=== PATIENT | male | born 1940 | race Caucasian/White ===

== ENCOUNTER 2023-12-27 16:50 | Inpatient (IN) | payer OTHER, SELFPAY ==
[2023-12-27] VITALS (9 sets, daily range): BP systolic 107–173; BP diastolic 65–92; BMI 38.9
[2023-12-27 14:36] LABS: % Basophils 0.4 % (0-2); % Eosinophils 4.5 % (0-6); % Immature Granulocytes 0.7 % (0-0.5); % Lymphocytes 18.2 % (20.5-51.1); % Monocytes 10.3 % (1.7-9.3); % Neutrophils 65.9 % (42.2-75.2); Absolute Eosinophils 0.2 10^3/uL (0-0.7); Absolute Lymphocytes 0.8 10^3/uL (1.2-3.4); Absolute Monocytes 0.5 10^3/uL (0.1-0.6); Absolute Neutrophils 2.9 10^3/uL (1.4-6.5); Hemoglobin 9.9 g/dL (13.0-18.0); Mean Corpuscular Hgb 33.7 pg (27.0-31.0); Nucleated Red Blood Cells % 0 % (-); Red Blood Cell Count 2.94 10^6/uL (4.70-6.10); Red Cell Dist. Width 15.1 % (11.5-14.5); White Blood Cell Count 4.5 10^3/uL (4.8-10.8)
[2023-12-27 14:48] LABS: ALT (SGPT) 11 U/L (0-50); AST (SGOT) 22 U/L (17-59); Albumin 3.7 g/dl (3.5-5.0); Alkaline Phosphatase 86 U/L (38-126); Blood Urea Nitrogen 33 mg/dl (9-20); Carbon Dioxide 30 mmol/L (22-30); Chloride 99 mmol/L (98-107); Glucose 166 mg/dl (70-99); Potassium 4.4 mmol/L (3.5-5.1); Sodium 134 mmol/L (135-145); Total Bilirubin 0.7 mg/dl (0.2-1.3); Total Protein 8.1 g/dl (6.3-8.2)
[2023-12-27 15:03] LABS: Troponin I 0.062 ng/ml
[2023-12-27 15:15] LABS: Mean Platelet Volume 9.6 fL (7.4-10.4); Platelet Count 91 10^3/uL (130-400)
[2023-12-27 15:25] LABS: NT-proBNP 7170 pg/ml
--- NOTE | 2023-12-27 15:35 | ED.GENMED ---
History of Present Illness
General
Chief Complaint: Breathing Problem
Source: patient and spouse
Exam Limitations: none
Time Seen by Provider: 12/27/23 14:51
Nursing documentation reviewed up to this point in time: agreed with
Travel History
Have you had any contact with someone who has COVID-19?: No
Do you have any symptoms of coronavirus? Fever > 100 degrees, chills, cough, shortness of breath, sore throat, loss of taste or smell, muscle aches, or headache?: No
History of Present Illness
History of Present Illness:
83-year-old male with [place] history of CHF hypertension hyperlipidemia, previous stroke, multiple myeloma presenting to the emergency department today with concerns of shortness of breath starting this morning otherwise felt okay last night.
Denies specific chest pain palpitations. Does not use oxygen at home but requiring oxygen upon arrival here.
Past History
Past History
ED Past Medical History: CAD, CHF, CVA, HTN, Hypercholesterolemia, IDDM, ID and Other (Cellulitis)
ED Past Surgical History: Cardiac (Stent, Defibrillator), Cholecystectomy and Other (eye)
Social History
Tobacco: Smoker (cigars)
Alcohol: Occasional
Drug: None
Personal: (Lives with a woman)
Living: with family
Employment: Retired
Family History
Family History: Other (No significant)
Review of Systems
Review of Systems
Allergies reviewed?: Yes
All Other Systems: ROS reviewed and negative except as documented in HPI and ROS
Phy Exam
Physical Exam
Physical Exam:
GENERAL: Alert , in no apparent distress
EYE: pupils equal and reactive
NECK: Supple, no significant adenopathy.
ENT: o/p clr, mmm.
CARDIAC: Regular rate and rhythm .
LUNGS: Somewhat diffuse rhonchi no specific wheezing
ABDOMEN: Soft, without focal tenderness, no r/g, no cvat
NEUROLOGICAL: Alert and oriented, no focal neuro deficits
SKIN: Warm and dry, skin intact.
MUSCULOSKELETAL: No edema, well perfused.
PSYCH: Normal and appropriate interaction.
Scores
Heart Failure Risk
Heart Failure Risk Score: Not Applicable
Course
Orders/Labs/Results
Orders:
Orders
12/27/23 14:22
Electrocardiogram (*1) Urgent
Reason for Study: Shortness of Breath
12/27/23 14:23
EKG- Treatment ONCE
12/27/23 14:24
Complete Blood Count/With Diff Urgent
Comprehensive Metabolic Panel Urgent
NT-proBNP Urgent
Comment: ADD ON
Troponin I Urgent
12/27/23 14:52
Add On- LAB Urgent
Tests Added?: BNP
BNP [NT-proBNP] Urgent
Chest [CR Chest - 2 Views ] Urgent
Comment:
Reason For Exam: sob
12/27/23 15:04
Furosemide [Lasix] 80 mg IV NOW STA
Nitroglycerin Sublingual [Nitrostat (Sublingual)] 0.4 mg SL [id number] PRN
Abnormal Lab Results
12/27/23
14:24
WBC 4.5 L 10^3/uL
(4.8-10.8)
RBC 2.94 L 10^6/uL
(4.70-6.10)
Hgb 9.9 L g/dL
(13.0-18.0)
Hct 30.0 L %
(39.0-52.0)
MCV 102.0 H fL
(80.0-94.0)
MCH 33.7 H pg
(27.0-31.0)
RDW 15.1 H %
(11.5-14.5)
Plt Count 91 L 10^3/uL
(130-400)
Absolute Lymphs (auto) 0.8 L 10^3/uL
(1.2-3.4)
Immature Gran % 0.7 H %
(0-0.5)
Lymphocytes % 18.2 L %
(20.5-51.1)
Monocytes % 10.3 H %
(1.7-9.3)
Sodium 134 L mmol/L
(135-145)
BUN 33 H mg/dl
(9-20)
Creatinine 2.0 H mg/dL
(0.7-1.3)
Glucose 166 H mg/dl
(70-99)
Troponin I 0.062 H* ng/ml
12/27/23 14:24
12/27/23 14:24
Vital Signs
Initial and Last Documented VS:
Initial Vital Signs
Pulse BP
95 145/75
12/27/23 14:23 12/27/23 14:23
Last Documented Vital Signs
Temp Pulse Resp BP Pulse Ox
98.5 F 100 20 138/75 98
12/27/23 14:24 12/27/23 15:32 12/27/23 15:32 12/27/23 15:00 12/27/23 15:32
MDM/Problems Addressed
MDM/Problems Addressed:
83-year-old male presenting to the emergency department today with concerns of shortness of breath throughout the day today. Decreased exercise tolerance as well. Does have a history of CHF has not been taking his Lasix. On arrival pulse ox in
the 80s this improved with oxygen. Patient have rales and rhonchi on lung examination here concerning for pulmonary edema. Patient was given dose of IV Lasix as well as nitro. Chest x-ray showing some edema BNP elevated to 7000. Plan to admit
for further treatment. Otherwise EKG unchanged troponin mildly elevated however lower than patient's previous baseline. Chest x-ray showing edema patient was started on Lasix as well as nitro will be admitted for further treatment.
*Critical Care Note
Total Time (30-74mins, 75-104mins- exclusive of procedures): Not Applicable
ED Attending Note
-
Portions of this chart may have been created with voice recognition software.� Occasional wrong word or��sound alike� substitutions may have occurred due to the inherent limitations of voice recognition software.
Discharge Plan
Departure
Patient Disposition: Admit
Date of Disposition: 12/27/23
Time of Disposition: 15:47
Admit to: Telemetry
Admit to doctor: jorge
Presentation/result/management discussed w/ accepting MD/DO: Hospitalist
Patient with high blood pressure during this ER visit?: No
Condition: Good
Covid-19: Not Applicable
Discharge Problem:
CHF exacerbation
Prescriptions:
No Action
calcium carbonate 600 MG tablet
1,200 mg PO DAILY
docosahexaenoic acid-epa 1 CAP capsule
3 cap PO QPM
aspirin 81 MG tablet,delayed release (DR/EC)
81 mg PO BID
venlafaxine [Effexor] 75 MG tablet
75 mg PO BID
allopurinol 100 MG tablet
50 mg PO DAILY
ezetimibe 10 MG tablet
10 mg PO QPM
cholecalciferol (vitamin D3) 2,000 UNITS tablet
50 mcg PO DAILY
rosuvastatin [Crestor] 40 MG tablet
40 mg PO QPM
tamsulosin 0.4 MG capsule
0.4 mg PO QPM
sennosides [Senokot] 8.6 mg Tablet
8.6 mg PO HS
docusate sodium [Colace] 100 mg Capsule
100 mg PO DAILY
carvedilol [Coreg] 6.25 mg tablet
6.25 mg PO BID Qty: 60 11RF
Rx Instructions:
Increase Coreg (carvedilol) to 6.25 mg (two 3.125 mg tablets) twice a day
furosemide 80 MG tablet
40 mg PO HS Qty: 30 11RF
Rx Instructions:
Take Lasix 80 mg (one 80 mg tablet) at 8 AM and 40 mg (1/2 of an 80 mg tablet) at 4 PM daily
furosemide 80 MG tablet
80 mg PO DAILY Qty: 30 11RF
Rx Instructions:
Take Lasix 80 mg (one 80 mg tablet) at 8 AM and 40 mg (1/2 of an 80 mg tablet) at 4 PM daily
Referrals:
Michelle Rogers PA-C [Family Provider] -
Interventions
Interventions:
*Risk Screen - Suicide Last Done: 12/27/23 14:24
*General Assessment Last Done: 12/27/23 14:24
*Neglect/Abuse Screening Last Done: 12/27/23 14:24
*ED COVID-19 Vaccine History Last Done: 12/27/23 14:24
ED- Cardiac Assessment Last Done: 12/27/23 14:30
ED- Pulmonary Assessment Last Done: 12/27/23 14:30
[2023-12-27] MEDS: NITROSTAT (SUBLINGUAL) 0.400000000000000022 MG SL (15:51)
[2023-12-27] MEDS: LASIX 80 MG IV (15:51)
--- NOTE | 2023-12-27 16:41 | HPS.HSE ---
Family Physician
-
Family Physician: Michelle Rogers
Chief Complaint
-
Shortness of breath on exertion
History of Present Illness
83-year-old male with a history of heart failure here complaining of shortness of breath on exertion. Accompanied by his . Patient noted onset of shortness of breath this morning. Denies any chest pain or pressure.
admits that patient does not like taking his furosemide daily. He also continues to smoke cigars.
Medical History
Past Medical History
Past Medical History: Reports Other
Additional Past Medical History:
Chronic heart failure reduced EF
CKD stage IV
Essential hypertension
History of multiple strokes
Multiple myeloma
Basal cell cancer
CAD
DM2
GERD
Essential tremor
BPH
Gout
Glaucoma
Morbid obesity
Past Surgical History: Reports Other
Additional Past Surgical History:
BiV�ICD placement
Cholecystectomy
Left renal tumor resection
Social History
Tobacco: Smoker
Alcohol: Occasional
Drug: None
Personal:
Living: With Family
Family History
Family History: Not pertinent
Allergies / Home Medications
Allergies reflects when Allergies were last updated in [facility].
Home Medications with original date entered in [facility]
Allergy/Medication List:
Allergies
Allergy/AdvReac Type Severity Reaction Status Date / Time
No Known Allergies Allergy Unverified 09/15/23 16:01
Home Medications
calcium carbonate 600 mg calcium (1,500 mg) tablet 600 mg PO DAILY Supplement 05/12/16
aspirin 81 mg tablet,delayed release 81 mg PO BID Blood clot prevention/tx 05/15/18
allopurinol 100 mg tablet 50 mg PO DAILY Gout 10/11/21
ezetimibe 10 mg tablet 10 mg PO HS High cholesterol 10/11/21
rosuvastatin 40 mg tablet (Crestor) 40 mg PO HS High cholesterol 10/11/21
tamsulosin 0.4 mg capsule 0.4 mg PO HS Urinary issue 11/30/21
docusate sodium 100 mg capsule (Colace) 100 mg PO HS Constipation 07/31/22
sennosides 8.6 mg tablet (Senokot) 8.6 mg PO HS Constipation 07/31/22
carvedilol 6.25 mg tablet (Coreg) 6.25 mg PO BID heart disease/condition #60 tabs 08/02/22
Fish Oil 3 cap PO HS 12/27/23
cholecalciferol (vitamin D3) 50 mcg (2,000 unit) tablet 50 mcg PO DAILY 12/27/23
furosemide 80 mg tablet 40 mg PO DAILY Fluid retention/Swelling 12/27/23
venlafaxine 75 mg tablet 75 mg PO BID 12/27/23
Review of Systems
-
History Source: Patient and Family
A 12 point ROS was completed and negative except as noted: Yes
Respiratory: Reports Trouble Breathing
Physical Exam
Vital Signs
Vital Signs
Temp Pulse Resp BP Pulse Ox
98.5 F 83 17 155/71 99
12/27/23 14:24 12/27/23 15:51 12/27/23 15:45 12/27/23 15:51 12/27/23 15:50
Physical Exam
General: Well Developed, Well Nourished, No Apparent Distress and Comfortable
HEENT: NormoCephalic, Anicteric and Moist mucous membranes
Respiratory: Rhonchi
Cardiac: S1/S2 and Regular Rhythm
GI: Soft, Non Tender and Non Distended
Genito-urinary: Deferred by me
Musculoskeletal: No Clubbing, No Cyanosis, Edema, Left Lower Extremity and Edema, Right Lower Extremity
Skin: Warm and Dry
Neuro: Awake, Alert and Oriented
Hematologic/Lymphatic: No Lymphadenopathy
Psych: Calm
Laboratory Results
-
12/27/23 14:24
12/27/23 14:24
Laboratory Results
Total Bilirubin 0.7 mg/dl (0.2-1.3) 12/27/23 14:24
AST 22 U/L (17-59) 12/27/23 14:24
ALT 11 U/L (0-50) 12/27/23 14:24
Alkaline Phosphatase 86 U/L (38-126) 12/27/23 14:24
Troponin I 0.062 ng/ml H* 12/27/23 14:24
Impression/Plan
-
Acute hypoxic respiratory insufficiency -due to acute pulmonary edema due to acute on chronic heart failure exacerbation. Presentation with pulse ox of 87% on room air, improved on 2 L.
Acute on chronic heart failure with reduced EF exacerbation -admit to telemetry. BNP noted to be 7170. Chest x-ray with mild pulmonary edema, small bilateral pleural effusions. Consult cardiology. Continue IV Lasix. Patient's admits that
he has not been compliant with Lasix at home.
Last echo was from 11/08/2023, LVEF 30%.
Hyponatremia -sodium 134. Monitor on diuresis.
Troponin elevation -likely non-ND troponin elevation related to acute heart failure exacerbation. Will trend.
CKD stage IV -creatinine at baseline. Follow closely on diuresis.
Chronic pancytopenia -unclear etiology. Counts appear to be at baseline. Follow-up with hematology after discharge.
Essential hypertension -stable.
History of strokes
CAD -with history of ND, stents.
DM2 without hyperglycemia -appears to be diet controlled. Check hemoglobin A1c.
Multiple myeloma
History of left renal tumor resection -required dialysis for 3 months according to .
Tobacco dependence -regular cigar smoker. Counseled on need for abstinence.
Morbid obesity due to excess calories
Ambulatory dysfunction -consult PT/OT. Suspect he is noncompliant with his walker at home.
Full code
Updated at the bedside.
--- NOTE | 2023-12-27 17:05 | CON.CAR ---
Consultation
Consultation Request
Date/Time Consultation Requested: 12/27/2023
Date/Time Consultation Performed: 12/27/2023
Requesting Provider: Estuardo Marin
Performing Provider: Adore Banuelos
Reason for Consultation: SOB
Medical History
-
Chief Complaint: SOB
History of Present Illness:
Mr Gill is a medically complex 83-year-old gentleman with dilated ischemic cardiomyopathy/restrictive physiology with recent ejection fraction by SPECT imaging in September 2022 of 22% and 30% by echocardiogram from October 2023, improved from
prior echocardiogram of 10 to 15%, Medtronic BiV ICD placed in 2021, prior VF status post shock in the setting of COVID in July 2022, left bundle branch block, prior stroke in 2000 with left hemiparesis and neglect and now just a left field
cut, diabetes mellitus type 2, hypertension, dyslipidemia, mild aortic stenosis with mildly enlarged aortic root, chronic kidney disease previously on dialysis, baseline creatinine of 2.3-2.7, secondary hyperparathyroidism, renal mass presumed to be
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
associated with orthopnea and mild lower extremity edema found to be in acute decompensated heart failure. Reports non compliance with lasix. No CP/palpitations/syncope.
Recent Lexiscan stress test September 2022 noting scar from prior infarct but no significant evidence to suggest ischemia. He was last seen in the outpatient setting in April 2023 and since 2021, he had no interval hosptializations and weight had been
stable. Weight during this office visit was 251 pounds (113.8 kg)
Past Medical History
Past Medical History: CAD, CHF, CVA, HTN, Hypercholesterolemia, IDDM, DE, Renal Failure and Valvular Disease
Past Surgical History: Other (Prior coronary stents, cholecystectomy in 2015, BiV ICD implantation in 2001)
Social History
Tobacco: Non-Smoker
Alcohol: None
Drug: None
Personal:
Living: With Family
Employment: Retired
Family History
Family History: Reviewed & Not Pertinent
Allergies / Home Medications
Allergy/AdvReac Type Severity Reaction Status Date / Time
No Known Allergies Allergy Unverified 09/15/23 16:01
Medication Instructions Recorded Confirmed Type
calcium carbonate 600 mg calcium 600 mg PO DAILY Supplement 05/12/16 12/27/23 History
(1,500 mg) tablet
aspirin 81 mg tablet,delayed 81 mg PO BID Blood clot 05/15/18 12/27/23 History
release prevention/tx
allopurinol 100 mg tablet 50 mg PO DAILY Gout 10/11/21 12/27/23 History
ezetimibe 10 mg tablet 10 mg PO HS High cholesterol 10/11/21 12/27/23 History
rosuvastatin 40 mg tablet (Crestor) 40 mg PO HS High cholesterol 10/11/21 12/27/23 History
tamsulosin 0.4 mg capsule 0.4 mg PO HS Urinary issue 11/30/21 12/27/23 History
docusate sodium 100 mg capsule 100 mg PO HS Constipation 07/31/22 12/27/23 History
(Colace)
sennosides 8.6 mg tablet (Senokot) 8.6 mg PO HS Constipation 07/31/22 12/27/23 History
carvedilol 6.25 mg tablet (Coreg) 6.25 mg PO BID heart 08/02/22 12/27/23 Rx
disease/condition #60 tabs
Fish Oil 3 cap PO HS 12/27/23 12/27/23 History
cholecalciferol (vitamin D3) 50 50 mcg PO DAILY 12/27/23 12/27/23 History
mcg (2,000 unit) tablet
furosemide 80 mg tablet 40 mg PO DAILY Fluid 12/27/23 12/27/23 History
retention/Swelling
venlafaxine 75 mg tablet 75 mg PO BID 12/27/23 12/27/23 History
Review of Systems
-
All other systems: Negative unless noted
Physical Exam
Vital Signs
Temp Pulse Resp BP Pulse Ox
98.5 F 81 17 115/65 98
12/27/23 14:24 12/27/23 16:15 12/27/23 15:45 12/27/23 16:00 12/27/23 16:30
Lab Results
12/27/23 14:24
12/27/23 14:24
Troponin I 0.062 ng/ml H* 12/27/23 14:24
Hyt-V-[id number] Pept Cancelled 12/27/23 14:52
Physical Exam
General: No Apparent Distress and Other (Morbidly obese)
HEENT: Moist Mucous Membranes
Respiratory: Crackles
Cardiac: S1/S2, Irregular Rhythm, Peripheral Edema, JVD and HJR
Breast: Deferred by me
GI: Soft, Non Tender, Non Distended, Normal Bowel Sounds and Other (active bowel sounds)
Musculoskeletal: No Clubbing, No Cyanosis and Edema
Skin: Warm and Dry
Neuro: AO x 3 and Nonfocal/Grossly Intact
Psych: Calm
Impression / Plan
-
Primary Dry Mixer: Dr. Clark
PCP: Michelle Rogers
Impression:
Presented 12/27/2023 with decompensated HF
Troponin elevation, mild. No CP
Acute on Chronic HFrEF
Ischemic cardiomyopathy, lowest EF 10 to 15% by echo 01/2021--> improved to 30% on echo 2022
s/p Medtronic BiVICD 12/07/21
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
Known left bundle branch block
Prior stroke and TIA with residual left field cut
Diabetes
Hypertension
Dyslipidemia
Mild aortic stenosis
Mildly enlarged aortic root
CKD 4, previously on HD
Secondary hyperparathyroidism
Morbid obesity
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
MM
History of gout
PHILIPPE, untreated
Non-adherance to medications
Echo 11/08/2023: Dilated cardiomyopathy, LVEF of 30%, right-sided ICD, dilated left atrium, mild to moderate aortic stenosis, peak and mean transaortic gradients of 15/8 mmHg, DVI of 0.4. No pericardial effusion.
Echo 10/12/2021: EF 10%, global hypokinesis LV severely dilated, mild LVH, stage III DD, mild MR, trace TR/AI, PAP 15 to 20 mmHg.� Possible left ventricular apical thrombus.� Echo repeated with Definity 10/13/2021 which demonstrated no LV thrombus
with Definity
Echo 01/2021: EF 10 to 15%, global hypokinesis with akinesis of inferior wall, septum, and apex.� Stage III diastolic dysfunction, mitral annular calcification, mild MR, aortic sclerosis, mildly dilated aortic root
Lexiscan Stress Test: 09/14/22: Fixed inferior and inferior-septal defect consistent with infarction, severely decreased systolic function with estimated LVEF of 22% with severe global hypokinesis and dilated left ventricle, intermediate risk stress
test, 4 beat NSVT during study
Cardiac cath 10/24/2015:�LAD:stent in the proximal LAD is widely patent.� The second diagonal comes off the middle of the stent and is jailed by the stent and has a 90% ostial stenosis.� There is a 40% mid LAD stenosis. Circumflex: Luminal
irregularities RCA: 100% chronic total occlusion of the proximal RCA.
Plan:
-Continue with aggressive IV diuresis (Lasix 80mg IV BID) with close monitoring of renal function, strict ins and outs, daily upright weights and repletion of electrolytes as needed. Monitor on telemetry.
-Device interrogation tomorrow.
-Trend troponins and ECGs.
-Goal-directed medical therapy for underlying ischemic cardiomyopathy. So medications as noted are precluded given his underlying renal dysfunction.
-Known CAD with LAD stent in 2012 and chronic total occlusion noted on cardiac catheterization in 2014.� Continue medical management with beta-penny, aspirin, Crestor, Zetia.
HPI: Mr Gill is a medically complex 83-year-old gentleman with dilated ischemic cardiomyopathy/restrictive physiology with recent ejection fraction by SPECT imaging in September 2022 of 22% and 30% by echocardiogram from October 2023, improved
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
field cut, diabetes mellitus type 2, hypertension, dyslipidemia, mild aortic stenosis with mildly enlarged aortic root, chronic kidney disease previously on dialysis, baseline creatinine of 2.3-2.7, secondary hyperparathyroidism, renal mass presumed
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
associated with orthopnea and mild lower extremity edema found to be in acute decompensated heart failure. Reports non compliance with lasix. No CP/palpitations/syncope. Recent Lexiscan stress test September 2022 noting scar from prior infarct but
no significant evidence to suggest ischemia. He was last seen in the outpatient setting in April 2023 and since 2021, he had no interval hosptializations and weight had been stable. Weight during this office visit was 251 pounds (113.8 kg)
Data Reviewed
-
EKG: Tracing Personally Visualized and interpreted
Radiology: Image Personally Visualized and interpreted
Medical Tests (Nuc Med, Echo etc): Image Personally Visualized and interpreted
Labs: Labs Reviewed by me
Old Records: Reviewed
Total Time Spent with Patient (in minutes): 75
[2023-12-27 18:16] LABS: Glucose - Point of Care 154 mg/dl (70-99)
--- NOTE | 2023-12-27 18:47 | PTCARENOTE ---
Received pt from ER via stretcher, accompanied by ER staff. Pt AAO x3, very [place]; forgetful. Transferred to bed with assist x2;pt weak/unsteady; fall prec initiated. VSS. PLaced on telemetry:[id number] rhythm. On nc 2 lpm- pulse ox 100%, pt denies
SOB; has (+) NAQVI/tachypnea. Abd obese, soft, to start 1800 filemon diet. Pt DTV; urinal/BSC at bedside. Afebrile; very dry skn; MASD/dusky skin in groin/jonas area. Oriented to 4East, currently resting quietly. Will continue to monitor.
[2023-12-27] MEDS: COREG 6.25 MG PO (20:29)
[2023-12-27] MEDS: DESENEX/MITRAZOL/ZEASORB 1 APPLIC TOPICAL (20:29)
[2023-12-27] MEDS: ASPIR LOW (ENTERIC COATED) 81 MG PO (20:29)
[2023-12-27] MEDS: EFFEXOR 75 MG PO (20:29)
[2023-12-27] MEDS: HEPARIN 5000 UNITS SC (20:30)
[2023-12-27] MEDS: FLOMAX 0.400000000000000022 MG PO (20:32)
[2023-12-27] MEDS: CRESTOR 40 MG PO (20:32)
[2023-12-27] MEDS: ZETIA 10 MG PO (20:32)
[2023-12-27] MEDS: SENOKOT PO (20:46)
[2023-12-27] MEDS: COLACE PO (20:48)
[2023-12-27 20:56] LABS: Troponin I 0.079 ng/ml
[2023-12-27 21:46] LABS: Glucose - Point of Care 154 mg/dl (70-99)
--- NOTE | 2023-12-27 23:51 | W.PN.UPDATE ---
Update Note
Progress Note Update
Patient with frequency, voiding small amount, bladder scan 674 cc, will straight cath, UA ordered. no blood in urine.
[2023-12-28] VITALS (8 sets, daily range): BP systolic 100–138; BP diastolic 50–73; PULSE 59–75; O2SAT 99–100; BMI 37.2
[2023-12-28 00:55] LABS: Urine Albumin Negative (Neg - Trace); Urine Bilirubin Negative (Negative); Urine Character Clear (Clear); Urine Color Straw; Urine Glucose Negative (Negative); Urine Ketone Negative (Negative); Urine Leukocyte Negative (Negative); Urine Nitrite Negative (Negative); Urine Occult Blood Negative (Negative); Urine Urobilinogen Negative (Neg - 1+)
[2023-12-28 01:53] LABS: % Basophils 0.4 % (0-2); % Eosinophils 3.9 % (0-6); % Immature Granulocytes 0.6 % (0-0.5); % Lymphocytes 25.6 % (20.5-51.1); % Monocytes 12.9 % (1.7-9.3); % Neutrophils 56.6 % (42.2-75.2); Absolute Eosinophils 0.2 10^3/uL (0-0.7); Absolute Lymphocytes 1.2 10^3/uL (1.2-3.4); Absolute Monocytes 0.6 10^3/uL (0.1-0.6); Absolute Neutrophils 2.6 10^3/uL (1.4-6.5); Hematocrit 26.8 % (39.0-52.0); Mean Corp Hgb Conc. 33.6 g/dL (33.0-37.0); Mean Corpuscular Hgb 32.7 pg (27.0-31.0); Mean Corpuscular Volume 97.5 fL (80.0-94.0); Nucleated Red Blood Cells % 0 % (-); Platelet Count 102 10^3/uL (130-400); Red Blood Cell Count 2.75 10^6/uL (4.70-6.10); Red Cell Dist. Width 15.1 % (11.5-14.5); White Blood Cell Count 4.6 10^3/uL (4.8-10.8)
[2023-12-28 02:13] LABS: Blood Urea Nitrogen 39 mg/dl (9-20); Calcium 9.6 mg/dl (8.4-10.2); Carbon Dioxide 31 mmol/L (22-30); Chloride 98 mmol/L (98-107); Estimated Creatinine Clearance 29 ml/min; Glucose 131 mg/dl (70-99); Potassium 4.4 mmol/L (3.5-5.1); Sodium 135 mmol/L (135-145); eGFR 28.63
[2023-12-28 02:20] LABS: Troponin I 0.096 ng/ml
--- NOTE | 2023-12-28 07:12 | PTCARENOTE ---
Pt aaox2-3,forgetful at times. Denies pain. Pt very anxious & agiated at times when reminded about safety measures. Pt on fall precautions. Pt unsteady with ambulation oob with two person assist to BSC. Pt noted with voiding in small amounts &
frequency with urination. Pt was bladder scanned noted for 674ml & R DEVELOPER newsperson was made aware. Straight catheterized for 660ml & Urine specimen was send. R DEVELOPER newsperson made aware of all pt troponin level.Pt asymptomatic denies of any chest pain. EKG
done as ordered.Plan of care continued.
[2023-12-28 07:17] LABS: Troponin I 0.099 ng/ml
[2023-12-28 07:32] LABS: Glucose - Point of Care 139 mg/dl (70-99)
--- NOTE | 2023-12-28 08:18 | W.PN.HOSP.TC ---
Today's Communication/Plan
-
Continue diuresis
PT/OT
Hemoglobin A1c
Assessment / Plan
Assessment / Plan
Gen-AAOx3, NAD, obese
HEENT-NC, AT, anicteric, clear oral mm
Neck-supple
CV-reg, no M, +S1/S2
Lungs-clear B/L
Abd-soft, NT, ND
Ext-no edema
Musculoskeletal-no cyanosis, clubbing
Skin-warm and dry
Neuro-grossly non-focal
Psych-calm, cooperative
Acute hypoxic respiratory insufficiency -due to acute pulmonary edema due to acute on chronic heart failure exacerbation.� Presentation with pulse ox of 87% on room air, improved on 2 L.
Acute on chronic heart failure with reduced EF exacerbation - BNP noted to be 7170.� Chest x-ray with mild pulmonary edema, small bilateral pleural effusions.� Cardiology consulted. Continue IV Lasix.� Patient's admits that he has not been
compliant with Lasix at home.
Last echo was from 11/08/2023, LVEF 30%. Weight coming down, 5 kg so far.
Hyponatremia -sodium stable, 135.
Troponin elevation -likely non-MD troponin elevation related to acute heart failure exacerbation.�
CKD stage IV -creatinine at baseline.� Follow closely on diuresis. Creatinine 2.2 today.
Chronic pancytopenia -unclear etiology.� Counts appear to be at baseline.� Follow-up with hematology after discharge.
Essential hypertension -stable.
History of strokes
CAD -with history of MD, stents.
DM2 without hyperglycemia -appears to be diet controlled.� Check hemoglobin A1c. Glucose 131 this morning.
Multiple myeloma
History of left renal tumor resection -required dialysis for 3 months according to .
Tobacco dependence -regular cigar smoker.� Counseled on need for abstinence.
Morbid obesity due to excess calories
Ambulatory dysfunction -consult PT/OT.� Suspect he is noncompliant with his walker at home.
Full code
Anticipated Discharge: > 48 hours
Subjective/Interval History
-
Date of Service: December 28, 2023
Patient seen and examined. Eating breakfast. Denies shortness of breath.
Objective Data
-
Labs:
Laboratory Results
12/28/23
01:43
WBC 4.6 L
Hgb 9.0 L
Hct 26.8 L
Plt Count 102 L
Sodium 135
Potassium 4.4
Chloride 98
Carbon Dioxide 31 H
BUN 39 H
Creatinine 2.2 H
Glucose 131 H
Calcium 9.6
Vital Signs:
Vital Signs
Temp Pulse Resp BP Pulse Ox
98.4 F 74 22 120/59 94
12/28/23 03:17 12/28/23 03:17 12/28/23 03:17 12/28/23 03:17 12/28/23 03:17
I&O
12/27/23 12/28/23 12/29/23
06:59 06:59 06:59
Intake Total 240 / 240
Output Total 1280 / 1280
Balance -1040 / -1040
Review of Systems
-
History Source: Patient
All other systems: Reviewed and negative
--- NOTE | 2023-12-28 08:50 | W.PN.CARDCBS ---
Addendum entered and electronically signed by Halie Clark DO 12/28/23 11:09:
I saw and examined the patient.
The School Administrator's note was reviewed and I agree with the note.
Comment: Seen and examined. Patient reports improved shortness of breath laying supine. Denies chest pain or pressure. Anxious to return home. Nursing reports the patient is unsteady on his feet and requires assistance. PT to evaluate today.
GEN: NAD, lying supine
HEENT: mmm
LUNGS: Bronchovesicular breath sounds decreased at the bases with fine crackles. No wheezes
CV: Irreg, S1/S2, no murmur + device
ABD: soft, BS+, NT/ND
EXT: +1 edema b/l LE
Plan:
Presented with SOB and found to be in acute heart failure with reduced EF due to noncompliance
-Continue diuresis with IV lasix 80mg BID.
-Weight down 11lbs overnight, down to 237lbs on 12/28.
-Creat stable at 2.2. Follow daily weights, I&Os.
-Echo 10/2023 with EF improved to 30%. No need to repeat at this time.
-Troponin elevation noted. Suspect nonMI troponin elevation in the setting of acute heart failure exacerbation.
-Continue medical therapy with coreg. Renal insufficiency limits addition of UMAIR/ARB/ARNi/Spironolactone.
-Could consider hydralazine/nitrates, however BP has been borderline hypotensive.
-Known CAD with LAD stent in 2012 and chronic total occlusion noted on cardiac catheterization in 2014.� Continue medical management with beta-penny, aspirin, Crestor, Zetia.
-Given renal insufficiency will change Crestor to atorvastatin
-Will interrogate ICD today.
-On 2L NC, wean as able.
-PT evaluation today
-Discharge planning
-Patient is DNR/DNI
Original Note:
Today's Communication / Plan
-
Continue IV lasix
Continue coreg
Follow daily weights, I&Os, creat
Wean O2 as able
Impression / Plan
-
Primary Engagement Specialist: Dr. Clark
PCP: Michelle Rogers
Impression:
Presented with SOB
Acute on Chronic HFrEF
Ischemic cardiomyopathy, lowest EF 10 to 15% by echo 01/2021--> improved to 30% on echo 2022
NonMI troponin elevation
s/p Medtronic BiVICD 12/07/21
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
LBBB
h/o CVA/TIA with residual left field cut
Diabetes
Hypertension
Dyslipidemia
Mild aortic stenosis
Mildly enlarged aortic root
CKD 4, previously on HD
Secondary hyperparathyroidism
Morbid obesity
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
Multiple myeloma
History of gout
PHILIPPE, untreated
Non-adherence to medications
Lexiscan Stress Test: 09/14/22: Fixed inferior and inferior-septal defect consistent with infarction, severely decreased systolic function with estimated LVEF of 22% with severe global hypokinesis and dilated left ventricle, intermediate risk stress
test, 4 beat NSVT during study
Cardiac cath 10/24/2015:�LAD:stent in the proximal LAD is widely patent.� The second diagonal comes off the middle of the stent and is jailed by the stent and has a 90% ostial stenosis.� There is a 40% mid LAD stenosis. Circumflex: Luminal
irregularities RCA: 100% chronic total occlusion of the proximal RCA.
Echo 01/2021: EF 10 to 15%, global hypokinesis with akinesis of inferior wall, septum, and apex.� Stage III diastolic dysfunction, mitral annular calcification, mild MR, aortic sclerosis, mildly dilated aortic root
Echo 10/12/2021: EF 10%, global hypokinesis LV severely dilated, mild LVH, stage III DD, mild MR, trace TR/AI, PAP 15 to 20 mmHg.� Possible left ventricular apical thrombus.� Echo repeated with Definity 10/13/2021 which demonstrated no LV thrombus
with Definity
Echo 11/08/2023: Dilated cardiomyopathy, LVEF of 30%, right-sided ICD, dilated left atrium, mild to moderate aortic stenosis, peak and mean transaortic gradients of 15/8 mmHg, DVI of 0.4. No pericardial effusion.
Plan:
-Presented with SOB and found to be in acute heart failure.
-Continue diuresis with IV lasix 80mg BID. Weight down 11lbs overnight, down to 237lbs on 12/28.
-Creat stable at 2.2. Follow daily weights, I&Os.
-Echo 10/2023 with EF improved to 30%. No need to repeat at this time.
-Troponin elevation noted. Suspect nonMI troponin elevation in the setting of acute heart failure exacerbation.
-Continue medical therapy with coreg. Renal insufficiency limits addition of UMAIR/ARB/ARNi/Spironolactone.
-Could consider hydralazine/nitrates, however BP has been borderline hypotensive.
-Known CAD with LAD stent in 2012 and chronic total occlusion noted on cardiac catheterization in 2014.� Continue medical management with beta-penny, aspirin, Crestor, Zetia.
-Will interrogate ICD today.
-On 2L NC, wean as able.
HPI: Mr Gill is a medically complex 83-year-old gentleman with dilated ischemic cardiomyopathy/restrictive physiology with recent ejection fraction by SPECT imaging in September 2022 of 22% and 30% by echocardiogram from October 2023, improved
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
field cut, diabetes mellitus type 2, hypertension, dyslipidemia, mild aortic stenosis with mildly enlarged aortic root, chronic kidney disease previously on dialysis, baseline creatinine of 2.3-2.7, secondary hyperparathyroidism, renal mass presumed
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
associated with orthopnea and mild lower extremity edema found to be in acute decompensated heart failure. Reports non compliance with lasix. No CP/palpitations/syncope. Recent Lexiscan stress test September 2022 noting scar from prior infarct but
no significant evidence to suggest ischemia. He was last seen in the outpatient setting in April 2023 and since 2021, he had no interval hosptializations and weight had been stable. Weight during this office visit was 251 pounds (113.8 kg)
Progress Note - Engagement Specialist
Subjective
Date of Service: December 28, 2023
Breathing improving, still with edema.
Objective
Labs:
12/28/23 01:43
12/28/23 01:43
Labs
Hgb 9.0 g/dL (13.0-18.0) L 12/28/23 01:43
Hct 26.8 % (39.0-52.0) L 12/28/23 01:43
Plt Count 102 10^3/uL (130-400) L 12/28/23 01:43
Sodium 135 mmol/L (135-145) 12/28/23 01:43
Potassium 4.4 mmol/L (3.5-5.1) 12/28/23 01:43
BUN 39 mg/dl (9-20) H 12/28/23 01:43
Creatinine 2.2 mg/dL (0.7-1.3) H 12/28/23 01:43
Glucose 131 mg/dl (70-99) H 12/28/23 01:43
Troponins
12/27/23 12/27/23 12/28/23
14:24 20:22 01:43
Troponin I 0.062 H* 0.079 H* D 0.096 H*
12/28/23
06:43
Troponin I 0.099 H*
Vital Signs and I&O:
Vital Signs
Temp Pulse Resp BP Pulse Ox
98.4 F 74 22 120/59 94
12/28/23 03:17 12/28/23 03:17 12/28/23 03:17 12/28/23 03:17 12/28/23 03:17
Vital Signs
Temp Pulse Resp BP Pulse Ox
98.4 F 74 22 120/59 94
12/28/23 03:17 12/28/23 03:17 12/28/23 03:17 12/28/23 03:17 12/28/23 03:17
Intake & Output
12/26/23 12/27/23 12/28/23 12/29/23
06:59 06:59 06:59 06:59
Intake Total 240 / 240
Output Total 1280 / 1280
Balance -1040 / -1040
Physical Exam
Physical Exam
GEN: No distress, awake, alert, oriented x3
HEENT: supple, anicteric, mmm
LUNGS: bibasilar crackles, no wheezes
CV: Irreg, S1/S2, no murmur
ABD: soft, BS+, NT/ND
EXT: No clubbing or cyanosis, +1 edema b/l LE
NEURO: Gross non-focal
SKIN: Warm, dry, no rash
[2023-12-28] MEDS: DESENEX/MITRAZOL/ZEASORB 1 APPLIC TOPICAL ×2 (09:21→20:26)
[2023-12-28] MEDS: ASPIR LOW (ENTERIC COATED) 81 MG PO ×2 (09:21→20:25)
[2023-12-28] MEDS: COREG 6.25 MG PO ×2 (09:22→20:25)
[2023-12-28] MEDS: EFFEXOR 75 MG PO ×2 (09:22→20:25)
[2023-12-28] MEDS: VITAMIN D3 (cholecalciferol) 50 MCG PO (09:22)
[2023-12-28] MEDS: OSCAL CAL 500 500 MG PO (09:22)
[2023-12-28] MEDS: ZYLOPRIM 50 MG PO (09:23)
[2023-12-28] MEDS: LASIX 40 MG IV ×2 (09:24→16:21)
[2023-12-28] MEDS: HEPARIN 5000 UNITS SC ×2 (09:24→20:26)
[2023-12-28 10:52] LABS: Glucose - Point of Care 174 mg/dl (70-99)
--- NOTE | 2023-12-28 11:05 | W.CARD.DEVCH ---
Cardiac Device Check
-
Device: Implanted Cardioverter-Defibrillator
Medical Liaison: [employer]
The patient's device was interrogated with assistance of the device pharmaceutical representative followed by a complete physician review. The device had normal function. Optivol shows volume overload, otherwise device check without abnormality.
[2023-12-28 12:42] LABS: Glucose - Point of Care 122 mg/dl (70-99)
[2023-12-28] MEDS: NOVOLOG FLEXPEN-LOW RESISTANCE SC ×2 (13:02→16:42)
--- NOTE | 2023-12-28 14:57 | CM ---
Patient seen bedside with , initial assessment completed. Patient resides with his and two cats in a single story home, three steps to enter. Patient has a walker and a commode at home. Per , patient does not use walker at home and only
uses walker when leaving the home. Patient reports working with [facility] in past, SNF in past over 10 years ago. Patient primary doctor Michelle Rogers, [facility] in [place]. CM discussed PT recommendation of home health, patient reports it is a
waste of his time and he does not want home health services. Patients reports she works three days a week and would feel better if patient accepted [facility] just to ensure he is doing okay. CM stepped out to give patient and time to discuss,
will follow for possible home health needs.
Plan; home with and possible [facility].
--- NOTE | 2023-12-28 15:50 | PTCARENOTE ---
Pt AAO x3, SKINNER; OOB to chair/BR with assist x1/walker; legs weak; pt ambulates slowly. VSS. Telemetry:SR with V-pacing; occ AVacing; PVC's. Currently on room air- pulseox 97%, pt with (+) NAQVI/tacypnea; denies SOB. Abd obese, soft, rosmery PO. Voids
on BSC/in BR; occ incont small amts. Pt bladder scanned for decreased UO; _'I feel like I have to go'; bladder scan showed 176 ml. Resting in bed at present. Will continue to monitor.
[2023-12-28] MEDS: FLUSH (NSS) 1 FLUSH IV (16:22)
[2023-12-28 16:37] LABS: Glucose - Point of Care 136 mg/dl (70-99)
[2023-12-28] MEDS: LIPITOR 80 MG PO (17:16)
[2023-12-28] MEDS: FLOMAX 0.400000000000000022 MG PO (20:25)
[2023-12-28] MEDS: COLACE PO (20:25)
[2023-12-28] MEDS: ZETIA 10 MG PO (20:25)
[2023-12-28] MEDS: SENOKOT PO (20:26)
[2023-12-28 21:09] LABS: Glucose - Point of Care 127 mg/dl (70-99)
[2023-12-29] VITALS (7 sets, daily range): BP systolic 115–141; BP diastolic 60–94; PULSE 63; O2SAT 93; BMI 36.9
[2023-12-29 08:02] LABS: Glucose - Point of Care 131 mg/dl (70-99)
[2023-12-29] MEDS: NOVOLOG FLEXPEN-LOW RESISTANCE SC ×2 (09:26→17:52)
[2023-12-29] MEDS: ASPIR LOW (ENTERIC COATED) 81 MG PO ×2 (09:27→20:07)
[2023-12-29] MEDS: EFFEXOR 75 MG PO ×2 (09:27→20:07)
[2023-12-29] MEDS: OSCAL CAL 500 500 MG PO (09:28)
[2023-12-29] MEDS: ZYLOPRIM 50 MG PO (09:28)
[2023-12-29] MEDS: VITAMIN D3 (cholecalciferol) 50 MCG PO (09:28)
[2023-12-29] MEDS: COREG 6.25 MG PO ×2 (09:29→20:06)
[2023-12-29] MEDS: HEPARIN 5000 UNITS SC ×2 (09:30→20:06)
[2023-12-29] MEDS: LASIX 40 MG IV (09:31)
[2023-12-29] MEDS: DESENEX/MITRAZOL/ZEASORB 1 APPLIC TOPICAL ×2 (09:34→19:59)
--- NOTE | 2023-12-29 09:42 | W.PN.CARDCBS ---
Addendum entered and electronically signed by Carlin Stewart MD 12/29/23 16:21:
I saw and examined the patient.
The Naturalization Examiner's note was reviewed and I agree with the note.
Comment:
GEN: No distress, awake, Ox3
HEENT: supple, anicteric, mmm
LUNGS: CTA, no wheezes/rales
CV: Reg, S1/S2, 1/6 syst LSB, no gallop
ABD: soft, BS+, NT/ND
EXT: No edema
NEURO: Gross non-focal
SKIN: No rash
plan: Creatinine up to 2.8. Hold Lasix. Repeat in AM.
Continue Coreg 6.25 mg p.o. twice daily.
No UMAIR/ARB/Entresto/Aldactone with elevated creatinine.
Blood pressure continues to be labile. Long-term could consider nitrates and hydralazine.
Continue medical therapy for CAD. Continue aspirin, Zetia, atorvastatin.
Original Note:
Today's Communication / Plan
-
Hold lasix with creat 2.8.
Follow creat
Follow up arranged
Impression / Plan
-
Primary Sales Representative [employer]: Dr. Clark
PCP: Michelle Rogers
Impression:
Presented with SOB
Acute on Chronic HFrEF
Ischemic cardiomyopathy, lowest EF 10 to 15% by echo 01/2021--> improved to 30% on echo 2022
NonMI troponin elevation
s/p Medtronic BiVICD 12/07/21
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
LBBB
h/o CVA/TIA with residual left field cut
Diabetes
Hypertension
Dyslipidemia
Mild aortic stenosis
Mildly enlarged aortic root
CKD 4, previously on HD
Secondary hyperparathyroidism
Morbid obesity
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
Multiple myeloma
History of gout
PHILIPPE, untreated
Non-adherence to medications
Lexiscan Stress Test: 09/14/22: Fixed inferior and inferior-septal defect consistent with infarction, severely decreased systolic function with estimated LVEF of 22% with severe global hypokinesis and dilated left ventricle, intermediate risk stress
test, 4 beat NSVT during study
Cardiac cath 10/24/2015:�LAD:stent in the proximal LAD is widely patent.� The second diagonal comes off the middle of the stent and is jailed by the stent and has a 90% ostial stenosis.� There is a 40% mid LAD stenosis. Circumflex: Luminal
irregularities RCA: 100% chronic total occlusion of the proximal RCA.
Echo 01/2021: EF 10 to 15%, global hypokinesis with akinesis of inferior wall, septum, and apex.� Stage III diastolic dysfunction, mitral annular calcification, mild MR, aortic sclerosis, mildly dilated aortic root
Echo 10/12/2021: EF 10%, global hypokinesis LV severely dilated, mild LVH, stage III DD, mild MR, trace TR/AI, PAP 15 to 20 mmHg.� Possible left ventricular apical thrombus.� Echo repeated with Definity 10/13/2021 which demonstrated no LV thrombus
with Definity
Echo 11/08/2023: Dilated cardiomyopathy, LVEF of 30%, right-sided ICD, dilated left atrium, mild to moderate aortic stenosis, peak and mean transaortic gradients of 15/8 mmHg, DVI of 0.4. No pericardial effusion.
Plan:
-Presented with SOB and found to be in acute heart failure.
-Diuresed with IV lasix. Weight down 13lbs this admission, down to 235lbs on 12/29. Respiratory status improved and back on room air.
-Creat bumped to 2.8. Hold lasix for now and follow renal function.
-Echo 10/2023 with EF improved to 30%. No need to repeat at this time.
-Troponin elevation noted. Suspect nonMI troponin elevation in the setting of acute heart failure exacerbation.
-Continue medical therapy with coreg. Renal insufficiency limits addition of UMAIR/ARB/ARNi/Spironolactone.
-Could consider hydralazine/nitrates, however BP has been labile this admission. Consider as OP.
-Known CAD with LAD stent in 2012 and chronic total occlusion noted on cardiac catheterization in 2014.� Continue medical management with beta-penny, aspirin, Zetia.
-Crestor switched to lipitor.
-ICD interrogated and showed evidence of volume overload without other abnormalities.
-Follow up has been arranged.
HPI: Mr Gill is a medically complex 83-year-old gentleman with dilated ischemic cardiomyopathy/restrictive physiology with recent ejection fraction by SPECT imaging in September 2022 of 22% and 30% by echocardiogram from October 2023, improved
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
field cut, diabetes mellitus type 2, hypertension, dyslipidemia, mild aortic stenosis with mildly enlarged aortic root, chronic kidney disease previously on dialysis, baseline creatinine of 2.3-2.7, secondary hyperparathyroidism, renal mass presumed
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
associated with orthopnea and mild lower extremity edema found to be in acute decompensated heart failure. Reports non compliance with lasix. No CP/palpitations/syncope. Recent Lexiscan stress test September 2022 noting scar from prior infarct but
no significant evidence to suggest ischemia. He was last seen in the outpatient setting in April 2023 and since 2021, he had no interval hosptializations and weight had been stable. Weight during this office visit was 251 pounds (113.8 kg)
Progress Note - Sales Representative [employer]
Subjective
Date of Service: December 29, 2023
Breathing significantly improved.
Objective
Labs:
Labs
Hgb 9.0 g/dL (13.0-18.0) L 12/28/23 01:43
Hct 26.8 % (39.0-52.0) L 12/28/23 01:43
Plt Count 102 10^3/uL (130-400) L 12/28/23 01:43
Sodium 135 mmol/L (135-145) 12/28/23 01:43
Potassium 4.4 mmol/L (3.5-5.1) 12/28/23 01:43
BUN 39 mg/dl (9-20) H 12/28/23 01:43
Creatinine 2.2 mg/dL (0.7-1.3) H 12/28/23 01:43
Glucose 131 mg/dl (70-99) H 12/28/23 01:43
Troponins
12/27/23 12/27/23 12/28/23
14: 20:22 01:43
Troponin I 0.062 H* 0.079 H* D 0.096 H*
12/28/23
06:43
Troponin I 0.099 H*
Vital Signs and I&O:
Vital Signs
Temp Pulse Resp BP Pulse Ox
97.7 F 84 16 141/82 92
12/29/23 07:30 12/29/23 07:30 12/29/23 07:30 12/29/23 07:30 12/29/23 07:30
Vital Signs
Temp Pulse Resp BP Pulse Ox
97.7 F 84 16 141/82 92
12/29/23 07:30 12/29/23 07:30 12/29/23 07:30 12/29/23 07:30 12/29/23 07:30
Intake & Output
12/27/23 12/28/23 12/29/23 12/30/23
06:59 06:59 06:59 06:59
Intake Total 240 / 240 1919
Output Total 1280 / 1280
Balance -1040 / -1040 1919
Physical Exam
Physical Exam
GEN: No distress, awake, alert, oriented x3
HEENT: supple, anicteric, mmm
LUNGS: CTA b/l, no wheezes/rales
CV: Irreg, S1/S2, no murmur
ABD: soft, BS+, NT/ND
EXT: No clubbing or cyanosis, trace edema b/l LE
NEURO: Gross non-focal
SKIN: Warm, dry, no rash
[2023-12-29 10:32] LABS: % Immature Granulocytes 0.8 % (0-0.5); % Lymphocytes 30.1 % (20.5-51.1); % Monocytes 8.9 % (1.7-9.3); % Neutrophils 54.2 % (42.2-75.2); Absolute Eosinophils 0.2 10^3/uL (0-0.7); Absolute Lymphocytes 1.2 10^3/uL (1.2-3.4); Absolute Monocytes 0.3 10^3/uL (0.1-0.6); Absolute Neutrophils 2.1 10^3/uL (1.4-6.5); Hematocrit 26.8 % (39.0-52.0); Mean Corp Hgb Conc. 33.6 g/dL (33.0-37.0); Mean Corpuscular Hgb 32.8 pg (27.0-31.0); Mean Corpuscular Volume 97.8 fL (80.0-94.0); Mean Platelet Volume 10.5 fL (7.4-10.4); Nucleated Red Blood Cells % 0 % (-); Platelet Count 115 10^3/uL (130-400); Red Blood Cell Count 2.74 10^6/uL (4.70-6.10); Red Cell Dist. Width 15.1 % (11.5-14.5); White Blood Cell Count 3.8 10^3/uL (4.8-10.8)
[2023-12-29 10:42] LABS: Blood Urea Nitrogen 47 mg/dl (9-20); Calcium 9.2 mg/dl (8.4-10.2); Carbon Dioxide 31 mmol/L (22-30); Chloride 97 mmol/L (98-107); Estimated Creatinine Clearance 22 ml/min; Glucose 207 mg/dl (70-99); Potassium 4.5 mmol/L (3.5-5.1); Sodium 129 mmol/L (135-145); eGFR 21.44
[2023-12-29 12:07] LABS: Glucose - Point of Care 176 mg/dl (70-99)
[2023-12-29 12:40] LABS: Glycohemoglobin (HgbA1c) 6.7 % (4.0-5.6)
[2023-12-29] MEDS: NOVOLOG FLEXPEN-LOW RESISTANCE 1 UNITS SC (13:44)
--- NOTE | 2023-12-29 14:22 | CM ---
Patient seen with , per , patient is still not agreeable to VN services. CM will continue to follow for discharge planning needs, will continue to offer VN.
Plan; home with , patient is not agreeable to VN at this time.
--- NOTE | 2023-12-29 15:37 | W.PN.HOSP.TC ---
Today's Communication/Plan
-
Hold diuretics.
Repeat creatinine in a.m.
Assessment / Plan
Assessment / Plan
Acute hypoxic respiratory insufficiency -due to acute pulmonary edema due to acute on chronic heart failure exacerbation.� Presentation with pulse ox of 87% on room air, improved on 2 L. Resolved. Now on room air
Acute on chronic heart failure with reduced EF exacerbation - BNP noted to be 7170.� Chest x-ray with mild pulmonary edema, small bilateral pleural effusions.� Patient's admits that he has not been compliant with Lasix at home.
Last echo was from 11/08/2023, LVEF 30%.
Significant weight loss noted. Improved breathing. Elevated creatinine noted suspect secondary to overdiuresis. Diuretics going to be on hold and follow creatinine in a.m.
Hyponatremia -sodium drop to 129 noted. Probably secondary to overdiuresis/volume depletion. Repeat in AM.
Troponin elevation -likely non-SC troponin elevation related to acute heart failure exacerbation.�
CKD stage IV -creatinine at baseline.� Follow closely on diuresis. Creatinine 2.2 today.
Chronic pancytopenia -unclear etiology.� Counts appear to be at baseline.� Follow-up with hematology after discharge.
Essential hypertension -stable.
History of strokes
CAD -with history of SC, stents.
DM2 without hyperglycemia -appears to be diet controlled.� Check hemoglobin A1c. Glucose 131 this morning.
Multiple myeloma
History of left renal tumor resection -required dialysis for 3 months according to .
Tobacco dependence -regular cigar smoker.� Counseled on need for abstinence.
Morbid obesity due to excess calories
Ambulatory dysfunction -consult PT/OT.� Suspect he is noncompliant with his walker at home.
Full code
Anticipated Discharge: 24 - 48 hours
Subjective/Interval History
-
Date of Service: December 29, 2023
Feels improved. No significant weight. Not short of breath today.
Denies dizziness.
Objective Data
-
Labs:
Laboratory Results
12/29/23
10:09
WBC 3.8 L
Hgb 9.0 L
Hct 26.8 L
Plt Count 115 L
Sodium 129 L
Potassium 4.5
Chloride 97 L
Carbon Dioxide 31 H
BUN 47 H
Creatinine 2.8 H
Glucose 207 H
Calcium 9.2
Vital Signs:
Vital Signs
Temp Pulse Resp BP Pulse Ox
97.4 F 69 16 139/94 97
12/29/23 15:32 12/29/23 15:32 12/29/23 15:32 12/29/23 15:32 12/29/23 15:32
I&O
12/28/23 12/29/23 12/30/23
06:59 06:59 06:59
Intake Total 240 / 240 1920 / 1920 740 / 740
Output Total 1280 / 1280
Balance -1040 / -1040 1919 / 1919 740 / 740
Review of Systems
-
Constitutional: Denies Fever
Cardiac: Denies Chest Pain
Abdomen/GI: Denies Nausea or Vomiting
Neuro: Denies Dizzy
Physical Exam
-
General: No Apparent Distress
HEENT: Moist Mucous Membranes
Respiratory: Clear to Auscultation
Cardiac: Regular Rhythm and S1/S2
GI: Soft, Nontender, Nondistended and Normal Bowel Sounds
Neuro: AO x 3
Data Reviewed
-
Labs: Labs Reviewed by me
[2023-12-29 16:51] LABS: Glucose - Point of Care 114 mg/dl (70-99)
[2023-12-29] MEDS: LIPITOR 80 MG PO (18:04)
[2023-12-29] MEDS: COLACE PO (19:59)
[2023-12-29] MEDS: SENOKOT PO (19:59)
[2023-12-29] MEDS: FLOMAX 0.400000000000000022 MG PO (20:07)
[2023-12-29] MEDS: ZETIA 10 MG PO (20:07)
[2023-12-29 21:15] LABS: Glucose - Point of Care 170 mg/dl (70-99)
[2023-12-30 03:35] VITALS: BP 113/67
[2023-12-30 06:00] VITALS: BMI 36.3
[2023-12-30 07:18] VITALS: BP 109/70
[2023-12-30 08:28] LABS: Glucose - Point of Care 126 mg/dl (70-99)
[2023-12-30] MEDS: COREG 6.25 MG PO ×2 (08:44→20:55)
[2023-12-30] MEDS: EFFEXOR 75 MG PO ×2 (08:44→20:55)
[2023-12-30] MEDS: OSCAL CAL 500 500 MG PO (08:44)
[2023-12-30] MEDS: ZYLOPRIM 50 MG PO (08:44)
[2023-12-30] MEDS: NOVOLOG FLEXPEN-LOW RESISTANCE SC ×3 (08:44→18:13)
[2023-12-30] MEDS: ASPIR LOW (ENTERIC COATED) 81 MG PO ×2 (08:44→20:54)
[2023-12-30 08:45] LABS: Blood Urea Nitrogen 61 mg/dl (9-20); Calcium 9.4 mg/dl (8.4-10.2); Carbon Dioxide 30 mmol/L (22-30); Chloride 93 mmol/L (98-107); Estimated Creatinine Clearance 22 ml/min; Glucose 127 mg/dl (70-99); Potassium 4.2 mmol/L (3.5-5.1); Sodium 131 mmol/L (135-145); eGFR 20.55
[2023-12-30] MEDS: HEPARIN 5000 UNITS SC ×2 (08:45→20:55)
[2023-12-30] MEDS: VITAMIN D3 (cholecalciferol) 50 MCG PO (08:45)
[2023-12-30] MEDS: DESENEX/MITRAZOL/ZEASORB 1 APPLIC TOPICAL ×2 (08:49→20:55)
--- NOTE | 2023-12-30 09:17 | W.PN.CARDCBS ---
Addendum entered and electronically signed by Vince Garner MD 12/30/23 11:23:
Patient seen, interviewed and examined by me.
No acute distress
Irregular rate and rhythm with normal S1 and S2, no S3 no S4. There is a grade 1/6 apical holosystolic murmur and no rubs. PMI is normally placed.
Lungs are clear to auscultation bilaterally without wheezes rales or rhonchi.
Abdomen soft nontender nondistended with normoactive bowel sounds
Extremities show trace pretibial edema bilaterally no clubbing or cyanosis.
Agree with advanced practice professionals assessment and plan as noted below.
Diuretics are on hold due to mild elevation in creatinine.
At time of discharge suggest outpatient dose of 40 mg daily.
From a cardiac standpoint, no objection to discharge but he would need follow-up labs re renal function.
Original Note:
Today's Communication / Plan
-
Continue to hold lasix
Follow creat
Impression / Plan
-
Primary Wildlife Biostation Research Ecologist: Dr. Clark
PCP: Michelle Rogers
Impression:
Presented with SOB
Acute on Chronic HFrEF
Ischemic cardiomyopathy, lowest EF 10 to 15% by echo 01/2021--> improved to 30% on echo 2022
NonMI troponin elevation
YOANDY on CKD 4, previously on HD
s/p Medtronic BiVICD 12/07/21
CAD s/p LAD PCI 2012 and HOUSING COORDINATOR of RCA
LBBB
h/o CVA/TIA with residual left field cut
Diabetes
Hypertension
Dyslipidemia
Mild aortic stenosis
Mildly enlarged aortic root
Secondary hyperparathyroidism
Morbid obesity
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
Multiple myeloma
History of gout
PHILIPPE, untreated
Non-adherence to medications
Lexiscan Stress Test: 09/14/22: Fixed inferior and inferior-septal defect consistent with infarction, severely decreased systolic function with estimated LVEF of 22% with severe global hypokinesis and dilated left ventricle, intermediate risk stress
test, 4 beat NSVT during study
Cardiac cath 10/24/2015:�LAD:stent in the proximal LAD is widely patent.� The second diagonal comes off the middle of the stent and is jailed by the stent and has a 90% ostial stenosis.� There is a 40% mid LAD stenosis. Circumflex: Luminal
irregularities RCA: 100% chronic total occlusion of the proximal RCA.
Echo 01/2021: EF 10 to 15%, global hypokinesis with akinesis of inferior wall, septum, and apex.� Stage III diastolic dysfunction, mitral annular calcification, mild MR, aortic sclerosis, mildly dilated aortic root
Echo 10/12/2021: EF 10%, global hypokinesis LV severely dilated, mild LVH, stage III DD, mild MR, trace TR/AI, PAP 15 to 20 mmHg.� Possible left ventricular apical thrombus.� Echo repeated with Definity 10/13/2021 which demonstrated no LV thrombus
with Definity
Echo 11/08/2023: Dilated cardiomyopathy, LVEF of 30%, right-sided ICD, dilated left atrium, mild to moderate aortic stenosis, peak and mean transaortic gradients of 15/8 mmHg, DVI of 0.4. No pericardial effusion.
Plan:
-Presented with SOB and found to be in acute heart failure.
-Diuresed with IV lasix. Weight down 17lbs this admission, down to 231lbs on 12/30. Respiratory status improved and back on room air.
-Creat bumped to 2.9 on 12/30. Lasix remains on hold. Continue to follow renal function. Once improving, should be discharged on PO lasix 40 mg daily.
-Echo 10/2023 with EF improved to 30%. No need to repeat at this time.
-Troponin elevation noted. Suspect nonMI troponin elevation in the setting of acute heart failure exacerbation.
-Continue medical therapy with coreg. Renal insufficiency limits addition of UMAIR/ARB/ARNi/Spironolactone.
-Could consider hydralazine/nitrates, however BP has been labile this admission. May consider as OP.
-Known CAD with LAD stent in 2012 and chronic total occlusion noted on cardiac catheterization in 2014.� Continue medical management with beta-penny, aspirin, Zetia.
-Crestor switched to lipitor.
-ICD interrogated and showed evidence of volume overload without other abnormalities.
-Follow up has been arranged.
HPI: Mr Gill is a medically complex 83-year-old gentleman with dilated ischemic cardiomyopathy/restrictive physiology with recent ejection fraction by SPECT imaging in September 2022 of 22% and 30% by echocardiogram from October 2023, improved
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
field cut, diabetes mellitus type 2, hypertension, dyslipidemia, mild aortic stenosis with mildly enlarged aortic root, chronic kidney disease previously on dialysis, baseline creatinine of 2.3-2.7, secondary hyperparathyroidism, renal mass presumed
to be angiomyolipoma, obesity with BMI ~43 and intermediate sedentary lifestyle, medication nonadherence, PHILIPPE, noncompliant with CPAP, CAD with [place] in 1985, and multiple myeloma with chronic HFrEF who presents this admission with NAQVI starting this AM
associated with orthopnea and mild lower extremity edema found to be in acute decompensated heart failure. Reports non compliance with lasix. No CP/palpitations/syncope. Recent Lexiscan stress test September 2022 noting scar from prior infarct but
no significant evidence to suggest ischemia. He was last seen in the outpatient setting in April 2023 and since 2021, he had no interval hosptializations and weight had been stable. Weight during this office visit was 251 pounds (113.8 kg)
Progress Note - Wildlife Biostation Research Ecologist
Subjective
Date of Service: December 30, 2023
No complaints other than that he wants to go home.
Objective
Labs:
12/29/23 10:09
12/30/23 07:22
Labs
Hgb 9.0 g/dL (13.0-18.0) L 12/29/23 10:09
Hct 26.8 % (39.0-52.0) L 12/29/23 10:09
Plt Count 115 10^3/uL (130-400) L 12/29/23 10:09
Sodium 131 mmol/L (135-145) L 12/30/23 07:22
Potassium 4.2 mmol/L (3.5-5.1) 12/30/23 07:22
BUN 61 mg/dl (9-20) H 12/30/23 07:22
Creatinine 2.9 mg/dL (0.7-1.3) H 12/30/23 07:22
Glucose 127 mg/dl (70-99) H 12/30/23 07:22
Troponins
12/27/23 12/27/23 12/28/23
1424 20:22 01:43
Troponin I 0.062 H* 0.079 H* D 0.096 H*
12/28/23
06:43
Troponin I 0.099 H*
Vital Signs and I&O:
Vital Signs
Temp Pulse Resp BP Pulse Ox
97.6 F 84 20 109/70 92
12/30/23 07:18 12/30/23 07:18 12/30/23 07:18 12/30/23 07:18 12/30/23 07:18
Vital Signs
Temp Pulse Resp BP Pulse Ox
97.6 F 84 20 109/70 92
12/30/23 07:18 12/30/23 07:18 12/30/23 07:18 12/30/23 07:18 12/30/23 07:18
Intake & Output
12/28/23 12/29/23 12/30/23 12/31/23
06:59 06:59 06:59 06:59
Intake Total 240 / 240 1919
Output Total 1280 / 1280
Balance -1040 / -1040 1919
Physical Exam
Physical Exam
GEN: No distress, awake, alert, oriented x3
HEENT: supple, anicteric, mmm
LUNGS: CTA b/l, no wheezes/rales
CV: Irreg, S1/S2, no murmur
ABD: soft, BS+, NT/ND
EXT: No clubbing or cyanosis, trace edema b/l LE
NEURO: Gross non-focal
SKIN: Warm, dry, no rash
--- NOTE | 2023-12-30 11:41 | W.PN.HOSP.TC ---
Today's Communication/Plan
-
Repeat BMP in am
Lasix hold
Assessment / Plan
Assessment / Plan
Acute hypoxic respiratory insufficiency -due to acute pulmonary edema due to acute on chronic heart failure exacerbation.� Presentation with pulse ox of 87% on room air, improved on 2 L. Resolved. Now on room air
Acute on chronic heart failure with reduced EF exacerbation - BNP noted to be 7170.� Chest x-ray with mild pulmonary edema, small bilateral pleural effusions.� Patient's admits that he has not been compliant with Lasix at home.
Last echo was from 11/08/2023, LVEF 30%.
Significant weight loss noted. Improved breathing. Elevated creatinine noted suspect secondary to overdiuresis. Diuretics going to be on hold . Cr remains high 2.9 today. Repeat in AM.
Hyponatremia -sodium drop to 129 noted. Probably secondary to overdiuresis/volume depletion. Repeat today 131 .Follow
Troponin elevation -likely non-[place] troponin elevation related to acute heart failure exacerbation.�
CKD stage IV -creatinine at baseline.� Follow closely on diuresis. Creatinine 2.2 today.
Chronic pancytopenia -unclear etiology.� Counts appear to be at baseline.� Follow-up with hematology after discharge.
Essential hypertension -stable.
History of strokes
CAD -with history of [place], stents.
DM2 without hyperglycemia -appears to be diet controlled.� Check hemoglobin A1c. Glucose 131 this morning.
Multiple myeloma
History of left renal tumor resection -required dialysis for 3 months according to .
Tobacco dependence -regular cigar smoker.� Counseled on need for abstinence.
Morbid obesity due to excess calories
Ambulatory dysfunction -consult PT/OT.� Suspect he is noncompliant with his walker at home.
Full code
Anticipated Discharge: 24 - 48 hours
Subjective/Interval History
-
Date of Service: December 30, 2023
Denies shortness of breath. No dizziness.
Objective Data
-
Labs:
Laboratory Results
02/17/24
07:22
Sodium 131 L
Potassium 4.2
Chloride 93 L
Carbon Dioxide 30
BUN 61 H
Creatinine 2.9 H
Glucose 127 H
Calcium 9.4
Vital Signs:
Vital Signs
Temp Pulse Resp BP Pulse Ox
97.6 F 84 20 109/70 92
12/30/23 07:18 12/30/23 07:18 12/30/23 07:18 12/30/23 07:18 12/30/23 07:18
I&O
12/29/23 12/30/23 12/31/23
06:59 06:59 06:59
Intake Total 1919
Balance 1919
Review of Systems
-
Constitutional: Denies Fever
EENT: Denies Sore Throat
Respiratory: Denies Cough or Trouble Breathing
Cardiac: Denies Chest Pain or Palpitations
Abdomen/GI: Denies Nausea or Vomiting
Physical Exam
-
General: No Apparent Distress
HEENT: Moist Mucous Membranes
Respiratory: Clear to Auscultation
Cardiac: Regular Rhythm and S1/S2
Neuro: AO x 3
Psych: Calm; Negative Confused
Data Reviewed
-
Labs: Labs Reviewed by me
[2023-12-30 12:15] LABS: Glucose - Point of Care 118 mg/dl (70-99)
[2023-12-30 12:18] VITALS: BP 123/67
[2023-12-30 15:15] VITALS: BP 109/58
[2023-12-30 17:15] LABS: Glucose - Point of Care 117 mg/dl (70-99)
[2023-12-30] MEDS: LIPITOR 80 MG PO (18:14)
[2023-12-30 19:26] VITALS: BP 129/66
[2023-12-30] MEDS: COLACE 100 MG PO (20:55)
[2023-12-30] MEDS: FLOMAX 0.400000000000000022 MG PO (20:55)
[2023-12-30] MEDS: ZETIA 10 MG PO (20:55)
[2023-12-30] MEDS: SENOKOT 8.59999999999999964 MG PO (20:55)
[2023-12-30 21:33] LABS: Glucose - Point of Care 124 mg/dl (70-99)
[2023-12-30 23:36] VITALS: BP 132/65
[2023-12-31 03:48] VITALS: BP 135/69
[2023-12-31 06:00] VITALS: BMI 36.9
[2023-12-31 07:20] LABS: Glucose - Point of Care 139 mg/dl (70-99)
[2023-12-31 08:03] LABS: Blood Urea Nitrogen 70 mg/dl (9-20); Calcium 9.6 mg/dl (8.4-10.2); Carbon Dioxide 26 mmol/L (22-30); Chloride 98 mmol/L (98-107); Estimated Creatinine Clearance 22 ml/min; Glucose 125 mg/dl (70-99); Potassium 4.6 mmol/L (3.5-5.1); Sodium 131 mmol/L (135-145); eGFR 21.44
[2023-12-31] MEDS: ZYLOPRIM 50 MG PO (08:05)
[2023-12-31] MEDS: OSCAL CAL 500 500 MG PO (08:09)
[2023-12-31] MEDS: EFFEXOR 75 MG PO (08:09)
[2023-12-31] MEDS: VITAMIN D3 (cholecalciferol) 50 MCG PO (08:13)
[2023-12-31] MEDS: ASPIR LOW (ENTERIC COATED) 81 MG PO (08:13)
[2023-12-31] MEDS: COREG 6.25 MG PO (08:13)
[2023-12-31] MEDS: HEPARIN 5000 UNITS SC (08:14)
[2023-12-31] MEDS: DESENEX/MITRAZOL/ZEASORB 1 APPLIC TOPICAL (08:15)
[2023-12-31] MEDS: NOVOLOG FLEXPEN-LOW RESISTANCE SC ×2 (08:22→11:50)
--- NOTE | 2023-12-31 10:08 | W.PN.HOSP.TC ---
Today's Communication/Plan
-
DC home
Assessment / Plan
Assessment / Plan
Acute hypoxic respiratory insufficiency -due to acute pulmonary edema due to acute on chronic heart failure exacerbation.� Presentation with pulse ox of 87% on room air. Resolved. Now on room air
Acute on chronic heart failure with reduced EF exacerbation - BNP noted to be 7170.� Chest x-ray with mild pulmonary edema, small bilateral pleural effusions.� Patient's admits that he has not been compliant with Lasix at home.
Last echo was from 11/08/2023, LVEF 30%.
Significant weight loss noted. Improved breathing. Elevated creatinine noted suspect secondary to overdiuresis. Cr remains high 2.8 today which is better than yesterday.
Resume diuretics at 40 mg of Lasix every day. Patient advised to get a repeat follow-up BMP in a week.
He was also advised strongly to keep an eye on his weight and follow-up with his primary welder apprentice combination to prevent any admissions to the hospital.
Hyponatremia -sodium drop to 129 noted. Probably secondary to overdiuresis/volume depletion. Repeat 131 .Follow on Lasix. Recommend fluid restriction on discharge
Troponin elevation -likely non-[place] troponin elevation related to acute heart failure exacerbation.�
CKD stage IV -creatinine at baseline.� Follow closely on diuresis. Creatinine 2.8 today.
Acute kidney injury-suspected secondary to overdiuresis.
Chronic pancytopenia -unclear etiology.� Counts appear to be at baseline.� Follow-up with hematology after discharge.
Essential hypertension -stable.
History of strokes
CAD -with history of [place], stents.
DM2 without hyperglycemia -appears to be diet controlled.� Hemoglobin A1c 6.7
Multiple myeloma
History of left renal tumor resection -required dialysis for 3 months according to .
Tobacco dependence -regular cigar smoker.� Counseled on need for abstinence.
Morbid obesity due to excess calories
Ambulatory dysfunction -consult PT/OT.� Suspect he is noncompliant with his walker at home.
Full code
More than 30 minutes spent in discharge including
Final examination of the patient
Summarizing hospital stay
Instructions for continuing care to all relevant caregivers
Preparation of discharge records, prescriptions, and referral forms
Total time spent (in minutes): 32
Anticipated Discharge: Today
Subjective/Interval History
-
Date of Service: December 31, 2023
Patient without shortness of breath or chest pain.
No dizziness.
Keen to go home.
Tolerating diet.
Objective Data
-
Labs:
Laboratory Results
12/31/23
07:22
Sodium 131 L
Potassium 4.6
Chloride 98
Carbon Dioxide 26
BUN 70 H
Creatinine 2.8 H
Glucose 125 H
Calcium 9.6
Vital Signs:
Vital Signs
Temp Pulse Resp BP Pulse Ox
98.1 F 83 20 135/69 94
12/31/23 03:48 12/31/23 03:48 12/31/23 03:48 12/31/23 03:48 12/31/23 05:15
I&O
12/30/23 12/31/23 01/01/24
06:59 06:59 06:59
Intake Total 1999 1200 / 1200
Balance 1999 1200 / 1200
Review of Systems
-
Constitutional: Denies Fever or Weakness
EENT: Denies Sore Throat
Respiratory: Denies Cough
Physical Exam
-
General: No Apparent Distress
HEENT: Moist Mucous Membranes
Respiratory: Clear to Auscultation
Cardiac: Regular Rhythm and S1/S2; Negative Tachycardic
GI: Soft
Neuro: AO x 3
Psych: Calm; Negative Confused
Data Reviewed
-
Labs: Labs Reviewed by me
--- NOTE | 2023-12-31 10:17 | W.DS.TRANS ---
DC Summary - Autotransfusionist
-
Discharge Instructions:
Sleep Apnea Risk High
Discharge Diagnosis/Procedures CHF decompensation
Diet 2 Gram Sodium,Restrict fluids to 48 oz
Activity As tolerated
Driving Restrictions As prior to admission
Blood Work BMP blood work in one week-arrange through your
PCP
Specialty Instructions Weigh Daily
Instructions: *[facility] Heart Failure Instructions
Stand-Alone Forms:
Changes to Home Medications: No
Discharge Medications:
DC Medications w/original date entered in [employer]
calcium carbonate 600 mg calcium (1,500 mg) tablet 600 mg PO DAILY Supplement 05/12/16
aspirin 81 mg tablet,delayed release 81 mg PO BID Blood clot prevention/tx 05/15/18
allopurinol 100 mg tablet 50 mg PO DAILY Gout 10/11/21
ezetimibe 10 mg tablet 10 mg PO HS High cholesterol 10/11/21
rosuvastatin 40 mg tablet (Crestor) 40 mg PO HS High cholesterol 10/11/21
tamsulosin 0.4 mg capsule 0.4 mg PO HS Urinary issue 11/30/21
docusate sodium 100 mg capsule (Colace) 100 mg PO HS Constipation 07/31/22
sennosides 8.6 mg tablet (Senokot) 8.6 mg PO HS Constipation 07/31/22
carvedilol 6.25 mg tablet (Coreg) 6.25 mg PO BID heart disease/condition #60 tabs 08/02/22
Fish Oil 3 cap PO HS Supplement 12/27/23
cholecalciferol (vitamin D3) 50 mcg (2,000 unit) tablet 50 mcg PO DAILY Supplement 12/27/23
furosemide 80 mg tablet 40 mg PO DAILY Fluid retention/Swelling 12/27/23
venlafaxine 75 mg tablet 75 mg PO BID 12/27/23
Home Medication Changes
Pending Results: No
--- NOTE | 2023-12-31 10:17 | W.DCSUMMARY ---
Discharge Summary
Discharge Data
Date of Admission: 12/27/23
Date of Discharge: 12/31/23
-
Pending Results: No
Hospital Course
Primary diagnosis:
Acute hypoxic respiratory insufficiency secondary to pulmonary edema which resolved
Acute on chronic heart failure with reduced EF
BiV ICD in 2021
Hyponatremia
Non-[place] troponin elevation
Acute kidney injury on chronic kidney disease stage IV
Chronic pancytopenia
Secondary diagnosis:
Essential hypertension
History of strokes
Coronary artery disease s/p prior AR and coronary stents
Diabetes mellitus type 2 with hemoglobin A1c 6.7
Current tobacco use
History of left renal tumor resection Nexis multiple myeloma
Hospital course:
Patient with known heart failure presented with increasing shortness of breath and discovered to be in acute heart failure with pulmonary edema. He was also hypoxic which resolved with diuretic treatment. No evidence of acute AR. Non-AR troponin
elevation noted. His weight came down from 251 pounds on admission to 235 pounds on discharge. With the rapid weight loss he also had changes in his renal function which was felt secondary to overdiuresis. Is a chronic kidney disease stage IV his
creatinine was 2 on admission which peaked to 2.9. With holding diuretics his creatinine was coming down and it was 2.8 at the time of discharge. His dose of diuretics was decreased back down to 40 mg daily which is his home dose. He was stressed
about the importance of daily weight checks and adjust the Lasix as needed and also follow-up with cardiology.
He was seen by cardiology here. His last echocardiogram was in October 2023 which showed EF of 30% �5% with previous EF in 2020 was 10 to 15%.
He had mild hyponatremia which was felt secondary to heart failure. Along with the diuretics he was advised fluid restriction and follow-up with a BMP.
He was also advised on dietary discretions and also counseled about his tobacco smoking.
Chronic pancytopenia without neutropenia. It was noted in the past. I advised him to follow with hematology .
Consultants on board:
Cardiology Adore Weller
Discharge Plan
-
Patient Disposition: Home with Home Care
Discharge Diagnosis/Procedures: CHF decompensation
Diet: 2 Gram Sodium and Restrict fluids to 48 oz
Activity: As tolerated
Driving Restrictions: As prior to admission
Blood Work: BMP blood work in one week-arrange through your PCP
Specialty Instructions: Weigh Daily- Call MD for wt gain/loss 3 lbs overnight/5 lbs in 1 week
Instructions: *[facility] Heart Failure Instructions
Referrals:
Michelle Rogers PA-C [Family Provider] - in less than 1 week
Sarahi Montes PA-C [Specified Professional Personl] - 01/05/24 10:40 am (You have a follow up visit with Dr. Clark's Sarahi GARCIA, at the [place] office. Please call with questions. )
Prescriptions:
Continued
calcium carbonate 600 MG tablet
600 mg PO DAILY
aspirin 81 MG tablet,delayed release (DR/EC)
81 mg PO BID
allopurinol 100 MG tablet
50 mg PO DAILY
ezetimibe 10 MG tablet
10 mg PO HS
rosuvastatin [Crestor] 40 MG tablet
40 mg PO HS
tamsulosin 0.4 MG capsule
0.4 mg PO HS
sennosides [Senokot] 8.6 mg Tablet
8.6 mg PO HS
docusate sodium [Colace] 100 mg Capsule
100 mg PO HS
carvedilol [Coreg] 6.25 mg tablet
6.25 mg PO BID Qty: 60 11RF
venlafaxine 75 mg Tablet
75 mg PO BID
cholecalciferol (vitamin D3) 50 mcg (2,000 unit) Tablet
50 mcg PO DAILY
Fish Oil
3 cap PO HS
furosemide 80 MG tablet
40 mg PO DAILY
Discharge Orders:
Discharge Patient (As Directed); Ordered 12/31/23
Ordered By: Sravan Ivey
[2023-12-31 11:10] VITALS: BP 130/78
[2023-12-31 11:49] LABS: Glucose - Point of Care 112 mg/dl (70-99)
[2023-12-31] MEDS: FLUZONE HIGH-DOSE QUAD 2023-24 0.699999999999999956 ML IM (15:04)
--- NOTE | 2023-12-31 16:36 | CM ---
CM following re: d/c planning
Chart reviewed
Pt is medically stable for d/c and declined the need for VN
Pt spouse to transport home at time of d/c
PLAN: d/c home no needs
--- NOTE | 2024-01-01 10:05 | W.HF.CON ---
Heart Failure
- LV Function
Left ventricular function study result: LV Ejection fraction </= 35% (ECHO 11/08/23)
Ejection Fraction Percentage: 30
- ARNI
Patient already on ARNI: No
Heart Failure ARNI Contraindication: Acute Renal Failure
- ACEI/ARB
Patient already on ACEI/ARB: No
Heart Failure ACEI/ARB Contraindication: Acute Renal Failure
- Beta Danelle
Patient already on Evidence Based Beta Danelle: Yes
- Mineralocorticord Receptor Antagonist
Patient already on MRA: No
Heart Failure MRA Contraindication: Acute Renal Insufficiency
- SGLT-2 Inhibitor
Patient already on SGLT-2 Inhibitor: No
Heart Failure SGLT-2 Inhibitor Contraindication: eGFR < 25
- NYHA CHF Classification
NYHA CHF Classification Level: Class III - Symptoms w/ min exertion, interferes w/ nml daily activity
- ACC/AHA Stage
ACC/AHA Stage: Stage C: Symptomatic Heart Failure
== END 2023-12-31 15:31 | disposition home or self-care (01) | DRG 291 ==
LOC: 4 EAST ACU 16:50
PROVIDERS: Internal Medicine Cardiovascular Disease; Nurse Practitioner Gerontology; ADMITTING PHYSICIAN Hospitalist; ATTENDING PHYSICIAN Internal Medicine; EMERGENCY PHYSICIAN Emergency Medicine; FAMILY PHYSICIAN Physician Assistant; OTHER PHYSICIAN Internal Medicine Interventional Cardiology
PROC: 4B02XTZ Measurement of Cardiac Defibrillator, External Approach (ICD-10-PCS; 2023-12-28)
DX: I13.0 Hypertensive heart and chronic kidney disease with heart failure and stage 1 through stage 4 chronic kidney disease, or unspecified chronic kidney disease (principal); I50.23 Acute on chronic systolic (congestive) heart failure; C90.00 Multiple myeloma not having achieved remission; D61.818 Other pancytopenia; E87.1 Hypo-osmolality and hyponatremia; N18.4 Chronic kidney disease, stage 4 (severe); N25.81 Secondary hyperparathyroidism of renal origin; I42.0 Dilated cardiomyopathy; I5A Non-ischemic myocardial injury (non-traumatic); F17.290 Nicotine dependence, other tobacco product, uncomplicated; R09.02 Hypoxemia; R06.89 Other abnormalities of breathing; E11.22 Type 2 diabetes mellitus with diabetic chronic kidney disease; E66.01 Morbid (severe) obesity due to excess calories; Z68.36 Body mass index [BMI] 36.0-36.9, adult; Z79.82 Long term (current) use of aspirin; I25.5 Ischemic cardiomyopathy; Z66 Do not resuscitate
CPT/HCPCS: 71046; 80048; 80053; 81003; 82962; 83036; 83880; 84484; 85025; 90662; 93005; 96374; 97162; 97166; 97530; 99285; 99406; G0008

== ENCOUNTER 2024-01-16 12:53 | Inpatient (IN) | payer OTHER, SELFPAY ==
[2024-01-16] VITALS (22 sets, daily range): BP systolic 85–261; BP diastolic 43–226; PULSE 2; BMI 35.8; BMI 36.1
--- NOTE | 2024-01-16 07:01 | ED.GENMED ---
History of Present Illness
General
Chief Complaint: Breathing Problem
Time Seen by Provider: 01/16/24 07:01
Travel History
Have you had any contact with someone who has COVID-19?: No
Do you have any symptoms of coronavirus? Fever > 100 degrees, chills, cough, shortness of breath, sore throat, loss of taste or smell, muscle aches, or headache?: Yes
Symptoms:: sob
History of Present Illness
History of Present Illness:
HPI: Patient presents due to shortness of breath. I spoke to EMS for history. The patient has a history of heart failure and was recently here with heart failure. He denies chest pain. He is not aware of any weight changes, he does not think
that he had any significant swelling to his legs.
EXAM:
GENERAL: The patient is ill-appearing and has evidence of some mild cognitive deficits, he is currently being switched from CPAP to BiPAP
HEENT: Slightly dry oral mucosa
CARDIOVASCULAR: No murmurs, initially normal heart rate with frequent ectopy, No chest wall tenderness
PULMONARY: Moderate respiratory distress, conversational dyspnea breath sounds are rhonchorous
ABDOMEN: Soft with no peritoneal signs, no tenderness, elevated BMI
NEUROLOGIC: Fair strength all extremities, but appears generally weak, he is awake and talking but appears to be somewhat of an unreliable historian
PSYCHIATRIC: Somewhat limited insight and judgement
EXTREMITIES: Nontender, trace bilateral edema, moves all extremities equally
SKIN: Some eczematous changes to the skin of the lower extremities
ED COURSE:
7 AM: I initially evaluated patient
NUMBER AND COMPLEXITY OF PROBLEMS ADDRESSED AT THE ENCOUNTER
� Chronic conditions affecting care: Heart failure, multiple myeloma, anxiety/depression, has had CVA, high blood pressure, hyperlipidemia, CAD, cognitive impairment
� Acute Exacerbation and/or Progression of Chronic Illness: This is an acute problem
� Differential Diagnosis includes: CHF exacerbation, possible COPD, viral syndrome, pneumonia, ACS
AMOUNT AND/OR COMPLEXITY OF DATA TO BE REVIEWED AND ANALYZED
� I performed an independent evaluation of and my interpretation is:
EKG: Undetermined rhythm with ventricular rate of 84, frequent ventricular paced beats
CT:
X-rays: Increased density right base
Laboratory Studies: White count 4.6, hemoglobin 9.7, platelets 139, creatinine is 2.6 which is near baseline
Other:
� Review of other/old records: The patient was admitted here with pulmonary edema, records acute the patient has a biventricular ICD placed 2021, he is chronically pancytopenic, he has history of HFrEF, echo in October to from
23 showed EF of 30% up from 10 to 15% in 2020
� Clinical information was obtained by an independent historian: I spoke to EMS for history
� Prescriptions/Medications Considered but not given:
� Further testing considered but not performed:
RISK OF COMPLICATIONS AND/OR MORBIDITY OR MORTALITY OF PATIENT MANAGEMENT
� Social determinants of health affecting care: Lives at home
� Discussion with other providers: Hospitalist for admission, Dr. Infante at 9 AM
� Escalation of care including admission/observation vs risk of discharge considered: The patient arrives due to shortness of breath. He denies any chest pain. EMS noted that his sats were 75% on room air and he was placed on
CPAP. Upon arrival here his sats were about 88% and moderate respiratory distress. He is switched to BiPAP. He was given nitroglycerin for the possibility of CHF exacerbation as he arrived hypertensive. On reassessment at 7:55 AM, the patient
did become more tachycardic after DuoNeb was given. The patient remains hypertensive at 8 AM�will place on nitroglycerin drip. Patient did become hypotensive at around 8:30 AM and nitroglycerin was stopped.
Past History
Past History
ED Past Medical History: CAD, CHF, CVA, HTN, Hypercholesterolemia, IDDM, MA and Other (Cellulitis)
ED Past Surgical History: Cardiac (Stent, Defibrillator), Cholecystectomy and Other (eye)
Social History
Tobacco: Smoker (cigars)
Alcohol: Occasional
Drug: None
Personal: (Lives with a woman)
Living: with family
Employment: Retired
Family History
Family History: Other (No significant)
Phy Exam
Physical Exam
Physical Exam:
See HPI
Scores
Heart Failure Risk
Heart Failure Risk Score: Not Applicable
Course
Orders/Labs/Results
Orders:
Orders
01/16/24
Electrocardiogram (*1) Stat
Reason for Study: Chest Pain
Comment: ORDER NOT ENTERED IN ER
01/16/24 07:01
Ipratropium/Albuterol Sulfate [Duoneb] 3 ml INH R NOW ONE
Nitroglycerin Sublingual [Nitrostat (Sublingual)] 0.4 mg SL NOW STA
Bipap [RESP] Stat
Patient to use own unit?: No
Inspiratory Pressure (cm H2O): 12
Expiratory Pressure (cm H2O): 5
Pulse Ox/cont/shift [RESP] Stat
Quantity: 1
01/16/24 07:02
CR Chest Portable - 1 View Urgent
Comment:
Reason For Exam: sob
Reason Study Needs to be Portable: Patient Unstable
01/16/24 07:10
Furosemide [Lasix] 40 mg IV NOW STA
01/16/24 07:16
Basic Metabolic Panel Urgent
COVID-19 Antigen Urgent
Source: Nasal Swab
Complete Blood Count/With Diff Urgent
Magnesium Urgent
NT-proBNP Urgent
Troponin I Urgent
Influenza A+B Rapid Molecular Urgent
GUIDO Source: Nasal Swab
Specimen Description:
01/16/24 07:54
Nitroglycerin 100 mg/250 ml [Nitroglycerin Premix] 100 mg in 250 ml .ROUTE .STK-MED
01/16/24 08:00
Nitroglycerin 100 mg/250 ml [Nitroglycerin Premix] 100 mg in 250 ml IV PER PROTOCOL
Initial dose in mcg/min, then titrate:: 10
Titrate to keep:: SBP < 160 mmHg
Titrate by mcg/min:: 5 mcg/min, may increase by 10 mcg/min if dose > 20 mcg/min
Frequency of titrations (minutes):: every 3-5 minutes
Maximum dose in mcg/min:: 200
Begin to taper infusion when:: Remained at goal for 2hrs
Taper by mcg/min:: 5 mcg/min
Frequency of taper (minutes) if patient maintains goal:: 30
Taper to off?: Yes
If infusion off & no longer maintaining goal:: Contact Provider
01/16/24 08:40
CARDIOLOGY CONSULT Routine
Consulting Provider: Lam Guerrero
Was physician already notified: Yes
Reason for consult: acute on chronic HFrEF
Abnormal Lab Results
01/16/24
07:16
WBC 4.6 L 10^3/uL
(4.8-10.8)
RBC 2.93 L 10^6/uL
(4.70-6.10)
Hgb 9.7 L g/dL
(13.0-18.0)
Hct 29.8 L %
(39.0-52.0)
MCV 101.7 H fL
(80.0-94.0)
MCH 33.1 H pg
(27.0-31.0)
MCHC 32.6 L g/dL
(33.0-37.0)
RDW 15.6 H %
(11.5-14.5)
Absolute Lymphs (auto) 0.8 L 10^3/uL
(1.2-3.4)
Immature Gran % 0.7 H %
(0-0.5)
Lymphocytes % 17.4 L %
(20.5-51.1)
Sodium 134 L mmol/L
(135-145)
BUN 58 H mg/dl
(9-20)
Creatinine 2.6 H mg/dL
(0.7-1.3)
Glucose 169 H mg/dl
(70-99)
Troponin I 0.093 H* ng/ml
01/16/24 07:16
01/16/24 07:16
Vital Signs
Initial and Last Documented VS:
Initial Vital Signs
Pulse Resp BP Pulse Ox
83 22 151/108 89
01/16/24 06:52 01/16/24 06:52 01/16/24 06:52 01/16/24 06:52
Last Documented Vital Signs
Pulse Resp BP Pulse Ox
120 23 112/43 92
01/16/24 10:00 01/16/24 10:00 01/16/24 09:36 01/16/24 09:00
*Pulse Oximetry
Patient hypoxic: yes
Comment: Patient is hypoxic on room air and required BiPAP
*Critical Care Note
Total Time (30-74mins, 75-104mins- exclusive of procedures): 60 minutes
comment:
I suspect patient has exacerbation of HFrEF. He was emergently switched to BiPAP. DuoNebs led to tachycardia. He has been markedly hypertensive despite sublingual nitroglycerin�placing on nitroglycerin drip. Vital signs very closely monitored
and he was frequently reassessed.
ED Attending Note
-
Portions of this chart may have been created with voice recognition software.� Occasional wrong word or��sound alike� substitutions may have occurred due to the inherent limitations of voice recognition software.
Discharge Plan
Departure
Patient Disposition: Admit
Date of Disposition: 01/16/24
Time of Disposition: 08:15
Presentation/result/management discussed w/ accepting MD/DO: Hospitalist
Patient with high blood pressure during this ER visit?: Yes
Discharge Problem:
Acute and chronic respiratory failure with hypoxia
Prescriptions:
No Action
calcium carbonate 600 MG tablet
600 mg PO DAILY
aspirin 81 MG tablet,delayed release (DR/EC)
81 mg PO BID
allopurinol 100 MG tablet
50 mg PO DAILY
ezetimibe 10 MG tablet
10 mg PO HS
rosuvastatin [Crestor] 40 MG tablet
40 mg PO HS
tamsulosin 0.4 MG capsule
0.4 mg PO HS
sennosides [Senokot] 8.6 mg Tablet
8.6 mg PO HS
docusate sodium [Colace] 100 mg Capsule
100 mg PO HS
carvedilol [Coreg] 6.25 mg tablet
6.25 mg PO BID Qty: 60 11RF
venlafaxine 75 mg Tablet
75 mg PO BID
cholecalciferol (vitamin D3) 50 mcg (2,000 unit) Tablet
50 mcg PO DAILY
furosemide 80 MG tablet
40 mg PO DAILY
omega 9-rhx-xvc-fish oil [Fish Oil] 1,200 (144-216) mg Capsule
3 cap PO HS
Referrals:
UNKNOWN - PT NOT,INTERVIEWE [Family Provider] -
Interventions
Interventions:
*Risk Screen - Suicide Last Done: 01/16/24 06:52
*General Assessment Last Done: 01/16/24 06:52
*Neglect/Abuse Screening Last Done: 01/16/24 06:52
*ED COVID-19 Vaccine History Last Done: 01/16/24 06:52
ED- Cardiac Assessment Last Done: 01/16/24 07:44
ED- Pulmonary Assessment Last Done: 01/16/24 07:44
[2024-01-16] MEDS: DUONEB 3 ML INH ×2 (07:07→21:56)
[2024-01-16] MEDS: NITROSTAT (SUBLINGUAL) 0.400000000000000022 MG SL (07:08)
[2024-01-16 07:29] LABS: % Basophils 0.2 % (0-2); % Eosinophils 3.7 % (0-6); % Immature Granulocytes 0.7 % (0-0.5); % Lymphocytes 17.4 % (20.5-51.1); % Monocytes 5.5 % (1.7-9.3); % Neutrophils 72.5 % (42.2-75.2); Absolute Eosinophils 0.2 10^3/uL (0-0.7); Absolute Lymphocytes 0.8 10^3/uL (1.2-3.4); Absolute Monocytes 0.3 10^3/uL (0.1-0.6); Absolute Neutrophils 3.3 10^3/uL (1.4-6.5); Hematocrit 29.8 % (39.0-52.0); Hemoglobin 9.7 g/dL (13.0-18.0); Mean Corp Hgb Conc. 32.6 g/dL (33.0-37.0); Mean Corpuscular Hgb 33.1 pg (27.0-31.0); Mean Corpuscular Volume 101.7 fL (80.0-94.0); Mean Platelet Volume 9.7 fL (7.4-10.4); Nucleated Red Blood Cells % 0 % (-); Platelet Count 139 10^3/uL (130-400); Red Blood Cell Count 2.93 10^6/uL (4.70-6.10); Red Cell Dist. Width 15.6 % (11.5-14.5); White Blood Cell Count 4.6 10^3/uL (4.8-10.8)
[2024-01-16] MEDS: LASIX 40 MG IV (07:35)
[2024-01-16 07:44] LABS: Blood Urea Nitrogen 58 mg/dl (9-20); Calcium 9.1 mg/dl (8.4-10.2); Carbon Dioxide 26 mmol/L (22-30); Chloride 102 mmol/L (98-107); Estimated Creatinine Clearance 25 ml/min; Glucose 169 mg/dl (70-99); Magnesium 1.8 mg/dl (1.6-2.3); Potassium 4.8 mmol/L (3.5-5.1); Sodium 134 mmol/L (135-145); eGFR 23.43
[2024-01-16] MEDS: NITROGLYCERIN PREMIX 250 IV (07:56)
[2024-01-16 07:58] LABS: COVID-19 Antigen Negative (Negative)
[2024-01-16 08:05] LABS: NT-proBNP 5580 pg/ml; Troponin I 0.093 ng/ml
--- NOTE | 2024-01-16 10:11 | CON.CAR ---
Addendum entered and electronically signed by Lam Guerrero DO 01/16/24 15:13:
I saw and examined the patient.
The Inspector Machine Cut Glass's note was reviewed and I agree with the note.
Comment:
Plan:
HPI: Patient [facility] today with SOB and is now being admitted with acute HF so cardiology has been consulted. Patient was just admitted to 12/27/23 until 12/31/23 with acute HF. Dry weight on day of discharge was 235 lbs. Patient has not been
weighing himself since discharge. He says he is following salt and fluid restriction, but can't articulate what those restrictions are. He also reports that he is taking Lasix 40 mg daily as ordered and missed a dose last night, but does not
routinely miss doses. Patient has a h/o CKD and follows with Dr. Reece at [facility] for outpatient nephrology care. Cre peaked at 2.9 last admission and baseline Cre is closer to 2.5. Patient was previously on transient dialysis. Patient also with h/o
pAfib and was in SR during device check in the office 01/04/24, but now appears to be in Afib. Patient denies palpitations. Patient is not on OAC due to h/o MM. Patient says that his symptoms started suddenly 2 hours prior to admission, but his
partner thinks that symptoms started earlier. Patient complains of orthopnea, but denies bloating or edema. Patient was 76% on RA when EMS arrived this morning and improved in BiPAP, but now stable on 6 L NC.
Plan:
Multifactorial dyspnea
IV lasix diuresis. pBNP lower than prior. Monitor wt closely. CRI with baseline cr 2.5. Monitor cr and Is and Os.
Discussed compliance. It was noted that his significant other feels he may be developing dementia.
Recent echo Oct 2023 EF 30%, no need to repeat at this time.
Cont Coreg for CM
Trend trop likely med tx of nonMI troponin.
Interrogate ICD. Pt back in AFib. He has not been on anticoagulation due to Multiple myeloma.
He is scheduled for outpt follow up with oncology.
CKD 4 followed by outside nephrology.
Discussed with primary service.
Original Note:
Consultation
Consultation Request
Date/Time Consultation Requested: 01/16/24
Date/Time Consultation Performed: 01/16/24
Requesting Provider: Dr. Park in the ER
Performing Provider: Dr. Guerrero
Reason for Consultation: Acute HF
Medical History
-
History of Present Illness:
Patient came to [facility] today with SOB and is now being admitted with acute HF so cardiology has been consulted. Patient was just admitted to 12/27/23 until 12/31/23 with acute HF. Dry weight on day of discharge was 235 lbs. Patient has not been
weighing himself since discharge. He says he is following salt and fluid restriction, but can't articulate what those restrictions are. He also reports that he is taking Lasix 40 mg daily as ordered and missed a dose last night, but does not
routinely miss doses. Patient has a h/o CKD and follows with Dr. Reece at [facility] for outpatient nephrology care. Cre peaked at 2.9 last admission and baseline Cre is closer to 2.5. Patient was previously on transient dialysis. Patient also with h/o
pAfib and was in SR during device check in the office 01/04/24, but now appears to be in Afib. Patient denies palpitations. Patient is not on OAC due to h/o MM. Patient says that his symptoms started suddenly 2 hours prior to admission, but his
partner thinks that symptoms started earlier. Patient complains of orthopnea, but denies bloating or edema. Patient was 76% on RA when EMS arrived this morning and improved in BiPAP, but now stable on 6 L NC.
PMH:
Chronic HFrEF
Ischemic cardiomyopathy, lowest EF 10 to 15% by echo 01/2021, improved to 30% on echo 11/08/23
CKD 4, previously on HD
s/p Medtronic Bi-V/ICD 12/07/21
CAD
s/p LAD PCI and WELL CLEANER of RCA 2012
LBBB
h/o CVA/TIA with residual left field cut
Diabetes
Hypertension
Dyslipidemia
Mild aortic stenosis
Mildly enlarged aortic root
Secondary hyperparathyroidism
Morbid obesity
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
Multiple myeloma
History of gout
PHILIPPE, untreated
Non-adherence to medications
Past Medical History
Past Medical History: Other (in HPI)
Past Surgical History: Cardiac (LAD stent) and Cholecystectomy
Social History
Tobacco: Smoker (cigars)
Alcohol: Occasional
Personal: Partner
Family History
Family History: CAD, Diabetes and Hypertension
Allergies / Home Medications
Allergy/AdvReac Type Severity Reaction Status Date / Time
No Known Allergies Allergy Verified 01/16/24 06:58
Medication Instructions Recorded Confirmed Type
calcium carbonate 600 mg calcium 600 mg PO DAILY Supplement 05/12/16 12/27/23 History
(1,500 mg) tablet
aspirin 81 mg tablet,delayed 81 mg PO BID Blood clot 05/15/18 12/27/23 History
release prevention/tx
allopurinol 100 mg tablet 50 mg PO DAILY Gout 10/11/21 12/27/23 History
ezetimibe 10 mg tablet 10 mg PO HS High cholesterol 10/11/21 12/27/23 History
rosuvastatin 40 mg tablet (Crestor) 40 mg PO HS High cholesterol 10/11/21 12/27/23 History
tamsulosin 0.4 mg capsule 0.4 mg PO HS Urinary issue 11/30/21 12/27/23 History
docusate sodium 100 mg capsule 100 mg PO HS Constipation 07/31/22 12/27/23 History
(Colace)
sennosides 8.6 mg tablet (Senokot) 8.6 mg PO HS Constipation 07/31/22 12/27/23 History
carvedilol 6.25 mg tablet (Coreg) 6.25 mg PO BID heart 08/02/22 12/27/23 Rx
disease/condition #60 tabs
cholecalciferol (vitamin D3) 50 50 mcg PO DAILY Supplement 12/27/23 12/27/23 History
mcg (2,000 unit) tablet
furosemide 80 mg tablet 40 mg PO DAILY Fluid 12/27/23 12/27/23 History
retention/Swelling
venlafaxine 75 mg tablet 75 mg PO BID 12/27/23 12/27/23 History
omega 4-mrv-usy-fish oil 1,200 mg 3 cap PO HS 01/16/24 01/16/24 History
(144 mg-216 mg) capsule (Fish Oil)
Review of Systems
-
History Source: Patient and Family (partner sitting in room helping with HPI)
All other systems: Negative unless noted
Physical Exam
Vital Signs
Pulse Resp BP Pulse Ox
120 23 112/43 92
01/16/24 10:00 01/16/24 10:00 01/16/24 09:36 01/16/24 09:00
GEN: NAD. AAO x3
HEENT: EOMI, MMM
LUNGS: Audible wheeze with movement. Wheeze and rales throughout with productive cough.
CV: Irreg, S1/S2, no murmur
ABD: soft, BS+, NT, ND
EXT: +1 B/L LE edema. Excoriations B/L ankles. No clubbing or cyanosis B/L
NEURO: Gross non-focal
SKIN: Warm, dry, no rash
Lab Results
01/16/24 07:16
01/16/24 07:16
Troponin I 0.093 ng/ml H* 01/16/24 07:16
Vtu-Q-Rqxbutmmofa Pept 5580 pg/ml 01/16/24 07:16
Impression / Plan
-
Primary Bi Tester: Dr. Clark
PCP: Michelle Rogers
Impression:
Acute on Chronic HFrEF
Ischemic cardiomyopathy, lowest EF 10 to 15% by echo 01/2021, improved to 30% on echo 11/08/23
Elevated Troponin
YOANDY on CKD 4, previously on HD
s/p Medtronic Bi-V/ICD 12/07/21
CAD
s/p LAD PCI and WELL CLEANER of RCA 2012
LBBB
h/o CVA/TIA with residual left field cut
Diabetes
Hypertension
Dyslipidemia
Mild aortic stenosis
Mildly enlarged aortic root
Secondary hyperparathyroidism
Morbid obesity
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
Multiple myeloma
History of gout
PHILIPPE, untreated
Non-adherence to medications
Lexiscan Stress Test: 09/14/22:�Fixed inferior and inferior-septal defect consistent with infarction, severely decreased systolic function with estimated LVEF of 22% with severe global hypokinesis and dilated left ventricle, intermediate risk stress
test, 4 beat NSVT during study
Cardiac cath 10/24/2015:�LAD:stent in the proximal LAD is widely patent.� The second diagonal comes off the middle of the stent and is jailed by the stent and has a 90% ostial stenosis.� There is a 40% mid LAD stenosis. Circumflex: Luminal
irregularities RCA: 100% chronic total occlusion of the proximal RCA.
Echo 01/2021: EF 10 to 15%, global hypokinesis with akinesis of inferior wall, septum, and apex.� Stage III diastolic dysfunction, mitral annular calcification, mild MR, aortic sclerosis, mildly dilated aortic root
Echo 10/12/21: EF 10%, global hypokinesis LV severely dilated, mild LVH, stage III DD, mild MR, trace TR/AI, PAP 15 to 20 mmHg.� Possible left ventricular apical thrombus.� Echo repeated with Definity 10/13/2021 which demonstrated no LV thrombus with
Definity
Echo 11/08/23:�Dilated cardiomyopathy, LVEF of 30%, right-sided ICD, dilated left atrium, mild to moderate aortic stenosis, peak and mean transaortic gradients of 15/8 mmHg, DVI of 0.4.� No pericardial effusion.
Plan:
-Patient came to [facility] today with SOB and is now being admitted with acute HF so cardiology has been consulted. Patient was just admitted to 12/27/23 until 12/31/23 with acute HF. Dry weight on day of discharge was 235 lbs. Patient has not been
weighing himself since discharge. He says he is following salt and fluid restriction, but can't articulate what those restrictions are. He also reports that he is taking Lasix 40 mg daily as ordered and missed a dose last night, but does not
routinely miss doses. Patient has a h/o CKD and follows with Dr. Reece at [facility] for outpatient nephrology care. Cre peaked at 2.9 last admission and baseline Cre is closer to 2.5. Patient was previously on transient dialysis. Patient also with h/o
pAfib and was in SR during device check in the office 01/04/24, but now appears to be in Afib. Patient denies palpitations. Patient is not on OAC due to h/o MM. Patient says that his symptoms started suddenly 2 hours prior to admission, but his
partner thinks that symptoms started earlier. Patient complains of orthopnea, but denies bloating or edema. Patient was 76% on RA when EMS arrived this morning and improved in BiPAP, but now stable on 6 L NC.
-pro-BNP is lower than previous and recorded scale in ER is stable plus CXR is being read as PNA.
-Doubt the ER bed scale weight and would be in favor of attempt at diuresis in addition to treatment for possible PNA.
-Recommend Lasix 40 mg IV daily. Patient was taking Lasix 40 mg PO daily prior to admission. Review of last admission shows that patient developed YOANDY with Lasix 40 mg IV BID diuresis and patient's partner is concerned about YOANDY. If patient is
stable later in the day can consider another dose today.
-Patient with what appears to be tenuous renal function, CKD 4, and follows with nephrology at [facility], Dr. Reece, and has previously required transient dialysis. Patient was not seen by nephrology last admission.
-Echo 10/2023 with EF improved to 30%. No need to repeat at this time.
-CM regimen includes Coreg 6.25 mg BID
-Patient is not chronically on UMAIR/ARB/aldosterone antagonist due to CKD.
-Initial Troponin 0.093 and Troponin appears to be chronically elevated due to part to CKD and also acute HF. Will manage as a nonischemic myocardial injury Troponin elevation and trend Troponin.
-Cont usual dose of Crestor 40 mg daily
-He appears to have recurred with Afib on ECG reviewed by me. Will arrange for device check. Patient is not on OAC due to MM.
-Patient's partner reports that he was scheduled to see Dr. Odom his Architecture Professor at [facility] this , 01/18/24 to discuss starting MM treatment. His last course of treatment was 2 years ago.
[2024-01-16] MEDS: ATIVAN 0.5 MG IV (10:59)
--- NOTE | 2024-01-16 12:15 | HPS.HSE ---
Family Physician
-
Family Physician: INTERVIEWE UNKNOWN - PT NOT
Chief Complaint
-
SOB
History of Present Illness
83 y/o M with PMHx:
Chronic HFrEF
BiV ICD in 2021
Hyponatremia
Non-NH troponin elevation
CKD4
Chronic pancytopenia
Essential hypertension
History of strokes
Coronary artery disease s/p prior NH and coronary stents
Diabetes mellitus type 2
Tobacco abuse disorder
History of left renal tumor resection
Multiple myeloma
who p/w CC SOB. Patient is a poor historian and is refusing to answer questions as he states he has told other providers a story already. History is obtained from the patient's who feels that he is developing dementia. Yesterday evening the
patient had onset of shortness of breath that persisted. At 2 in the morning today she recommended coming to the ER. The patient refused. Shortness of breath was worse this morning and he agreed to come to the ER. As per the patient's , no
reports of chest pain, nausea, vomiting, diarrhea, abdominal pain, headache, fever. In the ER the patient was found to be in respiratory failure. He was placed on BiPAP but since has refused BiPAP and has even refused nasal cannula oxygen. At the
time of my examination the patient does not appear in respiratory distress and is taken his pulse oximetry nasal cannula oxygen off.
Medical History
Past Medical History
Past Medical History: Reports Other (as per HPI)
Past Surgical History: Reports Other (N/A)
Social History
Tobacco: Other (cigars)
Alcohol: None
Drug: None
Family History
Family History: Not pertinent
Allergies / Home Medications
Allergies reflects when Allergies were last updated in [employer].
Home Medications with original date entered in [employer]
Allergy/Medication List:
Allergies
Allergy/AdvReac Type Severity Reaction Status Date / Time
No Known Allergies Allergy Verified 01/16/24 06:58
Home Medications
calcium carbonate 600 mg calcium (1,500 mg) tablet 600 mg PO DAILY Supplement 05/12/16
aspirin 81 mg tablet,delayed release 81 mg PO BID Blood clot prevention/tx 05/15/18
allopurinol 100 mg tablet 50 mg PO DAILY Gout 10/11/21
ezetimibe 10 mg tablet 10 mg PO HS High cholesterol 10/11/21
rosuvastatin 40 mg tablet (Crestor) 40 mg PO HS High cholesterol 10/11/21
tamsulosin 0.4 mg capsule 0.4 mg PO HS Urinary issue 11/30/21
docusate sodium 100 mg capsule (Colace) 100 mg PO HS Constipation 07/31/22
sennosides 8.6 mg tablet (Senokot) 8.6 mg PO HS Constipation 07/31/22
carvedilol 6.25 mg tablet (Coreg) 6.25 mg PO BID heart disease/condition #60 tabs 08/02/22
cholecalciferol (vitamin D3) 50 mcg (2,000 unit) tablet 50 mcg PO DAILY Supplement 12/27/23
furosemide 80 mg tablet 40 mg PO DAILY Fluid retention/Swelling 12/27/23
venlafaxine 75 mg tablet 75 mg PO BID Mental Health 12/27/23
omega 1-njx-zci-fish oil 1,200 mg (144 mg-216 mg) capsule (Fish Oil) 3 cap PO HS Supplement 01/16/24
Review of Systems
-
Unable to obtain full review of systems at this time due to: Dementia
History Source: Family
A 12 point ROS was completed and negative except as noted: Yes
Physical Exam
Vital Signs
Vital Signs
Pulse Resp BP Pulse Ox
103 26 88/48 92
01/16/24 11:10 01/16/24 11:10 01/16/24 11:10 01/16/24 11:10
Physical Exam
General: Other (.)
Laboratory Results
-
01/16/24 07:16
01/16/24 07:16
Laboratory Results
Troponin I 0.093 ng/ml H* 01/16/24 07:16
Impression/Plan
-
Gen: NAD, Awake and alert
Eyes: EOMI, PERRLA, no scleral icterus.
Neck: supple.
CV: RRR, +S1/S2, no m/r/g.
Resp: rales B/L
Abd: +BS, soft, NT, ND
Skin: No rashes. 2+ LLE edema (chronic as per pt's )
Neuro: CN 2-12 intact, non-focal.
Psych: Normal mood and affect.
CXR: Mild interstitial pneumonia at the right lung base.
Acute hypoxemic respiratory failure due to acute on chronic heart failure with reduced ejection fraction:
-Pt with elevated blood pressure on admission. Likely a component of hypertensive emergency that contributed to acute on chronic heart failure with reduced ejection fraction exacerbation.
-Echo 11/08/23: EF 30%
-h/o ICD
-missed meds (including lasix) 01/15/24AM
-Patient started on nitroglycerin drip in the ER which was stopped with hypotension (SBP 80s)
-Lasix 40mg IV given in ER
-cont with Lasix 40mg IV Q12H
-doubt benefit of repeating echo
-pt was initially on BiPAP in the ER which he then subsequently refused. cont with NC O2 as tolerated
-cont BB with holding parameters
-check ABG
Other problems:
BiV ICD in 2021
Hyponatremia
Non-NH troponin elevation
CKD4: Cr at baseline
Chronic pancytopenia (currently plts normal)
Essential hypertension: cont BB with holding parameters
History of strokes: Cont ASA/statin
Coronary artery disease s/p prior NH and coronary stents: Cont ASA/statin/BB
DM2: SSI/accuchecks for now. Recent a1c 6.7%
Tobacco abuse disorder
History of left renal tumor resection
Multiple myeloma
DNR as per discussion with in ER
Heparin
[2024-01-16 13:17] LABS: B.E. 2.7 mmol/L; HCO3 27.9 mmol/L (21-28); O2 Saturation % 44.5 % (94-98); PCO2 45 mmHg (35-48)
[2024-01-16 13:20] LABS: PO2 27 mmHg (83-108)
--- NOTE | 2024-01-16 15:04 | PTCARENOTE ---
Received patient by stretcher from ED. Patient AAOx2, angry. Allowed me to place on oxygen. On 4L NC with sats of 94%. V paced, HR 100, BP stable. Fever of 101.3 on arrival to IMU, notified. See orders. at bedside. Bed alarm on for
impulsivity and uncooperativeness. Continuing to closely monitor patient.
[2024-01-16] MEDS: HEPARIN 5000 UNITS SC ×2 (15:19→23:14)
[2024-01-16] MEDS: TYLENOL 650 MG PO (15:19)
[2024-01-16 16:21] LABS: Troponin I 0.615 ng/ml
--- NOTE | 2024-01-16 16:47 | PHA.VAN.IN ---
Assessment
- Assessment
Renal Function: Appears elevated from baseline (2.0 - 2.2)
Maximum Temperature: 101.3 F oral 01/15 1419
Concomitant Antimicrobials: piperacillin/tazobactam
Plan
- Plan
Initial / Loading Dose: vanc 2000mg pending administration
Maintenance Regimen: dosing by level
Monitoring: random level 01/16 0600
MRSA Screen: Ordered per protocol
Pharmacokinetics Vancomycin I
- -
Patient Age: 83
Patient Sex: Male
Vancomycin Day #: 1
Indication: Pulmonary/Respiratory
Requesting Provider: Dr. Infante
Pertinent Antimicrobial Allergies:
no pertinent antimicrobial allergies
Height / Weight:
Height 5 ft 8 in
Actual Weight 107.6 kg
Pertinent Past Medical History: BMI ~36
- Vital Signs / Lab Results
Temp Pulse Resp BP Pulse Ox
101.3 F H 101 20 119/45 92
01/16/24 14:19 01/16/24 15:45 01/16/24 15:45 01/16/24 15:00 01/16/24 15:15
Lab Results - Hematology
01/16/24
07:16
WBC 4.6 L
Lab Results - Chemistry
01/16/24
07:16
BUN 58 H
Creatinine 2.6 H
Estimated Creat Clear 25
Microbiology Results
01/16/24 07:16 Influenza Types A & B (AMBREEN) - Final
Nasal Swab Negative for Influenza A & B, NAAT
Negative results must be combined with clinical observations
and patient history.
Nucleic Acid Amplification test (NAAT)performed on the
[employer] platform.
[2024-01-16 17:20] LABS: Glucose - Point of Care 151 mg/dl (70-99)
[2024-01-16] MEDS: ZOSYN 50 IV ×2 (17:29→22:17)
[2024-01-16] MEDS: NOVOLOG FLEXPEN-LOW RESISTANCE SC (17:30)
--- NOTE | 2024-01-16 18:32 | PTCARENOTE ---
Patient being very uncooperative. Refusing to turn off of left side. Educated about bed sores and importance of pressure redistribution. Constantly taking off oxygen, sats drop to 85% on room air. 94% on 4L NC. Demanding bed rail be down. Bed rail
left up and educated about safety reasons for not putting it down and reasons that he is a huge fall risk. Patient shouting out and continuously ringing call quintero even when nurse in room. Constantly demanding bedside commode even after many many
unsuccessful attempts at a bowel movement. Limits set with patient. Continuing to monitor.
[2024-01-16] MEDS: VANCOCIN 540 MG IV (19:01)
[2024-01-16] MEDS: EFFEXOR 75 MG PO (19:41)
[2024-01-16] MEDS: COREG 6.25 MG PO (19:41)
[2024-01-16] MEDS: ASPIR LOW (ENTERIC COATED) 81 MG PO (19:41)
[2024-01-16] MEDS: SENOKOT 8.59999999999999964 MG PO (21:16)
[2024-01-16] MEDS: COLACE 100 MG PO (21:16)
[2024-01-16] MEDS: ZETIA 10 MG PO (21:16)
[2024-01-16] MEDS: CRESTOR 40 MG PO (21:16)
[2024-01-16] MEDS: FLOMAX 0.400000000000000022 MG PO (21:16)
[2024-01-16] MEDS: DESENEX/MITRAZOL/ZEASORB 1 APPLIC TOPICAL (22:17)
[2024-01-16 22:21] LABS: Glucose - Point of Care 144 mg/dl (70-99)
[2024-01-17] VITALS (13 sets, daily range): BP systolic 82–130; BP diastolic 41–112; PULSE 82; O2SAT 92–96; BMI 35.9
[2024-01-17] MEDS: ZOSYN 50 IV ×4 (03:10→21:22)
[2024-01-17 04:05] LABS: Vancomycin Random 20.6 ug/ml
[2024-01-17 04:07] LABS: Troponin I 0.491 ng/ml
[2024-01-17 04:22] LABS: Blood Urea Nitrogen 62 mg/dl (9-20); Calcium 8.8 mg/dl (8.4-10.2); Carbon Dioxide 24 mmol/L (22-30); Chloride 103 mmol/L (98-107); Estimated Creatinine Clearance 22 ml/min; Glucose 136 mg/dl (70-99); Potassium 4.5 mmol/L (3.5-5.1); Sodium 131 mmol/L (135-145); eGFR 20.55
--- NOTE | 2024-01-17 04:47 | PTCARENOTE ---
assumed care of patient, pt is AAOx3 but forgetful, at start of shift patient extremely agitated, angry, and uncooperative. taking oxygen off, trying to take heart monitor off. bed alarm on. pt is v-paced on the monitor, underlying a-fib. trace LE
edema L>R. pt on 4L NC- 93%. lungs with rhonchi throughout, wheezes, very SOB on exertion. pt was up to BSC x2 people. pt very unsteady and almost falling. pt placed back to bed- had large BM. Desenex applied to left abdominal fold, cream applied to
sacrum. stage 2 noted. pt is a q2t but refuses to turn to right side. pt always laying on left side and refuses to laying any other way. pt incontinent of urine- attends applied. bed alarm on. care ongoing.
--- NOTE | 2024-01-17 04:55 | PTCARENOTE ---
notified covering EQUAL OPPORTUNITY OFFICER of pt wheezing- nebs ordered and treatment given per JAN.
[2024-01-17 07:19] LABS: Glucose - Point of Care 142 mg/dl (70-99)
[2024-01-17] MEDS: NOVOLOG FLEXPEN-LOW RESISTANCE SC ×2 (07:25→14:23)
[2024-01-17] MEDS: ZYLOPRIM 50 MG PO (07:43)
[2024-01-17] MEDS: LASIX 40 MG IV ×2 (07:43→16:40)
[2024-01-17] MEDS: COREG 6.25 MG PO ×2 (07:43→19:58)
[2024-01-17] MEDS: HEPARIN 5000 UNITS SC ×2 (07:43→16:46)
[2024-01-17] MEDS: EFFEXOR 75 MG PO ×2 (07:43→19:58)
[2024-01-17] MEDS: ASPIR LOW (ENTERIC COATED) 81 MG PO (07:43)
[2024-01-17] MEDS: DESENEX/MITRAZOL/ZEASORB 1 APPLIC TOPICAL ×2 (07:44→19:59)
--- NOTE | 2024-01-17 08:15 | W.PN.HOSP.TC ---
Today's Communication/Plan
-
see bold
Assessment / Plan
Assessment / Plan
Gen: NAD, Awake and alert
Eyes: EOMI, PERRLA, no scleral icterus.
Neck: supple.
CV: remains RRR, +S1/S2, no m/r/g.
Resp: rales B/L, greatest in the bases
Abd: +BS, soft, NT, ND
Skin: No rashes. trace LLE edema (chronic as per pt's )
Neuro: CN 2-12 intact, non-focal.
Psych: Normal mood and affect.
CXR: Mild interstitial pneumonia at the right lung base.
Acute hypoxemic respiratory failure due to acute on chronic heart failure with reduced ejection fraction:
-Pt with elevated blood pressure on admission.� Likely a component of hypertensive emergency that contributed to acute on chronic heart failure with reduced ejection fraction exacerbation.
-Echo 11/08/23: EF 30%
-AB.40/45/27/44.5%
-h/o ICD
-missed meds (including lasix) 24AM
-Patient started on nitroglycerin drip in the ER which was stopped with hypotension (SBP 80s)
-Lasix 40mg IV given in ER
-cont with Lasix 40mg IV daily
-doubt benefit of repeating echo
-pt was initially on BiPAP in the ER which he then subsequently refused. cont with NC O2 as tolerated (currently 4L NC O2)
-cont BB with holding parameters
Other problems:
BiV ICD in 2021
Hyponatremia
Non-[place] troponin elevation
CKD4: Cr at baseline
Chronic pancytopenia (currently plts normal)
Essential hypertension: cont BB with holding parameters
History of strokes: Cont ASA/statin
Coronary artery disease s/p prior [place] and coronary stents: Cont ASA/statin/BB
DM2: SSI/accuchecks for now. Recent a1c 6.7%
Tobacco abuse disorder
History of left renal tumor resection
Multiple myeloma
DNR as per discussion with in ER
Heparin
Considering the patient's multiple, severe, active medical problems in the setting of deconditioning and advanced age hospice would be appropriate for this patient.
Anticipated Discharge: > 48 hours
Subjective/Interval History
-
Date of Service: January 17, 2024
No new complaints.
Objective Data
-
Labs:
Laboratory Results
01/17/24
03:16
Sodium 131 L
Potassium 4.5
Chloride 103
Carbon Dioxide 24
BUN 62 H
Creatinine 2.9 H
Glucose 136 H
Calcium 8.8
Vital Signs:
Vital Signs
Temp Pulse Resp BP Pulse Ox
98.4 F 87 20 123/99 95
01/17/24 07:30 01/17/24 07:43 01/17/24 06:00 01/17/24 07:43 01/17/24 06:00
I&O
01/16/24 01/17/24 01/18/24
06:59 06:59 06:59
Intake Total 480 / 480
Balance 480 / 480
--- NOTE | 2024-01-17 09:05 | PTCARENOTE ---
Received patient from night shift manager. Patient resting comfortably in bed. AAO, VSS. No events noted overnight. No complaints of pain. Will attempted to get patient out to chair and wean O2 if able. ABX to be given. Call quintero in reach.
--- NOTE | 2024-01-17 09:43 | W.PN.CARDCBS ---
Addendum entered and electronically signed by Gisela Garner MD 01/17/24 10:53:
I saw and examined the patient.
The Leaf Binner's note was reviewed and I agree with the note.
Oxygen status is fairly stable.
Continue diuresis but given worsening creatinine would consider nephrology consult.
Now with temperature to 101.3. Defer to primary service. On antibiotics. Workup underway
Increase activity as tolerates. Guideline directed medical therapy limited given renal insufficiency.
Given multiple medical problems overall poor prognosis
Original Note:
Today's Communication / Plan
-
Cre up. He follows with nephrology at [facility], Dr. Reece, consider inpatient nephrology consultation
Will try another dose of Lasix 40 mg IV this afternoon
Impression / Plan
-
Primary Dairy Tester: Dr. Clark
PCP: Michelle Rogers
Impression:
Acute on Chronic HFrEF
Ischemic cardiomyopathy, lowest EF 10 to 15% by echo 01/2021, improved to 30% on echo 11/08/23
Elevated Troponin
YOANDY on CKD 4, previously on HD
s/p [employer] Bi-V/ICD 12/07/21
CAD
s/p LAD PCI and TILE APPLICATOR of RCA 2012
LBBB
h/o CVA/TIA with residual left field cut
Diabetes
Hypertension
Dyslipidemia
Mild aortic stenosis
Mildly enlarged aortic root
Secondary hyperparathyroidism
Morbid obesity
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
Multiple myeloma
History of gout
PHILIPPE, untreated
Non-adherence to medications
Lexiscan Stress Test: 09/14/22:�Fixed inferior and inferior-septal defect consistent with infarction, severely decreased systolic function with estimated LVEF of 22% with severe global hypokinesis and dilated left ventricle, intermediate risk stress
test, 4 beat NSVT during study
Cardiac cath 10/24/2015:�LAD:stent in the proximal LAD is widely patent.� The second diagonal comes off the middle of the stent and is jailed by the stent and has a 90% ostial stenosis.� There is a 40% mid LAD stenosis. Circumflex: Luminal
irregularities RCA: 100% chronic total occlusion of the proximal RCA.
Echo 01/2021: EF 10 to 15%, global hypokinesis with akinesis of inferior wall, septum, and apex.� Stage III diastolic dysfunction, mitral annular calcification, mild MR, aortic sclerosis, mildly dilated aortic root
Echo 10/12/21: EF 10%, global hypokinesis LV severely dilated, mild LVH, stage III DD, mild MR, trace TR/AI, PAP 15 to 20 mmHg.� Possible left ventricular apical thrombus.� Echo repeated with Definity 10/13/2021 which demonstrated no LV thrombus with
Definity
Echo 11/08/23:�Dilated cardiomyopathy, LVEF of 30%, right-sided ICD, dilated left atrium, mild to moderate aortic stenosis, peak and mean transaortic gradients of 15/8 mmHg, DVI of 0.4.� No pericardial effusion.
Plan:
-Weight only down 1 lb overnight and Cre up from 2.6 to 2.9 on 01/17/24 with Lasix 40 mg IV daily. Patient was taking Lasix 40 mg daily prior to admission and was missing doses from time to time.
-Dry weight at last discharge 12/31/23 was 235 lbs. Patient weighed 237 lbs on admission 01/16/24.
-Consider Nephrology consult. Patient with known CKD 4 and previously required transient dialysis. Follows with nephrology at [facility], Dr. Reece
-Echo 10/2023 with EF improved to 30%. No need to repeat at this time.
-CM regimen includes Coreg 6.25 mg BID
-Patient is not chronically on UMAIR/ARB/aldosterone antagonist due to CKD.
-Fever up to 101.3 degrees Fahrenheit 01/16/24 PM. Patient is ordered vancomycin and Zosyn
-Peak Troponin 0.615 and Troponin appears to be chronically elevated due to part to CKD and also acute HF. Will manage as a nonischemic myocardial injury Troponin elevation and trend Troponin.
-Cont usual dose of Crestor 40 mg daily
-He appears to have recurred with Afib on ECG reviewed by me. Device checked in ER 01/16/24, getting report. Patient is not on OAC due to MM.
-Patient with h/o MM and his partner reports that he was scheduled to see Dr. Odom his Zipper Setter Lockstitch at [facility] this , 01/18/24 to discuss starting MM treatment. His last course of treatment was 2 years ago.
HPI: Patient came to [facility] today with SOB and is now being admitted with acute HF so cardiology has been consulted. Patient was just admitted to 12/27/23 until 12/31/23 with acute HF. Dry weight on day of discharge was 235 lbs. Patient has not been
weighing himself since discharge. He says he is following salt and fluid restriction, but can't articulate what those restrictions are. He also reports that he is taking Lasix 40 mg daily as ordered and missed a dose last night, but does not
routinely miss doses. Patient has a h/o CKD and follows with Dr. Reece at [facility] for outpatient nephrology care. Cre peaked at 2.9 last admission and baseline Cre is closer to 2.5. Patient was previously on transient dialysis. Patient also with h/o
pAfib and was in SR during device check in the office 01/04/24, but now appears to be in Afib. Patient denies palpitations. Patient is not on OAC due to h/o MM. Patient says that his symptoms started suddenly 2 hours prior to admission, but his
partner thinks that symptoms started earlier. Patient complains of orthopnea, but denies bloating or edema. Patient was 76% on RA when EMS arrived this morning and improved in BiPAP, but now stable on 6 L NC.
Progress Note - Dairy Tester
Subjective
Date of Service: January 17, 2024
He says he feels like he needs to move his bowels again
Objective
Labs:
01/16/24 07:16
01/17/24 03:16
Labs
Hgb 9.7 g/dL (13.0-18.0) L 03/05/24 07:16
Hct 29.8 % (39.0-52.0) L 01/16/24 07:16
Plt Count 139 10^3/uL (130-400) 01/16/24 07:16
Sodium 131 mmol/L (135-145) L 01/17/24 03:16
Potassium 4.5 mmol/L (3.5-5.1) 01/17/24 03:16
BUN 62 mg/dl (9-20) H 01/17/24 03:16
Creatinine 2.9 mg/dL (0.7-1.3) H 01/17/24 03:16
Glucose 136 mg/dl (70-99) H 01/17/24 03:16
Troponins
01/16/24 01/16/24 01/16/24
07:16 15:41 20:01
Troponin I 0.093 H* 0.615 H* 0.560 H*
01/17/24
03:16
Troponin I 0.491 H*
Vital Signs and I&O:
Vital Signs
Temp Pulse Resp BP Pulse Ox
98.4 F 87 20 123/99 95
01/17/24 07:30 01/17/24 07:43 01/17/24 06:00 01/17/24 07:43 01/17/24 06:00
Vital Signs
Temp Pulse Resp BP Pulse Ox
98.4 F 87 20 123/99 95
01/17/24 07:30 01/17/24 07:43 01/17/24 06:00 01/17/24 07:43 01/17/24 06:00
Intake & Output
01/15/24 01/16/24 01/17/24 01/18/24
06:59 06:59 06:59 06:59
Intake Total 480 / 480
Balance 480 / 480
Physical Exam
Physical Exam
GEN: NAD. AAO x3
HEENT: EOMI, MMM
LUNGS: Wheeze and rales throughout with productive cough.
CV: Irreg, S1/S2, no murmur
ABD: soft, BS+, NT, ND
EXT:� +1 B/L LE edema. Excoriations B/L ankles. No clubbing or cyanosis B/L
NEURO: Gross non-focal
SKIN: Warm, dry, no rash
--- NOTE | 2024-01-17 10:43 | WOUNDNOTE ---
SACRUM AND BUTTOCKS
--- NOTE | 2024-01-17 11:35 | WOUNDNOTE ---
KRANTHI RN NOTE: Patient admitted with acute respiratory failure, hypoxia. See chart for PMH: Asked to see patient for skin tear on buttock and stage 1 PI on Coccyx, MASD in skin folds. With assist from PT Katerina and associate, patient stood up with
walker. No pressure injuries found on buttocks or Coccyx just mild MASD in gluteal cleft. On distal R buttock has chronic flat irregular shaped small area of skin discoloration, not pressure related. Patient assisted to Commode chair by PT.
Frequently uses commode for prolonged periods of time. Protective silicone foam applied to sacrum. Nurse Vern reports fungal powder in use for skin folds with good results. Will sign off unless needed.
[2024-01-17 13:04] LABS: Glucose - Point of Care 141 mg/dl (70-99)
--- NOTE | 2024-01-17 13:22 | CM ---
Addendum entered by Belinda Angel 01/17/24 15:55:
Met with patient and at bedside; explained to patient that PT recommends going to rehab when discharged.
will review list provided and provide 3-4 preferences tomorrow.
Seafood Process Worker will follow up tomorrow
Original Note:
Spoke with patient's via phone; initial assessment completed
Pharmacy verified: [facility] [address] [place] [address]
Family Physician verified: Michelle Rogers PA-C, RADHA Moreno (Admissions notified to update chart)
reports that patient is cognitively impaired. They live in a [place]; 3 steps to enter home; bathroom has a walk-in shower.
PLOF: reports that she is the primary caregiver; states her is 'very lazy' ; will not use walker when ambulating; he holds on to the obrien; sleeps in a recliner; uses commode; patient needs assistance with ADLs; can feed himself; does
not shower or change his clothes
SNF/Rehab/Home Care utilization history: SNF for rehab in 2016; no prior home care
Transport: to be determined
Plan: if patient agreeable, PT recommends SNF when stable for discharge. CM will meet with patient's when she visits this afternoon to provide list of facilities.
--- NOTE | 2024-01-17 15:03 | PHA.VAN.FU ---
Vancomycin Assessment / Plan
- Assessment
Renal Function: SCR Increasing
Concomitant Antimicrobials: piperacillin/tazobactam
- Assessment - Therapeutic Drug Monitoring
Random Level: 20.6 - drawn ~8H after 2g loading dose
- Dosing Plan
Dosing by Level: Hold off on dosing today (will hold off on further dosing today given increased SCR and elevated level)
- Monitoring Plan
Random Level: 01/17 06
- Follow Up
Pharmacy will continue to follow.
Vancomycin Follow UP
- -
Patient Age: 83
Patient Sex: Male
Vancomycin Day #: 2
Indication: Pulmonary/Respiratory
Requesting Provider: Dr. Infante
Pertinent Antimicrobial Allergies:
no pertinent antimicrobial allergies
Height / Weight:
Height 5 ft 8 in
Actual Weight 107.1 kg
Pertinent Past Medical History: BMI ~36
- Vital Signs / Lab Results
Temp Pulse Resp BP Pulse Ox
98.1 F 87 20 123/99 95
01/17/24 11:17 01/17/24 07:43 01/17/24 06:00 01/17/24 07:43 01/17/24 10:23
Lab Results - Hematology
01/16/24
07:16
WBC 4.6 L
Lab Results - Chemistry
01/16/24 01/17/24
07:16 03:16
BUN 58 H 62 H
Creatinine 2.6 H 2.9 H
Estimated Creat Clear 25 22
Microbiology Results
01/16/24 17:25 Nasal Screen MRSA (PCR) - Final
Nose MRSA not detected - performed by PCR methodology.
01/16/24 07:16 Influenza Types A & B (AMBREEN) - Final
Nasal Swab Negative for Influenza A & B, NAAT
Negative results must be combined with clinical observations
and patient history.
Nucleic Acid Amplification test (NAAT)performed on the
[employer] platform.
Therapeutic Drug Monitoring
Random Vancomycin 20.6 ug/ml 01/17/24 03:16
[2024-01-17 17:33] LABS: Glucose - Point of Care 164 mg/dl (70-99)
[2024-01-17] MEDS: NOVOLOG FLEXPEN-LOW RESISTANCE 1 UNITS SC (18:23)
[2024-01-17] MEDS: SENOKOT 8.59999999999999964 MG PO (19:58)
[2024-01-17] MEDS: FLOMAX 0.400000000000000022 MG PO (19:58)
[2024-01-17] MEDS: ZETIA 10 MG PO (19:58)
[2024-01-17] MEDS: CRESTOR 40 MG PO (19:58)
[2024-01-17] MEDS: COLACE 100 MG PO (19:59)
[2024-01-17] MEDS: DUONEB 3 ML INH (20:40)
[2024-01-17 21:36] LABS: Glucose - Point of Care 135 mg/dl (70-99)
[2024-01-17] MEDS: HEPARIN SC (23:01)
[2024-01-18] VITALS (18 sets, daily range): BP systolic 97–140; BP diastolic 41–128; BMI 36.4
[2024-01-18] MEDS: ZOSYN 50 IV ×4 (04:04→21:47)
[2024-01-18 04:57] LABS: Vancomycin Random 13.7 ug/ml
[2024-01-18 05:08] LABS: Blood Urea Nitrogen 78 mg/dl (9-20); Calcium 8.9 mg/dl (8.4-10.2); Carbon Dioxide 24 mmol/L (22-30); Chloride 98 mmol/L (98-107); Estimated Creatinine Clearance 22 ml/min; Glucose 107 mg/dl (70-99); Sodium 132 mmol/L (135-145); eGFR 19.74
--- NOTE | 2024-01-18 07:44 | W.PN.CARDCBS ---
Addendum entered and electronically signed by Gisela Garner MD 01/18/24 15:09:
I saw and examined the patient.
The Architectural Coating Finisher's note was reviewed and I agree with the note.
Comment:
Overall he is looking clinically better this afternoon. On room air pulse ox is 90%. He is feeling better. Less edema despite not a great change in weight. It appears that his has asked for the patient to receive less diuretic despite
recommendation by cardiology/nephrology.
Continue to assess. Continue volume removal. proBNP has been decreasing.
Appreciate nephrology input.
Continue cardiomyopathy regimen as tolerates. Guideline directed medical therapy limited given renal dysfunction.
Patient is not chronically on UMAIR/ARB/aldosterone antagonist due to CKD.
He did have temperature 101.3 degrees Fahrenheit 01/16/24 PM. Patient is ordered Zosyn being treated for possible pneumonia.
Device check 01/16/2024 is stable with no recent atrial fibrillation. He is not on oral anticoagulation given multiple myeloma.
Addendum entered and electronically signed by Sarah Garcia PA-C 01/18/24 14:21:
Updated patient's in the room about device check and that he has not had Afib recently. Also reviewed Nephrology consultation and the plan to increase to Lasix 40 mg IV BID. Patient's feels that is too aggressive. Reviewed that weight is
going up since admission, he is up to 239 lbs today. Patient's would like to try Lasix 20 mg IV this afternoon instead of 40 mg. Reviewed the possibility of a RHC, explained procedure and patient's does not think that he could lay flat.
Original Note:
Today's Communication / Plan
-
Consulted Nephrology and will try Lasix 40 mg IV BID, pending response consider RHC
Device check scheduled for today to try and determine timing of Afib, but regardless he is not a rhythm control candidate due to inability to take OAC
Impression / Plan
-
Primary Associate Professor Physician: Dr. Scheiring
PCP: Michelle Rogers
Impression:
Acute on Chronic HFrEF
Ischemic cardiomyopathy, lowest EF 10 to 15% by echo 01/2021, improved to 30% on echo 11/08/23
Elevated Troponin
YOANDY on CKD 4, previously on HD
s/p Medtronic Bi-V/ICD 12/07/21
CAD
s/p LAD PCI and DATA ANALYTICS SPECIALIST of RCA 2012
LBBB
h/o CVA/TIA with residual left field cut
Diabetes
Hypertension
Dyslipidemia
Mild aortic stenosis
Mildly enlarged aortic root
Secondary hyperparathyroidism
Morbid obesity
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
Multiple myeloma
History of gout
PHILIPPE, untreated
Non-adherence to medications
Lexiscan Stress Test: 09/14/22:�Fixed inferior and inferior-septal defect consistent with infarction, severely decreased systolic function with estimated LVEF of 22% with severe global hypokinesis and dilated left ventricle, intermediate risk stress
test, 4 beat NSVT during study
Cardiac cath 10/24/2015:�LAD:stent in the proximal LAD is widely patent.� The second diagonal comes off the middle of the stent and is jailed by the stent and has a 90% ostial stenosis.� There is a 40% mid LAD stenosis. Circumflex: Luminal
irregularities RCA: 100% chronic total occlusion of the proximal RCA.
Echo 01/2021: EF 10 to 15%, global hypokinesis with akinesis of inferior wall, septum, and apex.� Stage III diastolic dysfunction, mitral annular calcification, mild MR, aortic sclerosis, mildly dilated aortic root
Echo 10/12/21: EF 10%, global hypokinesis LV severely dilated, mild LVH, stage III DD, mild MR, trace TR/AI, PAP 15 to 20 mmHg.� Possible left ventricular apical thrombus.� Echo repeated with Definity 10/13/2021 which demonstrated no LV thrombus with
Definity
Echo 11/08/23:�Dilated cardiomyopathy, LVEF of 30%, right-sided ICD, dilated left atrium, mild to moderate aortic stenosis, peak and mean transaortic gradients of 15/8 mmHg, DVI of 0.4.� No pericardial effusion.
Plan:
-Weight up 3 lbs overnight. Patient with ongoing hypoxia and remains on 4 L NC. Cre bumped to 3.0
-Consulted Nephrology and appreciate their input. Will try higher dose Lasix 40 mg IV BID and pending response would consider RHC
-Patient with known CKD 4 and previously required transient dialysis. Follows with nephrology at [facility], Dr. Reece
-Dry weight at last discharge 12/31/23 was 235 lbs. Patient weighed 237 lbs on admission 01/16/24.
-CM regimen includes Coreg 6.25 mg BID
-Patient is not chronically on UMAIR/ARB/aldosterone antagonist due to CKD.
-Fever up to 101.3 degrees Fahrenheit 01/16/24 PM. Patient is ordered Zosyn
-Peak Troponin 0.615 and Troponin appears to be chronically elevated due to part to CKD and also acute HF. Will manage as a nonischemic myocardial injury Troponin elevation.
-Cont usual dose of Crestor 40 mg daily
-He appears to have recurred with Afib on ECG reviewed by me. Device was not actually checked in ER 01/16/24, so ordered a device check by rep to be performed 01/18/24. This will help with determining timing of Afib recurrence. Regardless, the patient
is not a candidate for TABBY/CV because he is not on OAC due to MM.
-Patient with h/o MM and his partner reports that he was scheduled to see Dr. Odom his Franchise Broker at [facility] this , 01/18/24 to discuss starting MM treatment. His last course of treatment was 2 years ago.
HPI: Patient [facility] today with SOB and is now being admitted with acute HF so cardiology has been consulted. Patient was just admitted to 12/27/23 until 12/31/23 with acute HF. Dry weight on day of discharge was 235 lbs. Patient has not been
weighing himself since discharge. He says he is following salt and fluid restriction, but can't articulate what those restrictions are. He also reports that he is taking Lasix 40 mg daily as ordered and missed a dose last night, but does not
routinely miss doses. Patient has a h/o CKD and follows with Dr. Reece at [facility] for outpatient nephrology care. Cre peaked at 2.9 last admission and baseline Cre is closer to 2.5. Patient was previously on transient dialysis. Patient also with h/o
pAfib and was in SR during device check in the office 01/04/24, but now appears to be in Afib. Patient denies palpitations. Patient is not on OAC due to h/o MM. Patient says that his symptoms started suddenly 2 hours prior to admission, but his
partner thinks that symptoms started earlier. Patient complains of orthopnea, but denies bloating or edema. Patient was 76% on RA when EMS arrived this morning and improved in BiPAP, but now stable on 6 L NC.
Progress Note - Associate Professor Physician
Subjective
Date of Service: January 18, 2024
He thinks he feels a bit better, less defecation urgency
Objective
Labs:
01/16/24 07:16
01/18/24 04:11
Labs
Hgb 9.7 g/dL (13.0-18.0) L 01/16/24 07:16
Hct 29.8 % (39.0-52.0) L 01/16/24 07:16
Plt Count 139 10^3/uL (130-400) 01/16/24 07:16
Sodium 132 mmol/L (135-145) L 01/18/24 04:11
Potassium 4.0 mmol/L (3.5-5.1) 01/18/24 04:11
BUN 78 mg/dl (9-20) H 01/18/24 04:11
Creatinine 3.0 mg/dL (0.7-1.3) H 01/18/24 04:11
Glucose 107 mg/dl (70-99) H 01/18/24 04:11
Troponins
01/16/24 01/16/24 01/16/24
07:16 15:41 20:01
Troponin I 0.093 H* 0.615 H* 0.560 H*
01/17/24
03:16
Troponin I 0.491 H*
Vital Signs and I&O:
Vital Signs
Temp Pulse Resp BP Pulse Ox
98.2 F 83 28 113/58 96
01/18/24 07:22 01/18/24 04:00 01/17/24 20:42 01/18/24 04:00 01/18/24 04:00
Vital Signs
Temp Pulse Resp BP Pulse Ox
98.2 F 83 28 113/58 96
01/18/24 07:22 01/18/24 04:00 01/17/24 20:42 01/18/24 04:00 01/18/24 04:00
Intake & Output
01/16/24 01/17/24 01/18/24 01/19/24
06:59 06:59 06:59 06:59
Intake Total 480 / 480 700 / 700
Output Total 100 / 100
Balance 480 / 480 600 / 600
Physical Exam
Physical Exam
GEN: NAD. AAO x3
HEENT: EOMI, MMM
LUNGS: Rhonchi and rales B/L
CV: Irreg, S1/S2, no murmur
ABD: soft, BS+, NT, ND
EXT:� +1 B/L LE edema. Excoriations B/L ankles. No clubbing or cyanosis B/L
NEURO: Gross non-focal
SKIN: Warm, dry, no rash
[2024-01-18] MEDS: NOVOLOG FLEXPEN-LOW RESISTANCE SC ×2 (07:53→17:17)
[2024-01-18 08:02] LABS: Glucose - Point of Care 120 mg/dl (70-99)
--- NOTE | 2024-01-18 08:10 | W.PN.HOSP.TC ---
Today's Communication/Plan
-
see bold
Assessment / Plan
Assessment / Plan
Gen: NAD, Awake and alert
Eyes: EOMI, PERRLA, no scleral icterus.
Neck: supple.
CV: Continues to remain RRR, +S1/S2, no m/r/g.
Resp: Decreased air exchange and bilateral expiratory wheezes. Diaphragmatic breathing.
Abd: +BS, soft, NT, ND
Skin: No rashes.
Neuro: CN 2-12 intact, non-focal.
Psych: Normal mood and affect.
CXR: Mild interstitial pneumonia at the right lung base.
Acute hypoxemic respiratory failure due to acute on chronic heart failure with reduced ejection fraction:
-Pt with elevated blood pressure on admission.� Likely a component of hypertensive emergency that contributed to acute on chronic heart failure with reduced ejection fraction exacerbation.
-Echo 11/08/23: EF 30%
-AB.40///44.5%
-h/o ICD
-missed meds (including lasix) 01/15/24AM
-Patient started on nitroglycerin drip in the ER which was stopped with hypotension (SBP 80s)
-Lasix 40mg IV given in ER
-cont with Lasix 40mg IV daily
-doubt benefit of repeating echo
-pt was initially on BiPAP in the ER which he then subsequently refused. Cont to wean NC O2 as tolerated (currently on 2L NC O2)
-cont BB with holding parameters
-with wheezing will c/s pulmonary
Fever on admission:
-possibly due to mild interstitial PNA in the R base
-fever has resolved/not recurred
-has been on Vanco/Zosyn, stop Vanco with NEG MRSA screen
Other problems:
BiV ICD in 2021
Hyponatremia
Non-AK troponin elevation
CKD4: Cr 3.0 (was 2.9 on 01/09/24). Cardiology requesting renal c/s.
Chronic pancytopenia (currently plts normal)
Essential hypertension: cont BB with holding parameters
History of strokes: Cont ASA/statin
Coronary artery disease s/p prior AK and coronary stents: Cont ASA/statin/BB
DM2: SSI/accuchecks for now. Recent a1c 6.7%
Tobacco abuse disorder
History of left renal tumor resection
Multiple myeloma
Obesity due to excess calories: Affects all aspects of care, encourage weight loss
DNR as per discussion with in ER
Heparin
Considering the patient's multiple, severe, active medical problems in the setting of deconditioning and advanced age hospice would be appropriate for this patient.
Anticipated Discharge: 24 - 48 hours
Subjective/Interval History
-
Date of Service: January 18, 2024
Patient denies chest pain or shortness of breath. He states he is leaving the hospital today.
Objective Data
-
Labs:
Laboratory Results
01/18/24
04:11
Sodium 132 L
Potassium 4.0
Chloride 98
Carbon Dioxide 24
BUN 78 H
Creatinine 3.0 H
Glucose 107 H
Calcium 8.9
Vital Signs:
Vital Signs
Temp Pulse Resp BP Pulse Ox
98.2 F 83 28 113/58 96
01/18/24 07:22 01/18/24 04:00 01/17/24 20:42 01/18/24 04:00 01/18/24 04:00
I&O
01/17/24 01/18/24 01/19/24
06:59 06:59 06:59
Intake Total 480 / 480 700 / 700
Output Total 100 / 100
Balance 480 / 480 600 / 600
--- NOTE | 2024-01-18 09:00 | PTCARENOTE ---
Received patient from night supervisor. Patient resting comfortably in bed. AAO, VSS. No events noted overnight. No complaints of pain. Will continue to wean O2 if able. ABX to be given. Continuing Lasix per Cardiology and Nephrology. Call quintero
in reach.
--- NOTE | 2024-01-18 09:06 | CM ---
Addendum entered by Radha Levine 01/18/24 14:00:
[facility] unable to accept - do not accept insurance
Original Note:
CM spoke with pts to discuss SNF choices
Choices obtained- [facility], [facility] and [facility]
CM will make referrals in [facility]
CM will follow for d/c needs
Plan - d/c to snf - tbd when medically stable
[2024-01-18] MEDS: COREG 6.25 MG PO ×2 (09:26→19:39)
[2024-01-18] MEDS: EFFEXOR 75 MG PO ×2 (09:27→19:39)
[2024-01-18] MEDS: DESENEX/MITRAZOL/ZEASORB 1 APPLIC TOPICAL ×2 (09:27→19:39)
[2024-01-18] MEDS: HEPARIN 5000 UNITS SC ×2 (09:28→16:16)
[2024-01-18] MEDS: LOW STRENGTH ASPIRIN 81 MG PO (09:32)
[2024-01-18] MEDS: ZYLOPRIM 50 MG PO (09:32)
--- NOTE | 2024-01-18 09:46 | W.CON.NEPH ---
Consultation
-
Date/Time Consultation Requested: January 18, 2024 9:00 AM
Date/Time Consultation Performed: January 17 9:15 AM
Requesting Provider: Gisela Garner
Performing Provider: Citlali
Reason for Consultation: CKD 4
Medical History
-
Chief Complaint: Chronic kidney disease stage IV
History of Present Illness:
83-year-old male presented to [facility] with SOB and admitted with acute HF . Patient was just admitted to 12/27/23 until 12/31/23 with acute HF. Dry weight on day of discharge was 235 lbs. Patient has not been weighing himself since discharge. He
says he is following salt and fluid restriction, but can't articulate what those restrictions are. He also reports that he is taking Lasix 40 mg daily as ordered and missed a dose last night, but does not routinely miss doses. Patient has a h/o CKD
stage IV with baseline creatinine of approximately 2.[address] Reece at [facility] for outpatient nephrology care. Cre peaked at 2.9 last admission and baseline Cre is closer to 2.5. Patient was previously on transient dialysis. Patient also
with h/o pAfib and was in SR during device check in the office 01/04/24, but now appears to be in Afib. Patient denies palpitations. Patient is not on OAC due to h/o MM. Patient says that his symptoms started suddenly 2 hours prior to admission, but
his partner thinks that symptoms started earlier. Patient complains of orthopnea, but denies bloating or edema. Patient was 76% on RA when EMS arrived this morning and improved in BiPAP, but now stable on 6 L NC. Patient has a history of BPH
maintained on tamsulosin. He also has a history of multiple myeloma which apparently has been in remission. We were consulted as his creatinine is now at 3 and his urine output has been decreased.
Past Medical History
Chronic HFrEF
Ischemic cardiomyopathy, lowest EF 10 to 15% by echo 01/2021, improved to 30% on echo 11/08/23
CKD 4 ~2.6
YOANDY on CKD 4, previously on HD
s/p Medtronic Bi-V/ICD 12/07/21
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
h/o CVA/TIA with residual left field cut
Diabetes
Hypertension
Dyslipidemia
Mild aortic stenosis
Mildly enlarged aortic root
Secondary hyperparathyroidism
Morbid obesity
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
Multiple myeloma
History of gout
PHILIPPE, untreated
Non-adherence to medications
Social History
No alcohol use
Positive for cigars
Family History
No chronic kidney disease
Allergies / Home Medications
Allergy/AdvReac Type Severity Reaction Status Date / Time
No Known Allergies Allergy Verified 01/16/24 06:58
Medication Instructions Recorded Confirmed Type
calcium carbonate 600 mg calcium 600 mg PO DAILY Supplement 05/12/16 01/16/24 History
(1,500 mg) tablet
aspirin 81 mg tablet,delayed 81 mg PO BID Blood clot 05/15/18 01/16/24 History
release prevention/tx
allopurinol 100 mg tablet 50 mg PO DAILY Gout 10/11/21 01/16/24 History
ezetimibe 10 mg tablet 10 mg PO HS High cholesterol 10/11/21 01/16/24 History
rosuvastatin 40 mg tablet (Crestor) 40 mg PO HS High cholesterol 10/11/21 01/16/24 History
tamsulosin 0.4 mg capsule 0.4 mg PO HS Urinary issue 11/30/21 01/16/24 History
docusate sodium 100 mg capsule 100 mg PO HS Constipation 07/31/22 01/16/24 History
(Colace)
sennosides 8.6 mg tablet (Senokot) 8.6 mg PO HS Constipation 07/31/22 01/16/24 History
carvedilol 6.25 mg tablet (Coreg) 6.25 mg PO BID heart 08/02/22 01/16/24 Rx
disease/condition #60 tabs
cholecalciferol (vitamin D3) 50 50 mcg PO DAILY Supplement 12/27/23 01/16/24 History
mcg (2,000 unit) tablet
furosemide 80 mg tablet 40 mg PO DAILY Fluid 12/27/23 01/16/24 History
retention/Swelling
venlafaxine 75 mg tablet 75 mg PO BID Mental Health 12/27/23 01/16/24 History
omega 8-hvl-vvh-fish oil 1,200 mg 3 cap PO HS Supplement 01/16/24 01/16/24 History
(144 mg-216 mg) capsule (Fish Oil)
Review of Systems
-
History Source: Patient
All other systems: Negative unless noted
Constitutional: Fever
EENT: No Symptoms
Respiratory: Other (Short of breath on oxygen)
Cardiac: No Symptoms
Abdomen/GI: No Symptoms
: No Symptoms
Musculoskeletal: No Symptoms
Skin: No Symptoms
Neurological: No Symptoms
Endocrine: No Symptoms
Hematologic/Lymphatic: No Symptoms
Physical Exam
Vital Signs
Vital Signs
Temp Pulse Resp BP Pulse Ox
98.2 F 84 28 102/77 96
01/18/24 07:00 01/18/24 09:26 01/17/24 20:42 01/18/24 09:26 01/18/24 04:00
Lab Results
01/16/24 07:16
01/18/24 04:11
WBC 4.6 10^3/uL (4.8-10.8) L 01/16/24 07:16
RBC 2.93 10^6/uL (4.70-6.10) L 01/16/24 07:16
Hgb 9.7 g/dL (13.0-18.0) L 01/16/24 07:16
Hct 29.8 % (39.0-52.0) L 01/16/24 07:16
Plt Count 139 10^3/uL (130-400) 01/16/24 07:16
Sodium 132 mmol/L (135-145) L 01/18/24 04:11
Potassium 4.0 mmol/L (3.5-5.1) 01/18/24 04:11
Chloride 98 mmol/L (98-107) 01/18/24 04:11
Carbon Dioxide 24 mmol/L (22-30) 01/18/24 04:11
BUN 78 mg/dl (9-20) H 01/18/24 04:11
Creatinine 3.0 mg/dL (0.7-1.3) H 01/18/24 04:11
eGFR 19.74 01/18/24 04:11
Glucose 107 mg/dl (70-99) H 01/18/24 04:11
Calcium 8.9 mg/dl (8.4-10.2) 01/18/24 04:11
Foj-H-Yzyiiirwmhc Pept 5580 pg/ml 01/16/24 07:16
Physical Exam
General: AOx3, No Distress and Nontoxic
HEENT: PERRL, EOMI, Anicteric, Conjunctivae Clear, Ear/Nose Intact, Neck Supple, Trachea Midline, No JVD and No Thyromegaly
Respiratory: Normal Excursion and Other (Coarse breath sounds bilaterally)
Cardiac: S1/S2 (Irregular irregular)
Breast: Deferred by me
Abdomen: Soft, Nontender and Nondistended
Rectal: Deferred by Provider
Genito-urinary: Costovertebral Angle Tend
Musculoskeletal: No Clubbing, No Cyanosis and No Edema
Skin: No Rash
Neuro: Nonfocal/Grossly Intact
Hematologic/Lymphatic: No Cervical Lymphadenopathy, No Submandibular Lymphadenopathy and No Supraclavicular Lymphadenopathy
Psych: Other (Irritated)
Assessment/Plan
-
Impression:
CKD 4 baseline around 2.8
Chronic HFrEF
BiV ICD in 2022
Hyponatremia
Non-CA troponin elevation
Chronic pancytopenia
Essential hypertension
History of strokes
Coronary artery disease s/p prior CA and coronary stents
Diabetes mellitus type 2
Tobacco abuse disorder
History of left renal tumor resection
Multiple myeloma
Plan:
-Creatinine is actually very close to baseline
-I will obtain postvoid bladder scan to make sure patient is appropriately emptying bladder given his history of BPH
-Volume status is quite difficult to ascertain given patient's body habitus but no defined congestive heart failure on chest x-ray appears to be more right lower lobe pneumonia, no gross edema on exam
-Okay to give 40 mg IV Lasix to start today BID discussed with cardiology
-Zosyn appropriately renally dose
-Will implement fluid restriction if hyponatremia exacerbates
Data Reviewed
-
Radiology: Image Personally Visualized and interpreted (Chest x-ray notes right middle lower lobe pneumonia process)
Medical Tests (Nuc Med, Echo etc): Other (EKG reviewed atrial fibrillation rhythm at 84 bpm with left axis deviation)
Labs: Labs Reviewed by me
Old Records: Reviewed (Old records reviewed electronic medical record creatinine 2.8 on 12/31/2023)
[2024-01-18] MEDS: LASIX IV (10:10)
--- NOTE | 2024-01-18 10:19 | CON.PUL ---
Consultation
Consultation Request
Date/Time Consultation Requested: 01/18/2024-11 AM
Date/Time Consultation Performed: 01/18/2024-11:30 AM
Requesting Provider: Dr. Infante
Performing Provider: Dr. Torres
Reason for Consultation: Shortness of breath
Medical History
-
Chief Complaint: Shortness of breath
History of Present Illness:
83-year-old male with a history of CHF reduced EF, ICD, chronic kidney disease, strokes, CAD, diabetes who continues to smoke cigars and found to have respiratory failure refusing BiPAP and pulmonary consulted for shortness of breath 01/18/2024.
patient complains of significant shortness of breath as well as wheezing. He states that he always wheezes. He also states that he is fluid overloaded. He has some wheezing. He is not on inhalers. He states he does not inhale his cigars. He
has never smoked. Denies any chest pain, chest tightness, and has some chest congestion, nonproductive cough. Does not have reflux, abdominal pain, leg weakness.
Past Medical History
Past Medical History: None (CHF reduced EF. ICD 2021. CAD/stents. CKD stage IV. Chronic pancytopenia. Hypertension. History of CVAs. Diabetes. Cigar smoker. Left renal tumor resection. Multiple myeloma.)
Social History
Tobacco: Smoker (Cigars)
Alcohol: None
Drug: None
Living: With Family
Occupational Exposures: No known asbestos exposure
Environmental Exposures: No known tuberculosis exposure
Family History
Family History: Reviewed & Not Pertinent
Allergies / Home Medications
Allergies
Allergy/AdvReac Type Severity Reaction Status Date / Time
No Known Allergies Allergy Verified 01/16/24 06:58
Home Medications
Medication Instructions Recorded Confirmed Last Taken Type
calcium carbonate 600 mg calcium 600 mg PO DAILY Supplement 05/12/16 01/16/24 01/14/24 History
(1,500 mg) tablet
aspirin 81 mg tablet,delayed 81 mg PO BID Blood clot 05/15/18 01/16/24 01/14/24 History
release prevention/tx
allopurinol 100 mg tablet 50 mg PO DAILY Gout 10/11/21 01/16/24 01/14/24 History
ezetimibe 10 mg tablet 10 mg PO HS High cholesterol 10/11/21 01/16/24 01/14/24 History
rosuvastatin 40 mg tablet (Crestor) 40 mg PO HS High cholesterol 10/11/21 01/16/24 01/14/24 History
tamsulosin 0.4 mg capsule 0.4 mg PO HS Urinary issue 11/30/21 01/16/24 01/14/24 History
docusate sodium 100 mg capsule 100 mg PO HS Constipation 07/31/22 01/16/24 01/14/24 History
(Colace)
sennosides 8.6 mg tablet (Senokot) 8.6 mg PO HS Constipation 07/31/22 01/16/24 01/14/24 History
carvedilol 6.25 mg tablet (Coreg) 6.25 mg PO BID heart 08/02/22 01/16/24 01/14/24 Rx
disease/condition #60 tabs
cholecalciferol (vitamin D3) 50 50 mcg PO DAILY Supplement 12/27/23 01/16/24 01/14/24 History
mcg (2,000 unit) tablet
furosemide 80 mg tablet 40 mg PO DAILY Fluid 12/27/23 01/16/24 01/14/24 History
retention/Swelling
venlafaxine 75 mg tablet 75 mg PO BID Mental Health 12/27/23 01/16/24 01/14/24 History
omega 3-uio-jve-fish oil 1,200 mg 3 cap PO HS Supplement 01/16/24 01/16/24 01/14/24 History
(144 mg-216 mg) capsule (Fish Oil)
Review of Systems
-
Unable to Obtain full review of systems at this time due to: Other (Per HPI)
Vitals / Labs / Diagnostic Testing
Vital Signs
Temp Pulse Resp BP Pulse Ox
98.2 F 84 28 102/77 96
01/18/24 07:00 01/18/24 09:26 01/17/24 20:42 01/18/24 09:26 01/18/24 04:00
Lab Data
01/16/24 07:16
01/18/24 04:11
Microbiology
01/16/24 16:19 Blood/Venous Blood Culture - Preliminary
No Growth in 24 hours- Final report to follow
01/16/24 15:41 Blood/Venous Blood Culture - Preliminary
No Growth in 24 hours- Final report to follow
01/16/24 17:25 Nose Nasal Screen MRSA (PCR) - Final
MRSA not detected - performed by PCR methodology.
01/16/24 07:16 Nasal Swab Influenza Types A & B (AMBREEN) - Final
Negative for Influenza A & B, NAAT
Negative results must be combined with clinical observations
and patient history.
Nucleic Acid Amplification test (NAAT)performed on the
[employer] platform.
Diagnostic Testing:
Physical Exam
-
Exam:
Well-nourished and well-developed in no apparent distress
HEENT-atraumatic, normocephalic
Neck-supple, no JVD, no bruit
Heart-regular rate and rhythm-no murmurs, rubs or gallops
Chest with diminished breath sounds, rare crackles and few rhonchi
Abdomen-soft, nontender, nondistended, no hepatosplenomegaly
Extremities-no cyanosis, clubbing, lower extremity edema
Integument-intact, no rashes, lesions or ecchymosis
Neurology-alert and oriented, nonfocal motor and sensory exam
Assessment
-
83-year-old male with a history of CHF reduced EF, ICD, chronic kidney disease, strokes, CAD, diabetes who continues to smoke cigars and found to have respiratory failure refusing BiPAP and pulmonary consulted for shortness of breath 01/18/2024.
Assessment
Shortness of breath related to heart failure acute on top of chronic-reduced EF
COPD/asthma with mild acute exacerbation
Right lower lobe infiltrate/pneumonia
Aspiration risk
Pancytopenia with macrocytic anemia-hemoglobin 9.7
Mild hyponatremia
Hyperglycemia
Non-DC troponin elevation
Conditions present prior to admission:
CHF reduced EF.
ICD 2021.
CAD/stents.
Aortic stenosis
CKD stage IV.
Chronic pancytopenia.
Hypertension.
History of CVAs-residual left field cut
Diabetes.
Cigar smoker.
Morbid obesity
Obstructive sleep apnea suspected-untreated
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
History of gout
Multiple myeloma.
Nonadherence to medications
Plan
Respiratory decompensation likely multifactorial including heart failure, pneumonia and possibly COPD exacerbation
Supplemental oxygen as needed
Nebulizers-will add nebulizers
Mucolytic's
Aspiration precautions
Observe off steroids and reassess-if still wheezing after adequate diuresis and euvolemia then will consider
Diuresis as tolerated
Monitor renal function, electrolytes, intake/output, lower extremity edema and weight
Replace electrolytes as needed
Nephrology following-correspondence reviewed
Cardiology following-correspondence reviewed
Troponin trended
Check cultures
Zosyn initiated empirically
DVT prophylaxis-on heparin
Nutrition
Early mobilization
Reviewed with Dr. Infante and nursing
Diagnostic data:
Chest x-ray 09/15/2023-NAD
Chest x-ray 12/27/2023-low lung volumes, mild cardiomegaly, slight increased pulmonary vascularity
Chest x-ray 01/16/2024-mild interstitial pneumonia right lung base
Lexiscan Stress Test: 09/14/22:�Fixed inferior and inferior-septal defect consistent with infarction, severely decreased systolic function with estimated LVEF of 22% with severe global hypokinesis and dilated left ventricle, intermediate risk stress
test, 4 beat NSVT during study
Cardiac cath 10/24/2015:�LAD:stent in the proximal LAD is widely patent.� The second diagonal comes off the middle of the stent and is jailed by the stent and has a 90% ostial stenosis.� There is a 40% mid LAD stenosis. Circumflex: Luminal
irregularities RCA: 100% chronic total occlusion of the proximal RCA.
Echo 01/2021: EF 10 to 15%, global hypokinesis with akinesis of inferior wall, septum, and apex.� Stage III diastolic dysfunction, mitral annular calcification, mild MR, aortic sclerosis, mildly dilated aortic root
Echo 10/12/21: EF 10%, global hypokinesis LV severely dilated, mild LVH, stage III DD, mild MR, trace TR/AI, PAP 15 to 20 mmHg.� Possible left ventricular apical thrombus.� Echo repeated with Definity 10/13/2021 which demonstrated no LV thrombus with
Definity
Echo 11/08/23:�Dilated cardiomyopathy, LVEF of 30%, right-sided ICD, dilated left atrium, mild to moderate aortic stenosis, peak and mean transaortic gradients of 15/8 mmHg, DVI of 0.4.� No pericardial effusion.
[2024-01-18] MEDS: LASIX 40 MG IV (11:35)
[2024-01-18 12:18] LABS: Glucose - Point of Care 199 mg/dl (70-99)
[2024-01-18] MEDS: DUONEB 3 ML INH ×3 (12:26→19:59)
[2024-01-18] MEDS: NOVOLOG FLEXPEN-LOW RESISTANCE 1 UNITS SC (13:21)
--- NOTE | 2024-01-18 13:49 | W.CARD.DEVCH ---
Cardiac Device Check
-
Device: Implanted Cardioverter-Defibrillator (CUT OFF MAN-D)
[employer]: Spinal [employer]
The patient's device was interrogated with assistance of the device malt liquors sales representative followed by a complete physician review. The device had normal function. No abnormalities seen. No recent Afib
[2024-01-18 17:09] LABS: Glucose - Point of Care 128 mg/dl (70-99)
[2024-01-18] MEDS: LASIX 20 MG PO (18:31)
[2024-01-18] MEDS: CRESTOR 40 MG PO (19:40)
[2024-01-18] MEDS: COLACE 100 MG PO (19:40)
[2024-01-18] MEDS: FLOMAX 0.400000000000000022 MG PO (19:40)
[2024-01-18] MEDS: ZETIA 10 MG PO (19:40)
[2024-01-18] MEDS: SENOKOT 8.59999999999999964 MG PO (19:40)
[2024-01-18 21:46] LABS: Glucose - Point of Care 175 mg/dl (70-99)
[2024-01-19] VITALS (15 sets, daily range): BP systolic 86–130; BP diastolic 62–98; PULSE 84; O2SAT 94; BMI 36.3
[2024-01-19] MEDS: HEPARIN 5000 UNITS SC ×3 (01:00→16:47)
[2024-01-19] MEDS: ZOSYN 50 IV ×2 (03:09→11:02)
--- NOTE | 2024-01-19 05:09 | PTCARENOTE ---
Pt pleasant on shift; AAO x 3; V-Paced on monitor with rate ~ 80-90's; SpO2 = 94% on 2L O2 via NC; Observed urinary urgency and frequency with Pt ringing very frequently to get up to BSC - very little output each time ~ 50ml's. Bladder scanned for
41ml's after voiding. Will continue to monitor and asssess.
[2024-01-19 05:10] LABS: % Basophils 0.4 % (0-2); % Eosinophils 3.5 % (0-6); % Immature Granulocytes 1.8 % (0-0.5); % Lymphocytes 16.3 % (20.5-51.1); % Monocytes 8.9 % (1.7-9.3); % Neutrophils 69.1 % (42.2-75.2); Absolute Eosinophils 0.2 10^3/uL (0-0.7); Absolute Immature Granulocytes 0.1 10^3/uL (0-0.05); Absolute Lymphocytes 0.9 10^3/uL (1.2-3.4); Absolute Monocytes 0.5 10^3/uL (0.1-0.6); Absolute Neutrophils 3.9 10^3/uL (1.4-6.5); Hematocrit 22.2 % (39.0-52.0); Mean Corp Hgb Conc. 33.8 g/dL (33.0-37.0); Mean Corpuscular Hgb 32.9 pg (27.0-31.0); Mean Corpuscular Volume 97.4 fL (80.0-94.0); Nucleated Red Blood Cells % 0 % (-); Platelet Count 115 10^3/uL (130-400); Red Blood Cell Count 2.28 10^6/uL (4.70-6.10); Red Cell Dist. Width 15.7 % (11.5-14.5); White Blood Cell Count 5.6 10^3/uL (4.8-10.8)
[2024-01-19 05:15] LABS: Blood Urea Nitrogen 86 mg/dl (9-20); Calcium 9.1 mg/dl (8.4-10.2); Carbon Dioxide 26 mmol/L (22-30); Chloride 97 mmol/L (98-107); Estimated Creatinine Clearance 20 ml/min; Glucose 125 mg/dl (70-99); Potassium 4.2 mmol/L (3.5-5.1); Sodium 132 mmol/L (135-145); eGFR 18.27
[2024-01-19 05:23] LABS: Hemoglobin 7.5 g/dL (13.0-18.0)
--- NOTE | 2024-01-19 07:38 | W.PN.HOSP.TC ---
Today's Communication/Plan
-
see bold
Assessment / Plan
Assessment / Plan
Gen: NAD, Awake and alert, appears chronicially ill
Eyes: EOMI, PERRLA, no scleral icterus.
Neck: supple.
CV: RRR, +S1/S2, no m/r/g.
Resp: wheezes R base
Abd: +BS, soft, NT, ND
Skin: No rashes.
Neuro: CN 2-12 intact, non-focal.
Psych: Normal mood and affect.
CXR: Mild interstitial pneumonia at the right lung base.
Acute hypoxemic respiratory failure due to acute on chronic heart failure with reduced ejection fraction:
-Pt with elevated blood pressure on admission.� Likely a component of hypertensive emergency that contributed to acute on chronic heart failure with reduced ejection fraction exacerbation.
-Echo 11/08/23: EF 30%
-AB.40/45/27/44.5%
-h/o ICD
-missed meds (including lasix) 3//24AM
-Patient started on nitroglycerin drip in the ER which was stopped with hypotension (SBP 80s)
-Lasix 40mg IV given in ER, followed by daily IV lasix. Stop IV lasix with YOANDY.
-doubt benefit of repeating echo
-pt was initially on BiPAP in the ER which he then subsequently refused. Cont to wean NC O2 as tolerated (currently on 2L NC O2)
-cont BB with holding parameters
-pulm following
Fever on admission:
-possibly due to mild interstitial PNA in the R base
-fever has resolved/not recurred
-stop Zosyn, start Augmentin (MRSA screen NEG)
YOANDY on CKD4:
-due to CRS
-renal following
-will likely need to accept a higher Cr to maintain euvolemia
Anemia:
-slightly Fe def (although ferritin normal), B12/folate normal
-heme test stool
Other problems:
BiV ICD in 2021
Hyponatremia
Non-IL troponin elevation
Chronic pancytopenia
Essential hypertension: cont BB with holding parameters
History of strokes: Cont ASA/statin
Coronary artery disease s/p prior IL and coronary stents: Cont ASA/statin/BB
DM2: SSI/accuchecks for now. Recent a1c 6.7%
Tobacco abuse disorder
History of left renal tumor resection
Multiple myeloma
Obesity due to excess calories: Affects all aspects of care, encourage weight loss
DNR as per discussion with in ER
Heparin
Considering the patient's multiple, severe, active medical problems in the setting of deconditioning and advanced age hospice would be appropriate for this patient.
Total time spent on today's encounter was 50 minutes which included time spent in counseling the patient/family regarding diagnosis and treatment plan as listed above, goals of care, and symptom management. Case was discussed with nursing staff,
specialists, and care coordinators/case management. All labs and imaging personally reviewed by me. Remainder the time spent in detailed review of previous records, lab data, imaging, and other medical provider documentation.
Anticipated Discharge: 24 - 48 hours
Subjective/Interval History
-
Date of Service: January 19, 2024
Denies SOB/CP.
Objective Data
-
Labs:
Laboratory Results
01/19/24
04:36
WBC 5.6
Hgb 7.5 L D
Hct 22.2 L
Plt Count 115 L
Sodium 132 L
Potassium 4.2
Chloride 97 L
Carbon Dioxide 26
BUN 86 H
Creatinine 3.2 H
Glucose 125 H
Calcium 9.1
Vital Signs:
Vital Signs
Temp Pulse Resp BP Pulse Ox
98.0 F 86 22 108/63 89
01/19/24 03:18 01/19/24 04:00 01/19/24 04:00 01/19/24 04:00 01/19/24 00:42
I&O
01/18/24 01/19/24 01/20/24
06:59 06:59 06:59
Intake Total 700 / 700 960 / 960
Output Total 100 / 100 1325 / 1325
Balance 600 / 600 -365 / -365
[2024-01-19] MEDS: DUONEB 3 ML INH ×4 (07:41→20:30)
--- NOTE | 2024-01-19 08:05 | W.PN.PUL.V3 ---
Today's Communication / Plan
-
Wean oxygen
Diuresis as tolerated
Nebulizers-add budesonide to DuoNebs
Add Mucinex
Hold off on steroids
Antibiotics
Assessment
-
83-year-old male with a history of CHF reduced EF, ICD, chronic kidney disease, strokes, CAD, diabetes who continues to smoke cigars and found to have respiratory failure refusing BiPAP and pulmonary consulted for shortness of breath 01/18/2024.
Assessment
Shortness of breath related to heart failure acute on top of chronic-reduced EF
COPD/asthma with mild acute exacerbation
Right lower lobe infiltrate/pneumonia
Aspiration risk
Pancytopenia with macrocytic anemia-hemoglobin 9.7
Mild hyponatremia
Hyperglycemia
Non-MD troponin elevation
Conditions present prior to admission:
CHF reduced EF.
ICD 2021.
CAD/stents.
Aortic stenosis
CKD stage IV.
Chronic pancytopenia.
Hypertension.
History of CVAs-residual left field cut
Diabetes.
Cigar smoker.
Morbid obesity
Obstructive sleep apnea suspected-untreated
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
History of gout
Multiple myeloma.
Nonadherence to medications
Plan
Respiratory decompensation likely multifactorial including heart failure, pneumonia and possibly COPD exacerbation
Supplemental oxygen as needed-attempt to wean
Assess discharge supplemental oxygen needs
Continue nebulizers-patient feels helping with the wheezing
Will add budesonide nebulizers
Mucolytic's
Aspiration precautions
Continue to observe off steroids and reassess-if still wheezing after adequate diuresis and euvolemia then will consider
Continue diuresis as tolerated-will need to stop with worsening YOANDY
Continue to follow renal function, electrolytes, intake/output, lower extremity edema and weight
Replace electrolytes as needed
Nephrology following-correspondence reviewed-hold Lasix
Cardiology following-correspondence reviewed-signed off 01/19/2024
Troponin trended
Check cultures-unrevealing
Zosyn initiated empirically-changed to Augmentin
DVT prophylaxis-on heparin
Nutrition
Early mobilization
Reviewed with Dr. Infante and nursing
Diagnostic data:
Chest x-ray 09/15/2023-NAD
Chest x-ray 12/27/2023-low lung volumes, mild cardiomegaly, slight increased pulmonary vascularity
Chest x-ray 01/16/2024-mild interstitial pneumonia right lung base
Lexiscan Stress Test: 09/14/22:�Fixed inferior and inferior-septal defect consistent with infarction, severely decreased systolic function with estimated LVEF of 22% with severe global hypokinesis and dilated left ventricle, intermediate risk stress
test, 4 beat NSVT during study
Cardiac cath 10/24/2015:�LAD:stent in the proximal LAD is widely patent.� The second diagonal comes off the middle of the stent and is jailed by the stent and has a 90% ostial stenosis.� There is a 40% mid LAD stenosis. Circumflex: Luminal
irregularities RCA: 100% chronic total occlusion of the proximal RCA.
Echo 01/2021: EF 10 to 15%, global hypokinesis with akinesis of inferior wall, septum, and apex.� Stage III diastolic dysfunction, mitral annular calcification, mild MR, aortic sclerosis, mildly dilated aortic root
Echo 10/12/21: EF 10%, global hypokinesis LV severely dilated, mild LVH, stage III DD, mild MR, trace TR/AI, PAP 15 to 20 mmHg.� Possible left ventricular apical thrombus.� Echo repeated with Definity 10/13/2021 which demonstrated no LV thrombus with
Definity
Echo 11/08/23:�Dilated cardiomyopathy, LVEF of 30%, right-sided ICD, dilated left atrium, mild to moderate aortic stenosis, peak and mean transaortic gradients of 15/8 mmHg, DVI of 0.4.� No pericardial effusion.
Subjective Data
-
Date of Service:
Date of Service: January 19, 2024
Chief Complaint: Pulmonary Follow Up and Dyspnea Follow Up
Subjective:
Feels a little better, still with significant shortness of breath, no chest congestion, productive cough, less wheezing, less leg edema
Review of Systems
General: Other (Per HPI)
Objective Data
Data Reviewed
Vital Signs / I&O:
Vital Signs
Temp Pulse Resp BP Pulse Ox
98.0 F 82 18 108/63 90
01/19/24 03:18 01/19/24 07:41 01/19/24 07:41 01/19/24 04:00 01/19/24 07:41
Intake and Output
01/18/24 01/19/24 01/20/24
06:59 06:59 06:59
Intake Total 700 / 700 960 / 960
Output Total 100 / 100 1325 / 1325
Balance 600 / 600 -365 / -365
SaO2: 90
Nasal Cannula flow liters per minute: 2
Physical Exam
General: Respiratory Distress (n) and Comfortable
HEENT: Normocephalic, Anicteric and Moist Mucous Membranes
Cardiovascular: Regular Rhythm
Respiratory: Wheeze (Few expiratory), Crackles (Basilar), Rhonchi (Expiratory), Non-Labored Respirations, Accessory Resp Muscle Use (n) and Stridor (n)
GI: Soft, Non Distended and Non Tender
Neurology: Awake, Alert and No Motor Deficits
Skin: Warm, Good Color, Cyanosis (n), Jaundice (n) and Rash (n)
Labs/Micro/Reports
Lab Data
01/19/24 04:36
Microbiology
01/16/24 16:19 Blood/Venous Blood Culture - Preliminary
No Growth in 48 hours- Final report to follow
01/16/24 15:41 Blood/Venous Blood Culture - Preliminary
No Growth in 48 hours- Final report to follow
01/16/24 17:25 Nose Nasal Screen MRSA (PCR) - Final
MRSA not detected - performed by PCR methodology.
01/16/24 07:16 Nasal Swab Influenza Types A & B (AMBREEN) - Final
Negative for Influenza A & B, NAAT
Negative results must be combined with clinical observations
and patient history.
Nucleic Acid Amplification test (NAAT)performed on the
[employer] platform.
[2024-01-19] MEDS: LOW STRENGTH ASPIRIN 81 MG PO (08:28)
[2024-01-19] MEDS: EFFEXOR 75 MG PO ×2 (08:28→21:02)
[2024-01-19] MEDS: COREG 6.25 MG PO ×2 (08:29→20:56)
[2024-01-19] MEDS: ZYLOPRIM 50 MG PO (08:29)
[2024-01-19] MEDS: NOVOLOG FLEXPEN-LOW RESISTANCE SC ×2 (08:30→17:02)
[2024-01-19] MEDS: DESENEX/MITRAZOL/ZEASORB 1 APPLIC TOPICAL ×2 (08:31→21:01)
[2024-01-19 08:38] LABS: Glucose - Point of Care 129 mg/dl (70-99)
[2024-01-19 09:26] LABS: Hemoglobin 7.8 g/dL (13.0-18.0)
--- NOTE | 2024-01-19 09:35 | PTCARENOTE ---
Pt OOB to commode multiple times for small amts of BM and urine
[2024-01-19 09:38] LABS: Iron 47 ug/dl (49-181)
[2024-01-19 09:47] LABS: Percent Saturation 18 % (20-50); Total Iron Binding Capacity 249 ug/dl (261-462)
[2024-01-19 10:46] LABS: Folate 10.3 ng/ml (2.76-20); Vitamin B12 296 pg/ml (239-931)
[2024-01-19 13:04] LABS: Glucose - Point of Care 200 mg/dl (70-99)
[2024-01-19] MEDS: NOVOLOG FLEXPEN-LOW RESISTANCE 2 UNITS SC (13:12)
--- NOTE | 2024-01-19 13:14 | CM ---
Addendum entered by Belinda Angel 01/19/24 13:16:
Not accepted by [facility] or [facility]
Referral response from [facility] pending
Original Note:
Reviewed chart; CM will continue to follow for discharge needs
--- NOTE | 2024-01-19 14:23 | W.PN.NEPH.PH ---
Today's Communication / Plan
-
- Cr rising, hold lasix
Assessment/Plan
-
Impression:
CKD 4 baseline around 2.8
Chronic HFrEF
BiV ICD in 2021
Hyponatremia
Non-PR troponin elevation
Chronic pancytopenia
Essential hypertension
History of strokes
Coronary artery disease s/p prior PR and coronary stents
Diabetes mellitus type 2
Tobacco abuse disorder
History of left renal tumor resection
Multiple myeloma
Plan:
-Cr rising
-Patient refused my visit today
-agree with holding lasix due to Cr bump but unfortunately I could not complete a volume exam
- c/f RLL PNA 2/2 to CXR
-noted to be off zosyn and started on augmentin
-mild hyponatremia noted, continue to monitor. will implement FR if exacerbates
-
-
Date of Service: January 19, 2024
CC / HPI / ROS
-
Chief Complaint:
YOANDY
History of Present Illness:
acute hypoxemic respiratory failure --> ?PNA vs. ADHF
fever on admission
YOANDY on CKD
Review of Systems:
Cr worsening
holding lasix
Labs
-
Labs:
WBC 5.6 10^3/uL (4.8-10.8) 01/19/24 04:36
RBC 2.28 10^6/uL (4.70-6.10) L 01/19/24 04:36
Hgb 7.8 g/dL (13.0-18.0) L 01/19/24 09:11
Hct 22.2 % (39.0-52.0) L 01/19/24 04:36
Plt Count 115 10^3/uL (130-400) L 01/19/24 04:36
Sodium 132 mmol/L (135-145) L 01/19/24 04:36
Potassium 4.2 mmol/L (3.5-5.1) 01/19/24 04:36
Chloride 97 mmol/L (98-107) L 01/19/24 04:36
Carbon Dioxide 26 mmol/L (22-30) 01/19/24 04:36
BUN 86 mg/dl (9-20) H 01/19/24 04:36
Creatinine 3.2 mg/dL (0.7-1.3) H 01/19/24 04:36
eGFR 18.27 01/19/24 04:36
Glucose 125 mg/dl (70-99) H 01/19/24 04:36
Calcium 9.1 mg/dl (8.4-10.2) 01/19/24 04:36
Hex-H-Kszlgxsfvja Pept 5580 pg/ml 01/16/24 07:16
Physical Exam
-
Vital Signs:
Vital Signs
Temp Pulse Resp BP Pulse Ox
98.9 F 77 21 112/98 97
01/19/24 11:21 01/19/24 12:00 01/19/24 12:00 01/19/24 12:00 01/19/24 12:00
Carey Catheter: No
Other Findings::
patient refused physical exam
--- NOTE | 2024-01-19 15:46 | W.PN.CARDCBS ---
Today's Communication / Plan
-
Nephrology managing diuretics
Sign off
Impression / Plan
-
Primary Dining Car Server: Dr. Clark
PCP: Michelle Rogers
Impression:
Acute on Chronic HFrEF
Ischemic cardiomyopathy, lowest EF 10 to 15% by echo 01/2021, improved to 30% on echo 11/08/23
Elevated Troponin
YOANDY on CKD 4, previously on HD
s/p [employer] Bi-V/ICD 12/07/21
CAD
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
LBBB
h/o CVA/TIA with residual left field cut
Diabetes
Hypertension
Dyslipidemia
Mild aortic stenosis
Mildly enlarged aortic root
Secondary hyperparathyroidism
Morbid obesity
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
Multiple myeloma
History of gout
PHILIPPE, untreated
Non-adherence to medications
Lexiscan Stress Test: 09/14/22:�Fixed inferior and inferior-septal defect consistent with infarction, severely decreased systolic function with estimated LVEF of 22% with severe global hypokinesis and dilated left ventricle, intermediate risk stress
test, 4 beat NSVT during study
Cardiac cath 10/24/2015:�LAD:stent in the proximal LAD is widely patent.� The second diagonal comes off the middle of the stent and is jailed by the stent and has a 90% ostial stenosis.� There is a 40% mid LAD stenosis. Circumflex: Luminal
irregularities RCA: 100% chronic total occlusion of the proximal RCA.
Echo 01/2021: EF 10 to 15%, global hypokinesis with akinesis of inferior wall, septum, and apex.� Stage III diastolic dysfunction, mitral annular calcification, mild MR, aortic sclerosis, mildly dilated aortic root
Echo 10/12/21: EF 10%, global hypokinesis LV severely dilated, mild LVH, stage III DD, mild MR, trace TR/AI, PAP 15 to 20 mmHg.� Possible left ventricular apical thrombus.� Echo repeated with Definity 10/13/2021 which demonstrated no LV thrombus with
Definity
Echo 11/08/23:�Dilated cardiomyopathy, LVEF of 30%, right-sided ICD, dilated left atrium, mild to moderate aortic stenosis, peak and mean transaortic gradients of 15/8 mmHg, DVI of 0.4.� No pericardial effusion.
Plan:
Volume status difficult to ascertain
Diuretics being managed by nephrology and Lasix was held on 01/18
Dry weight at last discharge 12/31/23 was 235 lbs. Patient weighed 237 lbs on admission 01/16/24 and was 238 pounds on 01/19/24.
CM regimen includes Coreg 6.25 mg BID. Patient is not chronically on UMAIR/ARB/aldosterone antagonist due to CKD.
Patient with h/o MM and his partner reports that he was scheduled to see Dr. Odom his Mine Deputy at [facility] on 01/18/24 to discuss starting MM treatment. His last course of treatment was 2 years ago.
Stable cardiology status with nephrology managing diuretics
Will sign off, call with questions
HPI: Patient [facility] today with SOB and is now being admitted with acute HF so cardiology has been consulted. Patient was just admitted to 12/27/23 until 12/31/23 with acute HF. Dry weight on day of discharge was 235 lbs. Patient has not been
weighing himself since discharge. He says he is following salt and fluid restriction, but can't articulate what those restrictions are. He also reports that he is taking Lasix 40 mg daily as ordered and missed a dose last night, but does not
routinely miss doses. Patient has a h/o CKD and follows with Dr. Reece at [facility] for outpatient nephrology care. Cre peaked at 2.9 last admission and baseline Cre is closer to 2.5. Patient was previously on transient dialysis. Patient also with h/o
pAfib and was in SR during device check in the office 01/04/24, but now appears to be in Afib. Patient denies palpitations. Patient is not on OAC due to h/o MM. Patient says that his symptoms started suddenly 2 hours prior to admission, but his
partner thinks that symptoms started earlier. Patient complains of orthopnea, but denies bloating or edema. Patient was 76% on RA when EMS arrived this morning and improved in BiPAP, but now stable on 6 L NC.
Progress Note - Dining Car Server
Subjective
Date of Service: January 19, 2024
He feels better.
Objective
Labs:
01/19/24 09:11
01/19/24 04:36
Labs
Hgb 7.8 g/dL (13.0-18.0) L 01/19/24 09:11
Hct 22.2 % (39.0-52.0) L 01/19/24 04:36
Plt Count 115 10^3/uL (130-400) L 01/19/24 04:36
Sodium 132 mmol/L (135-145) L 01/19/24 04:36
Potassium 4.2 mmol/L (3.5-5.1) 01/19/24 04:36
BUN 86 mg/dl (9-20) H 01/19/24 04:36
Creatinine 3.2 mg/dL (0.7-1.3) H 01/19/24 04:36
Glucose 125 mg/dl (70-99) H 01/19/24 04:36
Troponins
01/16/24 01/16/24 01/17/24
15:41 20:01 03:16
Troponin I 0.615 H* 0.560 H* 0.491 H*
Vital Signs and I&O:
Vital Signs
Temp Pulse Resp BP Pulse Ox
98.9 F 72 18 112/98 93
01/19/24 11:21 01/19/24 15:23 01/19/24 15:23 01/19/24 12:00 01/19/24 15:23
Vital Signs
Temp Pulse Resp BP Pulse Ox
98.9 F 72 18 112/98 93
01/19/24 11:21 01/19/24 15:23 01/19/24 15:23 01/19/24 12:00 01/19/24 15:23
Intake & Output
01/17/24 01/18/24 01/19/24 01/20/24
06:59 06:59 06:59 06:59
Intake Total 480 / 480 700 / 700 960 / 960
Output Total 100 / 100 1325 / 1325 300 / 300
Balance 480 / 480 600 / 600 -365 / -365 -300 / -300
Physical Exam
Physical Exam
General: Appears chronically ill
Neck: Supple, no JVD, HJR, carotids +2 B/L, no bruits bilaterally.
Heart: Non displaced PMI, RRR, no murmurs, No S3, S4, no rubs.
Lungs: Scattered rhonchi
Abdomen: Normal bowel sounds, soft, non-tender, non-distended.
Extremities: No clubbing, cyanosis or edema bilaterally.
Neuro: Grossly nonfocal, awake, alert and oriented x3.
[2024-01-19 16:57] LABS: Glucose - Point of Care 127 mg/dl (70-99)
[2024-01-19] MEDS: PULMICORT 0.5 MG INH (20:30)
--- NOTE | 2024-01-19 20:45 | PTCARENOTE ---
Received pt from declan ALVARADO. Pt is AAOx2 (time), [place], forgetful, uncooperative @ times. Vpaced w/ PVCs on the monitor. On 2L NC, lungs course/diminished/exp wheeze. BSCx1. Bed alarm in place. Pt is laying comfortable in bed with call quintero in reach.
[2024-01-19] MEDS: ZETIA 10 MG PO (20:56)
[2024-01-19] MEDS: SENOKOT 8.59999999999999964 MG PO (20:56)
[2024-01-19] MEDS: MUCINEX 600 MG PO (20:56)
[2024-01-19] MEDS: FLOMAX 0.400000000000000022 MG PO (20:56)
[2024-01-19] MEDS: CRESTOR 40 MG PO (20:56)
[2024-01-19] MEDS: AUGMENTIN 500 MG/125 MG 1 TABLET PO (20:56)
[2024-01-19] MEDS: COLACE 100 MG PO (20:57)
[2024-01-19 22:34] LABS: Glucose - Point of Care 132 mg/dl (70-99)
[2024-01-19] MEDS: HEPARIN SC (23:14)
[2024-01-20] VITALS (9 sets, daily range): BP systolic 109–145; BP diastolic 55–78; BMI 36.2
[2024-01-20] MEDS: DUONEB 3 ML INH ×3 (07:33→20:45)
[2024-01-20] MEDS: PULMICORT 0.5 MG INH ×2 (07:33→20:42)
--- NOTE | 2024-01-20 07:46 | W.PN.HOSP.TC ---
Today's Communication/Plan
-
follow AM labs (Hb, Cr)
Assessment / Plan
Assessment / Plan
Gen: NAD, appears chronicially ill
Eyes: EOMI, PERRLA, no scleral icterus.
Neck: supple.
CV: RRR, +S1/S2, no m/r/g.
Resp: transmission of upper airway sounds B/L
Abd: remains +BS, soft, NT, ND
Skin: No rashes.
Psych: calm/sleeping
CXR: Mild interstitial pneumonia at the right lung base.
Acute hypoxemic respiratory failure due to acute on chronic heart failure with reduced ejection fraction:
-Pt with elevated blood pressure on admission.� Likely a component of hypertensive emergency that contributed to acute on chronic heart failure with reduced ejection fraction exacerbation.
-Echo 11/08/23: EF 30%
-AB.40/45//44.5%
-h/o ICD
-missed meds (including lasix) 3//24AM
-Patient started on nitroglycerin drip in the ER which was stopped with hypotension (SBP 80s)
-Lasix 40mg IV given in ER, followed by daily IV lasix. IV lasix now stopped with YOANDY.
-doubt benefit of repeating echo
-pt was initially on BiPAP in the ER which he then subsequently refused. Cont to wean NC O2 as tolerated (currently on 2L NC O2)
-cont BB with holding parameters
-pulm following
Fever on admission:
-possibly due to mild interstitial PNA in the R base
-fever has resolved/not recurred
-MRSA screen NEG
-was on Zosyn, now transitioned to Augmentin
YOANDY on CKD4:
-due to CRS
-renal following
-will likely need to accept a higher Cr to maintain euvolemia
Anemia:
-slightly Fe def (although ferritin normal), B12/folate normal
-heme test stool (communicated with nursing)
Other problems:
BiV ICD in 2021
Hyponatremia
Non-[place] troponin elevation
Chronic pancytopenia
Essential hypertension: cont BB with holding parameters
History of strokes: Cont ASA/statin
Coronary artery disease s/p prior [place] and coronary stents: Cont ASA/statin/BB
DM2: SSI/accuchecks for now. Recent a1c 6.7%
Tobacco abuse disorder
History of left renal tumor resection
Multiple myeloma
Obesity due to excess calories: Affects all aspects of care, encourage weight loss
DNR as per discussion with in ER
Heparin
Considering the patient's multiple, severe, active medical problems in the setting of deconditioning and advanced age hospice would be appropriate for this patient.
Anticipated Discharge: Today
Subjective/Interval History
-
Date of Service: January 20, 2024
Pt sleeping.
Objective Data
-
Labs:
Laboratory Results
01/20/24
07:45
WBC Pending
Hgb Pending
Hct Pending
Plt Count Pending
Sodium Pending
Potassium Pending
Chloride Pending
Carbon Dioxide Pending
BUN Pending
Creatinine Pending
Glucose Pending
Calcium Pending
Vital Signs:
Vital Signs
Temp Pulse Resp BP Pulse Ox
98.3 F 83 20 118/55 95
01/19/24 23:47 01/20/24 07:36 01/20/24 07:36 01/20/24 02:00 01/20/24 07:36
I&O
01/19/24 01/20/24 01/21/24
06:59 06:59 07:59
Intake Total 960 / 960 410 / 410
Output Total 1325 / 1325 500 / 500
Balance -365 / -365 -90 / -90
[2024-01-20 08:38] LABS: Glucose - Point of Care 137 mg/dl (70-99)
[2024-01-20] MEDS: NOVOLOG FLEXPEN-LOW RESISTANCE SC ×2 (09:15→12:25)
[2024-01-20] MEDS: HEPARIN SC ×2 (09:16→09:22)
[2024-01-20] MEDS: COREG 6.25 MG PO ×2 (09:16→21:00)
[2024-01-20] MEDS: DESENEX/MITRAZOL/ZEASORB 1 APPLIC TOPICAL ×2 (09:16→22:04)
[2024-01-20] MEDS: ZYLOPRIM 50 MG PO (09:18)
[2024-01-20] MEDS: AUGMENTIN 500 MG/125 MG 1 TABLET PO ×2 (09:18→20:56)
[2024-01-20] MEDS: MUCINEX 600 MG PO ×2 (09:18→20:57)
[2024-01-20] MEDS: LOW STRENGTH ASPIRIN 81 MG PO (09:18)
[2024-01-20] MEDS: EFFEXOR 75 MG PO ×2 (09:19→20:57)
--- NOTE | 2024-01-20 10:52 | W.PN.PUL3 ---
Today's Communication / Plan
-
Weaned down to 2L NC, eventual home O2 eval
Encouraged OOB/PT
Budesonide BID, nebs PRN
Continue diuresis per team
Assessment
-
83-year-old male with a history of CHF reduced EF, ICD, chronic kidney disease, strokes, CAD, diabetes who continues to smoke cigars and found to have respiratory failure refusing BiPAP and pulmonary consulted for shortness of breath 01/18/2024.
Shortness of breath related to heart failure acute on top of chronic-reduced EF
COPD/asthma with mild acute exacerbation
Right lower lobe infiltrate/pneumonia
Aspiration risk
Pancytopenia with macrocytic anemia-hemoglobin 9.7
Mild hyponatremia
Hyperglycemia
Non-[place] troponin elevation
Conditions present prior to admission:
CHF reduced EF.
ICD 2021.
CAD/stents.
Aortic stenosis
CKD stage IV.
Chronic pancytopenia.
Hypertension.
History of CVAs-residual left field cut
Diabetes.
Cigar smoker.
Morbid obesity
Obstructive sleep apnea suspected-untreated
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
History of gout
Multiple myeloma.
Nonadherence to medications
Plan
90% on 2l NC
Respiratory decompensation likely multifactorial including heart failure, pneumonia and possibly COPD exacerbation
Supplemental oxygen as needed-attempt to wean
Assess discharge supplemental oxygen needs
Possible superimposed AECOPD
Continue nebulizers-patient feels helping with the wheezing
Continue budesonide nebulizers, can continue Duonebs PRN
Mucolytic's
Aspiration precautions
Continue to observe off steroids and reassess-if still wheezing after adequate diuresis and euvolemia then will consider
Continue diuresis as tolerated-will need to stop with worsening YOANDY
Continue to follow renal function, electrolytes, intake/output, lower extremity edema and weight
Replace electrolytes as needed
Nephrology following-correspondence reviewed-hold Rudyix
Cardiology following-correspondence reviewed-signed off 01/19/2024
Troponin trended
Check cultures-unrevealing
Zosyn initiated empirically-changed to Augmentin
DVT prophylaxis-on heparin
Nutrition
Early mobilization
Reviewed with Dr. Infante and nursing
Diagnostic data:
Chest x-ray 09/15/2023-NAD
Chest x-ray 12/27/2023-low lung volumes, mild cardiomegaly, slight increased pulmonary vascularity
Chest x-ray 01/16/2024-mild interstitial pneumonia right lung base
Lexiscan Stress Test: 09/14/22:�Fixed inferior and inferior-septal defect consistent with infarction, severely decreased systolic function with estimated LVEF of 22% with severe global hypokinesis and dilated left ventricle, intermediate risk stress
test, 4 beat NSVT during study
Cardiac cath 10/24/2015:�LAD:stent in the proximal LAD is widely patent.� The second diagonal comes off the middle of the stent and is jailed by the stent and has a 90% ostial stenosis.� There is a 40% mid LAD stenosis. Circumflex: Luminal
irregularities RCA: 100% chronic total occlusion of the proximal RCA.
Echo 01/2021: EF 10 to 15%, global hypokinesis with akinesis of inferior wall, septum, and apex.� Stage III diastolic dysfunction, mitral annular calcification, mild MR, aortic sclerosis, mildly dilated aortic root
Echo 10/12/21: EF 10%, global hypokinesis LV severely dilated, mild LVH, stage III DD, mild MR, trace TR/AI, PAP 15 to 20 mmHg.� Possible left ventricular apical thrombus.� Echo repeated with Definity 10/13/2021 which demonstrated no LV thrombus with
Definity
Echo 11/08/23:�Dilated cardiomyopathy, LVEF of 30%, right-sided ICD, dilated left atrium, mild to moderate aortic stenosis, peak and mean transaortic gradients of 15/8 mmHg, DVI of 0.4.� No pericardial effusion.
Subjective Data
-
Date of Service:
Date of Service: January 20, 2024
Chief Complaint: Pulmonary Follow Up and Dyspnea Follow Up
Subjective:
Laying in bed, no complaints
Remains on O2, 2L
Has been OOB for bathroom
Objective Data
Data Reviewed
Vital Signs / I&O / Oxygen:
Vital Signs
Temp Pulse Resp BP Pulse Ox
98.1 F 83 24 123/68 92
01/20/24 07:10 01/20/24 10:00 01/20/24 10:00 01/20/24 09:18 01/20/24 08:26
Intake and Output
01/19/24 01/20/24 01/21/24
06:59 06:59 07:59
Intake Total 960 / 960 410 / 410
Output Total 1575 / 1575 500 / 500
Balance -615 / -615 -90 / -90
SaO2 92
Nasal Cannula flow liters per 2
minute
Physical Exam
General: Respiratory Distress (n), Comfortable and Other (NAD, obese)
HEENT: Normocephalic, Anicteric and Moist Mucous Membranes
Cardiovascular: S1-S2 and Regular Rhythm
Respiratory: Wheeze (Few expiratory, mild/basilar), Crackles (Basilar), Rhonchi (Expiratory), Non-Labored Respirations, Accessory Resp Muscle Use (n) and Stridor (n)
GI: Soft, Non Distended and Non Tender
Neurology: Awake, Alert, Oriented, AO x 3 and No Motor Deficits
Skin: Warm, Good Color, Cyanosis (n), Jaundice (n) and Rash (n)
Labs/Micro/Reports
Microbiology
01/16/24 16:19 Blood/Venous Blood Culture - Preliminary
No Growth in 72 hours- Final report to follow
01/16/24 15:41 Blood/Venous Blood Culture - Preliminary
No Growth in 72 hours- Final report to follow
--- NOTE | 2024-01-20 12:25 | PTCARENOTE ---
Pt for transfer. Report to receiving RN. Belongings collected from room. Transferred to [facility] via stretcher.
[2024-01-20 12:33] LABS: Glucose - Point of Care 126 mg/dl (70-99)
--- NOTE | 2024-01-20 12:34 | W.PN.NEPH.PH ---
Today's Communication / Plan
-
awaiting AM labs
Assessment/Plan
-
Impression:
CKD 4 baseline around 2.8
Chronic HFrEF
BiV ICD in 2021
Hyponatremia
Non-[place] troponin elevation
Chronic pancytopenia
Essential hypertension
History of strokes
Coronary artery disease s/p prior [place] and coronary stents
Diabetes mellitus type 2
Tobacco abuse disorder
History of left renal tumor resection
Multiple myeloma
Plan:
-Cr rising
-agree with holding lasix due to Cr bump, patient appeared comfortable
- c/f RLL PNA 2/2 to CXR
-noted to be off zosyn and started on augmentin
-mild hyponatremia noted, continue to monitor. will implement FR if exacerbates
awaiting AM labs
-
-
Date of Service: January 20, 2024
CC / HPI / ROS
-
Chief Complaint:
YOANDY
History of Present Illness:
acute hypoxemic respiratory failure --> ?PNA vs. ADHF
fever on admission
YOANDY on CKD
Review of Systems:
Cr worsening
holding lasix
Labs
-
Labs:
eGFR 18.27 01/19/24 04:36
Fwp-T-Ypmxgnihird Pept 5580 pg/ml 01/16/24 07:16
Physical Exam
-
Vital Signs:
Vital Signs
Temp Pulse Resp BP Pulse Ox
98.1 F 84 18 123/68 94
01/20/24 07:10 01/20/24 11:17 01/20/24 11:17 01/20/24 09:18 01/20/24 11:17
Other Findings::
Patient refused physical exam
appears nontoxic in NAD
no increased WOB noted
[2024-01-20 13:12] LABS: Hematocrit 22.2 % (39.0-52.0); Hemoglobin 7.4 g/dL (13.0-18.0); Mean Corp Hgb Conc. 33.3 g/dL (33.0-37.0); Mean Corpuscular Hgb 32.6 pg (27.0-31.0); Mean Corpuscular Volume 97.8 fL (80.0-94.0); Mean Platelet Volume 9.8 fL (7.4-10.4); Platelet Count 143 10^3/uL (130-400); Red Blood Cell Count 2.27 10^6/uL (4.70-6.10); Red Cell Dist. Width 15.9 % (11.5-14.5); White Blood Cell Count 4.9 10^3/uL (4.8-10.8)
[2024-01-20 13:14] LABS: Blood Urea Nitrogen 67 mg/dl (9-20); Calcium 9.4 mg/dl (8.4-10.2); Carbon Dioxide 29 mmol/L (22-30); Chloride 102 mmol/L (98-107); Estimated Creatinine Clearance 21 ml/min; Glucose 128 mg/dl (70-99); Potassium 4.5 mmol/L (3.5-5.1); Sodium 134 mmol/L (135-145); eGFR 19.74
[2024-01-20 16:37] LABS: Glucose - Point of Care 162 mg/dl (70-99)
[2024-01-20] MEDS: NOVOLOG FLEXPEN-LOW RESISTANCE 1 UNITS SC (17:25)
[2024-01-20] MEDS: HEPARIN 5000 UNITS SC (17:25)
[2024-01-20] MEDS: CRESTOR 40 MG PO (20:57)
[2024-01-20] MEDS: FLOMAX 0.400000000000000022 MG PO (20:57)
[2024-01-20] MEDS: SENOKOT 8.59999999999999964 MG PO (20:57)
[2024-01-20] MEDS: COLACE 100 MG PO (20:57)
[2024-01-20] MEDS: ZETIA 10 MG PO (20:58)
[2024-01-20 21:10] LABS: Glucose - Point of Care 152 mg/dl (70-99)
[2024-01-21] MEDS: HEPARIN 5000 UNITS SC ×3 (01:32→23:31)
[2024-01-21 06:00] VITALS: BMI 37.9
[2024-01-21 07:03] LABS: Hematocrit 22.6 % (39.0-52.0); Hemoglobin 7.5 g/dL (13.0-18.0); Mean Corp Hgb Conc. 33.2 g/dL (33.0-37.0); Mean Corpuscular Hgb 33.2 pg (27.0-31.0); Mean Platelet Volume 9.8 fL (7.4-10.4); Platelet Count 118 10^3/uL (130-400); Red Blood Cell Count 2.26 10^6/uL (4.70-6.10); Red Cell Dist. Width 15.9 % (11.5-14.5); White Blood Cell Count 7.1 10^3/uL (4.8-10.8)
[2024-01-21 07:14] VITALS: BP 127/55
[2024-01-21 07:29] LABS: Glucose - Point of Care 140 mg/dl (70-99)
[2024-01-21 07:31] LABS: Blood Urea Nitrogen 69 mg/dl (9-20); Calcium 9.7 mg/dl (8.4-10.2); Carbon Dioxide 25 mmol/L (22-30); Chloride 99 mmol/L (98-107); Estimated Creatinine Clearance 24 ml/min; Glucose 140 mg/dl (70-99); Potassium 4.3 mmol/L (3.5-5.1); Sodium 133 mmol/L (135-145)
[2024-01-21] MEDS: NOVOLOG FLEXPEN-LOW RESISTANCE SC ×3 (07:58→18:18)
[2024-01-21] MEDS: PULMICORT 0.5 MG INH ×2 (08:06→19:42)
[2024-01-21] MEDS: DUONEB 3 ML INH ×2 (08:06→19:42)
--- NOTE | 2024-01-21 08:25 | W.PN.HOSP.TC ---
Today's Communication/Plan
-
Awaiting stool to be heme tested (really the only thing keeping the pt hospitalized at this point). Check CXR.
Assessment / Plan
Assessment / Plan
Gen: NAD, appears chronicially ill
Eyes: EOMI, PERRLA, no scleral icterus.
Neck: supple.
CV: RRR with frequent premature beats, +S1/S2, no m/r/g.
Resp: faint, intermittent wheezes
Abd: Continues to remain +BS, soft, NT, ND
Skin: No rashes.
Psych: calm/sleeping
CXR: Mild interstitial pneumonia at the right lung base.
Acute hypoxemic respiratory failure due to acute on chronic heart failure with reduced ejection fraction:
-Pt with elevated blood pressure on admission.� Likely a component of hypertensive emergency that contributed to acute on chronic heart failure with reduced ejection fraction exacerbation.
-Echo 11/08/23: EF 30%
-AB.40/45/27/44.5%
-h/o ICD
-missed meds (including lasix) 324AM
-Patient started on nitroglycerin drip in the ER which was stopped with hypotension (SBP 80s)
-Lasix 40mg IV given in ER, followed by daily IV lasix. IV lasix now stopped with YOANDY.
-doubt benefit of repeating echo
-pt was initially on BiPAP in the ER which he then subsequently refused. Cont to wean NC O2 as tolerated (currently on 3L NC O2)
-cont BB with holding parameters
-pulm following
-repeat CXR today
Fever on admission:
-possibly due to mild interstitial PNA in the R base
-fever has resolved/not recurred
-MRSA screen NEG
-was on Zosyn, now transitioned to Augmentin
YOANDY on CKD4:
-due to CRS
-renal following
-will likely need to accept a higher Cr to maintain euvolemia
-resolved, Cr 2.7, baseline Cr 2.8
Anemia:
-slightly Fe def (although ferritin normal), B12/folate normal
-heme test stool (communicated with nursing again on 01/21/24). As per nursing pt has been having stools but none have been heme tested as per the order placed 01/20/24AM.
Other problems:
BiV ICD in 2021
Hyponatremia
Non-[place] troponin elevation
Chronic pancytopenia
Essential hypertension: cont BB with holding parameters
History of strokes: Cont ASA/statin
Coronary artery disease s/p prior [place] and coronary stents: Cont ASA/statin/BB
DM2: SSI/accuchecks for now. Recent a1c 6.7%
Tobacco abuse disorder
History of left renal tumor resection
Multiple myeloma
Obesity due to excess calories: Affects all aspects of care, encourage weight loss
DNR as per discussion with in ER
Heparin
Considering the patient's multiple, severe, active medical problems in the setting of deconditioning and advanced age hospice would be appropriate for this patient.
Anticipated Discharge: Within 24 hours
Subjective/Interval History
-
Date of Service: January 21, 2024
Denies chest pain or shortness of breath.
Objective Data
-
Labs:
Laboratory Results
01/21/24
06:03
WBC 7.1
Hgb 7.5 L
Hct 22.6 L
Plt Count 118 L
Sodium 133 L
Potassium 4.3
Chloride 99
Carbon Dioxide 25
BUN 69 H
Creatinine 2.7 H
Glucose 140 H
Calcium 9.7
Vital Signs:
Vital Signs
Temp Pulse Resp BP Pulse Ox
98.2 F 94 18 127/55 94
01/21/24 07:14 01/21/24 07:14 01/21/24 07:14 01/21/24 07:14 01/21/24 07:14
I&O
01/20/24 01/21/24 01/22/24
05:59 06:59 06:59
Intake Total
Output Total
Balance
[2024-01-21] MEDS: LOW STRENGTH ASPIRIN 81 MG PO (09:44)
[2024-01-21] MEDS: ZYLOPRIM 50 MG PO (09:44)
[2024-01-21] MEDS: MUCINEX 600 MG PO ×2 (09:45→21:53)
[2024-01-21] MEDS: COREG 6.25 MG PO (09:45)
[2024-01-21] MEDS: AUGMENTIN 500 MG/125 MG 1 TABLET PO ×2 (09:45→21:48)
[2024-01-21] MEDS: EFFEXOR 75 MG PO ×2 (09:45→21:53)
[2024-01-21] MEDS: HEPARIN SC ×2 (09:45)
[2024-01-21] MEDS: DESENEX/MITRAZOL/ZEASORB 1 APPLIC TOPICAL ×2 (09:46→21:52)
--- NOTE | 2024-01-21 12:29 | W.PN.PUL3 ---
Today's Communication / Plan
-
No further wheezing/rales
Currently weaned to RA, no indication for steroids
Continue nebs as is
Discharge planning per team
We will sign off at this time, please call with questions
Assessment
-
83-year-old male with a history of CHF reduced EF, ICD, chronic kidney disease, strokes, CAD, diabetes who continues to smoke cigars and found to have respiratory failure refusing BiPAP and pulmonary consulted for shortness of breath 01/18/2024.
Shortness of breath related to heart failure acute on top of chronic-reduced EF
COPD/asthma with mild acute exacerbation
Right lower lobe infiltrate/pneumonia
Aspiration risk
Pancytopenia with macrocytic anemia-hemoglobin 9.7
Mild hyponatremia
Hyperglycemia
Non-[place] troponin elevation
Conditions present prior to admission:
CHF reduced EF.
ICD 2021.
CAD/stents.
Aortic stenosis
CKD stage IV.
Chronic pancytopenia.
Hypertension.
History of CVAs-residual left field cut
Diabetes.
Cigar smoker.
Morbid obesity
Obstructive sleep apnea suspected-untreated
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
History of gout
Multiple myeloma.
Nonadherence to medications
Plan
Currently >90% on room air
Respiratory decompensation likely multifactorial including heart failure, pneumonia and possibly COPD exacerbation
Supplemental oxygen as needed-attempt to wean
Assess discharge supplemental oxygen needs
Continue budesonide nebulizers, can continue Duonebs PRN
Mucolytic's
Aspiration precautions
No indication for steroids at this time
Continue diuresis as tolerated-will need to stop with worsening YOANDY
Continue to follow renal function, electrolytes, intake/output, lower extremity edema and weight
Replace electrolytes as needed
Nephrology following-correspondence reviewed-hold Lasix
Cardiology following-correspondence reviewed-signed off 01/19/2024
Troponin trended
Check cultures-unrevealing
Zosyn initiated empirically-changed to Augmentin
DVT prophylaxis-on heparin
Nutrition
Early mobilization
Reviewed with Dr. Infante and nursing
Diagnostic data:
Chest x-ray 09/15/2023-NAD
Chest x-ray 12/27/2023-low lung volumes, mild cardiomegaly, slight increased pulmonary vascularity
Chest x-ray 01/16/2024-mild interstitial pneumonia right lung base
Lexiscan Stress Test: 09/14/22:�Fixed inferior and inferior-septal defect consistent with infarction, severely decreased systolic function with estimated LVEF of 22% with severe global hypokinesis and dilated left ventricle, intermediate risk stress
test, 4 beat NSVT during study
Cardiac cath 10/24/2015:�LAD:stent in the proximal LAD is widely patent.� The second diagonal comes off the middle of the stent and is jailed by the stent and has a 90% ostial stenosis.� There is a 40% mid LAD stenosis. Circumflex: Luminal
irregularities RCA: 100% chronic total occlusion of the proximal RCA.
Echo 01/2021: EF 10 to 15%, global hypokinesis with akinesis of inferior wall, septum, and apex.� Stage III diastolic dysfunction, mitral annular calcification, mild MR, aortic sclerosis, mildly dilated aortic root
Echo 10/12/21: EF 10%, global hypokinesis LV severely dilated, mild LVH, stage III DD, mild MR, trace TR/AI, PAP 15 to 20 mmHg.� Possible left ventricular apical thrombus.� Echo repeated with Definity 10/13/2021 which demonstrated no LV thrombus with
Definity
Echo 11/08/23:�Dilated cardiomyopathy, LVEF of 30%, right-sided ICD, dilated left atrium, mild to moderate aortic stenosis, peak and mean transaortic gradients of 15/8 mmHg, DVI of 0.4.� No pericardial effusion.
Subjective Data
-
Date of Service:
Date of Service: January 21, 2024
Chief Complaint: Pulmonary Follow Up and Dyspnea Follow Up
Subjective:
doing well today, sitting in chair
stable on room air
no new complaints
Objective Data
Data Reviewed
Vital Signs / I&O / Oxygen:
Vital Signs
Temp Pulse Resp BP Pulse Ox
98.2 F 94 18 127/55 97
01/21/24 07:14 01/21/24 07:14 01/21/24 07:14 01/21/24 07:14 01/21/24 08:00
Intake and Output
01/20/24 01/21/24 01/22/24
05:59 06:59 06:59
Intake Total 480 / 480
Output Total
Balance 480 / 480
SaO2 97
Nasal Cannula flow liters per 2
minute
Physical Exam
General: Respiratory Distress (n), Comfortable and Other (NAD, obese)
HEENT: Normocephalic, Anicteric and Moist Mucous Membranes
Cardiovascular: S1-S2 and Regular Rhythm
Respiratory: Clear, Non-Labored Respirations, Accessory Resp Muscle Use (n) and Stridor (n)
GI: Soft, Non Distended and Non Tender
Neurology: Awake, Alert, Oriented, AO x 3 and No Motor Deficits
Skin: Warm, Good Color, Cyanosis (n), Jaundice (n) and Rash (n)
Labs/Micro/Reports
Lab Data
01/21/24 06:03
01/21/24 06:03
Microbiology
01/16/24 16:19 Blood/Venous Blood Culture - Preliminary
No Growth in 4 days- Final report to follow
01/16/24 15:41 Blood/Venous Blood Culture - Preliminary
No Growth in 4 days- Final report to follow
[2024-01-21 12:52] LABS: Glucose - Point of Care 147 mg/dl (70-99)
[2024-01-21 15:10] VITALS: BP 119/65
[2024-01-21 17:57] LABS: Glucose - Point of Care 128 mg/dl (70-99)
[2024-01-21 21:38] LABS: Glucose - Point of Care 146 mg/dl (70-99)
[2024-01-21] MEDS: COREG PO (21:52)
[2024-01-21] MEDS: SENOKOT 8.59999999999999964 MG PO (21:52)
[2024-01-21] MEDS: COLACE 100 MG PO (21:52)
[2024-01-21] MEDS: CRESTOR 40 MG PO (21:53)
[2024-01-21] MEDS: FLOMAX 0.400000000000000022 MG PO (21:53)
[2024-01-21] MEDS: ZETIA 10 MG PO (21:53)
[2024-01-21 23:00] VITALS: BP 140/63
[2024-01-22 05:51] VITALS: BMI 35.5
[2024-01-22 07:10] VITALS: BP 176/85
[2024-01-22] MEDS: PULMICORT 0.5 MG INH ×2 (07:29→19:40)
[2024-01-22] MEDS: DUONEB 3 ML INH ×3 (07:31→19:39)
[2024-01-22 08:14] LABS: Glucose - Point of Care 128 mg/dl (70-99)
[2024-01-22 08:48] LABS: Hematocrit 22.2 % (39.0-52.0); Hemoglobin 7.4 g/dL (13.0-18.0); Mean Corp Hgb Conc. 33.3 g/dL (33.0-37.0); Mean Corpuscular Hgb 32.6 pg (27.0-31.0); Mean Corpuscular Volume 97.8 fL (80.0-94.0); Mean Platelet Volume 9.1 fL (7.4-10.4); Platelet Count 109 10^3/uL (130-400); Red Blood Cell Count 2.27 10^6/uL (4.70-6.10); Red Cell Dist. Width 15.9 % (11.5-14.5); White Blood Cell Count 5.2 10^3/uL (4.8-10.8)
[2024-01-22 09:15] LABS: Blood Urea Nitrogen 72 mg/dl (9-20); Carbon Dioxide 26 mmol/L (22-30); Chloride 100 mmol/L (98-107); Estimated Creatinine Clearance 24 ml/min; Glucose 139 mg/dl (70-99); Potassium 4.5 mmol/L (3.5-5.1); Sodium 133 mmol/L (135-145); eGFR 23.43
[2024-01-22] MEDS: NOVOLOG FLEXPEN-LOW RESISTANCE SC ×3 (09:35→17:48)
[2024-01-22] MEDS: AUGMENTIN 500 MG/125 MG 1 TABLET PO ×2 (09:36→20:47)
[2024-01-22] MEDS: MUCINEX 600 MG PO ×2 (09:36→20:47)
[2024-01-22] MEDS: LOW STRENGTH ASPIRIN 81 MG PO (09:36)
[2024-01-22] MEDS: ZYLOPRIM 50 MG PO (09:36)
[2024-01-22] MEDS: HEPARIN SC ×4 (09:37→23:31)
[2024-01-22] MEDS: DESENEX/MITRAZOL/ZEASORB 1 APPLIC TOPICAL ×2 (09:38→20:46)
[2024-01-22] MEDS: COREG 6.25 MG PO ×2 (09:38→20:48)
[2024-01-22] MEDS: EFFEXOR 75 MG PO ×2 (09:38→20:47)
[2024-01-22 11:20] LABS: Glucose - Point of Care 125 mg/dl (70-99)
--- NOTE | 2024-01-22 14:43 | W.PN.HOSP.TC ---
Today's Communication/Plan
-
resume oral lasix
wean o2
switch duonebs to sstanding
Assessment / Plan
Assessment / Plan
Gen: NAD, appears chronicially ill
Eyes: EOMI, PERRLA, no scleral icterus.
Neck: supple.
CV: RRR with frequent premature beats, +S1/S2, no m/r/g.
Resp: faint, wheezing b/l
Abd: Continues to remain +BS, soft, NT, ND
Skin: No rashes.
Psych: calm/sleeping
CXR: Mild interstitial pneumonia at the right lung base.
Acute hypoxemic respiratory failure due to acute on chronic heart failure with reduced ejection fraction:
-Pt with elevated blood pressure on admission.� Likely a component of hypertensive emergency that contributed to acute on chronic heart failure with reduced ejection fraction exacerbation.
-Echo 11/08/23: EF 30%
-AB.40/45/27/44.5%
-h/o ICD
-missed meds (including lasix) 01/14/24AM
-Patient started on nitroglycerin drip in the ER which was stopped with hypotension (SBP 80s)
-Lasix 40mg IV given in ER, followed by daily IV lasix. IV lasix now stopped with YOANDY.can tx back to oral lasix and monitor
-doubt benefit of repeating echo
-pt was initially on BiPAP in the ER which he then subsequently refused. Cont to wean NC O2 as tolerated (currently on 3L NC O2)
-cont BB with holding parameters
-pulm following
Fever on admission:
-possibly due to mild interstitial PNA in the R base
-fever has resolved/not recurred
-MRSA screen NEG
-was on Zosyn, now transitioned to Augmentin - day 3/
YOANDY on CKD4:
-due to CRS
-renal following
-will likely need to accept a higher Cr to maintain euvolemia
-resolved, resume oral lasix
Anemia:
-slightly Fe def (although ferritin normal), B12/folate normal
hgb remains stable
-f/u outpatient gi
Other problems:
BiV ICD in 2021
Hyponatremia
Non-[place] troponin elevation
Chronic pancytopenia
Essential hypertension: cont BB with holding parameters
History of strokes: Cont ASA/statin
Coronary artery disease s/p prior [place] and coronary stents: Cont ASA/statin/BB
DM2: SSI/accuchecks for now. Recent a1c 6.7%
Tobacco abuse disorder
History of left renal tumor resection
Multiple myeloma
Obesity due to excess calories: Affects all aspects of care, encourage weight loss
DNR as per discussion with in ER
Heparin
Considering the patient's multiple, severe, active medical problems in the setting of deconditioning and advanced age hospice would be appropriate for this patient.
Anticipated Discharge: 24 - 48 hours
Subjective/Interval History
-
Date of Service: January 22, 2024
When hypoxic to 80% saline, now back on 2 L, wheezing present bilaterally
Objective Data
-
Labs:
Laboratory Results
01/22/24
08:12
WBC 5.2
Hgb 7.4 L
Hct 22.2 L
Plt Count 109 L
Sodium 133 L
Potassium 4.5
Chloride 100
Carbon Dioxide 26
BUN 72 H
Creatinine 2.6 H
Glucose 139 H
Calcium 10.0
Vital Signs:
Vital Signs
Temp Pulse Resp BP Pulse Ox
97.4 F 90 20 176/85 96
01/22/24 07:10 01/22/24 09:38 01/22/24 07:33 01/22/24 09:38 01/22/24 08:43
I&O
01/21/24 01/22/2424
06:59 06:59 06:59
Intake Total 1200 / 1200
Balance 1200 / 1200
Review of Systems
-
Constitutional: Denies Fever or Weakness
EENT: Denies Sore Throat
Respiratory: Denies Cough
Physical Exam
-
General: No Apparent Distress
HEENT: Moist Mucous Membranes
Respiratory: Wheezes
Cardiac: Regular Rhythm and S1/S2; Negative Tachycardic
GI: Soft
Neuro: AO x 3
Psych: Calm; Negative Confused
Data Reviewed
-
Diagnostic Radiology: Image personally visualized and interpreted and Report Reviewed by me
Labs: Labs Reviewed by me
--- NOTE | 2024-01-22 15:18 | W.PN.NEPH.PH ---
Today's Communication / Plan
-
follow labs
IV fe
Assessment/Plan
-
Impression:
CKD 4 baseline around 2.8
Chronic HFrEF
BiV ICD in 2021
Hyponatremia
Non-[place] troponin elevation
Chronic pancytopenia
Essential hypertension
History of strokes
Coronary artery disease s/p prior [place] and coronary stents
Diabetes mellitus type 2
Tobacco abuse disorder
History of left renal tumor resection
Multiple myeloma
Plan:
-Cr at baseline while holding lasix
-wt significant change, reports standing scale today
ok to resume po home dose lasix
abx per primary fo rPNA
-mild hyponatremia noted, continue to monitor.
anemia-fe sat 18%, start IV fe course
-
-
Date of Service: January 22, 2024
CC / HPI / ROS
-
Chief Complaint:
YOANDY
History of Present Illness:
acute hypoxemic respiratory failure --> ?PNA vs. ADHF
afebrile
YOANDY on CKD , cr at baseline 2.6
hb low 7.4
Review of Systems:
no cp
on NC O2 3lt
Labs
-
Labs:
WBC 5.2 10^3/uL (4.8-10.8) 01/22/24 08:12
RBC 2.27 10^6/uL (4.70-6.10) L 01/22/24 08:12
Hgb 7.4 g/dL (13.0-18.0) L 01/22/24 08:12
Hct 22.2 % (39.0-52.0) L 01/22/24 08:12
Plt Count 109 10^3/uL (130-400) L 01/22/24 08:12
Sodium 133 mmol/L (135-145) L 01/22/24 08:12
Potassium 4.5 mmol/L (3.5-5.1) 01/22/24 08:12
Chloride 100 mmol/L (98-107) 01/22/24 08:12
Carbon Dioxide 26 mmol/L (22-30) 01/22/24 08:12
BUN 72 mg/dl (9-20) H 01/22/24 08:12
Creatinine 2.6 mg/dL (0.7-1.3) H 01/22/24 08:12
eGFR 23.43 01/22/24 08:12
Glucose 139 mg/dl (70-99) H 01/22/24 08:12
Calcium 10.0 mg/dl (8.4-10.2) 01/22/24 08:12
Fxg-C-Eqcquomjouk Pept 5580 pg/ml 01/16/24 07:16
Physical Exam
-
Vital Signs:
Vital Signs
Temp Pulse Resp BP Pulse Ox
97.4 F 90 20 176/85 96
01/22/24 07:10 01/22/24 09:38 01/22/24 07:33 01/22/24 09:38 01/22/24 08:43
Cardiovascular:: Regular rate and rhythm
Respiratory:: Bilateral: CTA
Lung Excursion:: Normal
Abdomen:: Nontender and Soft
Extremity Edema:: None: Bilateral: (trace)
Carey Catheter: No
[2024-01-22] MEDS: LASIX 40 MG PO (15:30)
[2024-01-22 17:14] LABS: Glucose - Point of Care 177 mg/dl (70-99)
[2024-01-22] MEDS: FERRLECIT 110 MG IV (17:47)
[2024-01-22 20:36] VITALS: BP 144/69
[2024-01-22] MEDS: SENOKOT 8.59999999999999964 MG PO (20:47)
[2024-01-22] MEDS: FLOMAX 0.400000000000000022 MG PO (20:47)
[2024-01-22] MEDS: COLACE 100 MG PO (20:47)
[2024-01-22] MEDS: CRESTOR 40 MG PO (20:47)
[2024-01-22] MEDS: ZETIA 10 MG PO (20:48)
[2024-01-22 22:13] LABS: Glucose - Point of Care 142 mg/dl (70-99)
[2024-01-22 23:10] VITALS: BP 112/49
[2024-01-23] MEDS: DUONEB 3 ML INH ×7 (00:58→23:53)
--- NOTE | 2024-01-23 01:53 | PTCARENOTE ---
Patient having little output on bedside commode. Nurse practioner made aware, bladder scan protocol order placed. Patient bladder scanned for 559ml and straight cath for 700 ml
[2024-01-23 06:00] VITALS: BMI 37.3
[2024-01-23 07:00] VITALS: BP 127/55
[2024-01-23] MEDS: PULMICORT 0.5 MG INH (07:01)
[2024-01-23 07:02] LABS: Glucose - Point of Care 130 mg/dl (70-99)
[2024-01-23 07:44] LABS: Hematocrit 22.5 % (39.0-52.0); Hemoglobin 7.4 g/dL (13.0-18.0); Mean Corp Hgb Conc. 32.9 g/dL (33.0-37.0); Mean Corpuscular Hgb 32.5 pg (27.0-31.0); Mean Corpuscular Volume 98.7 fL (80.0-94.0); Mean Platelet Volume 9.4 fL (7.4-10.4); Platelet Count 120 10^3/uL (130-400); Red Blood Cell Count 2.28 10^6/uL (4.70-6.10); Red Cell Dist. Width 15.7 % (11.5-14.5); White Blood Cell Count 4.9 10^3/uL (4.8-10.8)
[2024-01-23 08:06] LABS: Blood Urea Nitrogen 74 mg/dl (9-20); Calcium 9.8 mg/dl (8.4-10.2); Carbon Dioxide 25 mmol/L (22-30); Chloride 98 mmol/L (98-107); Estimated Creatinine Clearance 24 ml/min; Glucose 129 mg/dl (70-99); Potassium 4.1 mmol/L (3.5-5.1); Sodium 132 mmol/L (135-145)
[2024-01-23] MEDS: NOVOLOG FLEXPEN-LOW RESISTANCE SC (08:44)
[2024-01-23] MEDS: EFFEXOR 75 MG PO ×2 (09:55→21:31)
[2024-01-23] MEDS: AUGMENTIN 500 MG/125 MG 1 TABLET PO ×2 (09:55→21:31)
[2024-01-23] MEDS: LASIX 40 MG PO (09:55)
[2024-01-23] MEDS: MUCINEX 600 MG PO ×2 (09:56→21:31)
[2024-01-23] MEDS: COREG 6.25 MG PO ×2 (09:56→21:31)
[2024-01-23] MEDS: LOW STRENGTH ASPIRIN 81 MG PO (09:56)
[2024-01-23] MEDS: ZYLOPRIM 50 MG PO (09:56)
[2024-01-23] MEDS: HEPARIN 5000 UNITS SC (09:56)
[2024-01-23] MEDS: DESENEX/MITRAZOL/ZEASORB 1 APPLIC TOPICAL (09:57)
[2024-01-23 11:21] VITALS: BP 114/79; PULSE 87; O2SAT 95
[2024-01-23 11:22] LABS: Glucose - Point of Care 200 mg/dl (70-99)
--- NOTE | 2024-01-23 12:52 | W.PN.NEPH.PH ---
Today's Communication / Plan
-
observe with po lasix
Assessment/Plan
-
Impression:
CKD 4 baseline around 2.8
Chronic HFrEF
BiV ICD in 2021
Hyponatremia
Non-[place] troponin elevation
Chronic pancytopenia
Essential hypertension
History of strokes
Coronary artery disease s/p prior [place] and coronary stents
Diabetes mellitus type 2
Tobacco abuse disorder
History of left renal tumor resection
Multiple myeloma
Plan:
-Cr at baseline while holding lasix
-wt likely not accurate on bed scale
cont home dose lasix
abx per primary fo rPNA
-mild hyponatremia noted, continue to monitor-stable
anemia-hb 7.4 stable, fe sat 18%, started IV fe course
d/w nursing
BMP on Monday
After d/c f/u Dr Chevy freeman
-
-
Date of Service: January 23, 2024
CC / HPI / ROS
-
Chief Complaint:
YOANDY
History of Present Illness:
acute hypoxemic respiratory failure --> ?PNA vs. ADHF
afebrile
YOANDY on CKD , cr at baseline 2.7
hb low 7.4
wt not accurate on bed scale
Review of Systems:
no cp
on RA
no dizziness
no sob
Labs
-
Labs:
WBC 4.9 10^3/uL (4.8-10.8) 01/23/24 07:04
RBC 2.28 10^6/uL (4.70-6.10) L 01/23/24 07:04
Hgb 7.4 g/dL (13.0-18.0) L 01/23/24 07:04
Hct 22.5 % (39.0-52.0) L 01/23/24 07:04
Plt Count 120 10^3/uL (130-400) L 01/23/24 07:04
Sodium 132 mmol/L (135-145) L 01/23/24 07:04
Potassium 4.1 mmol/L (3.5-5.1) 01/23/24 07:04
Chloride 98 mmol/L (98-107) 01/23/24 07:04
Carbon Dioxide 25 mmol/L (22-30) 01/23/24 07:04
BUN 74 mg/dl (9-20) H 01/23/24 07:04
Creatinine 2.7 mg/dL (0.7-1.3) H 01/23/24 07:04
eGFR 22.40 01/23/24 07:04
Glucose 129 mg/dl (70-99) H 01/23/24 07:04
Calcium 9.8 mg/dl (8.4-10.2) 01/23/24 07:04
Dxc-G-Kjxtvwaenhk Pept 5580 pg/ml 01/16/24 07:16
Physical Exam
-
Vital Signs:
Vital Signs
Temp Pulse Resp BP Pulse Ox
97.4 F 87 20 127/55 96
01/23/24 07:00 01/23/24 11:29 01/23/24 11:29 01/23/24 07:00 01/23/24 11:29
Cardiovascular:: Regular rate and rhythm
Respiratory:: Bilateral: Rales (at bases)
Lung Excursion:: Normal
Abdomen:: Nontender and Soft
Extremity Edema:: None: Bilateral:
Carey Catheter: No
--- NOTE | 2024-01-23 13:08 | CM ---
Addendum entered by Lexi Nix 01/23/24 16:05:
Patient seen with , discussed SNF facilities that accept patients insurance. Patients requesting [facility] for number one choice. CM spoke with [facility], do not have any beds today, may have one tomorrow. CM spoke with [facility], do have bed availability, need updated OT notes to begin auth. CM will continue to follow for discharge planning needs.
Plan; SNF ([facility] or [facility]) once updated PT/OT notes, will require auth.
Original Note:
Patient seen bedside, requesting referral to [facility] as he is a [place]. CM spoke with Elizabeth from [facility], unable to accept patients insurance. CM discussed facilities that accept patients insurance, patient requesting call to friend,
Isaiah Priest. CM could not locate friends contact information, CM placed call to patients , left VM discussing SNF's that accept patients insurance. CM will continue to follow for discharge planning needs.
Plan; SNF pending accepting facility, will require auth.
[2024-01-23] MEDS: FERRLECIT 110 MG IV (13:29)
[2024-01-23] MEDS: NOVOLOG FLEXPEN-LOW RESISTANCE 2 UNITS SC (13:29)
[2024-01-23 15:00] VITALS: BP 154/74
--- NOTE | 2024-01-23 15:03 | W.PN.HOSP.TC ---
Today's Communication/Plan
-
dc ready - cm aware and pending placement
bmp on monday
Assessment / Plan
Assessment / Plan
Gen: NAD, appears chronicially ill
Eyes: EOMI, PERRLA, no scleral icterus.
Neck: supple.
CV: RRR with frequent premature beats, +S1/S2, no m/r/g.
Resp: faint, wheezing b/l
Abd: Continues to remain +BS, soft, NT, ND
Skin: No rashes.
Psych: calm/sleeping
CXR: Mild interstitial pneumonia at the right lung base.
Acute hypoxemic respiratory failure due to acute on chronic heart failure with reduced ejection fraction:
-Pt with elevated blood pressure on admission.� Likely a component of hypertensive emergency that contributed to acute on chronic heart failure with reduced ejection fraction exacerbation.
-Echo 11/08/23: EF 30%
-AB.40/45/27/44.5%
-h/o ICD
-missed meds (including lasix) 01/14/24AM
-Patient started on nitroglycerin drip in the ER which was stopped with hypotension (SBP 80s)
-Lasix 40mg IV given in ER, followed by daily IV lasix. IV lasix now stopped with YOANDY. can tx back to oral lasix and monitor
-doubt benefit of repeating echo
-pt was initially on BiPAP in the ER which he then subsequently refused. Cont to wean NC O2 as tolerated (currently on 3L NC O2)
-cont BB with holding parameters
-pulm following
Fever on admission:
-possibly due to mild interstitial PNA in the R base
-fever has resolved/not recurred
-MRSA screen NEG
-was on Zosyn, now transitioned to Augmentin - day 4/5
YOANDY on CKD4:
-due to CRS
-renal following
-will likely need to accept a higher Cr to maintain euvolemia
-resolved, resume oral lasix
Anemia:
-slightly Fe def (although ferritin normal), B12/folate normal; started IV Iron
hgb remains stable
-f/u outpatient gi
Other problems:
BiV ICD in 2021
Hyponatremia
Non-[place] troponin elevation
Chronic pancytopenia
Essential hypertension: cont BB with holding parameters
History of strokes: Cont ASA/statin
Coronary artery disease s/p prior [place] and coronary stents: Cont ASA/statin/BB
DM2: SSI/accuchecks for now. Recent a1c 6.7%
Tobacco abuse disorder
History of left renal tumor resection
Multiple myeloma
Obesity due to excess calories: Affects all aspects of care, encourage weight loss
DNR as per discussion with in ER
Heparin
Considering the patient's multiple, severe, active medical problems in the setting of deconditioning and advanced age hospice would be appropriate for this patient.
Anticipated Discharge: Within 24 hours
Subjective/Interval History
-
Date of Service: January 23, 2024
ctab, sitting in chair comfortably
Objective Data
-
Labs:
Laboratory Results
01/23/24
07:04
WBC 4.9
Hgb 7.4 L
Hct 22.5 L
Plt Count 120 L
Sodium 132 L
Potassium 4.1
Chloride 98
Carbon Dioxide 25
BUN 74 H
Creatinine 2.7 H
Glucose 129 H
Calcium 9.8
Vital Signs:
Vital Signs
Temp Pulse Resp BP Pulse Ox
97.4 F 87 20 127/55 96
01/23/24 07:00 01/23/24 11:29 01/23/24 11:29 01/23/24 07:00 01/23/24 11:29
I&O
03/11/24 03/12/24 03/13/24
06:59 06:59 06:59
Intake Total 1200 / 1200 240 / 240
Output Total 1250 / 1250
Balance 1200 / 1200 -1010 / -1010
Review of Systems
-
Constitutional: Denies Fever or Weakness
EENT: Denies Sore Throat
Respiratory: Denies Cough
Physical Exam
-
General: No Apparent Distress
HEENT: Moist Mucous Membranes
Respiratory: Wheezes
Cardiac: Regular Rhythm and S1/S2; Negative Tachycardic
GI: Soft
Neuro: AO x 3
Psych: Calm; Negative Confused
Data Reviewed
-
Diagnostic Radiology: Image personally visualized and interpreted and Report Reviewed by me
Labs: Labs Reviewed by me
[2024-01-23 16:51] LABS: Glucose - Point of Care 158 mg/dl (70-99)
[2024-01-23] MEDS: HEPARIN SC ×2 (17:39→23:58)
[2024-01-23] MEDS: NOVOLOG FLEXPEN-LOW RESISTANCE 1 UNITS SC (17:40)
[2024-01-23 21:14] LABS: Glucose - Point of Care 173 mg/dl (70-99)
[2024-01-23 21:29] VITALS: BP 112/45
[2024-01-23] MEDS: FLOMAX 0.400000000000000022 MG PO (21:30)
[2024-01-23] MEDS: CRESTOR 40 MG PO (21:30)
[2024-01-23] MEDS: COLACE 100 MG PO (21:31)
[2024-01-23] MEDS: ZETIA 10 MG PO (21:31)
[2024-01-23] MEDS: SENOKOT 8.59999999999999964 MG PO (21:31)
[2024-01-23] MEDS: DESENEX/MITRAZOL/ZEASORB TOPICAL (21:35)
[2024-01-23 23:12] VITALS: BP 130/64
[2024-01-24] MEDS: DUONEB 3 ML INH ×3 (04:40→15:40)
[2024-01-24 06:00] VITALS: BMI 35.8
[2024-01-24 07:00] VITALS: BP 103/57
[2024-01-24] MEDS: DUONEB INH (07:26)
[2024-01-24 08:14] LABS: Glucose - Point of Care 130 mg/dl (70-99)
[2024-01-24] MEDS: NOVOLOG FLEXPEN-LOW RESISTANCE SC ×3 (08:26→17:08)
[2024-01-24] MEDS: LASIX 40 MG PO (09:04)
[2024-01-24] MEDS: EFFEXOR 75 MG PO ×2 (09:04→20:25)
[2024-01-24] MEDS: AUGMENTIN 500 MG/125 MG 1 TABLET PO ×2 (09:04→20:26)
[2024-01-24] MEDS: LOW STRENGTH ASPIRIN 81 MG PO (09:04)
[2024-01-24] MEDS: COREG 6.25 MG PO ×2 (09:04→20:25)
[2024-01-24] MEDS: HEPARIN 5000 UNITS SC (09:05)
[2024-01-24] MEDS: ZYLOPRIM 50 MG PO (09:05)
[2024-01-24 09:09] LABS: Hematocrit 24.3 % (39.0-52.0); Hemoglobin 8.2 g/dL (13.0-18.0); Mean Corp Hgb Conc. 33.7 g/dL (33.0-37.0); Mean Corpuscular Hgb 33.1 pg (27.0-31.0); Mean Platelet Volume 9.5 fL (7.4-10.4); Platelet Count 131 10^3/uL (130-400); Red Blood Cell Count 2.48 10^6/uL (4.70-6.10); Red Cell Dist. Width 15.5 % (11.5-14.5); White Blood Cell Count 4.3 10^3/uL (4.8-10.8)
[2024-01-24] MEDS: DESENEX/MITRAZOL/ZEASORB TOPICAL (09:11)
[2024-01-24] MEDS: MUCINEX 600 MG PO ×2 (09:14→20:26)
[2024-01-24 09:28] VITALS: BP 102/62
[2024-01-24 09:29] LABS: Blood Urea Nitrogen 77 mg/dl (9-20); Calcium 9.6 mg/dl (8.4-10.2); Carbon Dioxide 25 mmol/L (22-30); Chloride 100 mmol/L (98-107); Estimated Creatinine Clearance 22 ml/min; Glucose 120 mg/dl (70-99); Potassium 4.8 mmol/L (3.5-5.1); Sodium 130 mmol/L (135-145); eGFR 21.31
--- NOTE | 2024-01-24 12:03 | W.PN.NEPH.PH ---
Today's Communication / Plan
-
okay for dc
Assessment/Plan
-
Impression:
CKD 4 baseline around 2.8
Chronic HFrEF
BiV ICD in 2021
Hyponatremia
Non-[place] troponin elevation
Chronic pancytopenia
Essential hypertension
History of strokes
Coronary artery disease s/p prior [place] and coronary stents
Diabetes mellitus type 2
Tobacco abuse disorder
History of left renal tumor resection
Multiple myeloma
Plan:
-Cr at baseline while holding lasix
-wt likely not accurate on bed scale
-cont home dose lasix
-abx per primary fo rPNA
-mild hyponatremia noted, continue to monitor-stable
-anemia-hb 7.4 stable, fe sat 18%, started IV fe course /
d/w nursing
BMP on Monday
After d/c f/u Dr Chevy freeman
Nephrology will sign off at this time. Please call us back if any further questions arise.
-
-
Date of Service: January 24, 2024
CC / HPI / ROS
-
Chief Complaint:
YOANDY
History of Present Illness:
acute hypoxemic respiratory failure --> ?PNA vs. ADHF
afebrile
YOANDY on CKD , cr at baseline 2.8
hb low 7.4
wt not accurate on bed scale
Review of Systems:
no cp
on RA
no dizziness
no sob
Labs
-
Labs:
WBC 4.3 10^3/uL (4.8-10.8) L 01/24/24 08:08
RBC 2.48 10^6/uL (4.70-6.10) L 01/24/24 08:08
Hgb 8.2 g/dL (13.0-18.0) L 01/24/24 08:08
Hct 24.3 % (39.0-52.0) L 01/24/24 08:08
Plt Count 131 10^3/uL (130-400) 01/24/24 08:08
Sodium 130 mmol/L (135-145) L 01/24/24 08:08
Potassium 4.8 mmol/L (3.5-5.1) 01/24/24 08:08
Chloride 100 mmol/L (98-107) 01/24/24 08:08
Carbon Dioxide 25 mmol/L (22-30) 01/24/24 08:08
BUN 77 mg/dl (9-20) H 01/24/24 08:08
Creatinine 2.8 mg/dL (0.7-1.3) H 01/24/24 08:08
eGFR 21.31 01/24/24 08:08
Glucose 120 mg/dl (70-99) H 01/24/24 08:08
Calcium 9.6 mg/dl (8.4-10.2) 01/24/24 08:08
Xus-F-Xmyirjjhgyc Pept 5580 pg/ml 01/16/24 07:16
Physical Exam
-
Vital Signs:
Vital Signs
Temp Pulse Resp BP Pulse Ox
98.1 F 81 16 103/57 92
01/24/24 07:00 01/24/24 11:11 01/24/24 11:11 01/24/24 07:00 01/24/24 11:11
Cardiovascular:: Regular rate and rhythm
Respiratory:: Bilateral: Coarse
Lung Excursion:: Normal
Abdomen:: Nontender and Soft
Bowel Sounds:: Normal
Extremity Edema:: None: Bilateral:
Carey Catheter: No
[2024-01-24 12:51] LABS: Glucose - Point of Care 143 mg/dl (70-99)
--- NOTE | 2024-01-24 13:16 | CM ---
Addendum entered by Lexi Nix 01/24/24 15:32:
CM spoke with Ava and Morro from [facility], patients would like patient to attend [facility], clinicals sent in [facility], patient at [facility] currently. CM spoke with [facility], switched SNF provider to [facility]. Auth approved
01/24-01/28, next review 01/28 to [facility] [phone], fax [phone]. Auth #[id number]. CM spoke with Pretty from [facility] to update family has decided on another facility. CM will continue to follow for discharge planning needs.
Plan; [facility] SNF, auth approval for tomorrow 01/24
Original Note:
CM faxed clinicals to [facility], reference #[id number], pending clinical review. CM will continue to follow for discharge planning needs.
Plan; [facility] pending auth.
--- NOTE | 2024-01-24 14:32 | W.PN.HOSP.TC ---
Today's Communication/Plan
-
on po lasix
dc ready, cm aware
Assessment / Plan
Assessment / Plan
Gen: NAD, appears chronicially ill
Eyes: EOMI, PERRLA, no scleral icterus.
Neck: supple.
CV: RRR with frequent premature beats, +S1/S2, no m/r/g.
Resp: faint, wheezing b/l
Abd: Continues to remain +BS, soft, NT, ND
Skin: No rashes.
Psych: calm/sleeping
CXR: Mild interstitial pneumonia at the right lung base.
Acute hypoxemic respiratory failure due to acute on chronic heart failure with reduced ejection fraction:
-Pt with elevated blood pressure on admission.� Likely a component of hypertensive emergency that contributed to acute on chronic heart failure with reduced ejection fraction exacerbation.
-Echo 11/08/23: EF 30%
-AB.40/45/27/44.5%
-h/o ICD
-missed meds (including lasix) 3//24AM
-Patient started on nitroglycerin drip in the ER which was stopped with hypotension (SBP 80s)
-Lasix 40mg IV given in ER, followed by daily IV lasix. IV lasix now stopped with YOANDY. can tx back to oral lasix and monitor
-doubt benefit of repeating echo
-pt was initially on BiPAP in the ER which he then subsequently refused. Cont to wean NC O2 as tolerated (currently on 3L NC O2)
-cont BB with holding parameters
-pulm following
Fever on admission:
-possibly due to mild interstitial PNA in the R base
-fever has resolved/not recurred
-MRSA screen NEG
-was on Zosyn, now transitioned to Augmentin - day 03/17
YOANDY on CKD4:
-due to CRS
-renal following
-will likely need to accept a higher Cr to maintain euvolemia
-resolved, resume oral lasix
Anemia:
-slightly Fe def (although ferritin normal), B12/folate normal; started IV Iron
hgb remains stable
-f/u outpatient gi
Other problems:
BiV ICD in 2021
Hyponatremia
Non-CT troponin elevation
Chronic pancytopenia
Essential hypertension: cont BB with holding parameters
History of strokes: Cont ASA/statin
Coronary artery disease s/p prior [place] and coronary stents: Cont ASA/statin/BB
DM2: SSI/accuchecks for now. Recent a1c 6.7%
Tobacco abuse disorder
History of left renal tumor resection
Multiple myeloma
Obesity due to excess calories: Affects all aspects of care, encourage weight loss
DNR as per discussion with in ER
Heparin
Considering the patient's multiple, severe, active medical problems in the setting of deconditioning and advanced age hospice would be appropriate for this patient.
Dispo: pending placement, CM aware
Anticipated Discharge: Within 24 hours
Subjective/Interval History
-
Date of Service: January 24, 2024
no acute events
Objective Data
-
Labs:
Laboratory Results
01/24/24
08:08
WBC 4.3 L
Hgb 8.2 L
Hct 24.3 L
Plt Count 131
Sodium 130 L
Potassium 4.8
Chloride 100
Carbon Dioxide 25
BUN 77 H
Creatinine 2.8 H
Glucose 120 H
Calcium 9.6
Vital Signs:
Vital Signs
Temp Pulse Resp BP Pulse Ox
98.1 F 81 16 103/57 92
01/24/24 07:00 01/24/24 11:11 01/24/24 11:11 01/24/24 07:00 01/24/24 11:11
I&O
01/23/24 01/24/24 01/25/24
06:59 06:59 06:59
Intake Total 240 / 240
Output Total 1250 / 1250 875 / 875
Balance -1010 / -1010 -875 / -875
Review of Systems
-
History Source: Patient
All other systems: Not reviewed unless documented
Physical Exam
-
General: No Apparent Distress
HEENT: Moist Mucous Membranes
Respiratory: Wheezes
Cardiac: Regular Rhythm and S1/S2; Negative Tachycardic
GI: Soft
Neuro: AO x 3
Psych: Calm; Negative Confused
Data Reviewed
-
Diagnostic Radiology: Image personally visualized and interpreted and Report Reviewed by me
Labs: Labs Reviewed by me
[2024-01-24] MEDS: FERRLECIT 110 MG IV (14:49)
[2024-01-24 16:00] VITALS: BP 133/57
[2024-01-24 17:08] LABS: Glucose - Point of Care 131 mg/dl (70-99)
[2024-01-24] MEDS: HEPARIN SC ×2 (17:08→23:22)
[2024-01-24 20:24] VITALS: BP 145/72
[2024-01-24] MEDS: SENOKOT 8.59999999999999964 MG PO (20:25)
[2024-01-24] MEDS: DESENEX/MITRAZOL/ZEASORB 1 APPLIC TOPICAL (20:25)
[2024-01-24] MEDS: COLACE 100 MG PO (20:26)
[2024-01-24] MEDS: ZETIA 10 MG PO (20:26)
[2024-01-24] MEDS: CRESTOR 40 MG PO (20:26)
[2024-01-24] MEDS: FLOMAX 0.400000000000000022 MG PO (20:26)
[2024-01-24 21:34] LABS: Glucose - Point of Care 128 mg/dl (70-99)
[2024-01-24 22:46] VITALS: BP 139/73
[2024-01-25 06:00] VITALS: BMI 35.3
[2024-01-25 07:40] LABS: Glucose - Point of Care 136 mg/dl (70-99)
[2024-01-25 07:43] VITALS: BP 114/51
[2024-01-25] MEDS: NOVOLOG FLEXPEN-LOW RESISTANCE SC (07:43)
--- NOTE | 2024-01-25 09:05 | CM ---
Addendum entered by Lexi Nix 01/25/24 11:39:
Patient seen, reviewed IMM. CM called patients , Gracia, to review IMM as well, will email to at [email or web address].
Original Note:
CM spoke with patients Gracia, provided number for transport for $95 for wheelchair van ([phone]). knitting supervisor time scheduled for 1:00 p.m. CM updated [facility] with time. CM will continue to follow for discharge planning needs.
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
[facility]:
Report: [phone]
[2024-01-25] MEDS: AUGMENTIN 500 MG/125 MG 1 TABLET PO (09:52)
[2024-01-25] MEDS: LOW STRENGTH ASPIRIN 81 MG PO (09:52)
[2024-01-25] MEDS: DESENEX/MITRAZOL/ZEASORB 1 APPLIC TOPICAL (09:52)
[2024-01-25] MEDS: EFFEXOR 75 MG PO (09:52)
[2024-01-25] MEDS: COREG 6.25 MG PO (09:52)
[2024-01-25] MEDS: MUCINEX 600 MG PO (09:54)
[2024-01-25] MEDS: HEPARIN 5000 UNITS SC (09:54)
[2024-01-25] MEDS: LASIX 40 MG PO (09:55)
[2024-01-25] MEDS: ZYLOPRIM 50 MG PO (09:55)
--- NOTE | 2024-01-25 10:16 | PTCARENOTE ---
Pt refused AM bloodwork. Dr. Monahan verbally notified. No new orders. Pt is for DC @ ~1300 today to [facility].
[2024-01-25 11:00] VITALS: BP 129/55
[2024-01-25 11:26] LABS: Glucose - Point of Care 189 mg/dl (70-99)
[2024-01-25] MEDS: NOVOLOG FLEXPEN-LOW RESISTANCE 1 UNITS SC (11:38)
--- NOTE | 2024-01-25 12:07 | W.PN.HOSP.TC ---
Addendum entered and electronically signed by Jorge L Monahan MD 01/25/24 17:34:
[id number]
Original Note:
Today's Communication/Plan
-
resume home lasix
ferrous sulfate
f/u bmp on 01/28; f/u cbc outpatient
f/u pcp, nephro, cards, gi outpatient
Assessment / Plan
Assessment / Plan
Gen: NAD, appears chronicially ill
Eyes: EOMI, PERRLA, no scleral icterus.
Neck: supple.
CV: RRR with frequent premature beats, +S1/S2, no m/r/g.
Resp: faint, wheezing b/l
Abd: Continues to remain +BS, soft, NT, ND
Skin: No rashes.
Psych: calm/sleeping
CXR: Mild interstitial pneumonia at the right lung base.
Acute hypoxemic respiratory failure due to acute on chronic heart failure with reduced ejection fraction:
-Pt with elevated blood pressure on admission.� Likely a component of hypertensive emergency that contributed to acute on chronic heart failure with reduced ejection fraction exacerbation.
-Echo 11/08/23: EF 30%
-AB.40///44.5%
-h/o ICD
-missed meds (including lasix) 01/15/24AM
-Patient started on nitroglycerin drip in the ER which was stopped with hypotension (SBP 80s)
-Lasix 40mg IV given in ER, followed by daily IV lasix. IV lasix now stopped with YOANDY. can tx back to home oral lasix and monitor
-f/u bmp on sunday 01/28 with nephro/pcp
-pt was initially on BiPAP in the ER which he then subsequently refused. Cont to wean NC O2 as tolerated (currently on 3L NC O2)
-cont BB with holding parameters
-pulm following
Fever on admission:
-possibly due to mild interstitial PNA in the R base
-fever has resolved/not recurred
-MRSA screen NEG
-was on Zosyn, now transitioned to Augmentin - day 03/17 - completed course
YOANDY on CKD4:
-due to CRS
-renal following
-will likely need to accept a higher Cr to maintain euvolemia
-resolved, resume oral lasix - f/u bmp 01/28
Anemia:
-slightly Fe def (although ferritin normal), B12/folate normal; started IV Iron - transition to PO ferrous sulfate
hgb remains stable; f/u cbc outpatient
-f/u outpatient gi
Other problems:
BiV ICD in 2021
Hyponatremia: FWR, lasix
Non-[place] troponin elevation
Chronic pancytopenia
Essential hypertension: cont BB with holding parameters
History of strokes: Cont ASA/statin
Coronary artery disease s/p prior [place] and coronary stents: Cont ASA/statin/BB
DM2: SSI/accuchecks for now. Recent a1c 6.7%
Tobacco abuse disorder
History of left renal tumor resection
Multiple myeloma
Obesity due to excess calories: Affects all aspects of care, encourage weight loss
DNR as per discussion with in ER
Heparin
Considering the patient's multiple, severe, active medical problems in the setting of deconditioning and advanced age hospice would be appropriate for this patient.
More than 30 minutes spent in discharge including
Final examination of the patient
Summarizing hospital stay
Instructions for continuing care to all relevant caregivers
Preparation of discharge records, prescriptions, and referral forms
Total time spent (35 in minutes):
Anticipated Discharge: Today
Subjective/Interval History
-
Date of Service: January 25, 2024
no acute events
Objective Data
-
Vital Signs:
Vital Signs
Temp Pulse Resp BP Pulse Ox
98.4 F 78 16 114/51 93
01/25/24 07:43 01/25/24 07:43 01/25/24 07:43 01/25/24 07:43 01/25/24 07:43
I&O
01/24/24 01/25/24 01/26/24
06:59 06:59 06:59
Intake Total 180 / 180 480 / 480
Output Total 875 / 875 600 / 600
Balance -875 / -875 -420 / -420 480 / 480
Review of Systems
-
History Source: Patient
All other systems: Not reviewed unless documented
Physical Exam
-
General: No Apparent Distress
HEENT: Moist Mucous Membranes
Respiratory: Wheezes
Cardiac: Regular Rhythm and S1/S2; Negative Tachycardic
GI: Soft
Neuro: AO x 3
Psych: Calm; Negative Confused
Data Reviewed
-
Diagnostic Radiology: Image personally visualized and interpreted and Report Reviewed by me
Labs: Labs Reviewed by me
--- NOTE | 2024-01-25 12:12 | W.DS.TRANS ---
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
-
Discharge Instructions:
Sleep Apnea Risk High
Discharge Diagnosis/Procedures Acute hypoxemic respiratory failure due to acute
on chronic heart failure with reduced ejection
fraction
PNA
YOANDY
Anemia
Diet Restrict fluids to 48 oz,Low Cholesterol,Low Fat
,Low Sodium
Blood Work bmp in 3-5 days(Sunday 01/28) with nephrology -
monitoring Na and Scr, pcp; f/u [facility] outpatient
in 5 days
Instructions: *D[facility] Heart Failure Instructions
Stand-Alone Forms:
Changes to Home Medications: Yes
Discharge Medications:
DC Medications w/original date entered in [employer]
calcium carbonate 600 mg calcium (1,500 mg) tablet 600 mg PO DAILY Supplement 05/12/16
allopurinol 100 mg tablet 50 mg PO DAILY Gout 10/11/21
ezetimibe 10 mg tablet 10 mg PO HS High cholesterol 10/11/21
rosuvastatin 40 mg tablet (Crestor) 40 mg PO HS High cholesterol 10/11/21
tamsulosin 0.4 mg capsule 0.4 mg PO HS Urinary issue 11/30/21
docusate sodium 100 mg capsule (Colace) 100 mg PO HS Constipation 07/31/22
sennosides 8.6 mg tablet (Senokot) 8.6 mg PO HS Constipation 07/31/22
carvedilol 6.25 mg tablet (Coreg) 6.25 mg PO BID heart disease/condition #60 tabs 08/02/22
cholecalciferol (vitamin D3) 50 mcg (2,000 unit) tablet 50 mcg PO DAILY Supplement 12/27/23
furosemide 80 mg tablet 40 mg PO DAILY Fluid retention/Swelling 12/27/23
venlafaxine 75 mg tablet 75 mg PO BID Mental Health 12/27/23
omega [id number] oil 1,200 mg (144 mg-216 mg) capsule (Fish Oil) 3 cap PO HS Supplement 01/16/24
aspirin 81 mg chewable tablet (Children's Aspirin) 81 mg PO DAILY #0 tabs 01/25/24
ferrous sulfate 325 mg (65 mg iron) tablet,delayed release 325 mg PO Q48H #30 tabs 01/25/24
miconazole nitrate 2 % topical powder (Miconazorb AF) 1 applic topical BID #85 grams 01/25/24
Home Medication Changes
aspirin 81 mg chewable tablet (Children's Aspirin) 81 mg PO DAILY #0 tabs 01/25/24
ferrous sulfate 325 mg (65 mg iron) tablet,delayed release 325 mg PO Q48H #30 tabs 01/25/24
miconazole nitrate 2 % topical powder (Miconazorb AF) 1 applic topical BID #85 grams 01/25/24
Pending Results: No
--- NOTE | 2024-01-25 14:42 | PTCARENOTE ---
Pt DC'd to [facility]. Report called to CHRISTIANO Mejias @ #[phone]. pt transported by wheelchair van.
== END 2024-01-25 13:38 | DRG 196 ==
LOC: 4 WEST ACU 12:53
PROVIDERS: Internal Medicine Cardiovascular Disease; ADMITTING PHYSICIAN Internal Medicine; ATTENDING PHYSICIAN Internal Medicine; CONSULT PHYSICIAN Internal Medicine Critical Care Medicine; CONSULT PHYSICIAN Nuclear Medicine Nuclear Cardiology; EMERGENCY PHYSICIAN Emergency Medicine; FAMILY PHYSICIAN Physician Assistant; OTHER PHYSICIAN Specialist
PROC: 5A09357 Assistance with Respiratory Ventilation, Less than 24 Consecutive Hours, Continuous Positive Airway Pressure (ICD-10-PCS; 2024-01-16)
PROC: 4B02XTZ Measurement of Cardiac Defibrillator, External Approach (ICD-10-PCS; 2024-01-18)
DX: J84.9 Interstitial pulmonary disease, unspecified (principal); I50.23 Acute on chronic systolic (congestive) heart failure; J96.21 Acute and chronic respiratory failure with hypoxia; I13.0 Hypertensive heart and chronic kidney disease with heart failure and stage 1 through stage 4 chronic kidney disease, or unspecified chronic kidney disease; E87.1 Hypo-osmolality and hyponatremia; N18.4 Chronic kidney disease, stage 4 (severe); D61.818 Other pancytopenia; C90.00 Multiple myeloma not having achieved remission; N25.81 Secondary hyperparathyroidism of renal origin; N17.9 Acute kidney failure, unspecified; J44.0 Chronic obstructive pulmonary disease with (acute) lower respiratory infection; J45.901 Unspecified asthma with (acute) exacerbation; I5A Non-ischemic myocardial injury (non-traumatic); I25.10 Atherosclerotic heart disease of native coronary artery without angina pectoris; F17.290 Nicotine dependence, other tobacco product, uncomplicated; E11.22 Type 2 diabetes mellitus with diabetic chronic kidney disease; Z66 Do not resuscitate; G47.33 Obstructive sleep apnea (adult) (pediatric); N40.0 Benign prostatic hyperplasia without lower urinary tract symptoms; M10.9 Gout, unspecified; E66.01 Morbid (severe) obesity due to excess calories; I48.0 Paroxysmal atrial fibrillation; I25.5 Ischemic cardiomyopathy; I44.7 Left bundle-branch block, unspecified; I08.0 Rheumatic disorders of both mitral and aortic valves; D53.9 Nutritional anemia, unspecified; E11.65 Type 2 diabetes mellitus with hyperglycemia; I25.2 Old myocardial infarction; Z11.52 Encounter for screening for COVID-19; Z68.35 Body mass index [BMI] 35.0-35.9, adult; Z79.82 Long term (current) use of aspirin; Z79.899 Other long term (current) drug therapy; Z86.73 Personal history of transient ischemic attack (TIA), and cerebral infarction without residual deficits; Z91.148 Patient's other noncompliance with medication regimen for other reason; Z95.5 Presence of coronary angioplasty implant and graft; Z95.810 Presence of automatic (implantable) cardiac defibrillator
CPT/HCPCS: 71045; 71046; 80048; 80202; 82607; 82728; 82746; 82805; 82962; 83540; 83550; 83735; 83880; 84484; 85018; 85025; 85027; 87040; 87502; 87641; 87811; 93005; 94640; 94660; 96365; 96372; 96375; 97163; 97167; 97530; 97535; 99291; 99406; J2916

== ENCOUNTER → 2024-01-29 10:04 | Outpatient (REF) | payer OTHER, SELFPAY ==
[2024-01-29 11:42] LABS: Hematocrit 22.8 % (39.0-52.0); Hemoglobin 7.2 g/dL (13.0-18.0); Mean Corp Hgb Conc. 31.6 g/dL (33.0-37.0); Mean Corpuscular Hgb 32.4 pg (27.0-31.0); Mean Corpuscular Volume 102.7 fL (80.0-94.0); Mean Platelet Volume 9.9 fL (7.4-10.4); Platelet Count 146 10^3/uL (130-400); Red Blood Cell Count 2.22 10^6/uL (4.70-6.10)
[2024-01-29 13:12] LABS: ALT (SGPT) 32 U/L (0-50); AST (SGOT) 30 U/L (17-59); Albumin 3.2 g/dl (3.5-5.0); Alkaline Phosphatase 84 U/L (38-126); Blood Urea Nitrogen 70 mg/dl (9-20); Calcium 9.9 mg/dl (8.4-10.2); Carbon Dioxide 27 mmol/L (22-30); Chloride 99 mmol/L (98-107); Glucose 115 mg/dl (70-99); Magnesium 2.2 mg/dl (1.6-2.3); Potassium 5.1 mmol/L (3.5-5.1); Sodium 132 mmol/L (135-145); Total Bilirubin 0.2 mg/dl (0.2-1.3); Total Protein 7.4 g/dl (6.3-8.2); eGFR 20.43
[2024-01-29 13:21] LABS: Vitamin D, 25-OH*** 60.5 ng/mL (30-80)
[2024-01-29 13:34] LABS: TSH 5.65 uIU/ml (0.47-4.68)
== END ==
LOC: OLABN 10:04
PROVIDERS: ATTENDING PHYSICIAN Student in an Organized Health Care Education/Training Program
DX: I50.9 Heart failure, unspecified (principal)
CPT/HCPCS: 36415; 80053; 82306; 83735; 84443; 85027

== ENCOUNTER → 2024-02-03 01:30 | Outpatient (REF) | payer OTHER, SELFPAY ==
[2024-02-03 09:34] LABS: Urine Albumin Negative (Neg - Trace); Urine Bilirubin Negative (Negative); Urine Character Clear (Clear); Urine Color Yellow; Urine Glucose Negative (Negative); Urine Ketone Negative (Negative); Urine Leukocyte Negative (Negative); Urine Nitrite Negative (Negative); Urine Occult Blood Negative (Negative); Urine Specific Gravity 1.015 (<1.030); Urine Urobilinogen Negative (Neg - 1+)
== END ==
LOC: OLABN 01:30
PROVIDERS: ATTENDING PHYSICIAN Student in an Organized Health Care Education/Training Program
DX: N39.0 Urinary tract infection, site not specified (principal)
CPT/HCPCS: 81003; 87086

== ENCOUNTER 2024-02-17 16:51 | Inpatient (IN) | payer OTHER, SELFPAY ==
[2024-02-17] VITALS (7 sets, daily range): BP systolic 110–147; BP diastolic 70–84; BMI 34.4; BMI 35.2; BMI 34.6
--- NOTE | 2024-02-17 14:32 | ED.GENMED ---
History of Present Illness
<Shahzad Durand PA-C - Last Filed: 02/17/24 19:11>
General
Chief Complaint: Breathing Problem
Source: records, ambulance crew and previous hospital records
Time Seen by Provider: 02/17/24 14:29
Travel History
Have you had any contact with someone who has COVID-19?: No
Do you have any symptoms of coronavirus? Fever > 100 degrees, chills, cough, shortness of breath, sore throat, loss of taste or smell, muscle aches, or headache?: No
History of Present Illness
History of Present Illness:
84-year-old male presenting to the emergency department via EMS from [facility], recent discharge from this facility in January for an acute on chronic CHF exacerbation presenting back to the emergency for increased respiratory difficulty
today, found to have a pulse ox in the low 80s by EMS, placed on CPAP. Had received 2 nebulizer treatments by facility prior to arrival and EMS also gave 1 sublingual nitroglycerin. Patient with improvement of his oxygen status but still remains
in respiratory distress on arrival to the emergency department. Patient unable to speak in full sentences due to his dyspnea. Denies chest pain, palpitations, diaphoresis. No known fevers. EMS did report some mild edema to the bilateral lower
extremities. Unclear as to if this is new or chronic.
Past History
<Shahzad Durand PA-C - Last Filed: 02/17/24 19:11>
Past History
ED Past Medical History: CAD, CHF, CVA, HTN, Hypercholesterolemia, IDDM, OK and Other (Cellulitis)
ED Past Surgical History: Cardiac (Stent, Defibrillator), Cholecystectomy and Other (eye)
Social History
Tobacco: Smoker (cigars)
Alcohol: Occasional
Drug: None
Personal: (Lives with a woman)
Living: with family
Employment: Retired
Family History
Family History: Other (No significant)
Review of Systems
<Shahzad Durand PA-C - Last Filed: 02/17/24 19:11>
Review of Systems
All Other Systems: ROS reviewed and negative except as documented in HPI and ROS
Phy Exam
<Shahzad Durand PA-C - Last Filed: 02/17/24 19:11>
Physical Exam
Physical Exam:
GENERAL: Alert , dyspneic, accessory muscle use, difficult time speaking in full sentences
EYE: Clear conjunctiva
NECK: Supple
ENT: o/p clr, mmm.
CARDIAC: Borderline tachycardic rate and rhythm
LUNGS: Rales throughout posterior lung alva, accessory muscle use, tachypneic, rhonchorous lung sounds anterior lung alva
ABDOMEN: Soft, without focal tenderness, no r/g, no cvat
NEUROLOGICAL: Alert and oriented
SKIN: Warm and dry, skin intact.
MUSCULOSKELETAL: Bilateral pitting edema left greater than right
PSYCH: Normal and appropriate interaction.
Scores
<Shahzad Durand PA-C - Last Filed: 02/17/24 19:11>
Heart Failure Risk
Heart Failure Risk Score: Yes
History of Stroke or TIA: Yes
History of intubation for respiratory distress: No
Heart rate on ED arrival >/= 110: No
SaO2 <90% on arrival on room air: Yes
HR >/=110 during 3min walk test (or too ill to perform test): Yes
ECG has acute ischemic changes: No
Urea >/=12mmol/L (BUN 33.6mg/dL): Yes
Serum CO2>/=35mmol/L: No
Troponin I or T elevated to OK Level (0.4mg/dL): No
NT-proBNP >/=5,000ng/L (5,000pg/ml): Yes
HF Risk Score: 6
Admission Status: VERY HIGH RISK 55.3% Consider admission to hospital
Heart Score for Chest Pain Patients
STEMI patient?: Not applicable
Withdrawal Assessment of Alcohol
Withdrawal Assessment Completed?: Not applicable
Course
<Shahzad Durand PA-C - Last Filed: 02/17/24 19:11>
Orders/Labs/Results
Orders:
Orders
02/17/24 14:29
Electrocardiogram (*1) Urgent
Reason for Study: Other
Other Reason for Exam: Respiratory Distress
Cardiac Monitoring- Treatment ONCE
EKG- Treatment ONCE
IV Insert/Care/Rem.- Treatment PRN
O2 Therapy [RESP] Urgent
Titrate/Wean O2 to maintain O2 sat greater than (%): 93
Special Instructions: TO MAINTAIN CONTINUOUS O2 SATS >/= 93%
Pulse Ox/cont/shift [RESP] Urgent
Quantity: 1
Special Instructions: continuous pulse ox
02/17/24 14:30
CR Chest Portable - 1 View Urgent
Comment:
Reason For Exam: respiratory distress
Reason Study Needs to be Portable: Patient Unstable
Bipap [RESP] Urgent
Patient to use own unit?: No
Inspiratory Pressure (cm H2O): 14
Expiratory Pressure (cm H2O): 6
02/17/24 14:31
COVID-19 Antigen Urgent
Source: Nasal Swab
Complete Blood Count/With Diff Urgent
Comprehensive Metabolic Panel Urgent
NT-proBNP Urgent
Troponin I Urgent
Influenza A+B Rapid Molecular Urgent
GUIDO Source: Nasal Swab
Specimen Description:
Furosemide [Lasix] 80 mg IV NOW STA
02/17/24 Dinner
2000 calorie (17 carb) Diabetic
At Your Request: Full Participation
Does patient need a safe tray?: No
02/17/24 15:20
ABG [Arterial Blood Gas] Urgent
%Oxygen/Room Air: bipap
02/17/24 15:41
Admit/Transfer Patient As Directed
Co-Sign Provider:
Level of Care: Inpatient admission
Assign to:: IVU
Physician / Group: Tania
Diagnosis: Acute CHF
Reason for Hospitalization: CHF
Expected length of stay greater than two midnights?: Yes
ELOS- Estimated Length of Stay in days: 4
I certify the patient meets the requirements for IP care: Yes
02/17/24 15:46
Code Status As Directed
Resuscitation Status: Full Code
02/17/24 16:01
Code Status As Directed
Resuscitation Status: Do not resuscitate
Reached after discussion with pt or family/Healthcare POA: Yes
02/17/24 16:02
DNR Bracelet Application ONCE
02/17/24 17:42
Acetaminophen [Tylenol] 650 mg PO Q6HPRN PRN
Dextrose 50%-Water [Dextrose 50% Syringe] 12.5 grams IV [id number] PRN
Glucagon [GlucaGen] 1 mg IM PRN PRN
Insulin Aspart Corrective Low [Novolog Flexpen-Low Resistance] See Protocol SC AC
Ipratropium/Albuterol Sulfate [Duoneb] 3 ml INH R Q4HPRN PRN
ferrous sulfate 325 mg PO Q48H
02/17/24 17:42
CARDIOLOGY CONSULT Routine
Consulting Provider: Vince Garner
Was physician already notified: Yes
Activity As Directed
Activity Level: With Assistance
Bedside Glucose Monitoring As Directed
Frequency: AC&HS
Comment: Change to q6h if pt on TPN, tube feeding or not eating
I&O [Intake/ Output] As Directed
Frequency: q12h
Acapella [Rx Pep / Acapela] [RESP] Routine
Ot Eval And Treat Routine
Pt Eval And Treat Routine
Activity Level: With Assistance
DX Deep Vein Thrombosis Video Routine
02/17/24 18:00
Urine Sodium Routine
Date Specimen was Collected: 02/17/24
Time Specimen was Collected: 18:25
Comment: add to specimen already collected
Ezetimibe [Zetia] 10 mg PO QPM
Melatonin 3 mg PO QPM
Tamsulosin [Flomax] 0.4 mg PO QPM
02/17/24 18:09
Urine Osmolality Random [Osmolality, Random Urine] Routine
Date Specimen was Collected: 02/17/24
Time Specimen was Collected: 18:04
02/17/24 20:00
Troponin I Q6H
Carvedilol [Coreg] 6.25 mg PO BID
Doxycycline [Vibramycin] 100 mg PO Q12
Guaifenesin [Mucinex] 600 mg PO Q12
Heparin 5,000 units SC Q12
venlafaxine 75 mg PO BID
02/18/24 02:00
Troponin I Q6H
02/18/24 06:00
BMP [Basic Metabolic Panel] IN AM
CBC/With Diff [Complete Blood Count/With Diff] IN AM
Glycohemoglobin (HgbA1c) IN AM
02/18/24 08:00
Troponin I Q6H
Allopurinol [Zyloprim] 50 mg PO DAILY
Aspirin Chewable [Low Strength Aspirin] 81 mg PO DAILY
Dexamethasone Sod Phosphate [Decadron] 4 mg IV Q8H
Docusate Sodium [Colace] 100 mg PO DAILY
Furosemide [Lasix] 40 mg IV BID AT 0800,1600
Sennosides [Senokot] 8.6 mg PO DAILY
calcium carbonate-vitamin D3 [Calcium 600 + D(3)] 1 tablet PO DAILY
02/19/24 06:00
BMP [Basic Metabolic Panel] IN AM
CBC/With Diff [Complete Blood Count/With Diff] IN AM
02/20/24 06:00
BMP [Basic Metabolic Panel] IN AM
CBC/With Diff [Complete Blood Count/With Diff] IN AM
Abnormal Lab Results
02/17/24 02/17/24
14:31 15:20
WBC 2.6 L 10^3/uL
(4.8-10.8)
RBC 2.53 L 10^6/uL
(4.70-6.10)
Hgb 8.4 L g/dL
(13.0-18.0)
Hct 26.3 L %
(39.0-52.0)
MCV 104.0 H fL
(80.0-94.0)
MCH 33.2 H pg
(27.0-31.0)
MCHC 31.9 L g/dL
(33.0-37.0)
RDW 17.0 H %
(11.5-14.5)
Plt Count 87 L 10^3/uL
(130-400)
Absolute Lymphs (auto) 0.6 L 10^3/uL
(1.2-3.4)
Monocytes % 10.6 H %
(1.7-9.3)
ABG O2 Sat (Measured) 99.4 H %
(94-98)
Sodium 128 L mmol/L
(135-145)
BUN 41 H mg/dl
(9-20)
Creatinine 2.6 H mg/dL
(0.7-1.3)
Glucose 147 H mg/dl
(70-99)
Troponin I 0.067 H* ng/ml
Total Protein 8.9 H g/dl
(6.3-8.2)
02/17/24 14:31
02/17/24 14:31
Vital Signs
Initial and Last Documented VS:
Initial Vital Signs
Temp Pulse Resp Pulse Ox
96.7 F L 94 31 94
02/17/24 14:26 02/17/24 14:26 02/17/24 14:26 02/17/24 14:26
Last Documented Vital Signs
Temp Pulse Resp BP Pulse Ox
98.3 F 107 22 147/77 97
02/17/24 17:53 02/17/24 18:00 02/17/24 18:00 02/17/24 17:37 02/17/24 18:00
<Shay Tsai, DO - Last Filed: 02/17/24 14:47>
Orders/Labs/Results
Orders:
Orders
02/17/24 14:29
Electrocardiogram (*1) Urgent
Reason for Study: Other
Other Reason for Exam: Respiratory Distress
Cardiac Monitoring- Treatment ONCE
EKG- Treatment ONCE
IV Insert/Care/Rem.- Treatment PRN
O2 Therapy [RESP] Urgent
Titrate/Wean O2 to maintain O2 sat greater than (%): 93
Special Instructions: TO MAINTAIN CONTINUOUS O2 SATS >/= 93%
Pulse Ox/cont/shift [RESP] Urgent
Quantity: 1
Special Instructions: continuous pulse ox
02/17/24 14:30
CR Chest Portable - 1 View Urgent
Comment:
Reason For Exam: respiratory distress
Reason Study Needs to be Portable: Patient Unstable
Bipap [RESP] Urgent
Patient to use own unit?: No
Inspiratory Pressure (cm H2O): 14
Expiratory Pressure (cm H2O): 6
02/17/24 14:31
COVID-19 Antigen Urgent
Source: Nasal Swab
Complete Blood Count/With Diff Urgent
Comprehensive Metabolic Panel Urgent
NT-proBNP Urgent
Troponin I Urgent
Influenza A+B Rapid Molecular Urgent
GUIDO Source: Nasal Swab
Specimen Description:
Furosemide [Lasix] 80 mg IV NOW STA
02/17/24 Dinner
2000 calorie (17 carb) Diabetic
At Your Request: Full Participation
Does patient need a safe tray?: No
02/17/24 15:20
ABG [Arterial Blood Gas] Urgent
%Oxygen/Room Air: bipap
02/17/24 15:41
Admit/Transfer Patient As Directed
Co-Sign Provider:
Level of Care: Inpatient admission
Assign to:: IVU
Physician / Group: Tania
Diagnosis: Acute CHF
Reason for Hospitalization: CHF
Expected length of stay greater than two midnights?: Yes
ELOS- Estimated Length of Stay in days: 4
I certify the patient meets the requirements for IP care: Yes
02/17/24 15:46
Code Status As Directed
Resuscitation Status: Full Code
02/17/24 16:01
Code Status As Directed
Resuscitation Status: Do not resuscitate
Reached after discussion with pt or family/Healthcare POA: Yes
02/17/24 16:02
DNR Bracelet Application ONCE
02/17/24 17:42
Acetaminophen [Tylenol] 650 mg PO Q6HPRN PRN
Dextrose 50%-Water [Dextrose 50% Syringe] 12.5 grams IV [id number] PRN
Glucagon [GlucaGen] 1 mg IM PRN PRN
Insulin Aspart Corrective Low [Novolog Flexpen-Low Resistance] See Protocol SC AC
Ipratropium/Albuterol Sulfate [Duoneb] 3 ml INH R Q4HPRN PRN
ferrous sulfate 325 mg PO Q48H
02/17/24 17:42
CARDIOLOGY CONSULT Routine
Consulting Provider: Vince Garner
Was physician already notified: Yes
Activity As Directed
Activity Level: With Assistance
Bedside Glucose Monitoring As Directed
Frequency: AC&HS
Comment: Change to q6h if pt on TPN, tube feeding or not eating
I&O [Intake/ Output] As Directed
Frequency: q12h
Acapella [Rx Pep / Acapela] [RESP] Routine
Ot Eval And Treat Routine
Pt Eval And Treat Routine
Activity Level: With Assistance
DX Deep Vein Thrombosis Video Routine
02/17/24 18:00
Urine Sodium Routine
Date Specimen was Collected: 02/17/24
Time Specimen was Collected: 18:25
Comment: add to specimen already collected
Ezetimibe [Zetia] 10 mg PO QPM
Melatonin 3 mg PO QPM
Tamsulosin [Flomax] 0.4 mg PO QPM
02/17/24 18:09
Urine Osmolality Random [Osmolality, Random Urine] Routine
Date Specimen was Collected: 02/17/24
Time Specimen was Collected: 18:04
02/17/24 20:00
Troponin I Q6H
Carvedilol [Coreg] 6.25 mg PO BID
Doxycycline [Vibramycin] 100 mg PO Q12
Guaifenesin [Mucinex] 600 mg PO Q12
Heparin 5,000 units SC Q12
venlafaxine 75 mg PO BID
02/18/24 02:00
Troponin I Q6H
02/18/24 06:00
BMP [Basic Metabolic Panel] IN AM
CBC/With Diff [Complete Blood Count/With Diff] IN AM
Glycohemoglobin (HgbA1c) IN AM
02/18/24 08:00
Troponin I Q6H
Allopurinol [Zyloprim] 50 mg PO DAILY
Aspirin Chewable [Low Strength Aspirin] 81 mg PO DAILY
Dexamethasone Sod Phosphate [Decadron] 4 mg IV Q8H
Docusate Sodium [Colace] 100 mg PO DAILY
Furosemide [Lasix] 40 mg IV BID AT 0800,1600
Sennosides [Senokot] 8.6 mg PO DAILY
calcium carbonate-vitamin D3 [Calcium 600 + D(3)] 1 tablet PO DAILY
02/19/24 06:00
BMP [Basic Metabolic Panel] IN AM
CBC/With Diff [Complete Blood Count/With Diff] IN AM
02/20/24 06:00
BMP [Basic Metabolic Panel] IN AM
CBC/With Diff [Complete Blood Count/With Diff] IN AM
Abnormal Lab Results
02/17/24 02/17/24
14:31 15:20
WBC 2.6 L 10^3/uL
(4.8-10.8)
RBC 2.53 L 10^6/uL
(4.70-6.10)
Hgb 8.4 L g/dL
(13.0-18.0)
Hct 26.3 L %
(39.0-52.0)
MCV 104.0 H fL
(80.0-94.0)
MCH 33.2 H pg
(27.0-31.0)
MCHC 31.9 L g/dL
(33.0-37.0)
RDW 17.0 H %
(11.5-14.5)
Plt Count 87 L 10^3/uL
(130-400)
Absolute Lymphs (auto) 0.6 L 10^3/uL
(1.2-3.4)
Monocytes % 10.6 H %
(1.7-9.3)
ABG O2 Sat (Measured) 99.4 H %
(94-98)
Sodium 128 L mmol/L
(135-145)
BUN 41 H mg/dl
(9-20)
Creatinine 2.6 H mg/dL
(0.7-1.3)
Glucose 147 H mg/dl
(70-99)
Troponin I 0.067 H* ng/ml
Total Protein 8.9 H g/dl
(6.3-8.2)
02/17/24 14:31
02/17/24 14:31
Vital Signs
Initial and Last Documented VS:
Initial Vital Signs
Temp Pulse Resp Pulse Ox
96.7 F L 94 31 94
02/17/24 14:26 02/17/24 14:26 02/17/24 14:26 02/17/24 14:26
Last Documented Vital Signs
Temp Pulse Resp BP Pulse Ox
98.3 F 107 22 147/77 97
02/17/24 17:53 02/17/24 18:00 02/17/24 18:00 02/17/24 17:37 02/17/24 18:00
<Shahzad Durand PA-C - Last Filed: 02/17/24 19:11>
MDM/Problems Addressed
Differential Diagnosis Includes:
CHF exacerbation, PE, ACS presentation, pneumonia
MDM/Problems Addressed:
84-year-old male presenting the emergency department via EMS from [facility], was supposed to be discharged tomorrow but was found to have significant respiratory distress by staff today. Patient arrives on CPAP still with respiratory
distress. Respiratory was notified and will place patient on BiPAP. Lab work ordered. Will order stat portable chest x-ray. Lasix ordered. Patient takes 40 mg p.o. daily. Will order 80 mg IV. Patient will be admitted.
Chronic conditions affecting care: Other (CHF)
Acute Exacerbation and/or Progression of Chronic Illness: Other (CHF)
<Shahzad Durand PA-C - Last Filed: 02/17/24 19:11>
*Radiology
Radiology exam reviewed: preliminary read by ED provider (Bilateral pleural effusions)
*Pulse Oximetry
Patient hypoxic: yes
*Methods Examiner Interpretation
Rate: normal
Heart Rate: 94
Rhythm: ventricular paced
*Critical Care Note
Total Time (30-74mins, 75-104mins- exclusive of procedures): 35
comment:
Critical care statement: A total of 35 minutes of critical care time was provided for this patient. This includes management of unstable vital signs, evaluation of the patient at bedside, reviewing the patient's pertinent medical records, discussion
with consultants, review of old EKGs and review of pertinent medical records. This time with separate from time utilized to perform the aforementioned documented procedures
Data Reviewed
Review of Other/Old Records Reveals: Labs, Records, Radiology Studies and Discharge Summary
Source: records, ambulance crew and previous hospital records
<Shahzad Durand PA-C - Last Filed: 02/17/24 19:11>
Patient Management
Discussion with other providers: Hospitalist
Escalation/DeEscalation of care consider admission/obs:
Due to patient's continued respiratory distress combined with being clearly volume overloaded we will readmit to hospital for CHF exacerbation. Hospitalist team is aware and accepts for continued evaluation and treatment. I suspect patient's
elevated troponin is likely from demand ischemia. He also has noted chronic anemia and chronic leukopenia.
ED Attending Note
<Shahzad Durand PA-C - Last Filed: 02/17/24 19:11>
-
Portions of this chart may have been created with voice recognition software.� Occasional wrong word or��sound alike� substitutions may have occurred due to the inherent limitations of voice recognition software.
<Shay Tsai DO - Last Filed: 02/17/24 14:47>
ED Attending Note
Patient seen and examined by attending physician: Yes
I performed the substantive portion of visit, reviewed & personally made and approve the management plan that is documented in note by myself or JOES.: Yes
ED Attending Note:
Seen with PA examined independently agree with assessment and plan
Acute on chronic respiratory failure history of heart failure prior ABG noted, previously smoked cigars placed on BiPAP follow closely
Discharge Plan
Departure
Patient Disposition: Admit
Date of Disposition: 02/17/24
Time of Disposition: 15:17
Presentation/result/management discussed w/ accepting MD/DO: Hospitalist
Discharge Problem:
Acute exacerbation of CHF (congestive heart failure), Respiratory failure
Interventions
Interventions:
*Risk Screen - Suicide Last Done: 02/17/24 14:26
*General Assessment Last Done: 02/17/24 14:26
*Neglect/Abuse Screening Last Done: 02/17/24 14:26
ED- Fall Risk Assessment Last Done: 02/17/24 14:26
*ED COVID-19 Vaccine History Last Done: 02/17/24 14:26
*Nursing Disposition Last Done: 02/17/24 17:35
ED- Cardiac Assessment Last Done: 02/17/24 14:26
ED- Pulmonary Assessment Last Done: 02/17/24 14:26
Discharge Date and Time
Discharge Date/Time: 02/17/24 17:35
[2024-02-17] MEDS: LASIX 80 MG IV (14:39)
[2024-02-17 14:43] LABS: % Basophils 0.4 % (0-2); % Eosinophils 5.7 % (0-6); % Immature Granulocytes 0.4 % (0-0.5); % Lymphocytes 22.3 % (20.5-51.1); % Monocytes 10.6 % (1.7-9.3); % Neutrophils 60.6 % (42.2-75.2); Absolute Eosinophils 0.2 10^3/uL (0-0.7); Absolute Lymphocytes 0.6 10^3/uL (1.2-3.4); Absolute Monocytes 0.3 10^3/uL (0.1-0.6); Absolute Neutrophils 1.6 10^3/uL (1.4-6.5); Hematocrit 26.3 % (39.0-52.0); Hemoglobin 8.4 g/dL (13.0-18.0); Mean Corp Hgb Conc. 31.9 g/dL (33.0-37.0); Mean Corpuscular Hgb 33.2 pg (27.0-31.0); Nucleated Red Blood Cells % 0 % (-); Red Blood Cell Count 2.53 10^6/uL (4.70-6.10); White Blood Cell Count 2.6 10^3/uL (4.8-10.8)
[2024-02-17 14:50] LABS: COVID-19 Antigen Negative (Negative)
[2024-02-17 14:57] LABS: ALT (SGPT) 18 U/L (0-50); AST (SGOT) 30 U/L (17-59); Alkaline Phosphatase 77 U/L (38-126); Blood Urea Nitrogen 41 mg/dl (9-20); Calcium 9.2 mg/dl (8.4-10.2); Carbon Dioxide 28 mmol/L (22-30); Chloride 98 mmol/L (98-107); Estimated Creatinine Clearance 25 ml/min; Glucose 147 mg/dl (70-99); Potassium 4.9 mmol/L (3.5-5.1); Sodium 128 mmol/L (135-145); Total Bilirubin 0.5 mg/dl (0.2-1.3); Total Protein 8.9 g/dl (6.3-8.2); eGFR 23.29
[2024-02-17 15:14] LABS: NT-proBNP 6160 pg/ml; Troponin I 0.067 ng/ml
[2024-02-17 15:21] LABS: Mean Platelet Volume 9.8 fL (7.4-10.4); Platelet Count 87 10^3/uL (130-400)
[2024-02-17 15:33] LABS: B.E. 1.8 mmol/L; HCO3 27.2 mmol/L (21-28); O2 Saturation % 99.4 % (94-98); PCO2 47 mmHg (35-48); PO2 97 mmHg (83-108); pH 7.37 (7.35-7.45)
--- NOTE | 2024-02-17 15:57 | HPS.HSE ---
Addendum entered and electronically signed by Estuardo Marin DO 02/17/24 18:37:
Patient and changed their mind, now they want to be a full code.
Original Note:
Family Physician
-
Family Physician: Laci Gusman DO
Chief Complaint
-
Shortness of breath
History of Present Illness
84-year-old male transferred from [facility] for evaluation of shortness of breath today. Was in respiratory distress, placed on CPAP by EMS. Reportedly pulse ox was in the low 80s prior to arrival.
Placed on BiPAP in the emergency room.
Noted new onset of cough today, wheezing. Very poor historian.
Medical History
Past Medical History
Past Medical History: Reports Other
Additional Past Medical History:
CKD 4
CAD
Stroke
Chronic anemia
DM2
Hypertension
Multiple myeloma
PHILIPPE
COPD
Pancytopenia
Chronic hyponatremia
Past Surgical History: Reports Cholecystectomy and Other
Additional Past Surgical History:
BiV ICD
Social History
Tobacco: Smoker
Alcohol: Occasional
Drug: None
Personal:
Family History
Family History: Not pertinent
Allergies / Home Medications
Allergies reflects when Allergies were last updated in [employer].
Home Medications with original date entered in [employer]
Allergy/Medication List:
Allergies
Allergy/AdvReac Type Severity Reaction Status Date / Time
No Known Allergies Allergy Verified 01/16/24 06:58
Home Medications
allopurinol 100 mg tablet 50 mg PO DAILY Gout 10/11/21
ezetimibe 10 mg tablet 10 mg PO QPM High cholesterol 10/11/21
rosuvastatin 40 mg tablet (Crestor) 40 mg PO QPM High cholesterol 10/11/21
tamsulosin 0.4 mg capsule 0.4 mg PO QPM Urinary issue 11/30/21
docusate sodium 100 mg capsule (Colace) 100 mg PO DAILY Constipation 07/31/22
sennosides 8.6 mg tablet (Senokot) 8.6 mg PO DAILY Constipation 07/31/22
carvedilol 6.25 mg tablet (Coreg) 6.25 mg PO BID heart disease/condition #60 tabs 08/02/22
cholecalciferol (vitamin D3) 50 mcg (2,000 unit) tablet 50 mcg PO DAILY Supplement 12/27/23
venlafaxine 75 mg tablet 75 mg PO BID Mental Health 12/27/23
omega 6-gei-uwd-fish oil 1,200 mg (144 mg-216 mg) capsule (Fish Oil) 3 cap PO QPM Supplement 01/16/24
aspirin 81 mg chewable tablet (Children's Aspirin) 81 mg PO DAILY #0 tabs 01/25/24
ferrous sulfate 325 mg (65 mg iron) tablet,delayed release 325 mg PO Q48H #30 tabs 01/25/24
calcium carbonate 600 mg-vitamin D3 10 mcg (400 unit) tablet (Calcium 600 + D(3)) 1 tab PO DAILY 02/17/24
furosemide 40 mg tablet 40 mg PO DAILY 02/17/24
ipratropium 0.5 mg-albuterol 3 mg (2.5 mg base)/3 mL nebulization soln 3 ml inhalation R Q6 02/17/24
melatonin 3 mg tablet 3 mg PO QPM 02/17/24
miconazole nitrate 2 % topical powder (Miconazorb AF) 1 applic topical BID fungal rash 02/17/24
Review of Systems
-
History Source: Patient
A 12 point ROS was completed and negative except as noted: Yes
Physical Exam
Vital Signs
Vital Signs
Temp Pulse Resp BP Pulse Ox
96.7 F L 84 25 110/72 98
02/17/24 14:26 02/17/24 15:30 02/17/24 15:30 02/17/24 15:00 02/17/24 15:15
Physical Exam
General: Well Developed, Well Nourished, No Apparent Distress and Comfortable
HEENT: NormoCephalic and Anicteric
Respiratory: Wheezes
Cardiac: S1/S2 and Regular Rhythm
Breast: Deferred by me
GI: Soft, Non Tender and Non Distended
Genito-urinary: Deferred by me
Musculoskeletal: No Clubbing, No Cyanosis, Edema, Left Lower Extremity (Left leg edema worse than right) and Edema, Right Lower Extremity
Skin: Warm and Dry
Neuro: Awake, Alert and Oriented
Hematologic/Lymphatic: No Lymphadenopathy
Psych: Calm
Laboratory Results
-
02/17/24 14:31
02/17/24 14:31
Laboratory Results
pH 7.37 (7.35-7.45) 02/17/24 15:20
pCO2 47 mmHg (35-48) 02/17/24 15:20
pO2 97 mmHg (83-108) 02/17/24 15:20
HCO3 27.2 mmol/L (21-28) 02/17/24 15:20
Total Bilirubin 0.5 mg/dl (0.2-1.3) 02/17/24 14:31
AST 30 U/L (17-59) 02/17/24 14:31
ALT 18 U/L (0-50) 02/17/24 14:31
Alkaline Phosphatase 77 U/L (38-126) 02/17/24 14:31
Troponin I 0.067 ng/ml H* 02/17/24 14:31
Impression/Plan
-
Acute hypoxic respiratory failure -suspect due to acute pulmonary edema. Cannot rule out component of acute COPD exacerbation. Chest x-ray read as mild acute interstitial cardiogenic pulmonary edema, small bilateral pleural effusions, mild
cardiomegaly. Transition from BiPAP to nasal cannula oxygen to see if he tolerates. Admit to IVU.
Acute on chronic heart failure with reduced EF exacerbation -IV Lasix. Monitor renal function closely. Consult cardiology. BNP 6160. Patient's is very anxious about IV Lasix and wants to use the minimum dose possible as she is concerned
about worsening renal function. I tried to reassure her. Will monitor renal function on a daily basis.
Last echocardiogram was from 11/08/2023. Showed LVEF 30%, dilated cardiomyopathy.
Acute on chronic hyponatremia -sodium 128. Check urine studies. Suspect due to heart failure exacerbation.
Acute COPD exacerbation -characterized by cough and wheezing. Continue inhalers, add steroids, doxycycline. Add Mucinex, Acapella.
Hypothermia -noted in the emergency room. Recheck temperature. Rewarming techniques as needed.
Troponin elevation -likely acute nonischemic myocardial injury due to heart failure exacerbation, acute illness. Trend troponins.
Pancytopenia -unclear etiology. Has baseline chronic anemia likely due to chronic kidney disease. Needs outpatient follow-up. Reported history of multiple myeloma.
CKD 4 -renal function at baseline.
DM2
Essential hypertension
History of gout
Obesity due to excess calories
DNR -confirmed with .
Updated at the bedside.
[2024-02-17] MEDS: DUONEB 3 ML INH (17:57)
[2024-02-17 18:05] LABS: Glucose - Point of Care 125 mg/dl (70-99)
[2024-02-17] MEDS: DECADRON 10 MG IV (18:05)
[2024-02-17] MEDS: NOVOLOG FLEXPEN-LOW RESISTANCE SC (18:06)
[2024-02-17 18:59] LABS: Osmolality Urine 279 mOsm/kg (300-900)
[2024-02-17 19:16] LABS: Urine Sodium 110 mmol/L (30-90)
[2024-02-17] MEDS: CRESTOR 40 MG PO (20:30)
[2024-02-17] MEDS: FLOMAX 0.400000000000000022 MG PO (20:31)
[2024-02-17] MEDS: COREG 6.25 MG PO (20:31)
[2024-02-17] MEDS: ZETIA 10 MG PO (20:31)
[2024-02-17] MEDS: EFFEXOR 75 MG PO (20:31)
[2024-02-17] MEDS: VIBRAMYCIN 100 MG PO (20:32)
[2024-02-17] MEDS: HEPARIN SC ×2 (20:32→20:51)
[2024-02-17] MEDS: MUCINEX 600 MG PO (20:32)
[2024-02-17 20:48] LABS: Troponin I 0.111 ng/ml
[2024-02-17] MEDS: MELATONIN 3 MG PO (21:05)
[2024-02-17 22:18] LABS: Glucose - Point of Care 197 mg/dl (70-99)
[2024-02-17] MEDS: MELATONIN PO (22:38)
[2024-02-18] VITALS (8 sets, daily range): BP systolic 104–136; BP diastolic 54–79; BMI 34.6
[2024-02-18] MEDS: DUONEB INH ×2 (00:59→12:52)
[2024-02-18 02:19] LABS: % Basophils 0.4 % (0-2); % Immature Granulocytes 0.7 % (0-0.5); % Lymphocytes 16.5 % (20.5-51.1); % Monocytes 3.2 % (1.7-9.3); % Neutrophils 79.2 % (42.2-75.2); Absolute Lymphocytes 0.5 10^3/uL (1.2-3.4); Absolute Monocytes 0.1 10^3/uL (0.1-0.6); Absolute Neutrophils 2.2 10^3/uL (1.4-6.5); Hematocrit 22.8 % (39.0-52.0); Hemoglobin 7.7 g/dL (13.0-18.0); Mean Corp Hgb Conc. 33.8 g/dL (33.0-37.0); Mean Corpuscular Hgb 33.3 pg (27.0-31.0); Mean Corpuscular Volume 98.7 fL (80.0-94.0); Mean Platelet Volume 9.5 fL (7.4-10.4); Nucleated Red Blood Cells % 0 % (-); Platelet Count 76 10^3/uL (130-400); Red Blood Cell Count 2.31 10^6/uL (4.70-6.10); Red Cell Dist. Width 17.1 % (11.5-14.5); White Blood Cell Count 2.8 10^3/uL (4.8-10.8)
[2024-02-18 02:30] LABS: Magnesium 1.7 mg/dl (1.6-2.3)
[2024-02-18 02:31] LABS: Blood Urea Nitrogen 46 mg/dl (9-20); Calcium 9.3 mg/dl (8.4-10.2); Carbon Dioxide 26 mmol/L (22-30); Chloride 97 mmol/L (98-107); Estimated Creatinine Clearance 24 ml/min; Glucose 178 mg/dl (70-99); Potassium 4.7 mmol/L (3.5-5.1); Sodium 128 mmol/L (135-145); eGFR 23.29
[2024-02-18 02:48] LABS: Troponin I 0.116 ng/ml
--- NOTE | 2024-02-18 04:30 | PTCARENOTE ---
Rec'd pt. AAOx3 ([place]), V-paced on the monitor with frequent PVC's. OOB to use bathroom with RW & assist x 1 (ambulates well), voiding large amounts clear yellow urine. Moderate NAQVI assessed, loud rhonchi heard throughout both lungs, moist
non-productive cough present. Pulse ox on 5L O2 94-98%. Pt. had 6 beat run VT at 0200 while sleeping, VSS, asymptomatic.
--- NOTE | 2024-02-18 04:52 | PTCARENOTE ---
Rec'd pt. AAOx3 ([place]), V-paced on the monitor with frequent PVC's. OOB to use bathroom with RW & assist x 1 (ambulates well), voiding large amounts clear yellow urine. Moderate NAQVI assessed, loud rhonchi heard throughout both lungs, moist
non-productive cough present. Pulse ox on 5L O2 94-98%. Pt. had 6 beat run VT at 0200 while sleeping, VSS, asymptomatic. Labs drawn, house CR[employer] LAB ANALYST aware.Pt. currently sleeping.
[2024-02-18 07:08] LABS: Glucose - Point of Care 191 mg/dl (70-99)
[2024-02-18] MEDS: DUONEB 3 ML INH ×3 (07:16→18:11)
[2024-02-18] MEDS: LASIX 40 MG IV ×2 (08:27→15:44)
[2024-02-18] MEDS: DECADRON 4 MG IV ×2 (08:29→15:45)
[2024-02-18] MEDS: FLUSH (NSS) 1 FLUSH IV ×2 (08:30→15:45)
[2024-02-18] MEDS: MUCINEX 600 MG PO ×2 (08:31→19:40)
[2024-02-18] MEDS: OSCAL 500 + D 500 MG PO (08:31)
[2024-02-18] MEDS: VIBRAMYCIN 100 MG PO ×2 (08:31→19:40)
[2024-02-18] MEDS: COREG 6.25 MG PO ×2 (08:31→19:39)
[2024-02-18] MEDS: EFFEXOR 75 MG PO ×2 (08:31→19:39)
[2024-02-18] MEDS: COLACE 100 MG PO (08:31)
[2024-02-18] MEDS: ZYLOPRIM 50 MG PO (08:32)
[2024-02-18] MEDS: FEOSOL 325 MG PO (08:32)
[2024-02-18] MEDS: SENOKOT 8.59999999999999964 MG PO (08:32)
[2024-02-18] MEDS: LOW STRENGTH ASPIRIN 81 MG PO (08:32)
[2024-02-18] MEDS: HEPARIN SC ×2 (08:36→19:40)
[2024-02-18] MEDS: NOVOLOG FLEXPEN-LOW RESISTANCE 1 UNITS SC (08:55)
--- NOTE | 2024-02-18 09:02 | CON.CAR ---
Consultation
Consultation Request
Date/Time Consultation Requested: February 17, 2024
Date/Time Consultation Performed: February 18, 2024
Requesting Provider: Hospitalist
Performing Provider: Dr. Vince Garner
Reason for Consultation: Congestive heart failure with reduced ejection fraction
Medical History
-
Chief Complaint: Shortness of breath
History of Present Illness:
He was brought to the emergency department at [facility] on February 17, 2024 via emergency services transportation from [facility]. He was recently admitted and discharged from [facility] last month, January 2024, admitted
at that time for acute on chronic exacerbation of heart failure with reduced ejection fraction.
On presentation to the emergency department it was noted that he had been short of breath for at least a day, cough and wheezing, pulse oximeter's via EMS were noted to be in the low 80s and he was placed on CPAP as well as given nebulizer
treatments. By the time he got to the ER it was noted that his respiratory status had overall improved. He had no chest pain palpitations or dizziness. No fevers.
On presentation EKG finds atrial sensed biventricular paced rhythm at a heart rate of 93 bpm, chest x-ray with mild acute interstitial pulmonary edema and small bilateral pleural effusions.
Laboratory studies include hemoglobin 7.7, platelet count 76,000, white blood cell count 2.8, sodium 128 BUN and creatinine 46 and 2.6, troponin is 0.116, proBNP is 6160
Cardiology consultation for management of acute on chronic congestive heart failure is requested.
PMH:
Acute on Chronic HFrEF
Ischemic cardiomyopathy, lowest EF 10 to 15% by echo 01/2021, improved to 30% on echo 11/08/23
Elevated Troponin (0.116)
COPD
PHILIPPE, untreated
Non-adherence to medications
YOANDY on CKD 4, previously on HD
s/p Medtronic Bi-V/ICD 12/07/21
CAD
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
h/o CVA/TIA with residual left field cut
Chronic anemia
Multiple myeloma
Diabetes
Hypertension
Dyslipidemia
Mild aortic stenosis
Mildly enlarged aortic root
Secondary hyperparathyroidism
Morbid obesity
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
History of gout
Social History
Tobacco: Smoker
Alcohol: Occasional
Drug: None
Personal:
Living: With Family
Employment: Retired
Family History
Family History: Reviewed & Not Pertinent
Allergies / Home Medications
Allergy/AdvReac Type Severity Reaction Status Date / Time
No Known Allergies Allergy Verified 01/16/24 06:58
�Medication �Instructions �Recorded �Confirmed �Type
allopurinol 100 mg tablet 50 mg PO DAILY Gout 10/11/21 02/17/24 History
ezetimibe 10 mg tablet 10 mg PO QPM High cholesterol 10/11/21 02/17/24 History
rosuvastatin 40 mg tablet (Crestor) 40 mg PO QPM High cholesterol 10/11/21 02/17/24 History
tamsulosin 0.4 mg capsule 0.4 mg PO QPM Urinary issue 11/30/21 02/17/24 History
docusate sodium 100 mg capsule 100 mg PO DAILY Constipation 07/31/22 02/17/24 History
(Colace)
sennosides 8.6 mg tablet (Senokot) 8.6 mg PO DAILY Constipation 07/31/22 02/17/24 History
carvedilol 6.25 mg tablet (Coreg) 6.25 mg PO BID heart 08/02/22 02/17/24 Rx
disease/condition #60 tabs
cholecalciferol (vitamin D3) 50 50 mcg PO DAILY Supplement 12/27/23 02/17/24 History
mcg (2,000 unit) tablet
venlafaxine 75 mg tablet 75 mg PO BID Mental Health 12/27/23 02/17/24 History
omega 3-qsj-cyi-fish oil 1,200 mg 3 cap PO QPM Supplement 01/16/24 02/17/24 History
(144 mg-216 mg) capsule (Fish Oil)
aspirin 81 mg chewable tablet 81 mg PO DAILY #0 tabs 01/25/24 02/17/24 Rx
(Children's Aspirin)
ferrous sulfate 325 mg (65 mg 325 mg PO Q48H #30 tabs 01/25/24 02/17/24 Rx
iron) tablet,delayed release
calcium carbonate 600 mg-vitamin 1 tab PO DAILY Supplement 02/17/24 02/17/24 History
D3 10 mcg (400 unit) tablet
(Calcium 600 + D(3))
furosemide 40 mg tablet 40 mg PO DAILY Fluid 02/17/24 02/17/24 History
Retention/Swelling
ipratropium 0.5 mg-albuterol 3 mg 3 ml inhalation R Q6 02/17/24 02/17/24 History
(2.5 mg base)/3 mL nebulization Lung/Breathing Issues
soln
melatonin 3 mg tablet 3 mg PO QPM Sleep 02/17/24 02/17/24 History
miconazole nitrate 2 % topical 1 applic topical BID fungal rash 02/17/24 02/17/24 History
powder (Miconazorb AF)
Review of Systems
-
History Source: Patient
All other systems: Negative unless noted
Constitutional: Fatigue and Sleep Disturbance
EENT: No Symptoms
Respiratory: Cough
Cardiac: Other (Shortness of breath)
Abdomen/GI: No Symptoms
: No Symptoms
Musculoskeletal: No Symptoms
Skin: No Symptoms
Neurological: No Symptoms
Endocrine: No Symptoms
Hematologic/Lymphatic: No Symptoms
Physical Exam
Vital Signs
Temp Pulse Resp BP Pulse Ox
98.4 F 81 15 133/73 96
02/18/24 07:08 02/18/24 08:31 02/18/24 07:19 02/18/24 08:31 02/18/24 07:19
Lab Results
02/18/24 02:08
02/18/24 02:08
Troponin I 0.116 ng/ml H* 02/18/24 02:08
Cdu-G-Rtriyjwhjaf Pept 6160 pg/ml 02/17/24 14:31
Physical Exam
General: Respiratory Distress (Mild respiratory distress at rest)
HEENT: Normocephalic, Anicteric and Moist Mucous Membranes
Respiratory: Other (Decreased breath sounds at both bases as well as inspiratory rales at both bases)
Cardiac: S1/S2, Regular Rhythm, Murmur (Grade 1/6 basal systolic ejection murmur and 2/6 apical holosystolic murmur) and Peripheral Edema (There is +3 lower extremity pitting edema bilaterally)
Breast: Deferred by me
GI: Soft, Non Tender, Non Distended and Normal Bowel Sounds
Rectal: Deferred by Provider
Musculoskeletal: No Clubbing and No Cyanosis
Skin: Warm and Dry
Neuro: Awake, Alert, Oriented and Other (Somewhat belligerent and angry, does not want to be examined very long talk to for very long)
Impression / Plan
-
Primary Press Leader: Dr. Clark
PCP: Michelle Rogers
Impression:
Recurrent Acute on Chronic HFrEF
Ischemic cardiomyopathy, lowest EF 10 to 15% by echo 01/2021, improved to 30% on echo 11/08/23
Elevated Troponin
YOANDY on CKD 4, previously on HD
s/p Medtronic Bi-V/ICD 12/07/21
CAD
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
h/o CVA/TIA with residual left field cut
Diabetes
Hypertension
Dyslipidemia
Mild aortic stenosis
Mildly enlarged aortic root
Secondary hyperparathyroidism
Morbid obesity
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
Multiple myeloma
History of gout
PHILIPPE, untreated
Non-adherence to medications
Lexiscan Stress Test: 09/14/22:�Fixed inferior and inferior-septal defect consistent with infarction, severely decreased systolic function with estimated LVEF of 22% with severe global hypokinesis and dilated left ventricle, intermediate risk stress
test, 4 beat NSVT during study
Cardiac cath 10/24/2015:�LAD:stent in the proximal LAD is widely patent.� The second diagonal comes off the middle of the stent and is jailed by the stent and has a 90% ostial stenosis.� There is a 40% mid LAD stenosis. Circumflex: Luminal
irregularities RCA: 100% chronic total occlusion of the proximal RCA.
Echo 01/2021: EF 10 to 15%, global hypokinesis with akinesis of inferior wall, septum, and apex.� Stage III diastolic dysfunction, mitral annular calcification, mild MR, aortic sclerosis, mildly dilated aortic root
Echo 10/12/21: EF 10%, global hypokinesis LV severely dilated, mild LVH, stage III DD, mild MR, trace TR/AI, PAP 15 to 20 mmHg.� Possible left ventricular apical thrombus.� Echo repeated with Definity 10/13/2021 which demonstrated no LV thrombus with
Definity
Echo 11/08/23:�Dilated cardiomyopathy, LVEF of 30%, right-sided ICD, dilated left atrium, mild to moderate aortic stenosis, peak and mean transaortic gradients of 15/8 mmHg, DVI of 0.4.� No pericardial effusion.
Recommendation:
From a cardiac standpoint:
IV Lasix diuresis for volume overload and clinical decompensated acute on chronic heart failure with reduced ejection fraction
Keep potassium between 4 and 5 and magnesium between 2 and 3
Follow renal function closely
Guideline directed medical therapy regimen includes Coreg 6.25 mg BID. Patient is not chronically on UMAIR/ARB/aldosterone antagonist due to CKD. While SGLT2 inhibitor could be considered, his GFR is less than 25 and he apparently has had
incontinence at times. Likely safest to avoid starting SGLT2 inhibitor
No need to repeat echocardiogram at present
Total time spent today was 75 minutes in preparing to see the patient, seeing the patient and coordination of care. This included review of past as well as recent laboratory evaluations, cardiact testing, imaging studies, specialty consultations,
hospital records, as well as personally interviewing and examining the patient, review/ordering medications, treatment planning as well as counseling.
Data Reviewed
-
EKG: Tracing Personally Visualized and interpreted
Radiology: Image Personally Visualized and interpreted
Medical Tests (Nuc Med, Echo etc): Report Reviewed by me
Labs: Labs Reviewed by me
Old Records: Reviewed
Total Time Spent with Patient (in minutes): 75
--- NOTE | 2024-02-18 09:03 | W.PN.HOSP.TC ---
Today's Communication/Plan
-
Continue diuresis
Daily labs
Pulmonary toilet
Assessment / Plan
Assessment / Plan
Gen-AAOx3, NAD, obese
HEENT-NC, AT, anicteric, clear oral mm
Neck-supple
CV-reg, no M, +S1/S2
Lungs-bilateral rhonchi
Abd-soft, NT, ND
Ext-no edema
Musculoskeletal-no cyanosis, clubbing
Skin-warm and dry
Neuro-grossly non-focal
Psych-calm, cooperative
Acute hypoxic respiratory failure - suspect due to acute pulmonary edema. Cannot rule out component of acute COPD exacerbation. Chest x-ray read as mild acute interstitial cardiogenic pulmonary edema, small bilateral pleural effusions, mild
cardiomegaly. Was on BiPAP in the emergency room yesterday, 6 L nasal cannula oxygen last night, 5 L currently. Wean down as able.
Acute on chronic heart failure with reduced EF exacerbation -continue IV Lasix. Monitor renal function closely. Consult cardiology. BNP 6160. Patient's is very anxious about IV Lasix and wants to use the minimum dose possible as she is
concerned about worsening renal function. I tried to reassure her. Will monitor renal function on a daily basis.
Last echocardiogram was from 11/08/2023. Showed LVEF 30%, dilated cardiomyopathy.
Acute on chronic hyponatremia -sodium stable at 128. Suspect due to heart failure exacerbation. Urine osmolality 279, urine sodium 110.
Acute COPD exacerbation -characterized by cough and wheezing. Continue inhalers, add steroids, doxycycline, Mucinex, Acapella.
Hypothermia -noted in the emergency room. Recheck temperature. Rewarming techniques as needed. Normothermic today.
Troponin elevation -likely acute nonischemic myocardial injury due to heart failure exacerbation, acute illness. Trend troponins.
Pancytopenia -unclear etiology. Has baseline chronic anemia likely due to chronic kidney disease. Needs outpatient follow-up. Reported history of multiple myeloma. Hemoglobin 7.7 today, monitor daily.
CKD 4 -renal function at baseline. Creatinine stable at 2.6.
DM2 with hyperglycemia -hemoglobin A1c pending. Glucose 178 this morning. Does not appear to be on diabetes meds chronically. Use low resistance NovoLog scale.
Essential hypertension -stable.
Hyperlipidemia -on rosuvastatin.
History of gout
Obesity due to excess calories
Full code
PT/OT
Anticipated Discharge: > 48 hours
Subjective/Interval History
-
Date of Service: February 18, 2024
Patient seen and examined. No new complaints.
Objective Data
-
Labs:
Laboratory Results
02/18/24
02:08
WBC 2.8 L
Hgb 7.7 L
Hct 22.8 L
Plt Count 76 L
Sodium 128 L
Potassium 4.7
Chloride 97 L
Carbon Dioxide 26
BUN 46 H
Creatinine 2.6 H
Glucose 178 H
Calcium 9.3
Vital Signs:
Vital Signs
Temp Pulse Resp BP Pulse Ox
98.4 F 81 15 133/73 96
02/18/24 07:08 02/18/24 08:31 02/18/24 07:19 02/18/24 08:31 02/18/24 07:19
I&O
02/17/24 02/18/24 02/19/24
06:59 06:59 06:59
Intake Total 240 / 240
Output Total 1200 / 1200 100 / 100
Balance -960 / -960 -100 / -100
Review of Systems
-
History Source: Patient
All other systems: Reviewed and negative
[2024-02-18 09:33] LABS: Troponin I 0.102 ng/ml
[2024-02-18 10:36] LABS: Glycohemoglobin (HgbA1c) 6.6 % (4.0-5.6)
[2024-02-18 11:56] LABS: Glucose - Point of Care 278 mg/dl (70-99)
[2024-02-18] MEDS: NOVOLOG FLEXPEN-LOW RESISTANCE 3 UNITS SC (12:42)
[2024-02-18 16:53] LABS: Glucose - Point of Care 148 mg/dl (70-99)
[2024-02-18] MEDS: NOVOLOG FLEXPEN-LOW RESISTANCE SC (17:10)
[2024-02-18] MEDS: FLOMAX 0.400000000000000022 MG PO (17:34)
[2024-02-18] MEDS: ZETIA 10 MG PO (17:34)
[2024-02-18] MEDS: CRESTOR 40 MG PO (17:34)
--- NOTE | 2024-02-18 18:15 | PTCARENOTE ---
received patient this am in bed sleeping, easily aroused. oriented x 3. monitor shows V paced, VSS. lung alva rhonchi thruout, on 5 LNC, o2 sat 95%. patient is grumpy at times. patient sat up in chair most of the day. at bedside.
--- NOTE | 2024-02-18 20:40 | PTCARENOTE ---
Pt. refusing Heparin SC. CV-BULK FILLER Cl notified, order for K.H. SCD's obtained. Attempted to place on pt., but he refused, stating 'that doctor can go to hell, I'm not wearing those'. Attempted to educate, pt. resistant.
[2024-02-18 21:28] LABS: Glucose - Point of Care 209 mg/dl (70-99)
--- NOTE | 2024-02-18 21:56 | W.PN.UPDATE ---
Update Note
Progress Note Update
Floor nurse reporting that patient is severely agitated, currently on phone yelling at , described as 'belligerent.' Patient wants to leave and go home and not return to [facility],. Requesting something to help him sleep and melatonin was
not effective last evening. Placed order for 1x PO Lorazepam.
[2024-02-18] MEDS: ATIVAN 0.5 MG PO (22:04)
--- NOTE | 2024-02-18 23:54 | PTCARENOTE ---
Pt. on phone with earlier zhen, agitated, yelling loudly enough for all to hear 'get me the F- out of here, why won't you come get me?' When checked on, pt. visibly upset, stated that it's his prerogative to leave no matter what anybody
says, we can't keep him here, he'll 'walk right out'. Pt. not confused, completely oriented. Wants to go home (not [facility]haminy Mason). Attempted to explain why pt. cannot leave hospital on a Monday night and the importance of medical treatment.
Pt. belligerent and difficult to reason with but agreed to stay, requesting something besides melatonin to help him sleep. House TEX notified, order for Ativen PO x 1 obtained and given. Dose given, pt. has since calmed down. Very polite and
appreciative when being helped to use BSC. Tucked in for the night, pt. currently sleeping.
[2024-02-19] VITALS (11 sets, daily range): BP systolic 111–152; BP diastolic 61–96; PULSE 84–120; O2SAT 96; BMI 34.6
[2024-02-19] MEDS: MELATONIN PO (00:04)
[2024-02-19] MEDS: MELATONIN 3 MG PO ×2 (00:13→21:46)
[2024-02-19] MEDS: DECADRON 4 MG IV ×2 (00:14→08:43)
[2024-02-19] MEDS: DUONEB INH (02:56)
[2024-02-19 03:09] LABS: % Basophils 0.6 % (0-2); % Eosinophils 2.6 % (0-6); % Immature Granulocytes 1.5 % (0-0.5); % Lymphocytes 9.5 % (20.5-51.1); % Monocytes 6.8 % (1.7-9.3); Absolute Eosinophils 0.2 10^3/uL (0-0.7); Absolute Immature Granulocytes 0.1 10^3/uL (0-0.05); Absolute Lymphocytes 0.6 10^3/uL (1.2-3.4); Absolute Monocytes 0.4 10^3/uL (0.1-0.6); Absolute Neutrophils 4.9 10^3/uL (1.4-6.5); Hematocrit 23.8 % (39.0-52.0); Hemoglobin 8.2 g/dL (13.0-18.0); Mean Corp Hgb Conc. 34.5 g/dL (33.0-37.0); Mean Corpuscular Hgb 33.5 pg (27.0-31.0); Mean Corpuscular Volume 97.1 fL (80.0-94.0); Mean Platelet Volume 10.2 fL (7.4-10.4); Nucleated Red Blood Cells % 0 % (-); Platelet Count 102 10^3/uL (130-400); Red Blood Cell Count 2.45 10^6/uL (4.70-6.10); Red Cell Dist. Width 16.9 % (11.5-14.5); White Blood Cell Count 6.2 10^3/uL (4.8-10.8)
[2024-02-19 03:21] LABS: Blood Urea Nitrogen 70 mg/dl (9-20); Calcium 9.6 mg/dl (8.4-10.2); Carbon Dioxide 27 mmol/L (22-30); Chloride 94 mmol/L (98-107); Estimated Creatinine Clearance 25 ml/min; Glucose 161 mg/dl (70-99); Potassium 5.2 mmol/L (3.5-5.1); Sodium 129 mmol/L (135-145); eGFR 24.41
[2024-02-19] MEDS: DUONEB 3 ML INH ×2 (07:17→13:23)
[2024-02-19 07:56] LABS: Glucose - Point of Care 202 mg/dl (70-99)
--- NOTE | 2024-02-19 07:59 | W.PN.HOSP.TC ---
Today's Communication/Plan
-
Wean oxygen as possible
Change to PO steroids starting tomorrow
Assessment / Plan
Assessment / Plan
Physical Exam
Gen-AAOx3, NAD, obese
HEENT-NC, AT, anicteric, clear oral mm
Neck-supple
CV-reg, no M, +S1/S2
Lungs-bilateral rhonchi
Abd-soft, NT, ND
Ext-no edema
Musculoskeletal-no cyanosis, clubbing
Skin-warm and dry
Neuro-grossly non-focal
Psych-calm, cooperative
Assessment/Plan
Acute hypoxic respiratory failure - suspect due to acute pulmonary edema. Cannot rule out component of acute COPD exacerbation. Chest x-ray read as mild acute interstitial cardiogenic pulmonary edema, small bilateral pleural effusions, mild
cardiomegaly. Was on BiPAP in the emergency room, 6 L nasal cannula oxygen --> 3 L currently. Wean down as able.
Acute on chronic heart failure with reduced EF exacerbation -continue IV Lasix. Monitor renal function closely. Consulted cardiology. BNP 6160. Patient's is very anxious about IV Lasix and wants to use the minimum dose possible as she is
concerned about worsening renal function. Dr. Marin tried to reassure her. Will monitor renal function on a daily basis.
Last echocardiogram was from 11/08/2023. Showed LVEF 30%, dilated cardiomyopathy.
Acute on chronic hyponatremia -sodium stable at 128. Suspect due to heart failure exacerbation. Urine osmolality 279, urine sodium 110.
Acute COPD exacerbation -characterized by cough and wheezing. Continue inhalers, switch steroids to PO taper, doxycycline, Mucinex, Acapella. Will consider pulmonary consultation.
Hypothermia -noted in the emergency room. Recheck temperature. Rewarming techniques as needed. Normothermic today.
Troponin elevation -likely acute nonischemic myocardial injury due to heart failure exacerbation, acute illness. Trend troponins.
Pancytopenia -unclear etiology. Has baseline chronic anemia likely due to chronic kidney disease. Needs outpatient follow-up. Reported history of multiple myeloma. Hemoglobin 8.2 today, monitor daily.
CKD 4 -renal function at baseline. Creatinine stable at 2.6.
DM2 with hyperglycemia -hemoglobin A1c 6.6%. Does not appear to be on diabetes medications chronically. Will consider Diabetes CHIMNEY SUPERVISOR BRICK consult. Use low resistance NovoLog scale.
Essential hypertension -stable.
Hyperlipidemia -on rosuvastatin.
History of gout
Obesity due to excess calories
Full code
PT/OT
Anticipated Discharge: 24 - 48 hours
Subjective/Interval History
-
Date of Service: February 19, 2024
Patient was seen and examined. He denied any new chest pain or shortness of breath. He was agitated last night and Ativan was ordered.
Objective Data
-
Labs:
Laboratory Results
02/19/24
02:52
WBC 6.2
Hgb 8.2 L
Hct 23.8 L
Plt Count 102 L D
Sodium 129 L
Potassium 5.2 H
Chloride 94 L
Carbon Dioxide 27
BUN 70 H
Creatinine 2.5 H
Glucose 161 H
Calcium 9.6
Vital Signs:
Vital Signs
Temp Pulse Resp BP Pulse Ox
98 F 90 20 152/81 94
02/19/24 07:37 02/19/24 07:20 02/19/24 07:37 02/19/24 02:43 02/19/24 07:37
I&O
02/18/24 02/19/24 02/20/24
06:59 06:59 06:59
Intake Total 240 / 240 240 / 240
Output Total 1200 / 1200 1250 / 1250
Balance -960 / -960 -1010 / -1010
[2024-02-19] MEDS: NOVOLOG FLEXPEN-LOW RESISTANCE 2 UNITS SC ×2 (08:35→12:54)
[2024-02-19] MEDS: EFFEXOR 75 MG PO ×2 (08:36→20:23)
[2024-02-19] MEDS: ZYLOPRIM 50 MG PO (08:36)
[2024-02-19] MEDS: MUCINEX 600 MG PO ×2 (08:36→20:22)
[2024-02-19] MEDS: OSCAL 500 + D 500 MG PO (08:37)
[2024-02-19] MEDS: COLACE 100 MG PO (08:37)
[2024-02-19] MEDS: LOW STRENGTH ASPIRIN 81 MG PO (08:37)
[2024-02-19] MEDS: VIBRAMYCIN 100 MG PO (08:37)
[2024-02-19] MEDS: SENOKOT 8.59999999999999964 MG PO (08:37)
[2024-02-19] MEDS: COREG 6.25 MG PO ×2 (08:37→20:22)
[2024-02-19] MEDS: LASIX 40 MG IV ×2 (08:43→17:49)
[2024-02-19] MEDS: HEPARIN SC ×2 (08:44→20:55)
--- NOTE | 2024-02-19 08:51 | W.PN.CARDCBS ---
Addendum entered and electronically signed by Lam Guerrero DO 02/19/24 10:24:
I saw and examined the patient.
The Truck Trailer Mechanic's note was reviewed and I agree with the note.
Comment:
Plan:
Cont IV diuresis
Wt coming down and down 4 lbs from admit. Pt is below his prior dry wt at recent discharge in January 2024. His actual dry wt is likely lower than that
Similar to previous admission, patient's has hesitant about IV diuresis and dosing.
Patient with known CKD 4. Follows with nephrology at [facility], Dr. Reece
Cont med tx of nonMI troponin.
Cont Crestor 40 mg daily and Zetia 10 mg daily
No need to repeat echocardiogram at present
Discussed with nursing.
Original Note:
Today's Communication / Plan
-
Ongoing diuresis
Cre at or below baseline
Refusing PT/OT and says he is going home today
Impression / Plan
-
Primary French Binding Folder: Dr. Clark
PCP: Michelle Rogers
Impression:
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
Ischemic cardiomyopathy, lowest EF 10 to 15% by echo 01/2021, improved to 30% on echo 11/08/23
Elevated Troponin
YOANDY on CKD 4, previously on HD
s/p [employer] Bi-V/ICD 12/07/21
CAD
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
h/o CVA/TIA with residual left field cut
Diabetes
Hypertension
Dyslipidemia
Mild aortic stenosis
Mildly enlarged aortic root
Secondary hyperparathyroidism
Morbid obesity
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
Multiple myeloma
History of gout
PHILIPPE, untreated
Non-adherence to medications
Lexiscan Stress Test: 09/14/22:�Fixed inferior and inferior-septal defect consistent with infarction, severely decreased systolic function with estimated LVEF of 22% with severe global hypokinesis and dilated left ventricle, intermediate risk stress
test, 4 beat NSVT during study
Cardiac cath 10/24/2015:�LAD:stent in the proximal LAD is widely patent.� The second diagonal comes off the middle of the stent and is jailed by the stent and has a 90% ostial stenosis.� There is a 40% mid LAD stenosis. Circumflex: Luminal
irregularities RCA: 100% chronic total occlusion of the proximal RCA.
Echo 01/2021: EF 10 to 15%, global hypokinesis with akinesis of inferior wall, septum, and apex.� Stage III diastolic dysfunction, mitral annular calcification, mild MR, aortic sclerosis, mildly dilated aortic root
Echo 10/12/21: EF 10%, global hypokinesis LV severely dilated, mild LVH, stage III DD, mild MR, trace TR/AI, PAP 15 to 20 mmHg.� Possible left ventricular apical thrombus.� Echo repeated with Definity 10/13/2021 which demonstrated no LV thrombus with
Definity
Echo 11/08/23:�Dilated cardiomyopathy, LVEF of 30%, right-sided ICD, dilated left atrium, mild to moderate aortic stenosis, peak and mean transaortic gradients of 15/8 mmHg, DVI of 0.4.� No pericardial effusion.
Recommendation:
-Weight is down 4 lbs since admission with Lasix 40 mg IV BID diuresis. Patient is below previous dry weight from last HF discharge 01/25/24. Similar to previous admission, patient's is hesitant about IV diuresis and is worried about YOANDY given
patient's h/o YOANDY on CKD.
-Patient with known CKD 4 and previously required transient dialysis. Follows with nephrology at [facility], Dr. Reece
-CM regimen includes Coreg 6.25 mg BID
-Patient is not chronically on UMAIR/ARB/aldosterone antagonist due to CKD.
-SGLT2 inhibitor could be considered, his GFR is less than 25 and he apparently has had incontinence. Likely safest to avoid starting SGLT2 inhibitor
-Peak Troponin 0.116 and Troponin appears to be chronically elevated due to part to CKD and also acute HF. Will manage as a nonischemic myocardial injury Troponin elevation.
-Cont usual dose of Crestor 40 mg daily and Zetia 10 mg daily
-Patient with h/o MM and his last course of treatment was 2 years ago.
-No need to repeat echocardiogram at present
-Nursing notes reviewed, patient is refusing PT/OT. Patient was placed in [facility] at last discharge. He says he is refusing to return there and that his is going to take him home. Patient says that he has made progress in rehab and that he can get
out of a car and ambulated with minimal assistance.
HPI: Patient came to [facility] today with SOB and is now being admitted with acute HF so cardiology has been consulted. Patient was just admitted to 12/27/23 until 12/31/23 with acute HF. Dry weight on day of discharge was 235 lbs. Patient has not been
weighing himself since discharge. He says he is following salt and fluid restriction, but can't articulate what those restrictions are. He also reports that he is taking Lasix 40 mg daily as ordered and missed a dose last night, but does not
routinely miss doses. Patient has a h/o CKD and follows with Dr. Reece at [facility] for outpatient nephrology care. Cre peaked at 2.9 last admission and baseline Cre is closer to 2.5. Patient was previously on transient dialysis. Patient also with h/o
pAfib and was in SR during device check in the office 01/04/24, but now appears to be in Afib. Patient denies palpitations. Patient is not on OAC due to h/o MM. Patient says that his symptoms started suddenly 2 hours prior to admission, but his
partner thinks that symptoms started earlier. Patient complains of orthopnea, but denies bloating or edema. Patient was 76% on RA when EMS arrived this morning and improved in BiPAP, but now stable on 6 L NC.
Progress Note - French Binding Folder
Subjective
Date of Service: February 19, 2024
He says he is going home today
Objective
Labs:
02/19/24 02:52
02/19/24 02:52
Labs
Hgb 8.2 g/dL (13.0-18.0) L 02/19/24 02:52
Hct 23.8 % (39.0-52.0) L 02/19/24 02:52
Plt Count 102 10^3/uL (130-400) L D 02/19/24 02:52
Sodium 129 mmol/L (135-145) L 02/19/24 02:52
Potassium 5.2 mmol/L (3.5-5.1) H 02/19/24 02:52
BUN 70 mg/dl (9-20) H 02/19/24 02:52
Creatinine 2.5 mg/dL (0.7-1.3) H 02/19/24 02:52
Glucose 161 mg/dl (70-99) H 02/19/24 02:52
Troponins
02/17/24 02/17/24 02/18/24
14:31 20:16 02:08
Troponin I 0.067 H* 0.111 H* D 0.116 H*
02/18/24
08:40
Troponin I 0.102 H*
Vital Signs and I&O:
Vital Signs
Temp Pulse Resp BP Pulse Ox
98 F 87 20 137/96 94
02/19/24 07:37 02/19/24 08:43 02/19/24 07:37 02/19/24 08:43 02/19/24 07:37
Vital Signs
Temp Pulse Resp BP Pulse Ox
98 F 87 20 137/96 94
02/19/24 07:37 02/19/24 08:43 02/19/24 07:37 02/19/24 08:43 02/19/24 07:37
Intake & Output
02/17/24 02/18/24 02/19/24 02/20/24
06:59 06:59 06:59 06:59
Intake Total 240 / 240 240 / 240
Output Total 1200 / 1200 1250 / 1250
Balance -960 / -960 -1010 / -1010
Physical Exam
Physical Exam
GEN: NAD. AAO x3
HEENT: EOMI, MMM
LUNGS: No audible wheeze
CV: Reg
ABD: soft, BS+, NT, ND
EXT:� +1 B/L LE edema
NEURO: Gross non-focal
SKIN: No rash
[2024-02-19 12:18] LABS: Glucose - Point of Care 206 mg/dl (70-99)
--- NOTE | 2024-02-19 16:14 | CM ---
spoke to pt in room, he is prev indep, lvies with his in a 1 story house with 3 steps to enter. he has a walker he uses when needed. he does not want to return to the [facility] to finish his rehab, PT/OT eval pt and states he is ok to go home. cm
following
--- NOTE | 2024-02-19 16:16 | CON.PUL ---
Consultation
Consultation Request
Date/Time Consultation Requested: 02/19/24
Date/Time Consultation Performed: 02/19/24
Performing Provider: Jose
Reason for Consultation: COPD
Medical History
-
History of Present Illness:
Patient is a 84-year-old male with history of COPD/asthma, Chronic HFrEF, s/p ICD, CKD, CVA, CAD, diabetes transferred from [facility] for evaluation of shortness of breath. Was in respiratory distress, placed on CPAP by EMS. Reportedly
wheezing, with cough and pulse ox was in the low 80s prior to arrival. ABG 7.37/47/97. CXR showing edema/effusion, proBNP 6160 which is increased from prior 5580.
Admitted 02/17/24. Placed on IV steroids for suspected comorbid AECOPD.
He has been recently admitted for similar presentation and discharged from on 01/25/24.
has concerns about his behavior while on steroids, he is increasingly agitated/aggressive.
Past Medical History
Past Medical History: Other (see list below)
Social History
Tobacco: Former Smoker
Family History
Family History: Reviewed & Not Pertinent
Allergies / Home Medications
Allergies
Allergy/AdvReac Type Severity Reaction Status Date / Time
No Known Allergies Allergy Verified 01/16/24 06:58
Home Medications
�Medication �Instructions �Recorded �Confirmed �Last Taken �Type
allopurinol 100 mg tablet 50 mg PO DAILY Gout 10/11/21 02/17/24 01/14/24 History
ezetimibe 10 mg tablet 10 mg PO QPM High cholesterol 10/11/21 02/17/24 01/14/24 History
rosuvastatin 40 mg tablet (Crestor) 40 mg PO QPM High cholesterol 10/11/21 02/17/24 01/14/24 History
tamsulosin 0.4 mg capsule 0.4 mg PO QPM Urinary issue 11/30/21 02/17/24 01/14/24 History
docusate sodium 100 mg capsule 100 mg PO DAILY Constipation 07/31/22 02/17/24 01/14/24 History
(Colace)
sennosides 8.6 mg tablet (Senokot) 8.6 mg PO DAILY Constipation 07/31/22 02/17/24 01/14/24 History
carvedilol 6.25 mg tablet (Coreg) 6.25 mg PO BID heart 08/02/22 02/17/24 01/14/24 Rx
disease/condition #60 tabs
cholecalciferol (vitamin D3) 50 50 mcg PO DAILY Supplement 12/27/23 02/17/24 01/14/24 History
mcg (2,000 unit) tablet
venlafaxine 75 mg tablet 75 mg PO BID Mental Health 12/27/23 02/17/24 01/14/24 History
omega 1-sro-gdw-fish oil 1,200 mg 3 cap PO QPM Supplement 01/16/24 02/17/24 01/14/24 History
(144 mg-216 mg) capsule (Fish Oil)
aspirin 81 mg chewable tablet 81 mg PO DAILY #0 tabs 01/25/24 02/17/24 Unknown Rx
(Children's Aspirin)
ferrous sulfate 325 mg (65 mg 325 mg PO Q48H #30 tabs 01/25/24 02/17/24 Unknown Rx
iron) tablet,delayed release
calcium carbonate 600 mg-vitamin 1 tab PO DAILY Supplement 02/17/24 02/17/24 Unknown History
D3 10 mcg (400 unit) tablet
(Calcium 600 + D(3))
furosemide 40 mg tablet 40 mg PO DAILY Fluid 02/17/24 02/17/24 Unknown History
Retention/Swelling
ipratropium 0.5 mg-albuterol 3 mg 3 ml inhalation R Q6 02/17/24 02/17/24 Unknown History
(2.5 mg base)/3 mL nebulization Lung/Breathing Issues
soln
melatonin 3 mg tablet 3 mg PO QPM Sleep 02/17/24 02/17/24 Unknown History
miconazole nitrate 2 % topical 1 applic topical BID fungal rash 02/17/24 02/17/24 Unknown History
powder (Miconazorb AF)
Review of Systems
-
History Source: Patient
All other systems: Negative unless noted
Vitals / Labs / Diagnostic Testing
Vital Signs
Temp Pulse Resp BP Pulse Ox
97.9 F 72 20 124/66 96
02/19/24 15:45 02/19/24 13:24 02/19/24 15:45 02/19/24 09:34 02/19/24 15:45
Lab Data
02/19/24 02:52
02/19/24 02:52
Microbiology
02/17/24 20:16 Nose MRSA Screen - Final
No Methicillin Resistant Staphylococcus aureus isolated.
02/17/24 14:31 Nasal Swab Influenza Types A & B (AMBREEN) - Final
Negative for Influenza A & B, NAAT
Negative results must be combined with clinical observations
and patient history.
Nucleic Acid Amplification test (NAAT)performed on the
[employer] platform.
Diagnostic Testing:
Physical Exam
-
HEENT: Normocephalic, Anicteric and Moist Mucous Membranes
Cardiovascular: S1/S2 and Regular Rhythm
Respiratory: Rales and Non-Labored Respirations
GI: Soft, Non Distended and Non Tender
Neurology: Awake, Alert, Oriented (to self), No Motor Deficits and Other (Angry, confused)
Skin: Warm, Dry and Good Color
General: Comfortable and Other (NAD)
Assessment
-
Patient is a 84-year-old male with history of COPD/asthma, Chronic HFrEF, s/p ICD, CKD, CVA, CAD, diabetes transferred from [facility] for evaluation of shortness of breath. Was in respiratory distress, placed on CPAP by EMS. Reportedly
wheezing, with cough and pulse ox was in the low 80s prior to arrival. ABG 7.37/47/97. CXR showing edema/effusion, proBNP 6160 which is increased from prior 5580.
Admitted 02/17/24. Placed on IV steroids for suspected comorbid AECOPD. We are consulted for eval.
Acute on chronic heart failure exacerbation with reduced EF
Acute on chronic SOB
Wheezing
Hyponatremia
Hyperkalemia
Conditions present prior to admission
CHF reduced EF.
ICD 2021.
CAD/stents.
Aortic stenosis
COPD/Asthms history
CKD stage IV.
Chronic pancytopenia.
Hypertension.
History of CVAs-residual left field cut
Diabetes.
Cigar smoker.
Morbid obesity
Obstructive sleep apnea suspected-untreated
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
History of gout
Multiple myeloma.
Nonadherence to medications
Plan
Currently >90% on room air
Respiratory decompensation likely due to heart failure
Wheezing noted on presentation, ABG completed which was normal
No longer wheezing
CXR showing effusion/edema
Improved with diuresis
proBNP on arrival higher than before
Cards following
Prior ECHO reviewed
Placed on IV steroids for possible AECOPD
He is not currently wheezing
has concerns about steroids due to insomnia, psychosis, aggression noted in past
I do not think the benefit of IV/PO steroids in this patient outweigh risk
I would stop at this time and observe off without taper
He has been improving since admission
Continue nebulizers, PRN
Add spiriva daily
Mucolytic's
Aspiration precautions
No concern for infection at this time, this was recently treated at last admission
Flu/MRSA neg on arrival
DVT prophylaxis-on heparin
Nutrition
Early mobilization
Reviewed with at bedside and nursing
Patient wants to go home, discharge planning per team
Outpatient pulm FU recommended
It is noted he is on outpatient palliative care
We will follow
Diagnostic Data
CXR 02/17/24- 1. Mild acute interstitial cardiogenic pulmonary edema.
2. Small bilateral pleural effusions.
3. Mild cardiomegaly.
4. Left-sided dual-chamber cardiac pacemaker/defibrillator in place.
Chest x-ray 01/16/2024-mild interstitial pneumonia right lung base
Chest x-ray 12/27/2023-low lung volumes, mild cardiomegaly, slight increased pulmonary vascularity
Chest x-ray 09/15/2023-NAD
Lexiscan Stress Test: 09/14/22:�Fixed inferior and inferior-septal defect consistent with infarction, severely decreased systolic function with estimated LVEF of 22% with severe global hypokinesis and dilated left ventricle, intermediate risk stress
test, 4 beat NSVT during study
Cardiac cath 10/24/2015:�LAD:stent in the proximal LAD is widely patent.� The second diagonal comes off the middle of the stent and is jailed by the stent and has a 90% ostial stenosis.� There is a 40% mid LAD stenosis. Circumflex: Luminal
irregularities RCA: 100% chronic total occlusion of the proximal RCA.
Echo 01/2021: EF 10 to 15%, global hypokinesis with akinesis of inferior wall, septum, and apex.� Stage III diastolic dysfunction, mitral annular calcification, mild MR, aortic sclerosis, mildly dilated aortic root
Echo 10/12/21: EF 10%, global hypokinesis LV severely dilated, mild LVH, stage III DD, mild MR, trace TR/AI, PAP 15 to 20 mmHg.� Possible left ventricular apical thrombus.� Echo repeated with Definity 10/13/2021 which demonstrated no LV thrombus with
Definity
Echo 11/08/23:�Dilated cardiomyopathy, LVEF of 30%, right-sided ICD, dilated left atrium, mild to moderate aortic stenosis, peak and mean transaortic gradients of 15/8 mmHg, DVI of 0.4.� No pericardial effusion.
[2024-02-19 16:47] LABS: Glucose - Point of Care 253 mg/dl (70-99)
[2024-02-19] MEDS: SPIRIVA RESPIMAT 2.5 MCG 2 PUFF INH (17:39)
[2024-02-19] MEDS: NOVOLOG FLEXPEN 4 UNITS SC (17:47)
[2024-02-19] MEDS: NOVOLOG FLEXPEN-LOW RESISTANCE 3 UNITS SC (17:47)
[2024-02-19] MEDS: CRESTOR 40 MG PO (17:49)
[2024-02-19] MEDS: FLOMAX 0.400000000000000022 MG PO (17:49)
[2024-02-19] MEDS: ZETIA 10 MG PO (17:49)
[2024-02-19] MEDS: DECADRON IV (18:03)
--- NOTE | 2024-02-19 21:34 | PTCARENOTE ---
Assumed care at 1999, Patient sleeping on his side, arouses easily. Denies shortness of breath on room air, POX 96%. Audible expiratory wheezes,coarse breath sounds with some faint expiratory wheezes left base, loose non-productive cough. V-Paced.
Voiding in the bathroom, call quintero in reach
[2024-02-19 21:46] LABS: Glucose - Point of Care 151 mg/dl (70-99)
[2024-02-19] MEDS: LANTUS 0.100000000000000006 UNITS SC (21:46)
[2024-02-20] VITALS (7 sets, daily range): BP systolic 100–139; BP diastolic 49–76; BMI 34.5
[2024-02-20 03:16] LABS: % Basophils 0.6 % (0-2); % Immature Granulocytes 0.8 % (0-0.5); % Lymphocytes 13.9 % (20.5-51.1); % Monocytes 9.5 % (1.7-9.3); % Neutrophils 75.2 % (42.2-75.2); Absolute Immature Granulocytes 0.1 10^3/uL (0-0.05); Absolute Monocytes 0.7 10^3/uL (0.1-0.6); Absolute Neutrophils 5.4 10^3/uL (1.4-6.5); Hematocrit 24.4 % (39.0-52.0); Hemoglobin 8.6 g/dL (13.0-18.0); Mean Corp Hgb Conc. 35.2 g/dL (33.0-37.0); Mean Corpuscular Hgb 33.6 pg (27.0-31.0); Mean Corpuscular Volume 95.3 fL (80.0-94.0); Mean Platelet Volume 10.5 fL (7.4-10.4); Nucleated Red Blood Cells % 0 % (-); Platelet Count 117 10^3/uL (130-400); Red Blood Cell Count 2.56 10^6/uL (4.70-6.10); Red Cell Dist. Width 16.8 % (11.5-14.5); White Blood Cell Count 7.1 10^3/uL (4.8-10.8)
[2024-02-20 03:29] LABS: Blood Urea Nitrogen 87 mg/dl (9-20); Calcium 9.9 mg/dl (8.4-10.2); Carbon Dioxide 28 mmol/L (22-30); Chloride 92 mmol/L (98-107); Estimated Creatinine Clearance 25 ml/min; Glucose 140 mg/dl (70-99); Sodium 130 mmol/L (135-145); eGFR 24.41
[2024-02-20] MEDS: SPIRIVA RESPIMAT 2.5 MCG 2 PUFF INH (07:37)
[2024-02-20] MEDS: MUCINEX 600 MG PO ×2 (07:49→20:34)
[2024-02-20 07:50] LABS: Glucose - Point of Care 138 mg/dl (70-99)
[2024-02-20] MEDS: COREG 6.25 MG PO ×2 (07:50→20:34)
[2024-02-20] MEDS: SENOKOT 8.59999999999999964 MG PO (07:50)
[2024-02-20] MEDS: OSCAL 500 + D 500 MG PO (07:50)
[2024-02-20] MEDS: LOW STRENGTH ASPIRIN 81 MG PO (07:50)
[2024-02-20] MEDS: COLACE 100 MG PO (07:50)
[2024-02-20] MEDS: EFFEXOR 75 MG PO ×2 (07:50→20:34)
[2024-02-20] MEDS: FEOSOL 325 MG PO (07:50)
[2024-02-20] MEDS: ZYLOPRIM 50 MG PO (07:53)
[2024-02-20] MEDS: HEPARIN 5000 UNITS SC (07:54)
[2024-02-20] MEDS: LASIX 40 MG IV (07:54)
[2024-02-20] MEDS: FLUSH (NSS) 1 FLUSH IV (08:00)
--- NOTE | 2024-02-20 08:20 | PN.DE.MGMTRT ---
Insulin Management
- -
02/20/2024 Diabetes Management Consult
Patient admitted from [facility] with CHF. PMH includes CAD, CHF, CVA, HTN, HCL, SC cellulitis. No medications for diabetes on home list. A1C 6.6, cr 2.5, eGFR 24.41.
Patient is awake and alert but confused, unable to answer questions accurately regarding medications for diabetes in the past.
Patient started on lantus 10 units @ HS with novolog 4 units AC with corrective insulin. Glucose range yesterday 202 fasting and as high as 253 pre lunch. Fasting this AM 140 venous. Will continue current regimen at this time.
Patient was on steroids, they have been discontinued. Will follow for ability to stop insulin. Due to cr and egfr will not consider oral medications. Patient should not require insulin at discharge.
Diabetes History
- -
Type of Diabetes: 2 requiring insulin
Pre-Admission Diabetes Regimen
02/20/24
02:51
Creatinine 2.5 H
Lab Results
Hemoglobin A1c 6.6 % (4.0-5.6) H 02/18/24 02:08
Insulin Pump Settings
IP Diabetes Regimen
02/19/24 02/19/24 02/19/24
12:17 16:46 21:45
Glucose
POC Glucose 206 H 253 H 151 H
02/20/24 02/20/24
02:51 07:49
Glucose 140 H
POC Glucose 138 H
Meal type: Dinner
Amount consumed: 100%
Patient Education
--- NOTE | 2024-02-20 09:17 | W.PN.PUL3 ---
Today's Communication / Plan
-
Given little benefit, steroids IV and PO are stopped completely, in agreement
He is currently stable on room air, clear lungs
Can continue inhalers at discharge, nebs PRN
Nothing further to add from my standpoint, outpatient FU recommended
He would like to go home, discharge planning per team
We will sign off at this time, please call with questions
Assessment
-
Patient is a 84-year-old male with history of COPD/asthma, Chronic HFrEF, s/p ICD, CKD, CVA, CAD, diabetes transferred from [facility] for evaluation of shortness of breath. Was in respiratory distress, placed on CPAP by EMS. Reportedly
wheezing, with cough and pulse ox was in the low 80s prior to arrival. ABG 7.37/47/97. CXR showing edema/effusion, proBNP 6160 which is increased from prior 5580.
Admitted 02/17/24. Placed on IV steroids for suspected comorbid AECOPD. We are consulted for eval.
Acute on chronic heart failure exacerbation with reduced EF
Acute on chronic SOB
Wheezing
Hyponatremia
Hyperkalemia
Conditions present prior to admission
CHF reduced EF.
ICD 2021.
CAD/stents.
Aortic stenosis
COPD/Asthms history
CKD stage IV.
Chronic pancytopenia.
Hypertension.
History of CVAs-residual left field cut
Diabetes.
Cigar smoker.
Morbid obesity
Obstructive sleep apnea suspected-untreated
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
History of gout
Multiple myeloma.
Nonadherence to medications
Plan
Currently >90% on room air, not on supplemental O2
Respiratory decompensation likely due to heart failure
Wheezing noted on presentation, ABG completed which was normal
No longer wheezing
CXR showing effusion/edema
Improved with diuresis
proBNP on arrival higher than before
Cards following
Prior ECHO reviewed
Placed on IV steroids for possible AECOPD
He is not currently wheezing
has concerns about steroids due to insomnia, psychosis, aggression noted in past
I do not think the benefit of IV/PO steroids in this patient outweigh risk
I would stop at this time and observe off without taper
He has been improving since admission
Continue nebulizers, PRN
Add spiriva daily--continue at discharge
Mucolytic's
Aspiration precautions
No concern for infection at this time, this was recently treated at last admission
Flu/MRSA neg on arrival
DVT prophylaxis-on heparin
Nutrition
Early mobilization
Reviewed with at bedside and nursing
Patient wants to go home, discharge planning per team
Outpatient pulm FU recommended
It is noted he is on outpatient palliative care
Discharge planning per team
Diagnostic Data
CXR 02/17/24- 1. Mild acute interstitial cardiogenic pulmonary edema.
2. Small bilateral pleural effusions.
3. Mild cardiomegaly.
4. Left-sided dual-chamber cardiac pacemaker/defibrillator in place.
Chest x-ray 01/16/2024-mild interstitial pneumonia right lung base
Chest x-ray 12/27/2023-low lung volumes, mild cardiomegaly, slight increased pulmonary vascularity
Chest x-ray 09/15/2023-NAD
Lexiscan Stress Test: 09/14/22:�Fixed inferior and inferior-septal defect consistent with infarction, severely decreased systolic function with estimated LVEF of 22% with severe global hypokinesis and dilated left ventricle, intermediate risk stress
test, 4 beat NSVT during study
Cardiac cath 10/24/2015:�LAD:stent in the proximal LAD is widely patent.� The second diagonal comes off the middle of the stent and is jailed by the stent and has a 90% ostial stenosis.� There is a 40% mid LAD stenosis. Circumflex: Luminal
irregularities RCA: 100% chronic total occlusion of the proximal RCA.
Echo 01/2021: EF 10 to 15%, global hypokinesis with akinesis of inferior wall, septum, and apex.� Stage III diastolic dysfunction, mitral annular calcification, mild MR, aortic sclerosis, mildly dilated aortic root
Echo 10/12/21: EF 10%, global hypokinesis LV severely dilated, mild LVH, stage III DD, mild MR, trace TR/AI, PAP 15 to 20 mmHg.� Possible left ventricular apical thrombus.� Echo repeated with Definity 10/13/2021 which demonstrated no LV thrombus with
Definity
Echo 11/08/23:�Dilated cardiomyopathy, LVEF of 30%, right-sided ICD, dilated left atrium, mild to moderate aortic stenosis, peak and mean transaortic gradients of 15/8 mmHg, DVI of 0.4.� No pericardial effusion.
Subjective Data
-
Date of Service:
Date of Service: February 20, 2024
Chief Complaint: Pulmonary Follow Up
Subjective:
no complaints, wants to go home
stable on room air, no new complaints
Objective Data
Data Reviewed
Vital Signs / I&O / Oxygen:
Vital Signs
Temp Pulse Resp BP Pulse Ox
97.5 F 66 18 125/67 94
02/20/24 07:22 02/20/24 07:39 02/20/24 07:39 02/20/24 07:22 02/20/24 07:39
Intake and Output
02/19/24 02/20/24 02/21/24
06:59 06:59 06:59
Intake Total 240 / 240
Output Total 1250 / 1250 1700 / 1700
Balance -1010 / -1010 -1700 / -1700
SaO2 94
Nasal Cannula flow liters per 2
minute
Physical Exam
General: Comfortable and Other (NAD)
HEENT: Normocephalic, Anicteric and Moist Mucous Membranes
Cardiovascular: S1-S2, Regular Rhythm and Peripheral Edema (bilateral)
Respiratory: Clear and Non-Labored Respirations
GI: Soft, Non Distended and Non Tender
Neurology: Awake, Alert, Oriented (to self, place), No Motor Deficits and Other (angry, agitated at times, yelling)
Skin: Warm and Dry
Labs/Micro/Reports
Lab Data
02/20/24 02:51
02/20/24 02:51
Microbiology
02/17/24 20:16 Nose MRSA Screen - Final
No Methicillin Resistant Staphylococcus aureus isolated.
02/17/24 14:31 Nasal Swab Influenza Types A & B (AMBREEN) - Final
Negative for Influenza A & B, NAAT
Negative results must be combined with clinical observations
and patient history.
Nucleic Acid Amplification test (NAAT)performed on the
[employer] platform.
[2024-02-20] MEDS: NOVOLOG FLEXPEN 4 UNITS SC ×3 (10:17→17:53)
[2024-02-20] MEDS: NOVOLOG FLEXPEN-LOW RESISTANCE SC ×2 (10:19→12:35)
--- NOTE | 2024-02-20 10:53 | W.PN.CARDCBS ---
Addendum entered and electronically signed by Lam Guerrero DO 02/20/24 11:30:
I saw and examined the patient.
The Python Consultant's note was reviewed and I agree with the note.
Comment:
Plan:
[facility] shows that tele was artifact as suspected as pt was moving
Consider transition to oral lasix as wt is down.
Patient with known CKD 4. Follows with nephrology at [facility], Dr. Reece
Cont med tx of nonMI troponin.
Cont Crestor 40 mg daily and Zetia 10 mg daily
No need to repeat echocardiogram at present
Discussed with nursing.
Please recall if needed.
Original Note:
Today's Communication / Plan
-
[facility] transmission pending
Potassium 5.0
Change to Lasix 40 mg PO BID starting this afternoon
Impression / Plan
-
Primary Cook Mayonnaise: Dr. Clark
PCP: Michelle Rogers
Impression:
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
Ischemic cardiomyopathy, lowest EF 10 to 15% by echo 01/2021, improved to 30% on echo 11/08/23
Elevated Troponin
YOANDY on CKD 4, previously on HD
s/p Medtronic Bi-V/ICD 12/07/21
CAD
s/p LAD PCI and OSTOMY NURSE of RCA 2013 LBBB
h/o CVA/TIA with residual left field cut
Diabetes
Hypertension
Dyslipidemia
Mild aortic stenosis
Mildly enlarged aortic root
Secondary hyperparathyroidism
Morbid obesity
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
Multiple myeloma
History of gout
PHILIPPE, untreated
Non-adherence to medications
Lexiscan Stress Test: 09/14/22:�Fixed inferior and inferior-septal defect consistent with infarction, severely decreased systolic function with estimated LVEF of 22% with severe global hypokinesis and dilated left ventricle, intermediate risk stress
test, 4 beat NSVT during study
Cardiac cath 10/24/2015:�LAD:stent in the proximal LAD is widely patent.� The second diagonal comes off the middle of the stent and is jailed by the stent and has a 90% ostial stenosis.� There is a 40% mid LAD stenosis. Circumflex: Luminal
irregularities RCA: 100% chronic total occlusion of the proximal RCA.
Echo 01/2021: EF 10 to 15%, global hypokinesis with akinesis of inferior wall, septum, and apex.� Stage III diastolic dysfunction, mitral annular calcification, mild MR, aortic sclerosis, mildly dilated aortic root
Echo 10/12/21: EF 10%, global hypokinesis LV severely dilated, mild LVH, stage III DD, mild MR, trace TR/AI, PAP 15 to 20 mmHg.� Possible left ventricular apical thrombus.� Echo repeated with Definity 10/13/2021 which demonstrated no LV thrombus with
Definity
Echo 11/08/23:�Dilated cardiomyopathy, LVEF of 30%, right-sided ICD, dilated left atrium, mild to moderate aortic stenosis, peak and mean transaortic gradients of 15/8 mmHg, DVI of 0.4.� No pericardial effusion.
Recommendation:
-Tele reviewed and there was possible NSVT 02/20/24 AM. [facility] transmission performed by me and await results. Potassium 5.0 on 02/20/24.
-Weight down 5 lbs this admission. Patient is below previous dry weight of 232 lbs from last HF discharge 01/25/24. Similar to previous admission, patient's is hesitant about IV diuresis and is worried about YOANDY given patient's h/o YOANDY on CKD.
-Recommend transition to Lasix 40 mg PO BID starting 02/20/24 PM.
-Patient with known CKD 4 and previously required transient dialysis. Follows with nephrology at [facility], Dr. Reece
-CM regimen includes Coreg 6.25 mg BID
-Patient is not chronically on UMAIR/ARB/aldosterone antagonist due to CKD.
-SGLT2 inhibitor could be considered, his GFR is less than 25 and he apparently has had incontinence. Likely safest to avoid starting SGLT2 inhibitor
-Peak Troponin 0.116 and Troponin appears to be chronically elevated due to part to CKD and also acute HF. Will manage as a nonischemic myocardial injury Troponin elevation.
-Cont usual dose of Crestor 40 mg daily and Zetia 10 mg daily
-Patient with h/o MM and his last course of treatment was 2 years ago.
-No need to repeat echocardiogram at present
-Patient was agreeable to PT/OT 02/19/24 and is at supervision level so plan is to return home instead of [facility]
-Update: [facility] report says no VT and Optivol is up consistent with known CHF.
HPI: Patient came to [facility] today with SOB and is now being admitted with acute HF so cardiology has been consulted. Patient was just admitted to 12/27/23 until 12/31/23 with acute HF. Dry weight on day of discharge was 235 lbs. Patient has not been
weighing himself since discharge. He says he is following salt and fluid restriction, but can't articulate what those restrictions are. He also reports that he is taking Lasix 40 mg daily as ordered and missed a dose last night, but does not
routinely miss doses. Patient has a h/o CKD and follows with Dr. Reece at [facility] for outpatient nephrology care. Cre peaked at 2.9 last admission and baseline Cre is closer to 2.5. Patient was previously on transient dialysis. Patient also with h/o
pAfib and was in SR during device check in the office 01/04/24, but now appears to be in Afib. Patient denies palpitations. Patient is not on OAC due to h/o MM. Patient says that his symptoms started suddenly 2 hours prior to admission, but his
partner thinks that symptoms started earlier. Patient complains of orthopnea, but denies bloating or edema. Patient was 76% on RA when EMS arrived this morning and improved in BiPAP, but now stable on 6 L NC.
Progress Note - Cook Mayonnaise
Subjective
Date of Service: February 20, 2024
He says he wants to go home today
Objective
Labs:
02/20/24 02:51
02/20/24 02:51
Labs
Hgb 8.6 g/dL (13.0-18.0) L 02/20/24 02:51
Hct 24.4 % (39.0-52.0) L 02/20/24 02:51
Plt Count 117 10^3/uL (130-400) L 02/20/24 02:51
Sodium 130 mmol/L (135-145) L 02/20/24 02:51
Potassium 5.0 mmol/L (3.5-5.1) 02/20/24 02:51
BUN 87 mg/dl (9-20) H 02/20/24 02:51
Creatinine 2.5 mg/dL (0.7-1.3) H 02/20/24 02:51
Glucose 140 mg/dl (70-99) H 02/20/24 02:51
Troponins
02/17/24 02/17/24 02/18/24
14:31 20:16 02:08
Troponin I 0.067 H* 0.111 H* D 0.116 H*
02/18/24
08:40
Troponin I 0.102 H*
Vital Signs and I&O:
Vital Signs
Temp Pulse Resp BP Pulse Ox
97.5 F 66 18 125/67 94
02/20/24 07:22 02/20/24 07:39 02/20/24 07:39 02/20/24 07:22 02/20/24 07:39
Vital Signs
Temp Pulse Resp BP Pulse Ox
97.5 F 66 18 125/67 94
02/20/24 07:22 02/20/24 07:39 02/20/24 07:39 02/20/24 07:22 02/20/24 07:39
Intake & Output
02/18/24 02/19/24 02/20/24 02/21/24
06:59 06:59 06:59 06:59
Intake Total 240 / 240 240 / 240
Output Total 1200 / 1200 1250 / 1250 1700 / 1700
Balance -960 / -960 -1010 / -1010 -1700 / -1700
Physical Exam
Physical Exam
GEN: Sleeping initially then AAO x3
HEENT: EOMI, MMM
LUNGS: No audible wheeze
CV: Reg
ABD: soft, BS+, NT, ND
EXT:� +1 B/L LE edema
NEURO: Gross non-focal
SKIN: No rash
--- NOTE | 2024-02-20 11:10 | W.CARD.DEVCH ---
Cardiac Device Check
-
Device: Implanted Cardioverter-Defibrillator (Medtronic DRILLER'S OFFSIDER-D)
Bilingual Hr Generalist: Medtronic
The patient's device was interrogated with assistance of the device environmental marketing representative followed by a complete physician review. The device had normal function. No abnormalities seen.
[facility] transmission performed by ma. No VT, OptiVol is up c/w with known CHF.
[2024-02-20 12:33] LABS: Glucose - Point of Care 118 mg/dl (70-99)
--- NOTE | 2024-02-20 14:08 | W.HF.CON ---
Heart Failure
- LV Function
Left ventricular function study result: LV Ejection fraction </= 35% (ECHO 11/08/23)
Ejection Fraction Percentage: 30
- ARNI
Patient already on ARNI: No
Heart Failure ARNI Contraindication: Acute Renal Failure
- ACEI/ARB
Patient already on ACEI/ARB: No
Heart Failure ACEI/ARB Contraindication: Acute Renal Failure
- Beta Danelle
Patient already on Evidence Based Beta Danelle: Yes
- Mineralocorticord Receptor Antagonist
Patient already on MRA: No
Heart Failure MRA Contraindication: Acute Renal Insufficiency, Cr > 2.5 in Men
- SGLT-2 Inhibitor
Patient already on SGLT-2 Inhibitor: No
Heart Failure SGLT-2 Inhibitor Contraindication: eGFR < 25
- Afib Anticoagulation
Patient already on Anticoagulation for Afib: No
Heart Failure Afib Anticoagulation Contraindication: Blood Dyscrasias
- NYHA CHF Classification
NYHA CHF Classification Level: Class III - Symptoms w/ min exertion, interferes w/ nml daily activity
- ACC/AHA Stage
ACC/AHA Stage: Stage C: Symptomatic Heart Failure
[2024-02-20] MEDS: LASIX 40 MG PO (16:16)
--- NOTE | 2024-02-20 16:53 | W.PN.HOSP.TC ---
Today's Communication/Plan
-
If labs okay and patient's weight stable/improved by tomorrow, can be discharged tomorrow
Assessment / Plan
Assessment / Plan
Physical Exam
Gen-AAOx3, NAD, obese
HEENT-NC, AT, anicteric, clear oral mm
Neck-supple
CV-reg, no M, +S1/S2
Lungs-CTAB
Abd-soft, NT, ND
Ext-no edema
Musculoskeletal-no cyanosis; 1+ B/L lower extremity edema
Skin-warm and dry
Neuro-grossly non-focal
Psych-calm, cooperative
Assessment/Plan
Acute hypoxic respiratory failure - suspect due to acute pulmonary edema. Cannot rule out component of acute COPD exacerbation. Chest x-ray read as mild acute interstitial cardiogenic pulmonary edema, small bilateral pleural effusions, mild
cardiomegaly. Was on BiPAP in the emergency room, 6 L nasal cannula oxygen --> 3 L currently. Wean down as able.
Acute on chronic heart failure with reduced EF exacerbation -continue IV Lasix. Monitor renal function closely. Consulted cardiology. BNP 6160. Patient's is very anxious about IV Lasix and wants to use the minimum dose possible as she is
concerned about worsening renal function. Dr. Marin tried to reassure her. Will monitor renal function on a daily basis. Lasix transitioned to PO.
Last echocardiogram was from 11/08/2023. Showed LVEF 30%, dilated cardiomyopathy.
Acute on chronic hyponatremia - sodium stable. Suspect due to heart failure exacerbation. Urine osmolality 279, urine sodium 110.
Acute COPD exacerbation -characterized by cough and wheezing. Continue inhalers, Mucinex, Acapella. Pulmonary consulted -- recommendations appreciated -- no steroids needed and patient's noted that patient has had side effects from steroids in
the past. Continue Spiriva on discharge.
Hypothermia -noted in the emergency room. Recheck temperature. Rewarming techniques as needed. Normothermic today.
Troponin elevation -likely acute nonischemic myocardial injury due to heart failure exacerbation, acute illness. Trend troponins.
Pancytopenia -unclear etiology. Has baseline chronic anemia likely due to chronic kidney disease. Needs outpatient follow-up. Reported history of multiple myeloma. Hemoglobin 8.2 today, monitor daily.
CKD 4 -renal function at baseline. Creatinine stable. Follows with nephrology at [facility], Dr. Reece.
DM2 with hyperglycemia -hemoglobin A1c 6.6%. Does not appear to be on diabetes medications chronically. Will consider Diabetes PEER TUTOR consult. Use low resistance NovoLog scale.
Essential hypertension -stable.
Hyperlipidemia -on rosuvastatin. Continue Crestor 40 mg daily and Zetia 10 mg daily.
History of gout
Obesity due to excess calories
Full code
PT/OT
Anticipated Discharge: Within 24 hours
Subjective/Interval History
-
Date of Service: February 20, 2024
Patient was seen and examined. He denied any new complaints.
Objective Data
-
Vital Signs:
Vital Signs
Temp Pulse Resp BP Pulse Ox
97.7 F 83 16 115/63 92
02/20/24 15:21 02/20/24 15:21 02/20/24 15:21 02/20/24 11:17 02/20/24 15:21
I&O
02/19/24 02/20/24 02/21/24
06:59 06:59 06:59
Intake Total 240 / 240
Output Total 1250 / 1250 1700 / 1700
Balance -1010 / -1010 -1700 / -1700
[2024-02-20 17:25] LABS: Glucose - Point of Care 162 mg/dl (70-99)
[2024-02-20] MEDS: NOVOLOG FLEXPEN-LOW RESISTANCE 1 UNITS SC (17:52)
[2024-02-20] MEDS: FLOMAX 0.400000000000000022 MG PO (17:53)
[2024-02-20] MEDS: ZETIA 10 MG PO (17:53)
[2024-02-20] MEDS: CRESTOR 40 MG PO (17:53)
--- NOTE | 2024-02-20 19:18 | PTCARENOTE ---
Pt denies any chest pain, sob or palpitations. Pt OOB to the bathroom and to the chair with the walker. Tolerated oob in the chair for most of the day. No c/o offered.
--- NOTE | 2024-02-20 19:20 | PTCARENOTE ---
Assumed care, appears to be in a NSR with a first degree HB, HR 61. EKG completed and placed on chart. He is less audibly wheezy today, periodically appears short of breath. Lungs are CTA. POX 96% on room air. Left foot and toes dusky, trace ankle
edema bilaterally. at bedside, plan of care reviewed, call quintero in reach
--- NOTE | 2024-02-20 19:30 | PTCARENOTE ---
Assumed care. AO x3,pleasant. Audible wheezes, on room air, denies shortness of breath,moist non-productive cough, course crackles b/l bases. Dependent trace edema. Using rolling walker with supervision, voiding in the bathroom. Patient in bed now,
sleeping on his side,call quintero in reach
[2024-02-20] MEDS: HEPARIN SC (21:18)
[2024-02-20 22:10] LABS: Glucose - Point of Care 142 mg/dl (70-99)
[2024-02-20] MEDS: MELATONIN 3 MG PO (22:12)
[2024-02-20] MEDS: LANTUS 0.100000000000000006 UNITS SC (22:13)
[2024-02-21] VITALS (7 sets, daily range): BP systolic 88–121; BP diastolic 44–66; BMI 34.1
[2024-02-21 05:49] LABS: Blood Urea Nitrogen 99 mg/dl (9-20); Calcium 9.5 mg/dl (8.4-10.2); Carbon Dioxide 26 mmol/L (22-30); Chloride 93 mmol/L (98-107); Estimated Creatinine Clearance 23 ml/min; Glucose 118 mg/dl (70-99); Magnesium 1.9 mg/dl (1.6-2.3); Potassium 4.7 mmol/L (3.5-5.1); Sodium 129 mmol/L (135-145); eGFR 22.26
--- NOTE | 2024-02-21 06:22 | PTCARENOTE ---
Patient awake assisted to chair. Call quintero in reach
[2024-02-21] MEDS: NOVOLOG FLEXPEN 4 UNITS SC ×3 (07:00→17:56)
[2024-02-21] MEDS: SPIRIVA RESPIMAT 2.5 MCG 2 PUFF INH (07:36)
--- NOTE | 2024-02-21 07:54 | PN.DE.MGMTRT ---
Insulin Management
- -
02/21/2024 Diabetes Management Consult Follow up
Patient admitted from [facility] with CHF. PMH includes CAD, CHF, CVA, HTN, HCL, OK cellulitis. No medications for diabetes on home list. A1C 6.6, cr 2.5, eGFR 24.41.
Patient was on steroids, they have been discontinued. Patient started on lantus 10 units @ HS with novolog 4 units AC with corrective insulin. Glucose range yesterday 118 fasting and as high as 162 pre lunch. Fasting this AM 118 venous.
When patient discharged please stop insulin. Due to cr and egfr will not consider oral medications.
Diabetes History
- -
Type of Diabetes: 2
Pre-Admission Diabetes Regimen
02/21/24
05:01
Creatinine 2.7 H
Lab Results
Hemoglobin A1c 6.6 % (4.0-5.6) H 02/18/24 02:08
Insulin Pump Settings
IP Diabetes Regimen
02/20/24 02/20/24 02/20/24
12:32 17:24 22:08
Glucose
POC Glucose 118 H 162 H 142 H
02/21/24
05:01
Glucose 118 H
POC Glucose
Meal type: Breakfast
Amount consumed: 100%
Patient Education
[2024-02-21] MEDS: LASIX 40 MG PO ×2 (08:51→17:55)
[2024-02-21] MEDS: LOW STRENGTH ASPIRIN 81 MG PO (08:52)
[2024-02-21] MEDS: EFFEXOR 75 MG PO ×2 (08:52→20:11)
[2024-02-21] MEDS: COLACE 100 MG PO (08:52)
[2024-02-21] MEDS: MUCINEX 600 MG PO ×2 (08:53→20:11)
[2024-02-21] MEDS: COREG 6.25 MG PO ×2 (08:53→20:11)
[2024-02-21] MEDS: OSCAL 500 + D 500 MG PO (08:53)
[2024-02-21] MEDS: SENOKOT 8.59999999999999964 MG PO (08:53)
[2024-02-21] MEDS: ZYLOPRIM 50 MG PO (08:54)
[2024-02-21] MEDS: HEPARIN SC ×2 (08:54→20:12)
[2024-02-21] MEDS: NOVOLOG FLEXPEN-LOW RESISTANCE SC ×2 (08:57→13:45)
--- NOTE | 2024-02-21 11:37 | CM ---
Addendum entered by KATIE Ceja 02/21/24 16:08:
Noted that patient may be ready for DC. Spoke w/ spouse, Gracia galvez w/ RN. Per spouse, patient is not at baseline.
MD updated and pt. will cont. to be monitored.
Plan is for home w/ [facility] once stable.
Original Note:
CM following for DC planning needs.
Met w/ patient at bedside. He reports that he is feeling well.
Reviewed PT evaluation: recommendation is for home health. Referral sent to [facility]< accepted.
Reviewed DC plan w/ patient for home w/ [facility].
Will cont. to follow.
--- NOTE | 2024-02-21 13:23 | W.PN.HOSP.TC ---
Today's Communication/Plan
-
Discharge today
Assessment / Plan
Assessment / Plan
Physical Exam
Gen-AAOx3, NAD, obese
HEENT-NC, AT, anicteric, clear oral mm
Neck-supple
CV-reg, no M, +S1/S2
Lungs-CTAB. ON ROOM AIR.
Abd-soft, NT, ND. Positive bowel sounds.
Ext-no edema
Musculoskeletal-no cyanosis; 1+ B/L lower extremity edema
Skin-warm and dry
Neuro-grossly non-focal
Psych-calm, cooperative
Assessment/Plan
Acute hypoxic respiratory failure - suspect due to acute pulmonary edema. Chest x-ray read as mild acute interstitial cardiogenic pulmonary edema, small bilateral pleural effusions, mild cardiomegaly. Was on BiPAP in the emergency room, 6 L nasal
cannula oxygen --> 3 L currently. Weaned down to room air now --> does not need home oxygen based on home oxygen assessment test.
Acute on chronic heart failure with reduced EF exacerbation - Monitor renal function closely. Consulted cardiology. BNP 6160. Patient's is very anxious about IV Lasix and wants to use the minimum dose possible as she is concerned about
worsening renal function. Dr. Marin tried to reassure her. Will need to have BMP monitored closely as outpatient. Lasix transitioned to PO.
Last echocardiogram was from 11/08/2023. Showed LVEF 30%, dilated cardiomyopathy. Continue Coreg 6.25 mg BID. Patient is not chronically on UMAIR/ARB/aldosterone antagonist due to CKD.
Acute on chronic hyponatremia - sodium stable. Suspect due to heart failure exacerbation. Urine osmolality 279, urine sodium 110.
Acute COPD exacerbation -characterized by cough and wheezing. Continue inhalers, Mucinex, Acapella. Pulmonary consulted -- recommendations appreciated -- no steroids needed and patient's noted that patient has had side effects from steroids in
the past. Continue Spiriva on discharge.
Hypothermia -noted in the emergency room. Recheck temperature. Rewarming techniques as needed. Normothermic today.
Troponin elevation -likely acute nonischemic myocardial injury due to heart failure exacerbation, acute illness. Trend troponins.
Pancytopenia -unclear etiology. Has baseline chronic anemia likely due to chronic kidney disease. Needs outpatient follow-up. Reported history of multiple myeloma. Hemoglobin 8.2 today, monitor daily.
CKD 4 -renal function at baseline. Creatinine stable. Follows with nephrology at [facility], Dr. Reece.
Type 2 Diabetes Mellitus with hyperglycemia -hemoglobin A1c 6.6%. Does not appear to be on diabetes medications chronically. Diabetes EDI ANALYST consult appreciated. Outpatient follow-up, no Insulin on discharge.
Essential hypertension -stable.
Hyperlipidemia -on rosuvastatin. Continue Crestor 40 mg daily and Zetia 10 mg daily.
History of gout
Obesity due to excess calories
Full code
PT/OT
More than 30 minutes spent in discharge including
Final examination of the patient
Summarizing hospital stay
Instructions for continuing care to all relevant caregivers
Preparation of discharge records, prescriptions, and referral forms
Total time spent (in minutes): 39
Anticipated Discharge: Today
Subjective/Interval History
-
Date of Service: February 21, 2024
Patient was seen and examined. He reported no chest pain, shortness of breath or any other complaints.
Objective Data
-
Labs:
Laboratory Results
02/21/24
05:01
Sodium 129 L
Potassium 4.7
Chloride 93 L
Carbon Dioxide 26
BUN 99 H
Creatinine 2.7 H
Glucose 118 H
Calcium 9.5
Vital Signs:
Vital Signs
Temp Pulse Resp BP Pulse Ox
98.4 F 92 20 96/66 94
02/21/24 12:21 02/21/24 08:51 02/21/24 12:21 02/21/24 08:51 02/21/24 12:21
I&O
02/20/24 02/21/24 02/22/24
06:59 06:59 06:59
Intake Total 240 / 240
Output Total 1700 / 1700 600 / 600
Balance -1700 / -1700 -600 / -600 240 / 240
[2024-02-21 13:44] LABS: Glucose - Point of Care 119 mg/dl (70-99)
--- NOTE | 2024-02-21 15:29 | W.DS.TRANS ---
DC Summary - [employer]
-
Discharge Instructions:
Sleep Apnea Risk Intermediate
Discharge Diagnosis/Procedures Acute hypoxic respiratory failure -- suspected
from heart failure exacerbation
Acute on chronic heart failure with reduced
ejection fraction - exacerbation
Acute on chronic hyponatremia
Concern for COPD Exacerbation
Hypothermia
Troponin elevation
Pancytopenia
CKD 4
Type 2 Diabetes Mellitus with hyperglycemia
Essential hypertension
Hyperlipidemia
History of gout
Obesity due to excess calories
Diet Diabetic, Carb Controlled,Restrict fluids to 48
oz
Driving Restrictions No driving
Blood Work Recheck BMP and CBC and Magnesium with your
primary care provider in 1-2 days from now
Other Services VN
Specialty Instructions Weigh Daily
Instructions:
Stand-Alone Forms:
Changes to Home Medications: Yes
Discharge Medications:
DC Medications w/original date entered in [facility]
allopurinol 100 mg tablet 50 mg PO DAILY Gout 10/11/21
ezetimibe 10 mg tablet 10 mg PO QPM High cholesterol 10/11/21
rosuvastatin 40 mg tablet (Crestor) 40 mg PO QPM High cholesterol 10/11/21
tamsulosin 0.4 mg capsule 0.4 mg PO QPM Urinary issue 11/30/21
docusate sodium 100 mg capsule (Colace) 100 mg PO DAILY Constipation 07/31/22
sennosides 8.6 mg tablet (Senokot) 8.6 mg PO DAILY Constipation 07/31/22
carvedilol 6.25 mg tablet (Coreg) 6.25 mg PO BID heart disease/condition #60 tabs 08/02/22
cholecalciferol (vitamin D3) 50 mcg (2,000 unit) tablet 50 mcg PO DAILY Supplement 12/27/23
venlafaxine 75 mg tablet 75 mg PO BID Mental Health 12/27/23
omega 9-suv-[id number]-fish oil 1,200 mg (144 mg-216 mg) capsule (Fish Oil) 3 cap PO QPM Supplement 01/16/24
aspirin 81 mg chewable tablet (Children's Aspirin) 81 mg PO DAILY #0 tabs 01/25/24
ferrous sulfate 325 mg (65 mg iron) tablet,delayed release 325 mg PO Q48H #30 tabs 01/25/24
calcium carbonate 600 mg-vitamin D3 10 mcg (400 unit) tablet (Calcium 600 + D(3)) 1 tab PO DAILY Supplement 02/17/24
ipratropium 0.5 mg-albuterol 3 mg (2.5 mg base)/3 mL nebulization soln 3 ml inhalation R Q6 Lung/Breathing Issues 02/17/24
melatonin 3 mg tablet 3 mg PO QPM Sleep 02/17/24
miconazole nitrate 2 % topical powder (Miconazorb AF) 1 applic topical BID fungal rash 02/17/24
furosemide 40 mg tablet 40 mg PO BID AT 0800,1600 #60 tabs 02/21/24
tiotropium bromide 2.5 mcg/actuation mist for inhalation (Spiriva Respimat) 2 puff inhalation R DAILY #4 grams 02/21/24
Home Medication Changes
Furosemide dose increased to twice per day
Spiriva is a new medication
Pending Results: No
Total time spent discharging patient (in min): 39
--- NOTE | 2024-02-21 15:54 | PTCARENOTE ---
expressed concerns about patients personality and saying he seems like ' someone pulled the plug on him' and he was off. very sleepy. pulse ox 88% on RA while asleep. reported info and concerns to hosp Dr Hernandez. order to cancel d/c and
continue to monitor tonight.
[2024-02-21] MEDS: FLOMAX 0.400000000000000022 MG PO (17:56)
[2024-02-21] MEDS: CRESTOR 40 MG PO (17:56)
[2024-02-21] MEDS: ZETIA 10 MG PO (17:56)
[2024-02-21] MEDS: NOVOLOG FLEXPEN-LOW RESISTANCE 1 UNITS SC (18:00)
[2024-02-21 18:01] LABS: Glucose - Point of Care 187 mg/dl (70-99)
--- NOTE | 2024-02-21 18:04 | PTCARENOTE ---
moist harsh cough noted.
[2024-02-21 21:42] LABS: Glucose - Point of Care 118 mg/dl (70-99)
[2024-02-21] MEDS: MELATONIN 3 MG PO (22:56)
[2024-02-21] MEDS: LANTUS 0.100000000000000006 UNITS SC (22:56)
--- NOTE | 2024-02-22 00:23 | PTCARENOTE ---
Addendum entered by Lam Gomez RN 02/22/24 00:25:
HR v-paced w/ PVCs, couplets. Pt agitated he has to stay another day, states 'i am DONE with all this'. Educated pt on reason discharge delayed and educated on plan of care. Pt denies any CP, SOB, or lightheadedness/dizziness at this time. Informed
to notify RN if any changes, call quintero within reach.
Pt frequently ringing quintero to use bathroom. Pt voiding very minimally each time. PVR 100.
Original Note:
Pt received at start of shift. HR v-paced,
During previous shift while pt asleep, pt O2 down to 88%. 2L NC placed on pt overnight.
[2024-02-22 02:51] VITALS: BP 148/57
--- NOTE | 2024-02-22 05:09 | W.PN.UPDATE ---
Update Note
Progress Note Update
RN reporting pt up all night voiding small frequent amounts. Will check ua
[2024-02-22 05:28] LABS: % Basophils 0.2 % (0-2); % Eosinophils 2.1 % (0-6); % Immature Granulocytes 1.5 % (0-0.5); % Lymphocytes 27.3 % (20.5-51.1); % Monocytes 12.4 % (1.7-9.3); % Neutrophils 56.5 % (42.2-75.2); Absolute Eosinophils 0.1 10^3/uL (0-0.7); Absolute Immature Granulocytes 0.1 10^3/uL (0-0.05); Absolute Lymphocytes 1.3 10^3/uL (1.2-3.4); Absolute Monocytes 0.6 10^3/uL (0.1-0.6); Absolute Neutrophils 2.7 10^3/uL (1.4-6.5); Hematocrit 25.7 % (39.0-52.0); Hemoglobin 8.6 g/dL (13.0-18.0); Mean Corp Hgb Conc. 33.5 g/dL (33.0-37.0); Mean Corpuscular Hgb 33.7 pg (27.0-31.0); Mean Corpuscular Volume 100.8 fL (80.0-94.0); Nucleated Red Blood Cells % 0.4 % (-); Platelet Count 105 10^3/uL (130-400); Red Blood Cell Count 2.55 10^6/uL (4.70-6.10); Red Cell Dist. Width 16.9 % (11.5-14.5); White Blood Cell Count 4.7 10^3/uL (4.8-10.8)
[2024-02-22 05:34] LABS: Urine Albumin Negative (Neg - Trace); Urine Bilirubin Negative (Negative); Urine Character Clear (Clear); Urine Color Yellow; Urine Glucose Negative (Negative); Urine Ketone Negative (Negative); Urine Leukocyte Negative (Negative); Urine Nitrite Negative (Negative); Urine Occult Blood Negative (Negative); Urine Specific Gravity 1.015 (<1.030); Urine Urobilinogen Negative (Neg - 1+)
[2024-02-22 06:00] VITALS: BMI 34.0
[2024-02-22 06:01] LABS: Blood Urea Nitrogen 103 mg/dl (9-20); Calcium 9.9 mg/dl (8.4-10.2); Carbon Dioxide 29 mmol/L (22-30); Chloride 92 mmol/L (98-107); Estimated Creatinine Clearance 21 ml/min; Glucose 136 mg/dl (70-99); Potassium 4.5 mmol/L (3.5-5.1); Sodium 130 mmol/L (135-145); eGFR 20.43
[2024-02-22 06:59] VITALS: BP 112/36
[2024-02-22 07:02] LABS: Glucose - Point of Care 142 mg/dl (70-99)
[2024-02-22] MEDS: SPIRIVA RESPIMAT 2.5 MCG INH ×2 (07:55→07:58)
[2024-02-22] MEDS: DUONEB 3 ML INH (07:56)
[2024-02-22] MEDS: LASIX 40 MG PO (09:02)
[2024-02-22] MEDS: LOW STRENGTH ASPIRIN 81 MG PO (09:02)
[2024-02-22] MEDS: OSCAL 500 + D 500 MG PO (09:02)
[2024-02-22] MEDS: ZYLOPRIM 50 MG PO (09:02)
[2024-02-22] MEDS: EFFEXOR 75 MG PO (09:02)
[2024-02-22] MEDS: FLUSH (NSS) 1 FLUSH IV (09:02)
[2024-02-22] MEDS: COLACE 100 MG PO (09:03)
[2024-02-22] MEDS: MUCINEX 600 MG PO (09:03)
[2024-02-22] MEDS: NOVOLOG FLEXPEN 4 UNITS SC (09:03)
[2024-02-22] MEDS: NOVOLOG FLEXPEN-LOW RESISTANCE SC ×2 (09:03→12:47)
[2024-02-22] MEDS: SENOKOT 8.59999999999999964 MG PO (09:03)
[2024-02-22] MEDS: FEOSOL 325 MG PO (09:04)
[2024-02-22] MEDS: HEPARIN SC (09:04)
[2024-02-22] MEDS: COREG 6.25 MG PO (09:04)
--- NOTE | 2024-02-22 09:17 | W.PN.PUL3 ---
Today's Communication / Plan
-
Aggressive and yelling at staff to go home
Nocturnal desaturation recs are noted below, can be done as OP
We could not have a conversation today about outpatient FU as he threw his table and refused to speak
Strongly recommend discharge planning as he has asked for several days to go home now
We will sign off again at this time
Assessment
-
Patient is a 84-year-old male with history of COPD/asthma, Chronic HFrEF, s/p ICD, CKD, CVA, CAD, diabetes transferred from [facility] for evaluation of shortness of breath. Was in respiratory distress, placed on CPAP by EMS. Reportedly
wheezing, with cough and pulse ox was in the low 80s prior to arrival. ABG 7.37. CXR showing edema/effusion, proBNP 6160 which is increased from prior 5580.
Admitted 02/17/24. Placed on IV steroids for suspected comorbid AECOPD. We are consulted for eval.
Acute on chronic heart failure exacerbation with reduced EF
Acute on chronic SOB
Wheezing
Hyponatremia
Hyperkalemia
Conditions present prior to admission
CHF reduced EF.
ICD 2021.
CAD/stents.
Aortic stenosis
COPD/Asthms history
CKD stage IV.
Chronic pancytopenia.
Hypertension.
History of CVAs-residual left field cut
Diabetes.
Cigar smoker.
Morbid obesity
Obstructive sleep apnea suspected-untreated
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
History of gout
Multiple myeloma.
Nonadherence to medications
Plan
Currently >90% on room air, not on supplemental O2
Respiratory decompensation likely due to heart failure
Wheezing noted on presentation, ABG completed which was normal
No longer wheezing
Desaturation noted overnight--
He has had a prior nocturnal report in 2014 confirming nocturnal desaturation (40% of study, O2 pool 78%, SRIDHAR 14.8)--this is suggestive of underlying sleep disordered breathing
Was instructed to obtain sleep study at that time, never pursued
Would recommend outpatient sleep study, will place in discharge instructions
CXR showing effusion/edema
Improved with diuresis
proBNP on arrival higher than before
Cards following
Prior ECHO reviewed
Placed on IV steroids for possible AECOPD
He is not currently wheezing
has concerns about steroids due to insomnia, psychosis, aggression noted in past
I do not think the benefit of IV/PO steroids in this patient outweigh risk
Observe off without taper
He has been improving since admission
Continue nebulizers, PRN
Spiriva daily--continue at discharge
Mucolytic's
Aspiration precautions
No concern for infection at this time, this was recently treated at last admission
Flu/MRSA neg on arrival
DVT prophylaxis-on heparin
Nutrition
Early mobilization
Outpatient pulm FU recommended
It is noted he is on outpatient palliative care
Reviewed with at bedside and nursing
Patient wants to go home
Discharge planning per team
Diagnostic Data
CXR 02/17/24- 1. Mild acute interstitial cardiogenic pulmonary edema.
2. Small bilateral pleural effusions.
3. Mild cardiomegaly.
4. Left-sided dual-chamber cardiac pacemaker/defibrillator in place.
Chest x-ray 01/16/2024-mild interstitial pneumonia right lung base
Chest x-ray 12/27/2023-low lung volumes, mild cardiomegaly, slight increased pulmonary vascularity
Chest x-ray 09/15/2023-NAD
Lexiscan Stress Test: 09/14/22:�Fixed inferior and inferior-septal defect consistent with infarction, severely decreased systolic function with estimated LVEF of 22% with severe global hypokinesis and dilated left ventricle, intermediate risk stress
test, 4 beat NSVT during study
Cardiac cath 10/24/2015:�LAD:stent in the proximal LAD is widely patent.� The second diagonal comes off the middle of the stent and is jailed by the stent and has a 90% ostial stenosis.� There is a 40% mid LAD stenosis. Circumflex: Luminal
irregularities RCA: 100% chronic total occlusion of the proximal RCA.
Echo 01/2021: EF 10 to 15%, global hypokinesis with akinesis of inferior wall, septum, and apex.� Stage III diastolic dysfunction, mitral annular calcification, mild MR, aortic sclerosis, mildly dilated aortic root
Echo 10/12/21: EF 10%, global hypokinesis LV severely dilated, mild LVH, stage III DD, mild MR, trace TR/AI, PAP 15 to 20 mmHg.� Possible left ventricular apical thrombus.� Echo repeated with Definity 10/13/2021 which demonstrated no LV thrombus with
Definity
Echo 11/08/23:�Dilated cardiomyopathy, LVEF of 30%, right-sided ICD, dilated left atrium, mild to moderate aortic stenosis, peak and mean transaortic gradients of 15/8 mmHg, DVI of 0.4.� No pericardial effusion.
Nocturnal Ox Study 10/28/15: Time spent >80 and <90% 3:33:26 (40.1% of study), time spent <80% 14s. O2 pool 78%, SRIDHAR >10s was 14.8
Subjective Data
-
Date of Service:
Date of Service: February 22, 2024
Chief Complaint: Pulmonary Follow Up
Subjective:
we are asked to re-see for nocturnal desaturation
aggressive, yelling at staff
wants to go home
Objective Data
Data Reviewed
Vital Signs / I&O / Oxygen:
Vital Signs
Temp Pulse Resp BP Pulse Ox
98.2 F 85 22 112/36 96
02/22/24 06:56 02/22/24 09:00 02/22/24 06:56 02/22/24 06:59 02/22/24 06:56
Intake and Output
02/21/24 02/22/24 02/23/24
06:59 06:59 06:59
Intake Total 240 / 240
Output Total 600 / 600 650 / 650
Balance -600 / -600 -410 / -410
SaO2 96
Nasal Cannula flow liters per 2
minute
Physical Exam
General: Comfortable and Other (NAD)
HEENT: Normocephalic, Anicteric and Moist Mucous Membranes
Cardiovascular: S1-S2, Regular Rhythm and Peripheral Edema (bilateral)
Respiratory: Clear and Non-Labored Respirations
GI: Soft, Non Distended and Non Tender
Neurology: Awake, Alert, Oriented (to self, place), No Motor Deficits and Other (angry, agitated at times, yelling)
Skin: Warm and Dry
Labs/Micro/Reports
Lab Data
02/22/24 05:12
02/22/24 05:12
Microbiology
02/17/24 20:16 Nose MRSA Screen - Final
No Methicillin Resistant Staphylococcus aureus isolated.
--- NOTE | 2024-02-22 10:11 | PN.DE.MGMTRT ---
Insulin Management
- -
02/22/2024 Diabetes Management Consult Follow up
Patient admitted from [facility] with CHF. PMH includes CAD, CHF, CVA, HTN, HCL, HI cellulitis. No medications for diabetes on home list. A1C 6.6, cr 2.5, eGFR 24.41.
Patient was on steroids, they have been discontinued. Patient started on lantus 10 units @ HS with novolog 4 units AC with corrective insulin. Glucose range yesterday 118 fasting and as high as 187. Fasting this AM 136 venous.
When patient discharged please stop insulin. Due to cr and egfr will not consider oral medications.
Diabetes History
- -
Type of Diabetes: 2
Pre-Admission Diabetes Regimen
02/22/24
05:12
Creatinine 2.9 H
Lab Results
Hemoglobin A1c 6.6 % (4.0-5.6) H 02/18/24 02:08
Insulin Pump Settings
IP Diabetes Regimen
02/21/24 02/21/24 02/21/24
13:43 17:59 21:40
Glucose
POC Glucose 119 H 187 H 118 H
02/22/24 02/22/24
05:12 07:01
Glucose 136 H
POC Glucose 142 H
Meal type: Lunch
Amount consumed: 100%
Patient Education
--- NOTE | 2024-02-22 11:00 | W.PN.HOSP.TC ---
Today's Communication/Plan
-
Discharge today
Assessment / Plan
Assessment / Plan
Physical Exam
Gen-AAOx3, NAD, obese
HEENT-NC, AT, anicteric, clear oral mm
Neck-supple
CV-reg, no M, +S1/S2
Lungs-CTAB. ON ROOM AIR.
Abd-soft, NT, ND. Positive bowel sounds.
Ext-no edema
Musculoskeletal-no cyanosis; 1+ B/L lower extremity edema
Skin-warm and dry
Neuro-grossly non-focal
Psych-calm, cooperative
Assessment/Plan
Acute hypoxic respiratory failure - suspect due to acute pulmonary edema. Chest x-ray read as mild acute interstitial cardiogenic pulmonary edema, small bilateral pleural effusions, mild cardiomegaly. Was on BiPAP in the emergency room, 6 L nasal
cannula oxygen --> 3 L currently. Weaned down to room air now --> does not need home oxygen based on home oxygen assessment test.
Acute on chronic heart failure with reduced EF exacerbation - Monitor renal function closely. Consulted cardiology. BNP 6160. Patient's is very anxious about IV Lasix and wants to use the minimum dose possible as she is concerned about
worsening renal function. Dr. Marin tried to reassure her. Will need to have BMP monitored closely as outpatient. Hold Lasix for the rest of the day today, and resume Lasix 40 mg BID tomorrow morning.
Last echocardiogram was from 11/08/2023. Showed LVEF 30%, dilated cardiomyopathy. Continue Coreg 6.25 mg BID. Patient is not chronically on UMAIR/ARB/aldosterone antagonist due to CKD.
Check BMP in 5 days.
Acute on chronic hyponatremia - sodium stable. Suspect due to heart failure exacerbation. Urine osmolality 279, urine sodium 110.
Acute COPD exacerbation -characterized by cough and wheezing. Continue inhalers, Mucinex, Acapella. Pulmonary consulted -- recommendations appreciated -- no steroids needed and patient's noted that patient has had side effects from steroids in
the past. Continue Spiriva on discharge.
Hypothermia -noted in the emergency room. Recheck temperature. Rewarming techniques as needed. Normothermic today.
Troponin elevation -likely acute nonischemic myocardial injury due to heart failure exacerbation, acute illness. Trend troponins.
Pancytopenia -unclear etiology. Has baseline chronic anemia likely due to chronic kidney disease. Needs outpatient follow-up. Reported history of multiple myeloma. Hemoglobin 8.2 today, monitor daily.
CKD 4 -renal function at baseline. Creatinine stable. Follows with nephrology at [facility], Dr. Reece.
Type 2 Diabetes Mellitus with hyperglycemia -hemoglobin A1c 6.6%. Does not appear to be on diabetes medications chronically. 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 Outpatient follow-up, no Insulin on discharge.
Essential hypertension -stable.
Hyperlipidemia -on rosuvastatin. Continue Crestor 40 mg daily and Zetia 10 mg daily.
History of gout
Obesity due to excess calories
Full code
PT/OT
More than 30 minutes spent in discharge including
Final examination of the patient
Summarizing hospital stay
Instructions for continuing care to all relevant caregivers
Preparation of discharge records, prescriptions, and referral forms
Total time spent (in minutes): 35
Anticipated Discharge: Today
Subjective/Interval History
-
Date of Service: February 22, 2024
Patient was seen and examined. He denied any new symptoms or complaints.
Objective Data
-
Labs:
Laboratory Results
02/22/24
05:12
WBC 4.7 L
Hgb 8.6 L
Hct 25.7 L
Plt Count 105 L
Sodium 130 L
Potassium 4.5
Chloride 92 L
Carbon Dioxide 29
BUN 103 H*
Creatinine 2.9 H
Glucose 136 H
Calcium 9.9
Vital Signs:
Vital Signs
Temp Pulse Resp BP Pulse Ox
98.2 F 85 22 112/36 96
02/22/24 06:56 02/22/24 09:00 02/22/24 06:56 02/22/24 06:59 02/22/24 06:56
I&O
02/21/24 02/22/24 02/23/24
06:59 06:59 06:59
Intake Total 240 / 240
Output Total 600 / 600 650 / 650
Balance -600 / -600 -410 / -410
--- NOTE | 2024-02-22 11:13 | W.PN.CARDCBS ---
Addendum entered and electronically signed by Carlin Stewart MD 02/22/24 13:42:
I saw and examined the patient.
The Commodity Supervisor's note was reviewed and I agree with the note.
Comment:
GEN: No distress, awake, Ox3
HEENT: supple, anicteric, mmm
LUNGS: CTA, no wheezes/rales
CV: Reg, S1/S2, 1/6 syst LSB, no gallop
ABD: soft, BS+, NT/ND
EXT: No edema
NEURO: Gross non-focal
SKIN: No rash
Plan:
Will hold p.m. Lasix dose today and restart Lasix 40 mg p.o. twice daily tomorrow.
Repeat basic metabolic panel next week. Okay for discharge to facility.
Continue Coreg, Sabino Reid.
Original Note:
Today's Communication / Plan
-
Hold PM dose of lasix today.
Resume lasix 40mg BID tomorrow AM
OK for discharge to home
Close follow up has been arranged
Check BMP early next week to reassess renal function
Impression / Plan
-
Primary Index Editor: Dr. Clark
PCP: Michelle Rogers
Impression:
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
Ischemic cardiomyopathy, lowest EF 10 to 15% by echo 01/2021, improved to 30% on echo 11/08/23
Elevated Troponin
YOANDY on CKD 4, previously on HD
s/p [employer] Bi-V/ICD 12/07/21
CAD
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
h/o CVA/TIA with residual left field cut
Diabetes
Hypertension
Dyslipidemia
Mild aortic stenosis
Mildly enlarged aortic root
Secondary hyperparathyroidism
Morbid obesity
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
Multiple myeloma
History of gout
PHILIPPE, untreated
Non-adherence to medications
Lexiscan Stress Test: 09/14/22:�Fixed inferior and inferior-septal defect consistent with infarction, severely decreased systolic function with estimated LVEF of 22% with severe global hypokinesis and dilated left ventricle, intermediate risk stress
test, 4 beat NSVT during study
Cardiac cath 10/24/2015:�LAD:stent in the proximal LAD is widely patent.� The second diagonal comes off the middle of the stent and is jailed by the stent and has a 90% ostial stenosis.� There is a 40% mid LAD stenosis. Circumflex: Luminal
irregularities RCA: 100% chronic total occlusion of the proximal RCA.
Echo 01/2021: EF 10 to 15%, global hypokinesis with akinesis of inferior wall, septum, and apex.� Stage III diastolic dysfunction, mitral annular calcification, mild MR, aortic sclerosis, mildly dilated aortic root
Echo 10/12/21: EF 10%, global hypokinesis LV severely dilated, mild LVH, stage III DD, mild MR, trace TR/AI, PAP 15 to 20 mmHg.� Possible left ventricular apical thrombus.� Echo repeated with Definity 10/13/2021 which demonstrated no LV thrombus with
Definity
Echo 11/08/23:�Dilated cardiomyopathy, LVEF of 30%, right-sided ICD, dilated left atrium, mild to moderate aortic stenosis, peak and mean transaortic gradients of 15/8 mmHg, DVI of 0.4.� No pericardial effusion.
Plan:
-Presented with SOB and being treated for acute heart failure exacerbation.
-Diuresed this admission with IV lasix and transitioned to PO lasix 40mg BID on 02/19 which is increased dose.
-His weight is down to 223lbs 02/21.
-Creat up to 2.9 02/21. Patient with known CKD 4 and previously required transient dialysis. Follows with nephrology at [facility], Dr. Reece.
-Will hold PM dose of lasix today, 02/21 and restart 40mg BID in AM.
-Check BMP early next week, prior to cardiology office visit.
-CM regimen includes Coreg 6.25 mg BID. Not on UMAIR/ARB/aldosterone antagonist due to CKD. Avoiding SGLT2 inhibitor due to CKD and h/o incontinence
-Nonischemic myocardial injury noted this admission w/ peak 0.116. Troponin appears chronically elevated.
-Cont usual dose of Crestor 40 mg daily and Zetia 10 mg daily
-Patient with h/o MM and his last course of treatment was 2 years ago.
-Plan is for d/c to home with VN.
-Follow up arranged.
HPI: Patient came to [facility] today with SOB and is now being admitted with acute HF so cardiology has been consulted. Patient was just admitted to 12/27/23 until 12/31/23 with acute HF. Dry weight on day of discharge was 235 lbs. Patient has not been
weighing himself since discharge. He says he is following salt and fluid restriction, but can't articulate what those restrictions are. He also reports that he is taking Lasix 40 mg daily as ordered and missed a dose last night, but does not
routinely miss doses. Patient has a h/o CKD and follows with Dr. Reece at [facility] for outpatient nephrology care. Cre peaked at 2.9 last admission and baseline Cre is closer to 2.5. Patient was previously on transient dialysis. Patient also with h/o
pAfib and was in SR during device check in the office 01/04/24, but now appears to be in Afib. Patient denies palpitations. Patient is not on OAC due to h/o MM. Patient says that his symptoms started suddenly 2 hours prior to admission, but his
partner thinks that symptoms started earlier. Patient complains of orthopnea, but denies bloating or edema. Patient was 76% on RA when EMS arrived this morning and improved in BiPAP, but now stable on 6 L NC.
Progress Note - Index Editor
Subjective
Date of Service: February 22, 2024
Reports no SOB or edema. Insisting that he is going home tonight.
Objective
Labs:
02/22/24 05:12
02/22/24 05:12
Labs
Hgb 8.6 g/dL (13.0-18.0) L 02/22/24 05:12
Hct 25.7 % (39.0-52.0) L 02/22/24 05:12
Plt Count 105 10^3/uL (130-400) L 02/22/24 05:12
Sodium 130 mmol/L (135-145) L 02/22/24 05:12
Potassium 4.5 mmol/L (3.5-5.1) 02/22/24 05:12
BUN 103 mg/dl (9-20) H* 02/22/24 05:12
Creatinine 2.9 mg/dL (0.7-1.3) H 02/22/24 05:12
Glucose 136 mg/dl (70-99) H 02/22/24 05:12
Vital Signs and I&O:
Vital Signs
Temp Pulse Resp BP Pulse Ox
98.2 F 85 22 112/36 96
02/22/24 06:56 02/22/24 09:00 02/22/24 06:56 02/22/24 06:59 02/22/24 06:56
Vital Signs
Temp Pulse Resp BP Pulse Ox
98.2 F 85 22 112/36 96
02/22/24 06:56 02/22/24 09:00 02/22/24 06:56 02/22/24 06:59 02/22/24 06:56
Intake & Output
02/20/24 02/21/24 02/22/24 02/23/24
06:59 06:59 06:59 06:59
Intake Total 240 / 240
Output Total 1700 / 1700 600 / 600 650 / 650
Balance -1700 / -1700 -600 / -600 -410 / -410
Physical Exam
Physical Exam
GEN: No distress, awake, alert, oriented x3
HEENT: anicteric, mmm
LUNGS: CTA b/l, no wheezes
CV: Reg, S1/S2, no murmur
EXT: No clubbing, cyanosis, or edema
NEURO: Gross non-focal
SKIN: Warm, dry, no rash
[2024-02-22 12:35] VITALS: BP 91/44
[2024-02-22] MEDS: NOVOLOG FLEXPEN SC (12:46)
--- NOTE | 2024-02-22 14:03 | CM ---
CM following for DC planning needs.
Met w/ patient, spouse at bedside.
Plan for DC to home today w/ [facility]. Referral made/ accepted.
Will remain avail. as needed.
--- NOTE | 2024-02-22 16:35 | PTCARENOTE ---
Pt's IV line D/C'd & telemetry pack removed. Pt D/C'd to home w/spouse providing transportation.
--- NOTE | 2024-02-29 09:03 | W.DCSUMMARY ---
Discharge Summary
Discharge Data
Date of Admission: 02/17/24
Date of Discharge: 02/22/24
Total time spent discharging patient (in min): 35
-
Pending Results: No
Hospital Course
84-year-old male from [facility] for evaluation of shortness of breath starting on the same day as presentation. Patient was noted to be in respiratory distress, reportedly his pulse oximetry was in the low 80s prior to arrival, and placed on
CPAP by emergency medical services. Patient was placed on BiPAP in the emergency room. Patient was treated for acute heart failure with intravenous diuresis. Patient was also treated for concern for possible exacerbation of chronic obstructive
pulmonary disease. Patient did have periods of agitation during his hospitalization. Cardiology and Pulmonary were consulted. Pulmonary was consulted and noted that patient's was concerned about steroids, and since patient was not wheezing,
steroids were discontinued. Diabetes Nurse Practitioner was consulted. Patient's oxygen was able to weaned down to room air.
Discharge Plan
-
Patient Disposition: Home with Home Care
Discharge Diagnosis/Procedures: Acute hypoxic respiratory failure -- suspected from heart failure exacerbation
Acute on chronic heart failure with reduced ejection fraction - exacerbation
Acute on chronic hyponatremia
Concern for COPD Exacerbation
Hypothermia
Troponin elevation
Pancytopenia
CKD 4
Type 2 Diabetes Mellitus with hyperglycemia
Essential hypertension
Hyperlipidemia
History of gout
Obesity due to excess calories
Condition: Fair
Diet: Diabetic, Carb Controlled and Restrict fluids to 48 oz
Driving Restrictions: No driving
Blood Work: Recheck BMP and CBC and Magnesium with your primary care provider in 3 to 5 days from now
Other Services: [facility]
Specialty Instructions: Weigh Daily- Call MD for wt gain/loss 3 lbs overnight/5 lbs in 1 week
Activity Restrictions/Additional Instructions:
DO NOT TAKE ANY FUROSEMIDE TODAY FEBRUARY 22, 2024 BUT CONTINUE TAKING YOUR FUROSEMIDE FROM 02/23/24 MORNING
FOLLOW UP WITH YOUR CAREER TECHNOLOGY TEACHER (DR. REYNOLDS) IN 2-5 DAYS
Referrals:
[facility]Visiting Nurs [Outside]
Michelle Rogers PA-C [Family Provider] - in one day (Needs CBC, Mag, BMP rechecked)
Syeda Garcia DO [Active] - in two to four weeks (Hospital Follow-up, SLEEP STUDY)
Sarahi Montes PA-C [Specified Professional Personl] - 02/28/24 1:40 pm (You have a follow up visit with Dr. Clark's Sarahi GARCIA, at the [place] office. Please call with questions. )
Additional Discharge Medication Instructions: Furosemide changed to 40 mg PO BID
Spiriva is a new medication
Prescriptions:
New
furosemide 40 mg Tablet
40 mg PO BID AT 0800,1600 Qty: 60 1RF
Spiriva Respimat 2.5 mcg/actuation Mist
2 puff inhalation R DAILY Qty: 4 1RF
Continued
allopurinol 100 MG tablet
50 mg PO DAILY
ezetimibe 10 MG tablet
10 mg PO QPM
rosuvastatin [Crestor] 40 MG tablet
40 mg PO QPM
tamsulosin 0.4 MG capsule
0.4 mg PO QPM
sennosides [Senokot] 8.6 mg Tablet
8.6 mg PO DAILY
docusate sodium [Colace] 100 mg Capsule
100 mg PO DAILY
carvedilol [Coreg] 6.25 mg tablet
6.25 mg PO BID Qty: 60 11RF
venlafaxine 75 mg Tablet
75 mg PO BID
cholecalciferol (vitamin D3) 50 mcg (2,000 unit) Tablet
50 mcg PO DAILY
omega 5-wup-ndn-fish oil [Fish Oil] 1,200 (144-216) mg Capsule
3 cap PO QPM
aspirin [Children's Aspirin] 81 mg Tablet,Chewable
81 mg PO DAILY Qty: 0 0RF
ferrous sulfate 325 mg (65 mg iron) tablet,delayed release (DR/EC)
325 mg PO Q48H Qty: 30 0RF
ipratropium-albuterol 0.5 mg-3 mg(2.5 mg base)/3 mL Solution For Nebulization
3 ml INHALATION R Q6
Patient Comments:
02/17/2024: @0000, 0600, 1200, 1800
melatonin 3 mg Tablet
3 mg PO QPM
calcium carbonate-vitamin D3 [Calcium 600 + D(3)] 600 mg-10 mcg (400 unit) Tablet
1 tab PO DAILY
miconazole nitrate [Miconazorb AF] 2 % powder
1 applic topical BID
Patient Comments:
apply to affected areas
Discontinued
furosemide 40 mg Tablet
40 mg PO DAILY
Discharge Orders:
Discharge Patient (As Directed); Ordered 02/22/24
Ordered By: Faraz Hernandez
Care Plan Goals
Care Plan Goals:
Problem: Readiness for enhanced knowledge related to diagnosis and treatment plan
Goal: Understand your diagnosis and treatment plan needs, including medications if applicable.
Instructions: Know your diagnosis, underlying causes and treatment plan options, including medications if applicable. Consult with your health care team to learn about your diagnosis and treatment plan, including medications if applicable.
Discharge Date and Time
Discharge Date/Time: 02/22/24 16:41
Print Language: TELUGU
== END 2024-02-22 16:41 | disposition home health service (06) | DRG 291 ==
LOC: IVU 16:51
PROVIDERS: Nuclear Medicine Nuclear Cardiology; Nurse Practitioner Family; Physician Assistant Medical; ADMITTING PHYSICIAN Hospitalist; ATTENDING PHYSICIAN Hospitalist; CONSULT PHYSICIAN Internal Medicine; CONSULT PHYSICIAN Internal Medicine Cardiovascular Disease; EMERGENCY PHYSICIAN Emergency Medicine; FAMILY PHYSICIAN Physician Assistant
PROC: 4B02XTZ Measurement of Cardiac Defibrillator, External Approach (ICD-10-PCS; 2024-02-20)
DX: I13.0 Hypertensive heart and chronic kidney disease with heart failure and stage 1 through stage 4 chronic kidney disease, or unspecified chronic kidney disease (principal); I50.23 Acute on chronic systolic (congestive) heart failure; J96.21 Acute and chronic respiratory failure with hypoxia; J44.1 Chronic obstructive pulmonary disease with (acute) exacerbation; E87.1 Hypo-osmolality and hyponatremia; D61.818 Other pancytopenia; N18.4 Chronic kidney disease, stage 4 (severe); N17.9 Acute kidney failure, unspecified; N25.81 Secondary hyperparathyroidism of renal origin; Z11.52 Encounter for screening for COVID-19; I5A Non-ischemic myocardial injury (non-traumatic); Z66 Do not resuscitate; Z79.82 Long term (current) use of aspirin; F17.290 Nicotine dependence, other tobacco product, uncomplicated; E66.01 Morbid (severe) obesity due to excess calories; Z68.34 Body mass index [BMI] 34.0-34.9, adult; I25.5 Ischemic cardiomyopathy; E11.22 Type 2 diabetes mellitus with diabetic chronic kidney disease; E78.5 Hyperlipidemia, unspecified; Z91.148 Patient's other noncompliance with medication regimen for other reason; E87.5 Hyperkalemia
CPT/HCPCS: 71045; 71046; 80048; 80053; 81003; 82805; 82962; 83036; 83735; 83880; 83935; 84300; 84484; 85025; 87070; 87502; 87811; 93005; 94640; 94660; 96374; 97162; 97166; 99291

== ENCOUNTER 2024-10-15 13:17 | Inpatient (IN) | payer OTHER, SELFPAY ==
[2024-10-15] VITALS (23 sets, daily range): BP systolic 58–118; BP diastolic 30–74; BMI 34.9
--- NOTE | 2024-10-15 10:20 | ED.GENMED ---
History of Present Illness
General
Chief Complaint: Breathing Problem
Source: patient and ambulance crew
Exam Limitations: none
Time Seen by Provider: 10/15/24 10:03
Nursing documentation reviewed up to this point in time: agreed with
History of Present Illness
History of Present Illness:
Patient with history of congestive heart failure and COPD, presents to ED from home secondary to worsening cough with shortness of breath. Upon arrival, patient is found to be hypoxic with initial pulse ox of 85% on room air. Patient does report
coughing at home and increasing shortness of breath. In addition, patient found to be febrile upon arrival, which he was not aware of. Denies nausea, vomiting, or diarrhea. Denies chest pain. Denies a decreased appetite. Denies recent travel.
Denies increased weight gain. Patient states that he has had number of similar symptoms in the past. Per paramedics, patient was recently on hospice, but his care has been transitioned to palliative care at this point.
Past History
Past History
ED Past Medical History: CAD, CHF, CVA, HTN, Hypercholesterolemia, IDDM, [place] and Other (Cellulitis)
ED Past Surgical History: Cardiac (Stent, Defibrillator), Cholecystectomy and Other (eye)
Social History
Tobacco: Smoker (cigars)
Alcohol: Occasional
Drug: None
Personal: (Lives with a woman)
Living: with family
Employment: Retired
Family History
Family History: Other (No significant)
Review of Systems
Review of Systems
Allergies reviewed?: Yes
All Other Systems: ROS reviewed and negative except as documented in HPI and ROS
Constitutional: Reports no symptoms
EENT: Reports no symptoms
Respiratory: Reports cough and trouble breathing
Cardiac: Reports no symptoms
ABD/GI: Reports no symptoms; Denies vomiting or diarrhea
Musculoskeletal: Reports no symptoms
Skin: Reports no symptoms
Neurological: Reports no symptoms
Phy Exam
Physical Exam
Physical Exam:
Physical Exam
General: mild respiratory distress, acutely ill. febrile. hypoxic
Head: nc/at. eomi
Neck: supple. no meningeal signs.
Heart: s1/s2 regular rate and rhythm, no murmur. equal radial pulses.
Lungs: mild respiratory distress. crackles bilaterally
Abdomen: normal bowel sounds. not tender.
Neuro: somnolent but easily arousable. No focal neurological deficits
Skin: no rash
Psychiatric: well kept. interactive and cooperative
Extremities: LE b/l, nonpitting edema. no calf tenderness.
Scores
Heart Failure Risk
Heart Failure Risk Score: Not Applicable
Sepsis
Sepsis Screening
Sepsis Assessment: Severe Sepsis
Sepsis Screening: Hypotension and Worsening O2 Saturation
Sepsis Screen
Sepsis Screen: Severe Sepsis
Date: 10/16/24
Time: 15:12
Course
Orders/Labs/Results
Orders:
Orders
10/15/24 Lunch
2 Gram Sodium [Sodium, 2 Gram]
At Your Request: Limited Participation
Does patient need a safe tray?: No
10/15/24 10:11
CR Chest Portable - 1 View Urgent
Comment:
Reason For Exam: cough/sob
Reason Study Needs to be Portable: Patient Unstable
10/15/24 10:15
COVID-19 Antigen Urgent
Source: Nasal Swab
Complete Blood Count/With Diff Urgent
NT-proBNP Urgent
Urinalysis Reflex To Culture Urgent
Date Specimen was Collected: 10/15/24
Time Specimen was Collected: 10:13
Influenza A+B Rapid Molecular Urgent
GUIDO Source: Nasal Swab
Specimen Description:
10/15/24 10:18
Acetaminophen [Tylenol] 650 mg PO NOW STA
Ipratropium/Albuterol Sulfate [Duoneb] 3 ml INH R NOW STA
10/15/24 10:37
Arterial Blood Gas Urgent
%Oxygen/Room Air: 85
10/15/24 10:45
Respiratory Syncytial Virus Urgent
GUIDO Source: Nasal Swab
Specimen Description:
Date Specimen was Collected: 10/15/24
Time Specimen was Collected: 10:30
10/15/24 11:11
Dexamethasone Sod Phosphate [Decadron] 6 mg IV NOW STA
10/15/24 11:18
Comprehensive Metabolic Panel Urgent
Magnesium Urgent
10/15/24 12:00
Azithromycin 500 mg/250 ml [Zithromax Infusion] 500 mg in 250 ml IV Q24H
10/15/24 12:04
0.9% Sodium Chloride 250 ml [Nss] 250 ml IV BOLUS
10/15/24 12:36
Admit/Transfer Patient As Directed
Co-Sign Provider:
Level of Care: Inpatient admission
Assign to:: Telemetry
Physician / Group: Shayy
Diagnosis: Hypoxia
Reason for Telemetry: Arrhythmia
Date to Stop Telemetry: 10/18/24
Time to Stop Telemetry: 11:00
Reason for Hospitalization: Pneumonia with hypoxia
Expected length of stay greater than two midnights?: Yes
ELOS- Estimated Length of Stay in days: 2
I certify the patient meets the requirements for IP care: Yes
PRN Pain Medication Management As Directed
May give lesser potent ordered pain med per pt: Yes
preference::
Protocol:: Medication orders for pain may be administered in a
manner that supports deferring to patient preference
when the pt is:
- Requesting an ordered lesser potent pain medication.
Least to most potent pain medications are defined
as: acetaminophen < NSAID < tramadol < opioids
(morphine, oxycodone, hydromorphone).
- Requesting a lesser dose of the same medication IF
ORDERED.
- Requesting a less intrusive route of administration
if both routes are prescribed by the provider (PO <
IV).
10/15/24 12:39
Code Status As Directed
Resuscitation Status: Do not resuscitate
Reached after discussion with pt or family/Healthcare POA: Yes
DNR Bracelet Application ONCE
10/15/24 13:33
Docusate Sodium [Colace] 100 mg PO HSPRN PRN
Guaifenesin Solution [Robitussin] 100 mg PO Q4H PRN
Lorazepam [Ativan] 1 mg PO HS PRN
10/15/24 13:33
Bladder Scan As Directed
Follow Bladder Retention/Intermittent Cath Algorithm?: Yes
PRN if no void in __ hours: 6
Frequency: Per Retention Algorithm
If Bladder Scan Result >: 400
then:: Straight cath
Straight Cath As Directed
Frequency: Per Retention Algorithm
Additional Instructions: straight cath as needed per acute urinary retention algorithm for 24 hrs
Additional Instructions: for bladder scan greater than 400 mL
Weight As Directed
Frequency: Daily
Physical Therapy Consult [Pt Eval And Treat] Routine
Activity Level: As Tolerated
Speech Therapy Eval & Treat Routine
DX Deep Vein Thrombosis Video Routine
10/15/24 14:00
CefTRIAXone [Rocephin] 1,000 mg IV Q24H
10/15/24 18:00
Ezetimibe [Zetia] 10 mg PO QPM
Rosuvastatin Calcium [Crestor] 40 mg PO QPM
Tamsulosin [Flomax] 0.4 mg PO QPM
10/15/24 20:00
Heparin 5,000 units SC Q12
Venlafaxine [Effexor] 75 mg PO BID
10/15/24 22:00
Calcium Polycarbophil [Fibercon] 625 mg PO HS
10/16/24 08:00
Allopurinol [Zyloprim] 50 mg PO DAILY
Azithromycin [Zithromax] 250 mg PO DAILY
Carvedilol [Coreg] 6.25 mg PO BID
10/18/24 11:00
DC Protocol for Telemetry ONCE
Abnormal Lab Results
10/15/24 10/15/24 10/15/24
10:15 10:37 11:18
RBC 2.81 L 10^6/uL
(4.70-6.10)
Hgb 9.8 L g/dL
(13.0-18.0)
Hct 29.7 L %
(39.0-52.0)
MCV 105.7 H fL
(80.0-94.0)
MCH 34.9 H pg
(27.0-31.0)
RDW 15.8 H %
(11.5-14.5)
Plt Count 117 L 10^3/uL
(130-400)
Abs Immat Gran (auto) 0.1 H 10^3/uL
(0-0.05)
Absolute Lymphs (auto) 0.3 L 10^3/uL
(1.2-3.4)
Immature Gran % 1.4 H %
(0-0.5)
Neutrophils % 83.1 H %
(42.2-75.2)
Lymphocytes % 5.6 L %
(20.5-51.1)
ABG O2 Sat (Measured) 100.0 H %
(94-98)
BUN 81 H mg/dl
(9-20)
Creatinine 3.4 H mg/dL
(0.7-1.3)
Glucose 164 H mg/dl
(70-99)
Total Protein 8.5 H g/dl
(6.3-8.2)
10/15/24 10:15
10/15/24 11:18
Vital Signs
Initial and Last Documented VS:
Initial Vital Signs
Pulse Ox
85
10/15/24 10:06
Last Documented Vital Signs
Temp Pulse Resp BP Pulse Ox
97.7 F 81 23 110/63 92
10/16/24 07:40 10/16/24 14:00 10/16/24 14:00 10/16/24 14:00 10/16/24 14:00
MDM/Problems Addressed
MDM/Problems Addressed:
Chest x-ray report reviewed. History and exam consistent with likely an acute bronchitis, worsened with underlying COPD/CHF. Pt's spouse currently has cold like symptoms. COVID/flu/RSV negative. Patient's initial pulse ox improved with
supplemental oxygen.
Discussed with patient's spouse at bedside. Confirmed that patient is DNR/DNI, but requesting medical treatment. As such, patient will be admitted for further eval treatment, including IV antibiotics and supplemental oxygen.
*Critical Care Note
Total Time (30-74mins, 75-104mins- exclusive of procedures): Not Applicable
ED Attending Note
-
Portions of this chart may have been created with voice recognition software.� Occasional wrong word or��sound alike� substitutions may have occurred due to the inherent limitations of voice recognition software.
Discharge Plan
Departure
Patient Disposition: Admit
Date of Disposition: 10/15/24
Time of Disposition: 11:14
Admit to: Telemetry
Presentation/result/management discussed w/ accepting MD/DO: Hospitalist
Discharge Problem:
Fever, Hypoxia
Interventions
Interventions:
*Risk Screen - Suicide Last Done: 10/15/24 10:48
*General Assessment Last Done: 10/15/24 18:04
*Neglect/Abuse Screening Last Done: 10/15/24 10:48
ED- Fall Risk Assessment Last Done: 10/15/24 15:15
*ED COVID-19 Vaccine History Last Done: 10/15/24 18:05
*Nursing Disposition Last Done: 10/15/24 18:04
ED- Cardiac Assessment Last Done: 10/15/24 10:48
ED- Pulmonary Assessment Last Done: 10/15/24 10:49
Discharge Date and Time
Discharge Date/Time: 10/15/24 18:05
[2024-10-15 10:28] LABS: Urine Albumin Negative (Neg - Trace); Urine Bilirubin Negative (Negative); Urine Character Clear (Clear); Urine Color Yellow; Urine Glucose Negative (Negative); Urine Ketone Negative (Negative); Urine Leukocyte Negative (Negative); Urine Nitrite Negative (Negative); Urine Occult Blood Negative (Negative); Urine Specific Gravity 1.015 (<1.030); Urine Urobilinogen Negative (Neg - 1+)
[2024-10-15] MEDS: TYLENOL 650 MG PO (10:32)
[2024-10-15] MEDS: DUONEB 3 ML INH (10:32)
[2024-10-15 10:40] LABS: COVID-19 Antigen Negative (Negative)
[2024-10-15 10:50] LABS: B.E. -1.1 mmol/L; HCO3 23.5 mmol/L (21-28); PCO2 38 mmHg (35-48); PO2 98 mmHg (83-108)
[2024-10-15 10:55] LABS: % Basophils 0.6 % (0-2); % Eosinophils 0.4 % (0-6); % Immature Granulocytes 1.4 % (0-0.5); % Lymphocytes 5.6 % (20.5-51.1); % Monocytes 8.9 % (1.7-9.3); % Neutrophils 83.1 % (42.2-75.2); Absolute Immature Granulocytes 0.1 10^3/uL (0-0.05); Absolute Lymphocytes 0.3 10^3/uL (1.2-3.4); Absolute Monocytes 0.5 10^3/uL (0.1-0.6); Absolute Neutrophils 4.3 10^3/uL (1.4-6.5); Hematocrit 29.7 % (39.0-52.0); Hemoglobin 9.8 g/dL (13.0-18.0); Mean Corpuscular Hgb 34.9 pg (27.0-31.0); Mean Corpuscular Volume 105.7 fL (80.0-94.0); Mean Platelet Volume 9.6 fL (7.4-10.4); Nucleated Red Blood Cells % 0 % (-); Platelet Count 117 10^3/uL (130-400); Red Blood Cell Count 2.81 10^6/uL (4.70-6.10); Red Cell Dist. Width 15.8 % (11.5-14.5); White Blood Cell Count 5.2 10^3/uL (4.8-10.8)
[2024-10-15 11:16] LABS: NT-proBNP 5320 pg/ml
[2024-10-15] MEDS: DECADRON 6 MG IV (11:21)
[2024-10-15] MEDS: ZITHROMAX INFUSION 250 IV (11:21)
[2024-10-15 11:43] LABS: ALT (SGPT) 20 U/L (0-50); AST (SGOT) 25 U/L (17-59); Albumin 3.9 g/dl (3.5-5.0); Alkaline Phosphatase 59 U/L (38-126); Blood Urea Nitrogen 81 mg/dl (9-20); Calcium 9.1 mg/dl (8.4-10.2); Carbon Dioxide 27 mmol/L (22-30); Chloride 102 mmol/L (98-107); Estimated Creatinine Clearance 18 ml/min; Glucose 164 mg/dl (70-99); Magnesium 1.9 mg/dl (1.6-2.3); Potassium 3.7 mmol/L (3.5-5.1); Sodium 137 mmol/L (135-145); Total Bilirubin 0.5 mg/dl (0.2-1.3); Total Protein 8.5 g/dl (6.3-8.2); eGFR 16.88
[2024-10-15] MEDS: NSS 250 IV (12:16)
--- NOTE | 2024-10-15 12:51 | HPS.HSE ---
Addendum entered and electronically signed by Sherwin Lucas MD 10/15/24 16:09:
With clinical concern for aspiration and prior CVA, will repeat CT scan of the head.
Original Note:
Family Physician
-
Family Physician: Michelle Rogers
Chief Complaint
-
Shortness of breath
Altered mental status
Falls
History of Present Illness
Patient is 84 years old male with extensive medical history including cardiovascular recently on hospice currently revoked on palliative care who presents to the emergency room accompanied by his . History was taken from patient's at the
bedside. Patient with dementia not able to provide additional information. Currently patient is being lethargic with falls at home, persistent cough. No particular respiratory complaints. Denied any gastrointestinal or urinary symptoms.
Upon presentation patient found to be hypoxic with pulse ox in mid 80s improved with addition of 2 L of nasal cannula oxygen to mid 90s. No evidence for distress.
Patient found to be febrile with hypotension.
Medical History
Past Medical History
Past Medical History: Reports CAD, CHF, COPD, HTN, NIDDM and Other (CKD)
Past Surgical History: Reports Other (AICD)
Social History
Alcohol: None
Drug: None
Personal:
Living: With Family
Family History
Family History: Not pertinent
Allergies / Home Medications
Allergies reflects when Allergies were last updated in [facility].
Home Medications with original date entered in [facility]
Allergy/Medication List:
Allergies
Allergy/AdvReac Type Severity Reaction Status Date / Time
No Known Allergies Allergy Verified 01/16/24 06:58
Home Medications
allopurinol 100 mg tablet 50 mg PO DAILY Gout 10/11/21
ezetimibe 10 mg tablet 10 mg PO QPM High cholesterol 10/11/21
rosuvastatin 40 mg tablet (Crestor) 40 mg PO QPM High cholesterol 10/11/21
tamsulosin 0.4 mg capsule 0.4 mg PO QPM Urinary issue 11/30/21
docusate sodium 100 mg capsule (Colace) 100 mg PO HSPRN PRN constipation 07/31/22
carvedilol 6.25 mg tablet (Coreg) 6.25 mg PO BID heart disease/condition #60 tabs 08/02/22
venlafaxine 75 mg tablet 75 mg PO BID Mental Health 12/27/23
calcium polycarbophil 625 mg tablet (FiberCon) 625 mg PO HS 10/15/24
furosemide 40 mg tablet 40 mg PO BID 10/15/24
guaifenesin 100 mg/5 mL oral liquid 100 mg PO Q4H PRN cough 10/15/24
lorazepam 1 mg tablet 1 mg PO HS PRN sleep 10/15/24
Review of Systems
-
A 12 point ROS was completed and negative except as noted: Yes
Physical Exam
Vital Signs
Vital Signs
Temp Pulse Resp BP Pulse Ox
101.8 F H 70 26 62/34 95
10/15/24 10:09 10/15/24 12:45 10/15/24 12:45 10/15/24 12:37 10/15/24 12:45
Physical Exam
General: Well Developed, Well Nourished and No Apparent Distress
HEENT: NormoCephalic, Moist mucous membranes and Atraumatic
Respiratory: Clear
Cardiac: S1/S2 and Regular Rhythm; No Murmur or Rub
GI: Soft, Non Tender, Non Distended and Normal Bowel Sounds; No Organomegaly
Rectal: Deferred by Provider
Musculoskeletal: No Clubbing, No Cyanosis and No Edema
Skin: No Rash
Neuro: Nonfocal/grossly intact
Laboratory Results
-
10/15/24 10:15
10/15/24 11:18
Laboratory Results
pH 7.40 (7.35-7.45) 10/15/24 10:37
pCO2 38 mmHg (35-48) 10/15/24 10:37
pO2 98 mmHg (83-108) 10/15/24 10:37
HCO3 23.5 mmol/L (21-28) 10/15/24 10:37
Total Bilirubin 0.5 mg/dl (0.2-1.3) 10/15/24 11:18
AST 25 U/L (17-59) 10/15/24 11:18
ALT 20 U/L (0-50) 10/15/24 11:18
Alkaline Phosphatase 59 U/L (38-126) 10/15/24 11:18
Impression/Plan
-
IMPRESSION:
Acute hypoxic respiratory failure.
� Presents with hypoxia and pulse ox of 84% on room air.
Suspected left lower lobe pneumonia, community-acquired versus aspiration
YOANDY on CKD stage IV
Hypotension with concern for evolving sepsis
Conditions prior to admission:
Chronic CHF reduced EF
AICD since 2021
CAD with stents
Aortic stenosis
COPD
CKD stage IV.
Chronic pancytopenia
Hypertension.
History of CVA with residual left field cut.
Known IDDM by history currently not on glucose lowering medications.
Obstructive sleep apnea
Morbid obesity with BMI of 34.
Status post left renal tumor resection.
Multiple myeloma by history.
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
PLAN:
Acute hypoxic respiratory failure most likely secondary to aspiration versus community-acquired pneumonia.
Chest x-ray with left lower lobe consolidation possibly small pleural effusion
Speech and swallow evaluation
Empiric antibiotics: Ceftriaxone/Zithromax
Continue oxygen supplementation with attempt to wean off as tolerates
Hypotension with concern for evolving sepsis.
YOANDY on CKD stage IV.
Hold Lasix and antihypertensives.
Gentle IV hydration monitor volume status for overload.
Follow BMP
Monitor for retention
Chronic CHF reduced EF
Echo 11/08/23:�Dilated cardiomyopathy, LVEF of 30%, right-sided ICD, dilated left atrium, mild to moderate aortic stenosis, peak and mean transaortic gradients of 15/8 mmHg, DVI of 0.4.� No pericardial effusion.
No clear evidence for volume overload or decompensated CHF
With elevated BUN/creatinine and hypotension, hold Lasix and Coreg monitoring volume status closely
COPD with no evidence of exacerbation.
Dementia suspected vascular type
History of CVA.
Continue with loxapine
CODE STATUS DNR.
DVT prophylaxis heparin
Physical therapy assessment
[2024-10-15] MEDS: NSS 1000 IV (14:02)
[2024-10-15] MEDS: ROCEPHIN 1000 MG IV (15:22)
--- NOTE | 2024-10-15 16:15 | PTOTSP ---
ST Acute Care Evaluation
Pt currently presents clinical signs of mild oropharyngeal dysphagia characterized by L labial weakness, prolonged mastication, and overt coughing with ingestion of liquids. Additionally, pt is at an increased risk for aspiration due to pt's
impulsivity with bite/sip size and ingestion rate, increased respiratory demand, increased RR, reduced insight to deficits, reduced memory, L sided weakness/deficits, and overall deconditioned/medical status.
Recommendations:
- DOWNGRADE pt's diet to SOFT BITE SIZED SOLIDS and THIN LIQUIDS with SMALL SINGLE SIPS ONLY, and meds as tolerated.
- Aspiration precautions: FULL SUPERVISION for ALL PO INTAKE; pt must be fully neutral and fully upright for ALL PO intake; small bites; single sips ONLY; alternate bites/sips; slow intake rate; take breaks for breathing - prioritize breathing over
eating/drinking.
- WELDING PROCESS ENGINEER to f/u re: diet tolerance, trial diet upgrades, and to determine if pt would benefit from an instrumental swallow study.
[2024-10-15] MEDS: FLOMAX 0.4 MG PO (18:34)
[2024-10-15] MEDS: ZETIA 10 MG PO (18:34)
[2024-10-15] MEDS: CRESTOR 40 MG PO (18:34)
[2024-10-15] MEDS: HEPARIN 5000 UNITS SC (21:09)
[2024-10-15] MEDS: EFFEXOR 75 MG PO (21:09)
[2024-10-15] MEDS: FIBERCON 625 MG PO (21:09)
[2024-10-16] VITALS (12 sets, daily range): BP systolic 90–131; BP diastolic 52–74; BMI 34.9; BMI 34.8
--- NOTE | 2024-10-16 02:51 | PTCARENOTE ---
Rec'd pt from previous RN. Pt disoriented to time, forgetful. Disoriented to place/situation at times, but is easily reoriented. Pt able to ask to use urinal, but is incontinent of stool. Hygiene care performed. Pt with stg 1 pressure ulcer on R
buttock. Q2T schedule in place to prevent further skin breakdown. Call quintero within reach. Bed alarm in place for pt safety.
--- NOTE | 2024-10-16 08:17 | VNURNOTE ---
Chart reviewed. Patient is current with [facility] nursing, PT, OT, BAGGAGE SECURITY CHECKER. Will continue to follow hospital course and DC plans.
[2024-10-16] MEDS: HEPARIN 5000 UNITS SC (08:53)
[2024-10-16] MEDS: COREG 6.25 MG PO ×2 (08:53→20:41)
[2024-10-16] MEDS: DESENEX/MITRAZOL/ZEASORB 1 APPLIC TOPICAL ×2 (08:53→20:40)
[2024-10-16] MEDS: ZYLOPRIM 50 MG PO (08:53)
[2024-10-16] MEDS: ZITHROMAX 250 MG PO (08:54)
[2024-10-16] MEDS: EFFEXOR 75 MG PO ×2 (08:54→21:49)
[2024-10-16 12:27] LABS: Glucose - Point of Care 212 mg/dl (70-99)
--- NOTE | 2024-10-16 12:29 | W.CAR.ICD ---
ICD Inactivation Request
-
Commissioning Specialist Notified: [employer]
The above vendor has been contacted to inactivate the patient's Implantable Cardioverter Defibrillator.
--- NOTE | 2024-10-16 13:07 | W.PN.HOSP.TC ---
Today's Communication/Plan
-
Continue antibiotics.
Monitor for recurrent hypoxia.
PT assessment
Hospice consultation.
Cardiology to deactivate the ICD
Assessment / Plan
Assessment / Plan
IMPRESSION:
Acute hypoxic respiratory failure.
� Presents with hypoxia and pulse ox of 84% on room air.
Suspected left lower lobe pneumonia, community-acquired versus aspiration
YOANDY on CKD stage IV
Hypotension with concern for evolving sepsis
Conditions prior to admission:
Chronic CHF reduced EF
AICD since 2021
CAD with stents
Aortic stenosis
COPD
CKD stage IV.
Chronic pancytopenia
Hypertension.
History of CVA with residual left field cut.
Known IDDM by history currently not on glucose lowering medications.
Obstructive sleep apnea
Morbid obesity with BMI of 34.
Status post left renal tumor resection.
Multiple myeloma by history.
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
PLAN:
Acute hypoxic respiratory failure most likely secondary to aspiration versus community-acquired pneumonia.
Chest x-ray with left lower lobe consolidation possibly small pleural effusion
Speech and swallow evaluation with concern for aspiration
Empiric antibiotics: Ceftriaxone/Zithromax
Respiratory status improved, weaned off oxygen supplementation with no evidence of hypoxia while at rest.
Hypotension with concern for evolving sepsis.
YOANDY on CKD stage IV.
Hold Lasix and antihypertensives.
Gentle IV hydration monitor volume status for overload.
Follow BMP
Monitor for retention
Chronic CHF reduced EF
Echo 11/08/23:�Dilated cardiomyopathy, LVEF of 30%, right-sided ICD, dilated left atrium, mild to moderate aortic stenosis, peak and mean transaortic gradients of 15/8 mmHg, DVI of 0.4.� No pericardial effusion.
No clear evidence for volume overload or decompensated CHF
With elevated BUN/creatinine and hypotension, hold Lasix and Coreg monitoring volume status closely
COPD with no evidence of exacerbation.
Dementia suspected vascular type
History of CVA.
Continue with loxapine
CODE STATUS DNR.
DVT prophylaxis heparin
Goals of care discussion with patient and patient's at the bedside on 10/16.
Patient is 84 years old with advanced heart failure status post CVA with aspiration syndrome, progressive deterioration in terms of activities of daily living, progressive ambulatory dysfunction with fall risk recently on hospice that was revoked in
favor of palliative care. Shortly after hospitalized with acute hypoxic respiratory failure and aspiration pneumonia. Patient and wishing him to remain at home under hospice care.
Hospice consultation
Asking cardiology to deactivate AICD.
Anticipated Discharge: 24 - 48 hours
Subjective/Interval History
-
Date of Service: October 16, 2024
Objective Data
-
Labs:
Laboratory Results
10/16/24
11:07
WBC Pending
Hgb Pending
Hct Pending
Plt Count Pending
Sodium Pending
Potassium Pending
Chloride Pending
Carbon Dioxide Pending
BUN Pending
Creatinine Pending
Glucose Pending
Calcium Pending
Vital Signs:
Vital Signs
Temp Pulse Resp BP Pulse Ox
97.7 F 87 17 94/55 96
10/16/24 07:40 10/16/24 10:03 10/16/24 10:03 10/16/24 10:03 10/16/24 12:08
I&O
10/15/24 10/16/24 10/17/24
06:59 06:59 06:59
Output Total 500 / 500 400 / 400
Balance -500 / -500 -400 / -400
Physical Exam
-
General: No Apparent Distress
HEENT: Moist Mucous Membranes
Respiratory: Wheezes
Cardiac: Regular Rhythm and S1/S2; Negative Tachycardic
GI: Soft
Neuro: AO x 3
Psych: Calm; Negative Confused
[2024-10-16 14:22] LABS: Hematocrit 24.7 % (39.0-52.0); Hemoglobin 8.2 g/dL (13.0-18.0); Mean Corp Hgb Conc. 33.2 g/dL (33.0-37.0); Mean Corpuscular Volume 105.6 fL (80.0-94.0); Mean Platelet Volume 10.3 fL (7.4-10.4); Platelet Count 112 10^3/uL (130-400); Red Blood Cell Count 2.34 10^6/uL (4.70-6.10); Red Cell Dist. Width 16.1 % (11.5-14.5); White Blood Cell Count 8.2 10^3/uL (4.8-10.8)
[2024-10-16 14:29] LABS: Blood Urea Nitrogen 95 mg/dl (9-20); Calcium 9.2 mg/dl (8.4-10.2); Chloride 99 mmol/L (98-107); Estimated Creatinine Clearance 21 ml/min; Glucose 187 mg/dl (70-99); Potassium 4.4 mmol/L (3.5-5.1); Sodium 133 mmol/L (135-145); eGFR 19.61
[2024-10-16 14:30] LABS: Absolute Neutrophils -Man Diff 7.6 10^3/uL (1.4-6.5); Band Neutrophils 25 % (0-3); Carbon Dioxide 24 mmol/L (22-30); Lymphocytes 5 % (20-51); Monocytes 2 % (2-9); Segmented Neutrophils 68 % (42-75)
[2024-10-16 14:31] LABS: Normal RBC Morphology Yes; Platelets Checked Yes; Total Cells Counted 100
--- NOTE | 2024-10-16 14:34 | CM ---
Patient with Hx dementia. Room air. Receiving IV & PO Abx. PT/OT Evals pending.
Met with patient and Gracia;
the patient resides with his in a one story house with 3 YUNIOR.
He has been forgetful at home, [place] and refuses to wear his hearing aides.
The patient is assisted with ADLs by his .
She has been relying on the [facility] aide to assist him with a shower.
says that her has resisted allowing a caregiver in the home.
The patient is ambulatory for short distances with his RW and uses a commode located near his recliner that he sleeps in.
states patient fell yesterday. He has had several falls in the past (but only the one yesterday) in the past month.
DME - RW, shower chair, commode.
Current with [facility]
Prior [facility].
PCP - Michelle Rogers
Pharmacy - [facility]
CM Consult: Hospice
states patient had been on hospice service with [facility] from Feb to Sep 2024 at which time it was stopped. says she is unclear why hospice was not able to be continued.
Gracia says she thought Palliative Care was going to see him yesterday however [facility]N nurse came to the home instead.
Explained hospice philosophy & benefits. Explained SNF bed for hospice would be private pay.
is interested in having Hospice again, and would like to take him home tomorrow with Hospice. She will be working tomorrow morning until 12:30pm and could receive him home after that.
She is unsure if she would want to hire a caregiver, depending on how he does with PT/OT here.
Gracia feels patient would have difficulty traveling home via car and is asking for ambulance transport home.
Referral to [facility].
Plan follow up after seen by Hospice and PT/OT, and offer Caregiver list.
Plan probable home tomorrow with Hospice.
--- NOTE | 2024-10-16 14:54 | HOSPNOTE ---
Spoke with spouse and will follow up tomorrow about hospice care. More information to follow.
[2024-10-16] MEDS: ROCEPHIN 1000 MG IV (15:11)
[2024-10-16] MEDS: STERILE WATER FOR INJECTION 10 ML IV (15:21)
[2024-10-16] MEDS: FLUSH (NSS) 2 FLUSH IV (15:24)
--- NOTE | 2024-10-16 15:34 | PTCARENOTE ---
Patient with forgetfulness and yells out, He is easily redirected to task at hand. , tiffany at bedside and aware that pt will be transferred to 4th floor. History of stroke noticeable in assessment and left sided weakness. He was not OOB yet
today as he is being transferred at this time.
[2024-10-16] MEDS: ZETIA 10 MG PO (16:43)
[2024-10-16] MEDS: CRESTOR 40 MG PO (16:43)
[2024-10-16] MEDS: FLOMAX 0.4 MG PO (16:43)
[2024-10-16] MEDS: FIBERCON 625 MG PO (20:42)
[2024-10-16] MEDS: HEPARIN SC ×2 (20:43→20:47)
[2024-10-17 03:35] VITALS: BP 130/76
[2024-10-17 07:30] VITALS: BP 143/79
[2024-10-17] MEDS: COREG 6.25 MG PO ×2 (09:07→20:42)
[2024-10-17] MEDS: EFFEXOR 75 MG PO ×2 (09:08→20:41)
[2024-10-17] MEDS: ZITHROMAX 250 MG PO (09:08)
[2024-10-17] MEDS: ZYLOPRIM 50 MG PO (09:09)
[2024-10-17] MEDS: DESENEX/MITRAZOL/ZEASORB 1 APPLIC TOPICAL ×2 (09:10→20:42)
[2024-10-17] MEDS: HEPARIN SC (09:14)
--- NOTE | 2024-10-17 09:23 | PN.CDI ---
CDI
- -
CDI:
Physician Documentation Request
Admit Date: 10/15/24 13:17
Dear Doctor Shayy,
Patient admitted with suspected left lower lobe pneumonia.
10/16 Nursing skin assessment, 'Stage 1 right buttock pressure injury, POA.'
Physician documentation of the type and location of wounds is required for compliant documentation. Based on the above clinical findings and your assessment, please provide the following in your progress note:
Type (etiology) of ulcer/wound:
- Pressure (decubitus) ulcer
- Other
- Unable to determine
For a pressure ulcer, please also include the stage* of the ulcer:
- Stage 1 - Skin intact, non-blanchable redness
- Stage 2 - Partial thickness loss of dermis, includes intact or open blister
- Stage 3 - Full thickness tissue not including bone, tendon or muscle
- Stage 4 - Full thickness tissue loss, including exposed bone, tendon or muscle
- Unstageable - Full thickness loss in which the base of the ulcer is covered by slough (yellow, liang, azul, green or brown) and/or eschar (liang, brown or black) in the wound bed.
- Unable to determine
Use of terms such as suspected, likely, concern for, or probable (associated with a specific diagnosis that is being evaluated, monitored, or treated as if it exists) are acceptable and can be coded in the inpatient setting, when documented at the
time of discharge.
Thank you,
Cyndie ECKERT,RN,CCDS
CDI Specialist
Available via [place] text
Please use your independent medical judgment in providing your response.
*Source: National Pressure Ulcer Advisory Panel (NPUAP)
[2024-10-17 09:26] LABS: Hematocrit 25.1 % (39.0-52.0); Hemoglobin 8.1 g/dL (13.0-18.0); Mean Corp Hgb Conc. 32.3 g/dL (33.0-37.0); Mean Corpuscular Hgb 34.2 pg (27.0-31.0); Mean Corpuscular Volume 105.9 fL (80.0-94.0); Mean Platelet Volume 10.2 fL (7.4-10.4); Platelet Count 107 10^3/uL (130-400); Red Blood Cell Count 2.37 10^6/uL (4.70-6.10); Red Cell Dist. Width 16.1 % (11.5-14.5); White Blood Cell Count 7.9 10^3/uL (4.8-10.8)
[2024-10-17 09:27] VITALS: BMI 34.8
[2024-10-17 09:50] LABS: Blood Urea Nitrogen 83 mg/dl (9-20); Carbon Dioxide 23 mmol/L (22-30); Chloride 101 mmol/L (98-107); Estimated Creatinine Clearance 23 ml/min; Glucose 130 mg/dl (70-99); Potassium 4.1 mmol/L (3.5-5.1); Sodium 134 mmol/L (135-145); eGFR 22.26
[2024-10-17 10:22] LABS: % Basophils 0.5 % (0-2); % Eosinophils 0.9 % (0-6); % Immature Granulocytes 2.8 % (0-0.5); % Lymphocytes 11.7 % (20.5-51.1); % Monocytes 7.5 % (1.7-9.3); % Neutrophils 76.6 % (42.2-75.2); Absolute Eosinophils 0.1 10^3/uL (0-0.7); Absolute Immature Granulocytes 0.2 10^3/uL (0-0.05); Absolute Lymphocytes 0.9 10^3/uL (1.2-3.4); Absolute Monocytes 0.6 10^3/uL (0.1-0.6); Nucleated Red Blood Cells % 0 % (-)
[2024-10-17 11:00] VITALS: BP 124/65
--- NOTE | 2024-10-17 11:37 | PTOTSP ---
ST Follow-Up
Pt currently presents with fairly functional oropharyngeal and esophageal swallowing parameters. Pt is at an elevated risk for aspiration given his hx of CVA with residual L sided deficits, hx dementia, and current increased RR.
Recommendations:
- Upgrade diet to REGULAR SOLIDS, and continue with thin liquids with meds as tolerated.
- Continue with aspiration precautions: OOB or fully upright/neutralized in bed for all PO intake; encourage pt to eat/drink slowly; small bites/sips; alternate bites/sips.
- [employer] OPERATOR to f/u re: diet tolerance and to determine whether or not pt would benefit from an instrumental swallow study.
--- NOTE | 2024-10-17 12:02 | W.ICD.INACTI ---
ICD Device Inactivated
-
The patient's ICD device has been inactivated by the vendor.
[2024-10-17 12:38] VITALS: BP 103/49; PULSE 85; O2SAT 93
--- NOTE | 2024-10-17 13:32 | CM ---
Chart reviewed and patient [facility], patient was referred to [facility] but per notes patient had hospice till September and hospice stopping following patient in September. assistant grocery store manager reached out to [facility] to review plan for patient.
Plan; To await update and plan from [facility].
[2024-10-17] MEDS: ROCEPHIN 1000 MG IV (14:07)
[2024-10-17] MEDS: STERILE WATER FOR INJECTION 10 ML IV (14:08)
--- NOTE | 2024-10-17 14:37 | HOSPNOTE ---
Met with patient and spouse. The plan is for patient to complete the IV antibiotics and go home with hospice services on Thursday 10/18. Transport will be needed and OOH DNR needed on chart. Attending and CM aware of plan.
[2024-10-17 15:00] VITALS: BP 149/72
--- NOTE | 2024-10-17 15:08 | W.PN.HOSP.TC ---
Addendum entered and electronically signed by Sherwin Lucas MD 10/22/24 17:19:
Stage 1 right buttock pressure injury, POA.'
Original Note:
Today's Communication/Plan
-
Regular consistency diet
Resume Lasix and antihypertensive
Consolidate antibiotics to oral.
Hospice consultation with plan to discharge home with hospice.
AICD deactivated
Assessment / Plan
Assessment / Plan
IMPRESSION:
Acute hypoxic respiratory failure.
� Presents with hypoxia and pulse ox of 84% on room air.
Suspected left lower lobe pneumonia, community-acquired versus aspiration
YOANDY on CKD stage IV
Hypotension with concern for evolving sepsis
Conditions prior to admission:
Chronic CHF reduced EF
AICD since 2021
CAD with stents
Aortic stenosis
COPD
CKD stage IV.
Chronic pancytopenia
Hypertension.
History of CVA with residual left field cut.
Known IDDM by history currently not on glucose lowering medications.
Obstructive sleep apnea
Morbid obesity with BMI of 34.
Status post left renal tumor resection.
Multiple myeloma by history.
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
PLAN:
Acute hypoxic respiratory failure most likely secondary to aspiration versus community-acquired pneumonia.
Chest x-ray with left lower lobe consolidation possibly small pleural effusion
Speech and swallow evaluation appreciated.
Swallowing function improved and diet advanced to regular.
CT of the head with no new abnormalities, findings consistent with old CVA
Improved hemodynamics and stable respiratory status antibiotics will be consolidated to Augmentin to complete 5 to 7-day course of treatment
Sepsis secondary to aspiration pneumonia and hypotension responded to IV fluid bolus.
YOANDY on CKD stage IV.
Creatinine improving from 3.4 down to 2.7 (baseline.
Resume Lasix and antihypertensives
Follow BMP
Monitor for retention
Chronic CHF reduced EF
Echo 11/08/23:�Dilated cardiomyopathy, LVEF of 30%, right-sided ICD, dilated left atrium, mild to moderate aortic stenosis, peak and mean transaortic gradients of 15/8 mmHg, DVI of 0.4.� No pericardial effusion.
No clear evidence for volume overload or decompensated CHF
Resume cardiovascular regimen along with diuretics
AICD has been deactivated on 10/18 in preparation for hospice care.
COPD with no evidence of exacerbation.
Dementia suspected vascular type
History of CVA.
Continue with loxapine
CODE STATUS DNR.
DVT prophylaxis heparin
Goals of care discussion with patient and patient's at the bedside on 10/16.
Patient is 84 years old with advanced heart failure status post CVA with aspiration syndrome, progressive deterioration in terms of activities of daily living, progressive ambulatory dysfunction with fall risk recently on hospice that was revoked in
favor of palliative care. Shortly after hospitalized with acute hypoxic respiratory failure and aspiration pneumonia. Patient and wishing him to remain at home under hospice care.
Hospice consultation
Asking cardiology to deactivate AICD.
Anticipated Discharge: 24 - 48 hours
Subjective/Interval History
-
Date of Service: October 17, 2024
Objective Data
-
Labs:
Laboratory Results
10/17/24
08:35
WBC 7.9
Hgb 8.1 L
Hct 25.1 L
Plt Count 107 L
Sodium 134 L
Potassium 4.1
Chloride 101
Carbon Dioxide 23
BUN 83 H
Creatinine 2.7 H
Glucose 130 H
Calcium 9.0
Vital Signs:
Vital Signs
Temp Pulse Resp BP Pulse Ox
98.8 F 90 20 124/65 96
10/17/24 11:00 10/17/24 11:00 10/17/24 11:00 10/17/24 11:00 10/17/24 11:00
I&O
10/16/24 10/17/24 10/18/24
06:59 06:59 06:59
Intake Total 720 / 720
Output Total 500 / 500 800 / 800
Balance -500 / -500 -80 / -80
Physical Exam
-
General: No Apparent Distress
HEENT: Moist Mucous Membranes
Respiratory: Wheezes
Cardiac: Regular Rhythm and S1/S2; Negative Tachycardic
GI: Soft
Neuro: AO x 3
Psych: Calm; Negative Confused
[2024-10-17] MEDS: CRESTOR 40 MG PO (17:24)
[2024-10-17] MEDS: LASIX 40 MG PO (17:24)
[2024-10-17] MEDS: ZETIA 10 MG PO (17:24)
[2024-10-17] MEDS: FLOMAX 0.4 MG PO (17:24)
[2024-10-17 18:16] VITALS: BMI 34.7
[2024-10-17] MEDS: AUGMENTIN 500 MG/125 MG 1 TABLET PO (20:41)
[2024-10-17] MEDS: FIBERCON 625 MG PO (20:41)
[2024-10-17] MEDS: HEPARIN 5000 UNITS SC (20:41)
--- NOTE | 2024-10-17 21:30 | STATUS ---
Pt pulled cord in bathroom for assistance back to bed. While walking, Pt fell backwards suddenly -- with LOC. RN tried to keep Pt upright, however was unsuccessful. RN guided Pt gently toward ground, Pt did not hit head. Pt not responsive to
verbal stimuli; with no heart rate or respirations. Rapid response team called. Patient is pronounced --- Time of : 21:21
--- NOTE | 2024-10-17 22:04 | W.PN.DEATH ---
Pronouncement of
-
Called to see patient to pronounce.
No spontaneous heart tones or respirations noted.
Patient not responsive to verbal stimuli.
Patient is pronounced .
Time of : 21:21
Date of : 10/17/24
Cause of : cardiac arrest
Family Notified: Yes (notified spouse over the phone REMINGTON CLEMENTE)
--- NOTE | 2024-10-17 23:20 | STATUS ---
SITUATION:
BACKGROUND:
ASSESSMENT:
RECOMMENDATION:
== END 2024-10-17 21:21 | disposition expired | DRG 871 ==
LOC: 4 WEST ACU 13:17
PROVIDERS: ADMITTING PHYSICIAN Internal Medicine; EMERGENCY PHYSICIAN Emergency Medicine; FAMILY PHYSICIAN Physician Assistant
DX: A41.9 Sepsis, unspecified organism (principal); J18.9 Pneumonia, unspecified organism; J96.01 Acute respiratory failure with hypoxia; J69.0 Pneumonitis due to inhalation of food and vomit; N17.9 Acute kidney failure, unspecified; N18.4 Chronic kidney disease, stage 4 (severe); I13.0 Hypertensive heart and chronic kidney disease with heart failure and stage 1 through stage 4 chronic kidney disease, or unspecified chronic kidney disease; Z66 Do not resuscitate; Z51.5 Encounter for palliative care; I42.0 Dilated cardiomyopathy; I50.22 Chronic systolic (congestive) heart failure; D61.818 Other pancytopenia; J44.0 Chronic obstructive pulmonary disease with (acute) lower respiratory infection; E11.22 Type 2 diabetes mellitus with diabetic chronic kidney disease; E66.01 Morbid (severe) obesity due to excess calories; E78.00 Pure hypercholesterolemia, unspecified; I95.9 Hypotension, unspecified; L89.311 Pressure ulcer of right buttock, stage 1; F01.50 Vascular dementia, unspecified severity, without behavioral disturbance, psychotic disturbance, mood disturbance, and anxiety; F17.290 Nicotine dependence, other tobacco product, uncomplicated; G47.33 Obstructive sleep apnea (adult) (pediatric); I25.10 Atherosclerotic heart disease of native coronary artery without angina pectoris; I35.0 Nonrheumatic aortic (valve) stenosis; I46.9 Cardiac arrest, cause unspecified; Z95.5 Presence of coronary angioplasty implant and graft; Z86.73 Personal history of transient ischemic attack (TIA), and cerebral infarction without residual deficits; Z95.810 Presence of automatic (implantable) cardiac defibrillator; Z68.34 Body mass index [BMI] 34.0-34.9, adult; Z79.899 Other long term (current) drug therapy; Z11.52 Encounter for screening for COVID-19
CPT/HCPCS: 70450; 71045; 80048; 80053; 81003; 82805; 82962; 83735; 83880; 85025; 87070; 87502; 87807; 87811; 92526; 92610; 94640; 96365; 96375; 97163; 97166; 99285